=== PATIENT | male | born 1935 | race Caucasian/White ===

== ENCOUNTER 2019-08-07 17:48 | Observation (INO) | payer MEDICARE, SELFPAY ==
--- NOTE | ~2019-08-07 | CT_ITS ---
EXAMINATION: CT abdomen pelvis w con EXAM DATE: 08/07/2019 21:28 INDICATION: Feeding from Cordova catheter. TECHNIQUE: Spiral CT of the abdomen and pelvis was performed following intravenous injection of 100 m L Omnipaque 350. Axial, coronal and sagittal images were reviewed. The dose-length product (DLP) fo r this examination was 643.03 mGy-cm. The exposure was tailored according to patient size (auto mA e xposure control), and iterative reconstruction (ASIR) was used as additional dose reduction technique . Comparison is made to prior examination from 09/14/2018. FINDINGS: The liver, spleen, adrenal glands and pancreas are unremarkable. Gallbladder is unremarkab le. No biliary obstruction. There is a Cordova catheter within the bladder which is surrounded by hem atoma. There is severe bladder wall trabeculation, moderate diffuse bladder wall thickening and exten sive bladder diverticulosis. There is inflammation surrounding the bladder. There is moderate bilater al hydroureter and moderate right-sided hydronephrosis. There is mild prostatomegaly. There is no re troperitoneal or pelvic lymphadenopathy. There is moderate scattered arteriosclerotic disease. The appendix is not positively visualized. There is no pericecal inflammatory change to suggest appe ndicitis. Diffusely prominent gastric wall thickening along the body and cardia unchanged. Reported ly this was previously evaluated by endoscopy, demonstrating gastritis. There is moderate amount of colonic stool. No free intraperitoneal gas. The heart is normal in size. There are no pericardia l or pleural effusions. The lung bases are unremarkable. There are no osteoblastic or osteolytic le sions identified. IMPRESSION: 1. Large blood clot surrounding Cordova catheter balloon and tip. Moderate bilateral hydroureter, righ t hydronephrosis. 2. Extensive bladder diverticulosis, trabeculation, inflammation. 3. Diffusely thickened gastric body and cardia wall unchanged, could be chronic gastritis. 4. Moderate colonic stool. 5. Mild prostatomegaly. Reviewed, dictated and finalized at location A. IS COUNSELOR IMPRESSION: 1. Large blood clot surrounding Cordova catheter balloon and tip. Moderate bilat eral hydroureter, right hydronephrosis. 2. Extensive bladder diverticulosis, trabeculation, inflammation. 3. Diffusely thickened gastric body and cardia wall unchanged, could be chroni c gastritis. 4. Moderate colonic stool. 5. Mild prostatomegaly.
[2019-08-07 17:48] VITALS: BP 124/89; PULSE 89; RESP 20; TEMP 36.2; O2SAT 100
--- NOTE | 2019-08-07 18:06 | ED.MALEGU ---
HPI - Male Genitourinary General Chief complaint: Urogenital-Male Stated complaint: BLEEDING FROM BARAJAS Time Seen by Provider: 08/07/19 18:04 Source: patient and RN notes reviewed Mode of arrival: ambulatory Limitations: no limitations History of Present Illness HPI Narrative: Pt is a 84 y/o male with a Hx of BPH, who presents to the ED with c/o hematuria starting yesterday. He notes that he had a Barajas catheter placed roughly 3 weeks ago due to him retaining urine. Pt states that he noticed blood in the urine draining from the catheter yesterday. He denies any dysuria, fever, or chills. Pt states that he currently takes ASA 81 mg. MD Complaint: other (Hematuria) Onset (ago): day(s) (1) Context: indwelling catheter (Barajas catheter) Associated symptoms: Reports denies other symptoms Related Data Home Medications Medication Instructions Recorded Confirmed aspirin 81 mg tablet,delayed 81 mg PO DAILY 07/17/19 release atorvastatin 20 mg tablet 20 mg PO DAILY 07/17/19 calcium polycarbophil 625 mg tablet 1,250 mg PO DAILY 07/17/19 multivitamin 1 tablet PO DAILY 07/17/19 nystatin-triamcinolone 100,000 1 applic TOPICAL BID 07/17/19 unit/g-0.1 % topical cream tamsulosin 0.4 mg capsule 0.8 mg PO DAILY cap 07/17/19 07/17/19 Allergies Allergy/AdvReac Type Severity Reaction Status Date / Time Penicillins Allergy Unknown unknown Verified 08/07/19 17:57 tetanus and diphtheria Allergy Unknown Unknown Verified 08/07/19 17:57 toxoids Tetanus Vaccines and Toxoid Allergy Unknown Unknown Verified 08/07/19 17:57 Review of Systems Review of Systems: All systems reviewed & are unremarkable except as noted in HPI and below Constitutional: Constitutional: Denies chills and Denies fever(s) Genitourinary: Genitourinary: Reports hematuria and Denies dysuria PMFSH Past Medical History Medical History Back pain Benign essential hypertension Benign prostatic hyperplasia with urinary frequency BMI 30.0-30.9,adult Gastroesophageal reflux disease without esophagitis Hx of colonic polyp Inguinal hernia Mixed hyperlipidemia Primary osteoarthritis involving multiple joints Seasonal allergies Spinal stenosis Type 2 diabetes mellitus without complication, without long-term current use of insulin Surgical History Surgical History History of bilateral knee replacement Hx of inguinal hernia repair Hx of tonsillectomy Family History Family History (Updated 10/10/18 @ 14:17 by DOCTOR UNKNOWN) Father Malignant neoplasm of prostate, Onset Age: 89 Family history of malignant neoplasm Patient's father is , Onset Age: 89 Mother Family history of arthritis Family history of heart disease in male family member before age 55 Patient's mother is , Onset Age: 47 Sibling Family history of malignant neoplasm of urinary bladder Other Diabetes mellitus Family history of cardiovascular disease Hypertension Social History Social History Smoking status: Former smoker Smoking end date: 08/08/88 Alcohol intake: current Comments PCP is Dr. Iverson. Exam Narrative: Exam Narrative: APPEARANCE: No acute distress, nontoxic, resting in bed EYES: EOMI HEENT: Normocephalic, atraumatic, OMM RESPIRATORY: No respiratory distress Clear to auscultation bilaterally with no rhonchi wheezing or rales. CARDIOVASCULAR: Regular rate and rhythm without murmurs rubs or gallops. ABDOMINAL: Soft, nontender, nondistended, no rebound or guarding : Barajas catheter in place draining dark red blood as well as blood coming around Barajas MUSCULOSKELETAl: Moves all extremities. No clubbing, cyanosis or edema. NEURO: Awake and alert. Following commands, speech normal, no focal deficits SKIN:: Warm, dry. No rashes lesions or abrasions PSYCHIATRIC: Normal affect/mood,
[2019-08-07 18:59] LABS: Basophils Percent Auto 0.5 % (0.2-1.2); Eosinophils Absolute Auto 0.1 K/mm3 (0-0.3); Eosinophils Percent Auto 1.5 % (0-4.4); Hematocrit 35.2 % (42.0-52.0); Hemoglobin 11.4 g/dL (14.0-18.0); Immature Granulocyte Absolute 0.03 K/mm3 (0.00-0.031); Immature Granulocyte Percent A 0.4 % (0-0.5); Lymphocytes Absolute Auto 2.74 K/mm3 (0.9-3.2); Mean Corpuscular HGB Conc 32.4 g/dl (32-36); Mean Corpuscular Volume 83.4 fl (80-100); Mean Platelet Volume 9.8 fl (7.4-10.4); Monocytes Percent Auto 11.8 % (2.6-8.5); Neutrophils Absolute Auto 4.2 K/mm3 (1.3-6.7); Neutrophils Percent Auto 51.8 % (45.5-73.1); Platelet Count Result 268 k/mm3 (150-375); Red Blood Count 4.22 M/mm3 (4.6-6.20); Red Cell Distribution Width 13.4 % (11.5-14.5); White Blood Count 8.1 K/mm3 (4.5-10.0)
[2019-08-07 19:12] LABS: Partial Thromboplastin Time 33.4 SECONDS (22.3-36.8); Prothrombin Time 13.2 Seconds (11.1-14.7)
[2019-08-07 19:40] LABS: Add Urine Microscopic? YES; Appearance Urine Cloudy (Clear); Bilirubin Urine Negative (Negative); Blood Urine 3+ (Negative); Color Urine Yellow (Yellow); Glucose Urine UA Negative (Negative); Ketones Urine Trace mg/dL (Negative); Leukocyte Esterase Ur 1+ LEU/UL (Negative); Nitrate Urine Negative (Negative); Protein Urine 3+ mg/dL (Negative); RBC Urine >75 /hpf (0-2); Urobilinogen Urine Negative mg/dL (<2.0); WBC Urine 21-30 /hpf
[2019-08-07] MEDS: LIDOCAINE HCL 2% GEL UROJET 10 ML PKG MUCOUS MEM (19:40)
[2019-08-07 20:54] LABS: Alanine Aminotransferase 39 U/L (4-50); Alkaline Phosphatase 83 U/L (38-126); Aspartate Amino Transferase 31 U/L (17-59); Bilirubin,Total 0.4 mg/dL (0.2-1.3); Blood Urea Nitrogen 19 mg/dL (9-20); Calcium 9.1 mg/dL (8.4-10.2); Carbon Dioxide 23 mmol/L (22-30); Chloride 98 mmol/L (98-107); Estimated CRCL calculation 45 ml/min; Estimated Glomerular Filt Rate > 60; Glucose 119 mg/dL (75-110); Potassium 4.1 mmol/L (3.4-5.0); Sodium 134 mmol/L (137-145)
[2019-08-07 21:39] LABS: Hematocrit 33.9 % (42.0-52.0); Hemoglobin 10.9 g/dL (14.0-18.0)
--- NOTE | 2019-08-07 21:55 | PC.NURSE ---
Dr. Fox notified that 24 Kazakh 3-way catheter continues to clot off despite CBI running at full fluid speed. Multiple large clots irrigated out but catheter continues to clot and SAULO Johnson and myself are unable to get anymore clots or fluid out of catheter. Ruthie, charge nurse, and Dr. Fox informed that pt has had increasing pain in the bladder area when catheter clots off and that it happens quickly, so pt may not be appropriate for med-surg floor. Ruthie and Dr. Fox stated that it didn't matter and that the pt was going there anyway. 3-way of size 20 had also clotted off and been removed and replaced by 24 Kazakh catheter which continues to be clotted off.
--- NOTE | 2019-08-07 22:36 | WPDANESEPP ---
Anes - Eval Pre Procedure Procedure: Clot evacuation Date/Time: 08/07/19 22:36 Surgeon: Estella Pre Op Diagnosis: hematuria uti Patient Data Age: 84 Gender: M Height: 1.75 m Weight: 81.4 kg Last Vital Signs Temp 36.2 C L 08/07/19 17:48 Pulse 89 08/07/19 17:48 Resp 20 08/07/19 17:48 BP 124/89 08/07/19 17:48 Pulse Ox 100 08/07/19 17:48 Allergies Allergy/AdvReac Type Severity Reaction Status Date / Time Penicillins Allergy Unknown unknown Verified 08/07/19 17:57 tetanus and diphtheria Allergy Unknown Unknown Verified 08/07/19 17:57 toxoids Tetanus Vaccines and Toxoid Allergy Unknown Unknown Verified 08/07/19 17:57 Home Medications Medication Instructions Recorded Confirmed Type metformin 500 mg tablet 500 mg PO BID #180 tablet 07/09/19 Rx aspirin 81 mg tablet,delayed 81 mg PO DAILY 07/17/19 History release atorvastatin 20 mg tablet 20 mg PO DAILY 07/17/19 History calcium polycarbophil 625 mg tablet 1,250 mg PO DAILY 07/17/19 History finasteride 5 mg tablet 5 mg PO DAILY #90 tablet 07/17/19 07/17/19 Rx multivitamin 1 tablet PO DAILY 07/17/19 History nystatin-triamcinolone 100,000 1 applic TOPICAL BID 07/17/19 History unit/g-0.1 % topical cream omeprazole 40 mg capsule,delayed 40 mg PO BID #180 cap 07/17/19 07/17/19 Rx release tamsulosin 0.4 mg capsule 0.8 mg PO DAILY cap 07/17/19 07/17/19 History potassium chloride 20 mEq 20 meq PO BID #180 tablet 07/27/19 Rx tablet,extended release amlodipine 10 mg-valsartan 320 1 tablet PO DAILY #90 tablet 07/30/19 Rx mg-hydrochlorothiazide 25 mg tablet Laboratory Tests 08/07/19 08/07/19 08/07/19 18:46 18:46 18:52 WBC 8.1 K/mm3 K/mm3 (4.5-10.0) RBC 4.22 M/mm3 L M/mm3 (4.6-6.20) Hgb 11.4 g/dL L g/dL (14.0-18.0) Hct 35.2 % L % (42.0-52.0) MCV 83.4 fl fl (80-100) MCH 27.0 pg pg (26-34) MCHC 32.4 g/dl g/dl (32-36) RDW 13.4 % % (11.5-14.5) Plt Count 268 k/mm3 k/mm3 (150-375) MPV 9.8 fl fl (7.4-10.4) Immature Gran % (Auto) 0.4 % % (0-0.5) Neut % (Auto) 51.8 % % (45.5-73.1) Lymph % (Auto) 34.0 % % (18.3-44.2) [place] % (Auto) 11.8 % H % (2.6-8.5) Eos % (Auto) 1.5 % % (0-4.4) Baso % (Auto) 0.5 % % (0.2-1.2) Lymph # (Auto) 2.74 K/mm3 K/mm3 (0.9-3.2) [place] # (Auto) 1.0 K/mm3 H K/mm3 (0.1-0.6) Eos # (Auto) 0.1 K/mm3 K/mm3 (0-0.3) Baso # (Auto) 0.0 K/mm3 K/mm3 (0.0-0.1) Abs Immat Gran (auto) 0.03 K/mm3 K/mm3 (0.00-0.031) Absolute Neuts (auto) 4.2 K/mm3 K/mm3 (1.3-6.7) Absolute Nucleated RBC 0.0 K/mm3 K/mm3 (0.0-0.012) Nucleated RBC % 0.0 % % (0.0-0.2) PT 13.2 Seconds Seconds (11.1-14.7) INR 1.0 APTT 33.4 SECONDS SECONDS (22.3-36.8) Sodium Potassium Chloride Carbon Dioxide BUN Creatinine Estim Creat Clear Calc Estimated GFR Glucose Calcium Total Bilirubin AST ALT Alkaline Phosphatase Total Protein Albumin Urine Color Yellow (Yellow) Urine Appearance Cloudy H (Clear) Urine pH 7.0 (5.0-9.0) Ur Specific [place] 1.010 (1.001-1.035) Urine Protein 3+ mg/dL H mg/dL (Negative) Urine Glucose (UA) Negative mg/dL mg/dL (Negative) Urine Ketones Trace mg/dL mg/dL (Negative) Ur Blood (Man) 3+ H (Negative) Urine Nitrate Negative (Negative) Urine Bilirubin Negative (Negative) Urine Urobilinogen Negative mg/dL mg/dL (<2.0) Leukocyte Esterase Rfl 1+ JOESPH/UL H JOESPH/UL (Negative) Urine RBC >75
[2019-08-07] MEDS: LACTATED RINGERS 1,000 ML 30 ML IV CONT (23:00)
--- NOTE | 2019-08-07 23:20 | WPDANESEFPP ---
Anes - Eval Final PreProcedure Day of Procedure 08/07/19 23:20 Patient weight: overweight Heart: regular rate and rhythm Lungs: clear to auscultation and normal air movement Airway: Mallampati scale class II Neurological: alert and oriented Last oral intake: >/= 8 hours ASA classification: III Emergent: no Anesthetic plan: proceed Anesthesia type and monitoring: general LMA Informed Consent: The patient's anesthetic plan and its attendant risks and benefits were discussed with the patient/family/POA. Questions were solicited and answers provided to the satisfaction of the patient/family/POA.
--- NOTE | 2019-08-07 23:28 | WPDURCON ---
Assessment and Plan Assessment and plan (1) Hematuria: Code(s): R31.9 - Hematuria, unspecified Status: Acute Assessment and Plan: Plan to OR for cysto and clot evacuation. He has been in retention for last few weeks with large PVR. (2) UTI (urinary tract infection): Code(s): N39.0 - Urinary tract infection, site not specified Status: Acute Assessment and Plan: On Levaquin (3) Benign prostatic hyperplasia with urinary frequency: Code(s): N40.1 - Benign prostatic hyperplasia with lower urinary tract symptoms; R35.0 - Frequency of micturition Status: Acute Assessment and Plan: Large prostate and bilateral hydro. Cr Ok and likely reflux with bladder full of clots. Urology Consult Note HPI Date Seen: 08/08/19 Requesting Physician: Cristina Walls DO Primary Care Provider: Mik Little MD Consult Narrative Narrative: Torie Hebert is a 84 year old male Review of Systems Genitourinary: Genitourinary: Reports hematuria and Denies oliguria Comments: Retention with george--today with clots and CT with bilateral hydro and clot retention PMFSH Past Medical History Medical History Back pain Benign essential hypertension Benign prostatic hyperplasia with urinary frequency BMI 30.0-30.9,adult Gastroesophageal reflux disease without esophagitis Hx of colonic polyp Inguinal hernia Mixed hyperlipidemia Primary osteoarthritis involving multiple joints Seasonal allergies Spinal stenosis Type 2 diabetes mellitus without complication, without long-term current use of insulin Surgical History Surgical History History of bilateral knee replacement Hx of inguinal hernia repair Hx of tonsillectomy Family History Family History (Updated 10/10/18 @ 14:17 by DOCTOR UNKNOWN) Father Malignant neoplasm of prostate, Onset Age: 89 Family history of malignant neoplasm Patient's father is , Onset Age: 89 Mother Family history of arthritis Family history of heart disease in male family member before age 55 Patient's mother is , Onset Age: 47 Sibling Family history of malignant neoplasm of urinary bladder Other Diabetes mellitus Family history of cardiovascular disease Hypertension Social History Social History Smoking status: Former smoker Smoking end date: 08/08/88 Alcohol intake: current Meds Home Medications and Allergies Home Medications Medication Instructions Recorded Confirmed Type metformin 500 mg tablet 500 mg PO BID #180 tablet 07/09/19 Rx aspirin 81 mg tablet,delayed 81 mg PO DAILY 07/17/19 History release atorvastatin 20 mg tablet 20 mg PO DAILY 07/17/19 History calcium polycarbophil 625 mg tablet 1,250 mg PO DAILY 07/17/19 History finasteride 5 mg tablet 5 mg PO DAILY #90 tablet 07/17/19 07/17/19 Rx multivitamin 1 tablet PO DAILY 07/17/19 History nystatin-triamcinolone 100,000 1 applic TOPICAL BID 07/17/19 History unit/g-0.1 % topical cream omeprazole 40 mg capsule,delayed 40 mg PO BID #180 cap 07/17/19 07/17/19 Rx release tamsulosin 0.4 mg capsule 0.8 mg PO DAILY cap 07/17/19 07/17/19 History potassium chloride 20 mEq 20 meq PO BID #180 tablet 07/27/19 Rx tablet,extended release amlodipine 10 mg-valsartan 320 1 tablet PO DAILY #90 tablet 07/30/19 Rx mg-hydrochlorothiazide 25 mg tablet Allergies Allergy/AdvReac Type Severity Reaction Status Date / Time Penicillins Allergy Unknown unknown Verified 08/07/19 17:57 tetanus and diphtheria Allergy Unknown Unknown Verified 08/07/19 17:57 toxoids Tetanus Vaccines and Toxoid Allergy Unknown Unknown Verified 08/07/19 17:57 Vital Signs Vital Signs - 24 hr 08/07/19 17:48 Temperature 36.2 C L Pulse Rate 89 Respiratory Rate 20 Blood Pressure 124/89 P
[2019-08-08] VITALS (10 sets, daily range): BP systolic 103–134; BP diastolic 59–93; PULSE 68–89; RESP 12–20; TEMP 36.2–37; O2SAT 98–100
[2019-08-08 01:03] LABS: Glucose Point of Care 115 (65-105)
--- NOTE | 2019-08-08 02:51 | ADMGEN ---
This patient, Torie Hebert, was admitted to [facility] Surg Room 303-01. Patient/family oriented to hospital policies and general routines including ID bracelet, bed and alarms, visiting hours, pain management, procedures, bathroom and other care routines, personal items, smoking policy, room service/diet, and visiting hours. Valuables list has been completed. Information on how to activate the Rapid Response Team has been discussed. Patient/Family are encouraged to report perceived risks to care and to ask questions if they do not understand what they are told or what they should do.
[2019-08-08 06:31] LABS: Basophils Percent Auto 0.1 % (0.2-1.2); Hematocrit 33.4 % (42.0-52.0); Immature Granulocyte Absolute 0.03 K/mm3 (0.00-0.031); Immature Granulocyte Percent A 0.3 % (0-0.5); Lymphocytes Absolute Auto 1.42 K/mm3 (0.9-3.2); Lymphocytes Percent Auto 15.8 % (18.3-44.2); Mean Corpuscular HGB Conc 32.9 g/dl (32-36); Mean Corpuscular Hemoglobin 26.9 pg (26-34); Mean Corpuscular Volume 81.7 fl (80-100); Mean Platelet Volume 9.8 fl (7.4-10.4); Monocytes Absolute Auto 0.2 K/mm3 (0.1-0.6); Monocytes Percent Auto 2.3 % (2.6-8.5); Neutrophils Absolute Auto 7.3 K/mm3 (1.3-6.7); Neutrophils Percent Auto 81.5 % (45.5-73.1); Platelet Count Result 268 k/mm3 (150-375); Red Blood Count 4.09 M/mm3 (4.6-6.20); Red Cell Distribution Width 13.2 % (11.5-14.5)
[2019-08-08 06:56] LABS: Alanine Aminotransferase 34 U/L (4-50); Albumin Level 3.7 g/dL (3.5-5.1); Alkaline Phosphatase 66 U/L (38-126); Aspartate Amino Transferase 25 U/L (17-59); Bilirubin,Total 0.3 mg/dL (0.2-1.3); Blood Urea Nitrogen 16 mg/dL (9-20); Carbon Dioxide 23 mmol/L (22-30); Chloride 100 mmol/L (98-107); Estimated CRCL calculation 55 ml/min; Estimated Glomerular Filt Rate > 60; Glucose 156 mg/dL (75-110); Potassium 4.3 mmol/L (3.4-5.0); Sodium 134 mmol/L (137-145)
[2019-08-08 10:16] LABS: Hematocrit 31.9 % (42.0-52.0); Hemoglobin 10.3 g/dL (14.0-18.0)
--- NOTE | 2019-08-08 13:46 | PM.IMHP ---
H&P: HPI History of Present Illness Chief complaint: hematuria uti Narrative: Date of visit 08/08/2019. figueroa Hebert is a 84 year old male with hypertension and diabetes indwelling Cordova secondary to urinary retention with BPH admitted with larisa hematuria. It was painless. He had no fever no chills. CT revealed clots and evidence of some hydro and was taken to the OR for evacuation of clots and is now receiving bladder irrigation. No specific complaints. Cordova originally placed some 3 weeks ago for urinary retention Review of Systems Review of Systems: Narrative: Constitutional weight is steady, appetite good, no fever or chills Eyes no double vision or scotoma Mouth of pharyngitis laryngitis Lungs no wheezing or cough CV no chest pain or palpitation GI no melena hematochezia has history of colon polyps as per present illness Muscle skeletal no particular joint discomfort Integument no skin breakdown rashes Neuro psych history of peripheral neuropathy The remainder review of systems if not documented here were evaluated and found to be negative PMFSH Past Medical History Medical History Back pain Benign essential hypertension Benign prostatic hyperplasia with urinary frequency BMI 30.0-30.9,adult Gastroesophageal reflux disease without esophagitis Hx of colonic polyp Inguinal hernia Mixed hyperlipidemia Primary osteoarthritis involving multiple joints Seasonal allergies Spinal stenosis Type 2 diabetes mellitus without complication, without long-term current use of insulin Surgical History Surgical History History of bilateral knee replacement Hx of inguinal hernia repair Hx of tonsillectomy Social History Social History Smoking status: Former smoker Tobacco type: cigarettes Smoking end date: 08/12/84 Alcohol intake: never Substance use: never Gender identity (if verbalized by the patient): Male Spiritual care concerns: No Agree to blood products: Yes Meds Home Medications and Allergies Home Medications Medication Instructions Recorded Confirmed Type aspirin 81 mg tablet,delayed 81 mg PO DAILY 07/17/19 08/08/19 History release atorvastatin 20 mg tablet 20 mg PO DAILY 07/17/19 08/08/19 History calcium polycarbophil 625 mg tablet 1,250 mg PO DAILY 07/17/19 08/08/19 History multivitamin 1 tablet PO DAILY 07/17/19 08/08/19 History omeprazole 40 mg capsule,delayed 40 mg PO BID #180 cap 07/17/19 08/08/19 Rx release tamsulosin 0.4 mg capsule 0.4 mg PO BID cap 07/17/19 08/08/19 History amlodipine 10 mg-valsartan 320 1 tablet PO DAILY #90 tablet 07/30/19 08/08/19 Rx mg-hydrochlorothiazide 25 mg tablet finasteride [Proscar] 5 mg PO DAILY 08/08/19 08/08/19 History metformin [Glucophage] 500 mg PO BID 08/08/19 08/08/19 History potassium chloride [K-Tab] 20 meq PO BID 08/08/19 08/08/19 History Allergies Allergy/AdvReac Type Severity Reaction Status Date / Time Penicillins Allergy Unknown unknown Verified 08/07/19 17:57 tetanus and diphtheria Allergy Unknown Unknown Verified 08/07/19 17:57 toxoids Tetanus Vaccines and Toxoid Allergy Unknown Unknown Verified 08/07/19 17:57 Vital Signs Vital Signs - 24 hr 08/07/19 17:48 08/08/19 00:06 08/08/19 00:20 Temperature 36.2 C L 36.2 C L Pulse Rate 89 89 80 Respiratory Rate 20 14 12 Blood Pressure 124/89 107/93 H 117/78 Pulse Oximetry 100 100 100 08/08/19 00:35 08/08/19 00:50 08/08/19 01:06 Temperature Pulse Rate 78 68 68 Respiratory Rate 12 12 15 Blood Pressure 123/82 123/82 124/78 Pulse Oximetry 100 100 99 08/08/19 01:21 08/08/19 01:55 08/08/19 06:00 Temperature 36.3 C L 36.4 C L Pulse Rate 70 79 86 Respiratory Rate 14 16 16 Blood Pressure 124/86 134/86 115/79 Pulse Oximetry 100 100 98 Exam Narrative: Exam Narrative: Blood pressure 116/ 80 puls
[2019-08-08] MEDS: AMLODIPINE BESYLATE 5 MG TABLET 10 MG PO (14:34)
--- NOTE | 2019-08-08 14:46 | WPDUROPN2 ---
Progress Note: A&P Assessment and Plan (1) UTI (urinary tract infection): Code(s): N39.0 - Urinary tract infection, site not specified Status: Acute Assessment and Plan: Treating with antibiotics (2) Benign prostatic hyperplasia with urinary obstruction: Code(s): N40.1 - Benign prostatic hyperplasia with lower urinary tract symptoms; N13.8 - Other obstructive and reflux uropathy Status: Acute Assessment and Plan: TURP of median lobe--will discuss withe Dr. Askew (3) Hematuria: Code(s): R31.9 - Hematuria, unspecified Status: Acute Assessment and Plan: CBI noted and will wean. Subjective Subjective Date/Time Seen: 08/08/19 14:46 SP TURP of median lobe. Doing OK with george and weaning CBI Review of Systems Gastrointestinal: Gastrointestinal: Denies abdominal pain and Denies bloating Genitourinary: Genitourinary: Reports hematuria Comments: clearing urine with CBI Exam : General: Yes bladder normal to palpation, Yes CVA tenderness and Yes no CVA tenderness Male General Exam: Yes normal external exam Penis: Yes normal penis Scrotum: scrotum normal Urinary Catheter: Urinary Catheter: urine pink Back/Spine/Pelvis: Back: no CVA tenderness Objective Data Vital Signs Vital Signs: Vital Signs - 24 hr 08/07/19 17:48 08/08/19 00:06 08/08/19 00:20 Temperature 36.2 C L 36.2 C L Pulse Rate 89 89 80 Respiratory Rate 20 14 12 Blood Pressure 124/89 107/93 H 117/78 Pulse Oximetry 100 100 100 08/08/19 00:35 08/08/19 00:50 08/08/19 01:06 Temperature Pulse Rate 78 68 68 Respiratory Rate 12 12 15 Blood Pressure 123/82 123/82 124/78 Pulse Oximetry 100 100 99 08/08/19 01:21 08/08/19 01:55 08/08/19 06:00 Temperature 36.3 C L 36.4 C L Pulse Rate 70 79 86 Respiratory Rate 14 16 16 Blood Pressure 124/86 134/86 115/79 Pulse Oximetry 100 100 98 Intake/Output Intake/Output: Intake & Output 08/05/19 08/06/19 08/07/19 08/08/19 23:59 23:59 23:59 23:59 Intake Total 100 980 Output Total 650 Balance 100 330 Meds/Results Medications: Active Medications Generic Name Dose Route Start Last Admin Trade Name Freq PRN Reason Stop Dose Admin Amlodipine Besylate 10 mg 08/08/19 13:05 08/08/19 14:34 Norvasc PO 10 mg QAM [facility] Administration Atorvastatin Calcium 20 mg 08/09/19 09:00 Lipitor PO DAILY [facility] Calcium Polycarbophil 1,250 mg 08/09/19 09:00 Fiber Con PO DAILY [facility] Dextrose 12.5 gm 08/08/19 13:43 Dextrose 50% Syringe IV PUSH PRN PRN Hypoglycemia Protocol Finasteride 5 mg 08/09/19 09:00 Proscar PO DAILY [facility] Glucagon 1 mg 08/08/19 13:43 Glucagon For Inj IM PRN PRN Hypoglycemia Protocol Glucose 15 gm 08/08/19 13:43 Glutose 15 PO PRN PRN Hypoglycemia Protocol Levofloxacin/Dextrose 750 mg in 150 mls @ 100 mls/hr 08/09/19 21:00 Levaquin 750 Mg/D5w 150 Ml IVPB Q48H GLORIA Dextrose 1,000 mls @ 100 mls/hr 08/08/19 13:43 Dextrose 5% 1,000 Ml IVPB PRN PRN Hypoglycemia Protocol Insulin Aspart 2 - 5 units 08/08/19 17:00 Novolog SUB-Q TIDWM [facility] Protocol Multivitamins Therapeutic 1 tablet 08/09/19 09:00 Multivitamins Therapeutic(*Bkc PO DAILY [facility] Pantoprazole Sodium 40 mg 08/08/19 16:30 Protonix PO BIDAC [facility] Tamsulosin HCl 0.4 mg 08/08/19 17:00 Flomax PO BID [facility] Valsartan 320 mg 08/09/19 09:00 Diovan PO DAILY [facility] Radiology Results: ITS Impressions Abdomen/Pelvis CT 08/07/19 21:33 IMPRESSION: 1. Large blood clot surrounding George catheter balloon and tip. Moderate bilateral hydroureter, right hydronephrosis. 2. Extensive bladder diverticulosis, trabeculation, inflammation. 3. Diffusely thickened gastric body and cardia wall unchanged, could be chronic gastritis. 4. Moderate colonic stool. 5. Mild prostatomegaly.
[2019-08-08] MEDS: PANTOPRAZOLE 40 MG TABLET PO (17:14)
[2019-08-08] MEDS: TAMSULOSIN HCL 0.4 MG CAPSULE PO (17:14)
[2019-08-08 17:19] LABS: Glucose Point of Care 118 (65-105)
[2019-08-08 21:00] LABS: Glucose Point of Care 121 (65-105)
[2019-08-09] MEDS: PANTOPRAZOLE 40 MG TABLET PO (05:46)
[2019-08-09 06:00] VITALS: BP 121/71; PULSE 67; RESP 16; TEMP 36.4; O2SAT 98
--- NOTE | 2019-08-09 06:19 | OP_ITS ---
DATE OF PROCEDURE: 08/08/2019 PREOPERATIVE DIAGNOSES: 1. Gross hematuria. 2. Clot retention. 3. Benign prostatic hypertrophy. POSTOPERATIVE DIAGNOSES: 1. Gross hematuria. 2. Clot retention. 3. Benign prostatic hypertrophy. OPERATION: 1. Cystourethroscopy with clot evacuation. 2. Transurethral resection of the median lobe of the prostate. COMPLICATIONS: None. ANESTHESIA: General anesthetic. HISTORY: This is a pleasant patient with a history of urinary retention, high postvoid residual. He is managed by Dr. Askew. He had a Cordova catheter in. He presented to the ER today in clot retention. CT scan demonstrate hydronephrosis with a large amount of clot backing up into the bladder. DESCRIPTION OF PROCEDURE: Urgently, he was taken to the operating room. He consented for the procedure. Cystourethroscopy was completed after general anesthetic had been achieved. Examination of urethra was unremarkable up to the prostate. He has a large prostate with bilateral coaptation of the lobes and he had a large median lobe, which was oozing blood. Examination of the bladder revealed a huge clot within the bladder. This was evacuated using size 27 resectoscope sheath. I then used the 27 loop to fulgurate the bleeding areas of the prostate and just within the bladder, the bilateral ureteral orifices were visualized. It appears that he had some reflux of the ureter and urine was seen effluxing out of the ureter. The bladder was significantly trabeculated. I then resected the median lobe of the prostate as this continued to ooze despite fulguration. A 24-Korean hematuria catheter was placed to dependent drainage and 50 cc were left in the bladder. The patient tolerated the procedure well and was transferred to recovery with continuous bladder irrigation. D I MT: Cesar GARCÍA
[2019-08-09 06:36] LABS: Basophils Percent Auto 0.5 % (0.2-1.2); Eosinophils Absolute Auto 0.1 K/mm3 (0-0.3); Hematocrit 30.9 % (42.0-52.0); Hemoglobin 10.1 g/dL (14.0-18.0); Immature Granulocyte Absolute 0.03 K/mm3 (0.00-0.031); Immature Granulocyte Percent A 0.4 % (0-0.5); Lymphocytes Absolute Auto 2.24 K/mm3 (0.9-3.2); Lymphocytes Percent Auto 29.4 % (18.3-44.2); Mean Corpuscular HGB Conc 32.7 g/dl (32-36); Mean Corpuscular Hemoglobin 27.2 pg (26-34); Mean Corpuscular Volume 83.3 fl (80-100); Mean Platelet Volume 9.8 fl (7.4-10.4); Monocytes Absolute Auto 0.9 K/mm3 (0.1-0.6); Monocytes Percent Auto 11.8 % (2.6-8.5); Neutrophils Absolute Auto 4.3 K/mm3 (1.3-6.7); Neutrophils Percent Auto 56.9 % (45.5-73.1); Platelet Count Result 258 k/mm3 (150-375); Red Blood Count 3.71 M/mm3 (4.6-6.20); Red Cell Distribution Width 13.6 % (11.5-14.5); White Blood Count 7.6 K/mm3 (4.5-10.0)
[2019-08-09 06:58] LABS: Blood Urea Nitrogen 17 mg/dL (9-20); Calcium 9.1 mg/dL (8.4-10.2); Carbon Dioxide 25 mmol/L (22-30); Chloride 98 mmol/L (98-107); Estimated CRCL calculation 49 ml/min; Estimated Glomerular Filt Rate > 60; Glucose 122 mg/dL (75-110); Potassium 3.5 mmol/L (3.4-5.0); Sodium 134 mmol/L (137-145)
--- NOTE | 2019-08-09 07:00 | WPDUROPN2 ---
Progress Note: A&P Assessment and Plan (1) Benign prostatic hyperplasia with urinary frequency: Code(s): N40.1 - Benign prostatic hyperplasia with lower urinary tract symptoms; R35.0 - Frequency of micturition Status: Acute (2) Hematuria: Code(s): R31.9 - Hematuria, unspecified Status: Acute Assessment and Plan: Doing well s/p clot evacuation/resection median lobe. Voiding trial today. Home this afternoon +/- catheter, if otherwise medically fit. Subjective Subjective Date/Time Seen: 08/09/19 07:00 Urine clear / no complaints Review of Systems Cardiovascular: Cardiovascular: Denies chest pain, Denies lightheadedness, Denies palpitations and Denies dyspnea Respiratory: Respiratory: Denies dyspnea Gastrointestinal: Gastrointestinal: Denies diarrhea, Denies nausea and Denies vomiting Genitourinary: Genitourinary: Denies hematuria and Denies dysuria Endocrine: Endocrine: Denies palpitations Exam Const: General: no acute distress Resp: Effort & Inspection: normal respiratory effort GI: Inspection: non-distended GI Palp: No abdominal tenderness and No guarding Auscultation: normal bowel sounds Objective Data Vital Signs Vital Signs: Vital Signs - 24 hr 08/08/19 14:00 08/08/19 22:00 08/09/19 06:00 Temperature 36.7 C 37.0 C 36.4 C L Pulse Rate 85 77 67 Respiratory Rate 20 18 16 Blood Pressure 112/65 103/59 L 121/71 Pulse Oximetry 100 99 98 Intake/Output Intake/Output: Intake & Output 08/06/19 08/07/19 08/08/19 08/09/19 23:59 23:59 23:59 23:59 Intake Total 100 1720 600 Output Total 1950 1250 Balance 100 -230 -650 Meds/Results Medications: Active Medications Generic Name Dose Route Start Last Admin Trade Name Freq PRN Reason Stop Dose Admin Amlodipine Besylate 10 mg 08/08/19 13:05 08/08/19 14:34 Norvasc PO 10 mg QAM GLORIA Administration Atorvastatin Calcium 20 mg 08/09/19 09:00 Lipitor PO DAILY GLORIA Calcium Polycarbophil 1,250 mg 08/09/19 09:00 Fiber Con PO DAILY GLORIA Dextrose 12.5 gm 08/08/19 13:43 Dextrose 50% Syringe IV PUSH PRN PRN Hypoglycemia Protocol Finasteride 5 mg 08/09/19 09:00 Proscar PO DAILY GLORIA Glucagon 1 mg 08/08/19 13:43 Glucagon For Inj IM PRN PRN Hypoglycemia Protocol Glucose 15 gm 08/08/19 13:43 Glutose 15 PO PRN PRN Hypoglycemia Protocol Levofloxacin/Dextrose 750 mg in 150 mls @ 100 mls/hr 08/09/19 21:00 Levaquin 750 Mg/D5w 150 Ml IVPB Q48H GLORIA Dextrose 1,000 mls @ 100 mls/hr 08/08/19 13:43 Dextrose 5% 1,000 Ml IVPB PRN PRN Hypoglycemia Protocol Insulin Aspart 2 - 5 units 08/08/19 17:00 08/08/19 17:14 Novolog SUB-Q Not Given TIDWM [facility] Protocol Multivitamins Therapeutic 1 tablet 08/09/19 09:00 Multivitamins Therapeutic(*Bkc PO DAILY GLORIA Pantoprazole Sodium 40 mg 08/08/19 16:30 08/09/19 05:46 Protonix PO 40 mg BIDAC GLORIA Administration Tamsulosin HCl 0.4 mg 08/08/19 17:00 08/08/19 17:14 Flomax PO 0.4 mg BID GLORIA Administration Valsartan 320 mg 08/09/19 09:00 Diovan PO DAILY [facility] Radiology Results: ITS Impressions Abdomen/Pelvis CT 08/07/19 21:33 IMPRESSION: 1. Large blood clot surrounding Cordova catheter balloon and tip. Moderate bilateral hydroureter, right hydronephrosis. 2. Extensive bladder diverticulosis, trabeculation, inflammation. 3. Diffusely thickened gastric body and cardia wall unchanged, could be chronic gastritis. 4. Moderate colonic stool. 5. Mild prostatomegaly. Labs Labs: Laboratory Results - last 24 hr 08/08/19 08/08/19 08/08/19 10:09 17:13 20:30 WBC RBC Hgb 10.3 L Hct 31.9 L MCV MCH MCHC RDW Plt Count MPV Immature Gran % (Auto) Neut % (Auto) Lymph % (Auto) Martin % (Auto) Eos % (Auto) Baso % (Auto) Lymph #
[2019-08-09 07:26] LABS: Glucose Point of Care 123 (65-105)
[2019-08-09] MEDS: POTASSIUM CHLORIDE 20 MEQ TABLET 40 MEQ PO (09:04)
[2019-08-09] MEDS: FINASTERIDE 5 MG TABLET PO (09:04)
[2019-08-09] MEDS: MULTIVITAMINS THERAPEUTIC TAB (*BKC) 1 TABLET PO (09:04)
[2019-08-09] MEDS: CALCIUM POLYCARBOPHIL 625 MG TABLET 1250 MG PO (09:04)
[2019-08-09] MEDS: VALSARTAN 160 MG TABLET 320 MG PO (09:04)
[2019-08-09] MEDS: TAMSULOSIN HCL 0.4 MG CAPSULE PO (09:04)
[2019-08-09] MEDS: ATORVASTATIN 20 MG TABLET PO (09:05)
[2019-08-09] MEDS: AMLODIPINE BESYLATE 5 MG TABLET 10 MG PO (09:05)
[2019-08-09 12:18] LABS: Glucose Point of Care 105 (65-105)
[2019-08-09 14:00] VITALS: BP 104/66; PULSE 64; RESP 16; TEMP 36.6; O2SAT 100
--- NOTE | 2019-08-12 23:37 | DS_ITS ---
DATE OF DISCHARGE: 08/09/2019 DIAGNOSES: 1. Benign prostatic hypertrophy. 2. Gross hematuria. 3. Hypertension. 4. Diabetes mellitus. HISTORY OF PRESENT ILLNESS: The patient is an 84-year-old hypertensive, type 2 diabetic who nearly voided in the past 3 weeks, admitted for larisa hematuria. It was painless. No fever. No chills. CT revealed clots and evidence of some hydro, was taken the OR for evacuation of clots and resection of medial lobe of the prostate. His complete history and physical is enumerated in his admitting history and physical. On admission, he is afebrile, blood pressure 124/89. White count was 8.1, hemoglobin 11.4, hematocrit 35, and platelets 268. Sodium 134, potassium 4.1, chloride 98, total CO2 of 23, BUN 19, and creatinine 1 1. LFTs normal. Urinalysis, protein. HOSPITAL COURSE: 1. Benign prostatic hypertrophy. The patient had a cysto at the time of admission, clearing off clots and resection of medial lobe. He was placed on bladder irrigation and urine cleared. Morning of discharge, the Cordova was removed. He was able to void small amounts and sent home by Urology to follow up with them in 3 to 4 weeks. He is to contact Dr. Heard if he has further difficulty with urination. 2. Hematuria as above. He had the cystoscopy, evacuation of clots, and medial lobe resection of the prostate. He had a bladder irrigation. Urine was cultured and was pending at the time of discharge. He was empirically started on Cipro 500 q.12. 3. Hypertension. Pressure remained well controlled while here. He will continue on his triple therapy of amlodipine, valsartan, and hydrochlorothiazide. At time of discharge, blood pressure 110/66. 4. Diabetes mellitus. Blood sugar is usually low, 100s. He will continue on his metformin 500 b.i.d. PROCEDURES DURING THIS HOSPITALIZATION: Included the CT of the abdomen and pelvis, cystoscopy with bladder irrigation, multiple clots and resection of medial lobe of the prostate. CONSULTANTS: 1. William Soria M.D., Urology. 2. David Heard M.D., Urology. CONDITION ON DISCHARGE: He was up and about. He is voiding in small amounts. He is afebrile. Blood pressure 110/66. He was discharged home. ACTIVITY: As tolerated. DIET: Low-sodium diabetic diet. FOLLOWUP: 1. Follow up with Dr. Heard in 3 to 4 weeks. 2. Follow up with his primary care as previously scheduled. DISCHARGE MEDICATIONS: His list of discharge medications includes: 1. Ciprofloxacin 500 b.i.d. 2. Hydrocodone 5/325 one to two q.6 p.r.n. 3. Amlodipine, valsartan, hydrochlorothiazide combination medicine daily. 4. Atorvastatin 20 daily. 5. FiberCon daily. 6. Finasteride 5 daily. 7. Metformin 500 b.i.d. 8. Multivitamin daily. 9. Omeprazole 40 b.i.d. 10. Potassium chloride 20 daily. 11. Tamsulosin 0.4 b.i.d. This entire process took 35 minutes to complete. Susana I MT: Cesar
== END 2019-08-09 16:05 | disposition home or self-care (01) ==
LOC: ANHED 20:03 → ANH3MEDSUR 21:49
PROVIDERS: Urology; Admitting Provider Internal Medicine; Emergency Provider Emergency Medicine; PCP Internal Medicine; Visit Provider Internal Medicine
PROC: 0TCB8ZZ Extirpation of Matter from Bladder, Via Natural or Artificial Opening Endoscopic (ICD-10-PCS; CPT 52001; principal; 2019-08-07 23:30)
DX: N40.1 Benign prostatic hyperplasia with lower urinary tract symptoms (principal); R31.0 Gross hematuria; R33.8 Other retention of urine; R35.0 Frequency of micturition; N41.0 Acute prostatitis; N41.1 Chronic prostatitis; N39.0 Urinary tract infection, site not specified; N13.8 Other obstructive and reflux uropathy; N32.89 Other specified disorders of bladder; N13.39 Other hydronephrosis; I10 Essential (primary) hypertension; E11.9 Type 2 diabetes mellitus without complications; K21.9 Gastro-esophageal reflux disease without esophagitis; E78.2 Mixed hyperlipidemia; M89.49 Other hypertrophic osteoarthropathy, multiple sites; Z79.82 Long term (current) use of aspirin; Z79.899 Other long term (current) drug therapy; Z86.010 Personal history of colon polyps; Z87.891 Personal history of nicotine dependence; Z88.0 Allergy status to penicillin; Z88.7 Allergy status to serum and vaccine; Z96.653 Presence of artificial knee joint, bilateral
CPT/HCPCS: 52601; 36415; 74177; 80048; 80053; 81001; 85014; 85018; 85025; 85610; 85730; 86850; 86900; 86901; 87086; 88305; 96361; 96374; 96375; 99285; A9270; C1758; G0378; J0131; J1100; J1956; J2370; J2405; J2704; J3010; J7120; Q9967

== ENCOUNTER 2020-03-25 14:55 | Outpatient (CLI) | payer MEDICARE, SELFPAY ==
--- NOTE | ~2020-03-25 | XR_ITS ---
EXAMINATION: XR shoulder LT min 2V EXAM DATE: 03/25/2020 15:24 INDICATION: No known recent injury provided at this time. Pain of the left shoulder. TECHNIQUE: The following left shoulder projections obtained: frontal projection with internal rotatio n, frontal projection with external rotation, Grashey, and scapular Y view (4+ views). There is no p rior study for comparison. FINDINGS: No evidence of left shoulder rotator cuff calcific tendinosis. Some calcified left lung granulomas. There is mild glenohumeral, moderate acromioclavicular acromioclavicular joint primary o steoarthritis. There are no acute fractures or dislocations identified. There is no subcutaneous gas . The soft tissue is unremarkable. There are no radiopaque foreign bodies. 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 Reviewed, dictated and finalized at location B.
--- NOTE | ~2020-03-25 | XR_ITS ---
EXAMINATION: XR hand LT min 3V EXAM DATE: 03/25/2020 15:23 INDICATION: No known recent injury provided at this time. Pain of the left hand. TECHNIQUE: Left hand frontal, lateral and oblique projections obtained and reviewed. There is no kendell or study for comparison. FINDINGS: Left metacarpal bones are unremarkable. There is polyarticular primary osteoarthritis as follows: Severe 1st CMC, moderate 2nd MCP. Otherwise mild to moderate polyarticular osteoarthritis. C hondrocalcinosis can be an age related finding, but with other possible etiologies including CPPD, pa rathyroid disorders, hemochromatosis, gout. There are no bony erosions identified. There are no acute fractures identified. IMPRESSION: 1. 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 2. Chondrocalcinosis. Reviewed, dictated and finalized at location B.
== END 2020-03-25 14:56 | disposition home or self-care (01) ==
PROVIDERS: PCP Internal Medicine; Visit Provider Internal Medicine
DX: M19.042 Primary osteoarthritis, left hand (principal); M19.012 Primary osteoarthritis, left shoulder
CPT/HCPCS: 73030; 73130

== ENCOUNTER 2020-12-09 15:25 | Emergency (ER) | payer MEDICARE, SELFPAY ==
[2020-12-09] VITALS (18 sets, daily range): BP systolic 121–140; BP diastolic 75–86; PULSE 61–93; RESP 13–24; TEMP 36.8; O2SAT 98–100
--- NOTE | ~2020-12-09 | CT_ITS ---
EXAMINATION: CT abdomen pelvis w con DATE: 12/09/2020 17:02 INDICATION: Lower abdominal pain and diarrhea TECHNIQUE: Computed tomography (CT) of the abdomen and pelvis was performed with 100 mL Omnipaque-350 intravenous contrast. Automated exposure control and iterative reconstruction technique were employe d. The dose-length product was 883.48 mGy-cm. COMPARISON: 08/07/2019 FINDINGS: Mild calcified pleural plaques at the bilateral lung bases suggesting prior asbestos exposure. Lung b ases are clear. Heart size is normal. Atherosclerotic coronary artery calcific lesion. Aortic valve a nd mitral annular calcifications. No pericardial or pleural effusion. Prominent rugal fold thickening in the proximal to mid stomach suggesting hypertrophic gastritis. Small intramural lipoma at the pyl orus. Hepatic and splenic calcifications consistent with old granulomatous disease. Gallbladder, panc reas and bilateral adrenal glands are normal. 2.2 cm exophytic cyst at the lower pole of the left kid ara. Mild left and moderate right hydroureteronephrosis extending to the bladder which also is disten ded with multiple bladder diverticula consistent with chronic outlet obstruction. Prostatomegaly. The re is mild colonic diverticulosis with a sigmoid predominance. There is no adjacent inflammatory ronald nge to suggest diverticulitis. The appendix is not visualized. No pericecal inflammatory change to santana ggest acute appendicitis. No free intraperitoneal gas or fluid. No pathologically enlarged abdominal or pelvic lymphadenopathy. There is calcified atherosclerosis of the aorta and many of the other juanita joe. Severe lumbar spondylosis. IMPRESSION: 1. Findings of chronic bladder outlet obstruction with numerous diverticula at the distended bladder and moderate left-sided and mild right-sided hydroureteronephrosis. 2. Prominent increased prominence of the rugal folds in the stomach consistent with hypertrophic jason ritis. 3. Prostatomegaly. Reviewed, dictated and finalized at location A. IMPRESSION: 1. Findings of chronic bladder outlet obstruction with numerous diverticula at the distended bladder and moderate left-sided and mild right-sided hydrouretero nephrosis. 2. Prominent increased prominence of the rugal folds in the stomach consistent with hypertrophic gastritis. 3. Prostatomegaly.
[2020-12-09 15:53] LABS: Basophils Absolute Auto 0.1 K/mm3 (0.0-0.1); Basophils Percent Auto 0.6 % (0.2-1.2); Eosinophils Absolute Auto 0.3 K/mm3 (0-0.3); Hematocrit 39.5 % (42.0-52.0); Hemoglobin 12.8 g/dL (14.0-18.0); Immature Granulocyte Absolute 0.05 K/mm3 (0.00-0.031); Immature Granulocyte Percent A 0.6 % (0-0.5); Lymphocytes Absolute Auto 3.23 K/mm3 (0.9-3.2); Lymphocytes Percent Auto 36.3 % (18.3-44.2); Mean Corpuscular HGB Conc 32.4 g/dl (32-36); Mean Corpuscular Hemoglobin 27.1 pg (26-34); Mean Corpuscular Volume 83.5 fl (80-100); Mean Platelet Volume 10.3 fl (7.4-10.4); Monocytes Absolute Auto 0.7 K/mm3 (0.1-0.6); Monocytes Percent Auto 7.3 % (2.6-8.5); Neutrophils Absolute Auto 4.7 K/mm3 (1.3-6.7); Neutrophils Percent Auto 52.2 % (45.5-73.1); Platelet Count Result 225 k/mm3 (150-375); Red Blood Count 4.73 M/mm3 (4.6-6.20); Red Cell Distribution Width 12.9 % (11.5-14.5); White Blood Count 8.9 K/mm3 (4.5-10.0)
--- NOTE | 2020-12-09 16:05 | ED.ABDPAIN ---
HPI - Abdominal Pain General Chief Complaint: Nausea/Vomiting/Diarrhea Stated Complaint: diarrhea Time Seen by Provider: 12/09/20 15:25 Source: patient Mode of arrival: ambulatory Limitations: no limitations History of Present Illness HPI narrative: This is an 85 year old male who presents for evaluation of left lower abdominal pain and loose stools. He developed loose stools on Tuesday. He states he has noticed his stools are more loose than normal. He reports a large loose BM at 4 am and at 10 am he passed mostly water. He has left lower abdominal pain prior to his urge to have a bowel movement. He had a small episode of dizziness but that has resolved. HE denies nausea, vomiting or fever. He was told to come to ER by primary care provider for possible Diverticulitis. He has history of hemorrhoids and diverticulosis per his colonoscopy by DR. Montiel. Related Data Home Medications Medication Instructions Recorded Confirmed aspirin 81 mg tablet,delayed 81 mg PO DAILY 07/17/19 07/10/20 release calcium polycarbophil 625 mg tablet 1,250 mg PO DAILY 07/17/19 07/10/20 multivitamin 1 tablet PO DAILY 07/17/19 07/10/20 tamsulosin 0.4 mg capsule 0.4 mg PO BID cap 07/17/19 07/10/20 finasteride [Proscar] 5 mg PO DAILY 08/08/19 07/10/20 Allergies Allergy/AdvReac Type Severity Reaction Status Date / Time Penicillins Allergy Unknown unknown Verified 12/09/20 15:36 tetanus and diphtheria Allergy Unknown Unknown Verified 12/09/20 15:36 toxoids Tetanus Vaccines and Toxoid Allergy Unknown Unknown Verified 12/09/20 15:36 Review of Systems Review of Systems: All systems reviewed & are unremarkable except as noted in HPI and below PMFSH Past Medical History Medical History Arthritis Back pain Benign essential hypertension Benign prostatic hyperplasia with urinary frequency Benign prostatic hyperplasia with urinary obstruction BMI 30.0-30.9,adult CMC DJD(carpometacarpal degenerative joint disease), 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 Difficulty standing DVT prophylaxis Dyslipidemia Foot drop Gastroesophageal reflux disease without esophagitis GERD (gastroesophageal reflux disease) Hand pain Hearing loss Hematuria Hx of colonic polyp Hypertension Inguinal hernia Mixed hyperlipidemia Primary osteoarthritis involving multiple joints Right elbow pain Seasonal allergies Shoulder pain Sleep disorder Spinal stenosis Trigger point with back pain Type 2 diabetes mellitus without complication, without long-term current use of insulin Urinary frequency UTI (urinary tract infection) Surgical History Surgical History History of bilateral knee replacement Hx of inguinal hernia repair Hx of tonsillectomy Family History Family History Father Malignant neoplasm of prostate, Onset Age: 89 Family history of malignant neoplasm Patient's father is , Onset Age: 89 Mother Family history of arthritis Family history of heart disease in male family member before age 55 Patient's mother is , Onset Age: 47 Sibling Family history of malignant neoplasm of urinary bladder Other Diabetes mellitus Family history of cardiovascular disease Hypertension Social History Social History Smoking status: Former smoker Tobacco type: cigarettes Smoking end date: 08/12/84 Alcohol intake: never Substance use: never Gender identity (if verbalized by the patient): Male Spiritual care concerns: No Agree to blood products: Yes Exam Const: General: no acute distress and alert Orientation/consciousness: patient oriented x3 Eyes: EOM: EOMs intact bilaterally Resp: Effort & Inspection: normal respiratory effort and no retractions Auscultat
[2020-12-09 16:07] LABS: Alanine Aminotransferase 21 U/L (4-50); Albumin Level 4.2 g/dL (3.5-5.1); Alkaline Phosphatase 72 U/L (38-126); Anion Gap 11 mmol/L (8-16); Aspartate Amino Transferase 22 U/L (17-59); Bilirubin,Total 0.2 mg/dL (0.2-1.3); Blood Urea Nitrogen 21 mg/dL (9-20); Calcium 9.7 mg/dL (8.4-10.2); Carbon Dioxide 21 mmol/L (22-30); Chloride 107 mmol/L (98-107); Estimated CRCL calculation 55 ml/min; Estimated Glomerular Filt Rate > 60; Glucose 137 mg/dL (75-110); Lipase 174 U/L (23-300); Sodium 139 mmol/L (137-145)
[2020-12-09 17:24] LABS: Add Urine Microscopic? YES; Appearance Urine Cloudy (Clear); Bacteria Urine 1+ /hpf; Bilirubin Urine Negative (Negative); Blood Urine Negative (Negative); Color Urine Yellow (Yellow); Glucose Urine UA Negative (Negative); Ketones Urine Negative (Negative); Leukocyte Esterase Ur 3+ LEU/UL (Negative); Mucus Urine Rare /lpf; Nitrate Urine Negative (Negative); Protein Urine Negative (Negative); Specific Grav Ur 1.013 (1.001-1.035); Squamous Epithelial Cell Urine Rare /hpf (Few); Urobilinogen Urine Negative mg/dL (<2.0); WBC Urine >75 /hpf
== END 2020-12-09 18:42 | disposition home or self-care (01) ==
PROVIDERS: Emergency Provider General Practice; PCP Internal Medicine
DX: N39.0 Urinary tract infection, site not specified (principal); N13.9 Obstructive and reflux uropathy, unspecified; Z87.891 Personal history of nicotine dependence; M19.90 Unspecified osteoarthritis, unspecified site; I10 Essential (primary) hypertension; E78.5 Hyperlipidemia, unspecified; K21.9 Gastro-esophageal reflux disease without esophagitis; E11.9 Type 2 diabetes mellitus without complications
CPT/HCPCS: 36415; 74177; 80053; 81001; 83690; 85025; 87077; 87086; 87088; 87186; 99284; A9270; Q9967

== ENCOUNTER 2021-01-19 10:09 | Outpatient (CLI) | payer MEDICARE, SELFPAY ==
--- NOTE | 2021-01-19 10:12 | ECG_ITS ---
Measurements Intervals [place] Rate: 80 P: 19 NM: 188 QRS: -53 QRSD: 103 T: 68 QT: 380 QTc: 440 Interpretive Statements SINUS RHYTHM LEFT ANTERIOR FASCICULAR BLOCK CONSIDER LATERAL INFARCT, AGE INDETERMINATE BASELINE ARTIFACT- I, II ABNORMAL ECG Electronically Signed On 01-19-2021 10:31:41 CDT by Duane Beltre D.O.
[2021-01-19 10:55] LABS: Partial Thromboplastin Time 32.1 SECONDS (22.3-36.8)
== END 2021-01-19 10:10 | disposition home or self-care (01) ==
LOC: ANHSURGERY 10:11
PROVIDERS: PCP Internal Medicine; Visit Provider Urology
DX: N13.8 Other obstructive and reflux uropathy (principal); N40.1 Benign prostatic hyperplasia with lower urinary tract symptoms; I10 Essential (primary) hypertension; Z01.818 Encounter for other preprocedural examination; I44.4 Left anterior fascicular block
CPT/HCPCS: 36415; 85610; 85730; 87086; 93005

== ENCOUNTER → 2021-01-24 00:21 | Outpatient (CLI) | payer MEDICARE, SELFPAY ==
[2021-01-24 19:27] LABS: SARS-CoV-2 RNA PCR Negative
== END ==
PROVIDERS: PCP Internal Medicine; Visit Provider Urology
DX: Z01.812 Encounter for preprocedural laboratory examination (principal); Z20.822 Contact with and (suspected) exposure to COVID-19
CPT/HCPCS: C9803; U0003; U0005

== ENCOUNTER 2021-01-27 00:37 | Day surgery (SDC) | payer MEDICARE, SELFPAY ==
[2021-01-09 13:57] VITALS: BMI 26.7
[2021-01-27] VITALS (13 sets, daily range): BP systolic 120–177; BP diastolic 76–96; PULSE 55–113; RESP 10–21; TEMP 36–36.5; O2SAT 97–100; BMI 28.5
[2021-01-27] MEDS: LACTATED RINGERS 1,000 ML 30 ML IV CONT ×2 (06:34→08:29)
[2021-01-27 06:41] LABS: Glucose Point of Care 113 mg/dl (65-105)
--- NOTE | 2021-01-27 07:05 | WPDANESEPPF ---
Anes - Initial Pre Proc Eval Procedure: Operation Date: 01/27/21 07:30 Proposed Procedures p Trans Urethral Resection Prostate - Julito Askew MD Date/Time: 01/27/21 07:05 Surgeon: Julito Askew MD Pre Op Diagnosis: BPH Patient Data Age: 85 Gender: M Height: 1.78 m Weight: 88 kg Last Vital Signs Temp 96.8 F L 01/27/21 06:05 Pulse 81 01/27/21 06:05 Resp 16 01/27/21 06:05 BP 135/81 01/27/21 06:05 Pulse Ox 100 01/27/21 06:05 Allergies Allergy/AdvReac Type Severity Reaction Status Date / Time Penicillins Allergy Unknown Hives Verified 01/27/21 06:23 tetanus and diphtheria AdvReac Unknown Dizziness Verified 01/27/21 06:23 toxoids Tetanus Vaccines and Toxoid AdvReac Unknown Dizziness Verified 01/27/21 06:23 Home Medications Medication Instructions Recorded Confirmed Type aspirin 81 mg tablet,delayed 81 mg PO DAILY 07/17/19 01/27/21 History release multivitamin 1 tablet PO DAILY 07/17/19 01/27/21 History tamsulosin 0.4 mg capsule 0.4 mg PO BID cap 07/17/19 01/27/21 History finasteride [Proscar] 5 mg PO DAILY 08/08/19 01/27/21 History lancets 33 gauge #100 each 02/18/20 01/12/21 Rx omeprazole 40 mg capsule,delayed See Rx Instructions .ROUTE 07/28/20 01/27/21 Rx release .COMPLEX #90 cap atorvastatin 20 mg tablet 20 mg PO DAILY #90 tablet 08/07/20 01/27/21 Rx potassium chloride 20 mEq See Rx Instructions .ROUTE 10/03/20 01/27/21 Rx tablet,extended release .COMPLEX #180 tablet amlodipine 10 mg tablet 10 mg PO DAILY #90 tablet 10/15/20 01/27/21 Rx valsartan 320 mg tablet 320 mg PO DAILY #90 tablet 10/15/20 01/27/21 Rx diphenhydramine-acetaminophen 1 tablet PO HS PRN 01/09/21 01/27/21 History [Tylenol PM Extra Strength] blood sugar diagnostic See Rx Instructions .ROUTE 01/14/21 01/27/21 Rx .COMPLEX #100 strip Laboratory Tests 01/27/21 06:38 POC Capillary Glucose 113 mg/dl H mg/dl (65-105) Patient hx anesthesia problems: none Family hx anesthesia problems: none [facility] Past Medical History Medical History Arthritis Back pain Benign essential hypertension Benign prostatic hyperplasia with urinary frequency Benign prostatic hyperplasia with urinary obstruction BMI 30.0-30.9,adult CMC DJD(carpometacarpal degenerative joint disease), 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 Difficulty standing DVT prophylaxis Dyslipidemia Foot drop Gastroesophageal reflux disease without esophagitis GERD (gastroesophageal reflux disease) Hand pain Hearing loss Hematuria Hx of colonic polyp Hypertension Inguinal hernia Mixed hyperlipidemia Primary osteoarthritis involving multiple joints Right elbow pain Seasonal allergies Shoulder pain Sleep disorder Spinal stenosis Trigger point with back pain Type 2 diabetes mellitus without complication, without long-term current use of insulin Urinary frequency UTI (urinary tract infection) Surgical History Surgical History History of bilateral knee replacement Hx of inguinal hernia repair Hx of tonsillectomy Family History Family History Father Malignant neoplasm of prostate, Onset Age: 89 Family history of malignant neoplasm Patient's father is , Onset Age: 89 Mother Family history of arthritis Family history of heart disease in male family member before age 55 Patient's mother is , Onset Age: 47 Sibling Family history of malignant neoplasm of urinary bladder Other Diabetes mellitus Family history of cardiovascular disease Hypertension Social History Social History Smoking packs per day: 1 Smoking cigarettes per day: 20.0 Years smoked: 31 Smoking pack-years: 31.00 Tobacco type: cigarettes Second hand tobacco smoke
--- NOTE | 2021-01-27 07:16 | WPDHPUPDATE1 ---
History and Physical Update Update Date/Time: 01/27/21 07:16 History and Physical has been reviewed, including an updated exam of the patient. There are NO changes in the patient's condition. Risks, benefits, and alternatives have been discussed and questions answered. Patient agrees to proceed with procedure. Proceed with TURP
[2021-01-27] MEDS: ceFAZolin 2 GM/D5W 50 ML 2 GM/50 ML BAG IVPB (07:25)
--- NOTE | 2021-01-27 08:21 | W.PM.PROC2 ---
Procedure Note - Detailed Date of Procedure 01/27/21 Pre-op Diagnosis BPH Post-op Diagnosis same Procedure Performed Transurethral resection of prostate Surgeon Julito Askew MD Anesthesia general Description of Procedure Patient is taken the operative suite correctly identified. Once anesthesia was obtained was placed in dorsal lithotomy position and prepped draped usual sterile fashion. Twenty-four Armenian scope inserted bladder. There are no tumors noted. Both ureteral orifices were identified. He has had a prior resection of a median lobe but has lateral lobe hypertrophy. The went ahead resected lateral lobes from the bladder neck to the verumontanum. Hemostasis was achieved using electrocautery. Chips were sent for analysis. 2% viscous lidocaine was inserted urethra to [address] was placed with 20 cc in the balloon. This was connected to continuous bladder irrigation. Patient is taken recovery stable condition. Pathology yes Complications No immediate complications Condition stable Disposition PACU
--- NOTE | 2021-01-27 09:14 | SUR.PHASEI ---
[id number] sbar faxed floor notified
--- NOTE | 2021-01-27 10:32 | ADMGEN ---
This patient, Torie Hebert, was admitted to 3 [facility] Surg Room 325-01. Patient/family oriented to hospital policies and general routines including ID bracelet, bed and alarms, visiting hours, pain management, procedures, bathroom and other care routines, personal items, smoking policy, room service/diet, and visiting hours. Information on how to activate the Rapid Response Team has been discussed. Patient/Family are encouraged to report perceived risks to care and to ask questions if they do not understand what they are told or what they should do.
[2021-01-27 12:29] LABS: Glucose Point of Care 105 mg/dl (65-105)
[2021-01-27] MEDS: ATORVASTATIN 20 MG TABLET PO (15:55)
[2021-01-27] MEDS: VALSARTAN 160 MG TABLET 320 MG PO (15:55)
[2021-01-27] MEDS: DOCUSATE SODIUM 100 MG CAPSULE PO (15:55)
[2021-01-27] MEDS: DEXTROSE 5%/LACTATED RINGERS 1,000 ML 125 ML IV CONT (15:55)
[2021-01-27] MEDS: POTASSIUM CHLORIDE 20 MEQ TABLET.ER PO (18:17)
[2021-01-28 06:00] VITALS: BP 161/91; PULSE 82; RESP 21; TEMP 36.3; O2SAT 100
[2021-01-28 06:18] LABS: Hematocrit 37.4 % (42.0-52.0); Hemoglobin 12.6 g/dL (14.0-18.0)
[2021-01-28 06:33] LABS: Anion Gap 11 mmol/L (8-16); Blood Urea Nitrogen 13 mg/dL (9-20); Calcium 9.9 mg/dL (8.4-10.2); Carbon Dioxide 25 mmol/L (22-30); Chloride 105 mmol/L (98-107); Estimated CRCL calculation 55 ml/min; Estimated Glomerular Filt Rate > 60; Glucose 105 mg/dL (75-110); Potassium 3.6 mmol/L (3.4-5.0); Sodium 141 mmol/L (137-145)
[2021-01-28 08:00] VITALS: O2SAT 100
[2021-01-28] MEDS: POTASSIUM CHLORIDE 20 MEQ TABLET.ER PO (09:38)
[2021-01-28] MEDS: DOCUSATE SODIUM 100 MG CAPSULE PO (09:38)
--- NOTE | 2021-01-28 10:13 | WPDANESPN ---
Anes - Prog Note Post-Op Date/Time: 01/28/21 10:13 Cardiovascular status: normal Respiratory status: normal Airway patency: baseline Mental status: baseline Post-Op hydration status: normal Vital Signs: Last Vital Signs Temp 36.3 C L 01/28/21 06:00 Pulse 82 01/28/21 06:00 Resp 21 H 01/28/21 06:00 BP 161/91 H 01/28/21 06:00 Pulse Ox 100 01/28/21 06:00 Pain Score (VAS): 0/10. Patient resting in bed at time of assessment, appears comfortable. I/O: Intake & Output 01/27/21 01/28/21 01/28/21 23:59 07:59 15:59 Intake Total 290 800 0 Output Total 4550 1150 Balance -4260 -350 0 Laboratory Tests 01/28/21 05:50 01/28/21 05:50 01/27/21 01/28/21 01/28/21 08:33 05:50 05:50 Hgb 12.6 L Hct 37.4 L Sodium 141 Potassium 3.6 Chloride 105 Carbon Dioxide 25 Anion Gap 11 BUN 13 D Creatinine 0.90 Estim Creat Clear Calc 55 Estimated GFR > 60 Glucose 105 POC Capillary Glucose 105 Calcium 9.9 Post-procedural complaints: none Patient Feedback: Patient satisfied with anesthetic care.
[2021-01-28] MEDS: CEPHALEXIN 500 MG CAPSULE PO (10:27)
[2021-01-28] MEDS: ATORVASTATIN 20 MG TABLET PO (10:27)
[2021-01-28] MEDS: amLODIPine BESYLATE 5 MG TABLET 10 MG PO (10:27)
[2021-01-28] MEDS: VALSARTAN 160 MG TABLET 320 MG PO (10:27)
--- NOTE | 2021-01-28 12:59 | WPDUROPN2 ---
Progress Note: A&P Assessment and Plan (1) Benign prostatic hyperplasia with urinary obstruction: Code(s): N40.1 - Benign prostatic hyperplasia with lower urinary tract symptoms; N13.8 - Other obstructive and reflux uropathy Status: Acute Assessment and Plan: Ok to discharge home with george, george will be removed on Tuesday for a voiding trial. Subjective Subjective Date/Time Seen: 01/28/21 12:59 POD #1 TURP Patient is doing remarkably well, sitting up in bed, has no pain, tolerating diet. Urine is draining to gravity, CBI has been off for >3 hours and urine is pink and clear. Review of Systems Cardiovascular: Cardiovascular: Denies chest pain Respiratory: Respiratory: Reports no additional respiratory complaints Gastrointestinal: Gastrointestinal: Denies abdominal pain, Denies nausea and Denies vomiting Genitourinary: Genitourinary: Reports hematuria Exam Resp: Effort & Inspection: tachypneic Cardio: Rate: regular rate GI: GI Palp: Yes Soft to palpation and No Tenderness to palpation present (GI) : General: Yes no CVA tenderness Meatus: Blood at meatus present Urinary Catheter: Urinary Catheter: patent and draining and urine pink Extrem: General: no edema Objective Data Vital Signs Vital Signs: Vital Signs - 24 hr 01/27/21 14:00 01/27/21 22:00 01/27/21 22:05 Temperature 96.8 F L 97.7 F Pulse Rate 64 113 H Respiratory Rate 16 21 H Blood Pressure 128/84 177/96 H 156/91 H Pulse Oximetry 100 100 01/28/21 06:00 01/28/21 08:00 Temperature 97.4 F L Pulse Rate 82 Respiratory Rate 21 H Blood Pressure 161/91 H Pulse Oximetry 100 100 Intake/Output Intake/Output: Intake & Output 01/25/21 01/26/21 01/27/21 01/28/21 23:59 23:59 23:59 23:59 Intake Total 1170 800 Output Total 7850 1150 Balance -6680 -350 Labs Labs: Laboratory Results - last 24 hr 01/28/21 01/28/21 05:50 05:50 Hgb 12.6 L Hct 37.4 L Sodium 141 Potassium 3.6 Chloride 105 Carbon Dioxide 25 Anion Gap 11 BUN 13 D Creatinine 0.90 Estim Creat Clear Calc 55 Estimated GFR > 60 Glucose 105 Calcium 9.9
== END 2021-01-28 12:25 | disposition home or self-care (01) ==
LOC: ANHSURGERY 05:49 → ANH3MEDSUR 10:12
PROVIDERS: PCP Internal Medicine; Visit Provider Urology
PROC: 0VT08ZZ Resection of Prostate, Via Natural or Artificial Opening Endoscopic (ICD-10-PCS; CPT 52601; principal; 2021-01-27 07:30)
DX: N40.1 Benign prostatic hyperplasia with lower urinary tract symptoms (principal); N13.8 Other obstructive and reflux uropathy; R35.1 Nocturia; I10 Essential (primary) hypertension; K21.9 Gastro-esophageal reflux disease without esophagitis; E78.2 Mixed hyperlipidemia; E11.9 Type 2 diabetes mellitus without complications; Z79.82 Long term (current) use of aspirin; Z87.891 Personal history of nicotine dependence
CPT/HCPCS: 52601; 36415; 80048; 82948; 85014; 85018; 85610; 85730; 87086; 88305; 93005; A9270; C9803; J0690; J1100; J2405; J2704; J3010; J7120; J7121; U0003; U0005

== ENCOUNTER 2021-01-31 08:20 | Emergency (ER) | payer MEDICARE, SELFPAY ==
--- NOTE | ~2021-01-31 | XR_ITS ---
XR chest 2V 01/31/2021 08:48 Indication: Right knee pain after fall Procedure: AP and lateral views of the chest Comparison: No prior studies for comparison. Findings: Heart size normal. No focal air space disease, pulmonary edema, pleural effusion or suspect ed pneumothorax. There is healed left eighth rib fracture. No acute osseous abnormality. Impression: 1: No acute cardiopulmonary disease. Reviewed, dictated and finalized at location A. Impression: 1: No acute cardiopulmonary disease.
--- NOTE | ~2021-01-31 | XR_ITS ---
XR knee RT 3V 01/31/2021 08:48 Indication: Right knee pain Procedure: 3 views right knee Comparison: No prior studies for comparison. Findings: There is a right total knee arthroplasty. Small joint effusion. Prosthesis well seated. No underlying fracture or traumatic malalignment. Impression: 1: No acute fracture. 2: Small joint effusion. Reviewed, dictated and finalized at location A. Impression: 1: No acute fracture. 2: Small joint effusion.
[2021-01-31 08:18] VITALS: BP 127/81; PULSE 91; RESP 25; TEMP 37.1; O2SAT 99
--- NOTE | 2021-01-31 08:27 | ECG_ITS ---
Measurements Intervals [place] Rate: 91 P: 21 HI: 168 QRS: -59 QRSD: 109 T: 62 QT: 357 QTc: 440 Interpretive Statements SINUS RHYTHM LEFT ANTERIOR FASCICULAR BLOCK CONSIDER HIGH LATERAL INFARCT, AGE INDETERMINATE BASELINE WANDER- I, III, AVR, AVL, AVF ABNORMAL ECG Electronically Signed On 01-31-2021 19:17:41 CDT by Duane Beltre D.O.
[2021-01-31 08:37] LABS: Basophils Percent Auto 0.3 % (0.2-1.2); Eosinophils Absolute Auto 0.4 K/mm3 (0-0.3); Eosinophils Percent Auto 3.1 % (0-4.4); Hematocrit 37.8 % (42.0-52.0); Hemoglobin 12.3 g/dL (14.0-18.0); Immature Granulocyte Absolute 0.03 K/mm3 (0.00-0.031); Immature Granulocyte Percent A 0.3 % (0-0.5); Lymphocytes Absolute Auto 2.94 K/mm3 (0.9-3.2); Lymphocytes Percent Auto 24.6 % (18.3-44.2); Mean Corpuscular HGB Conc 32.5 g/dl (32-36); Mean Corpuscular Hemoglobin 27.2 pg (26-34); Mean Corpuscular Volume 83.4 fl (80-100); Mean Platelet Volume 10.3 fl (7.4-10.4); Monocytes Absolute Auto 1.3 K/mm3 (0.1-0.6); Monocytes Percent Auto 10.6 % (2.6-8.5); Neutrophils Absolute Auto 7.3 K/mm3 (1.3-6.7); Neutrophils Percent Auto 61.1 % (45.5-73.1); Platelet Count Result 200 k/mm3 (150-375); Red Blood Count 4.53 M/mm3 (4.6-6.20); Red Cell Distribution Width 12.7 % (11.5-14.5); White Blood Count 11.9 K/mm3 (4.5-10.0)
[2021-01-31 08:54] LABS: Alanine Aminotransferase 13 U/L (4-50); Albumin Level 3.9 g/dL (3.5-5.1); Alkaline Phosphatase 49 U/L (38-126); Anion Gap 8 mmol/L (8-16); Aspartate Amino Transferase 24 U/L (17-59); Bilirubin,Total 0.7 mg/dL (0.2-1.3); Blood Urea Nitrogen 14 mg/dL (9-20); Calcium 9.2 mg/dL (8.4-10.2); Carbon Dioxide 23 mmol/L (22-30); Chloride 105 mmol/L (98-107); Estimated CRCL calculation 55 ml/min; Estimated Glomerular Filt Rate > 60; Glucose 132 mg/dL (75-110); Potassium 4.3 mmol/L (3.4-5.0); Sodium 136 mmol/L (137-145)
--- NOTE | 2021-01-31 09:13 | ED.FALL ---
HPI - Fall General Chief Complaint: Fall Stated Complaint: fall/wealness Time Seen by Provider: 01/31/21 09:13 Source: patient and EMS Mode of arrival: EMS Limitations: no limitations History of Present Illness HPI Narrative: Patient is an 85-year-old male with history of recent prostate surgery, bilateral knee replacements, diabetes, hypertension, hyperlipidemia who presents for evaluation of a fall onto a toilet seat. Patient reportedly was ambulating to the bathroom with the use of a walker when his right knee gave out when he was going to sit down to use the restroom, causing him to hit the bathroom seat. He denies head trauma or loss of consciousness. No syncopal episodes. He reports knee pain at that point in time which is dull, aching in nature, sharp and exacerbated with movement. He reports mild knee swelling. He denies any prodromal symptoms such as chest pain or shortness of breath. Patient states that he chronically has problems with his knee. Patient with recent prostate surgery, did intermittently hold his anticoagulation, denies any pleuritic pain, difficulty breathing, leg swelling or calf pain. Patient has been using a walker to help with ambulation since his recent surgery as he seemed to have difficulty walking following the surgery. He denies any back pain. No pelvic pain or hip pain. No focal weakness or numbness. Related Data Home Medications Medication Instructions Recorded Confirmed aspirin 81 mg tablet,delayed 81 mg PO DAILY 07/17/19 01/27/21 release multivitamin 1 tablet PO DAILY 07/17/19 01/27/21 tamsulosin 0.4 mg capsule 0.4 mg PO BID cap 07/17/19 01/27/21 finasteride [Proscar] 5 mg PO DAILY 08/08/19 01/27/21 diphenhydramine-acetaminophen 1 tablet PO HS PRN 01/09/21 01/27/21 [Tylenol PM Extra Strength] Allergies Allergy/AdvReac Type Severity Reaction Status Date / Time Penicillins Allergy Unknown Hives Verified 01/31/21 08:25 tetanus and diphtheria AdvReac Unknown Dizziness Verified 01/31/21 08:25 toxoids Tetanus Vaccines and Toxoid AdvReac Unknown Dizziness Verified 01/31/21 08:25 Review of Systems Review of Systems: Narrative: CONSTITUTIONAL: Denies fever, chills, or sweats. EYES: Denies visual changes, redness, or discharge. ENT: Denies rhinorrhea, congestion, sore throat, or otalgia. CARDIOVASCULAR: Denies chest pain, palpitations, or edema. RESPIRATORY: Denies cough or dyspnea. GASTROINTESTINAL: Denies abdominal pain, nausea, vomiting, or diarrhea. GENITOURINARY: Denies dysuria or hematuria. SKIN: Denies rash or itching. MUSCULOSKELETAL: Reports right knee pain NEUROLOGIC: Denies headache, numbness, or weakness. 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 Difficulty standing DVT prophylaxis Dyslipidemia Foot drop Gastroesophageal reflux disease without esophagitis GERD (gastroesophageal reflux disease) Hand pain Hearing loss Hematuria Hx of colonic polyp Hypertension Inguinal hernia Mixed hyperlipidemia Primary osteoarthritis involving multiple joints Right elbow pain Seasonal allergies Shoulder pain Sleep disorder Spinal stenosis Trigger point with back pain Type 2 diabetes mellitus without complication, without long-term current use of insulin Urinary frequency UTI (urinary tract infection) Surgical History Surgical History History of bilateral knee replacement Hx of inguinal hernia repair Hx of tonsillectomy Family History Family History Father Malignant neoplasm of prostate, Onset Age: 89 Family h
[2021-01-31] MEDS: ACETAMINOPHEN 500 MG TABLET 1000 MG PO (09:24)
[2021-01-31 09:52] VITALS: BP 141/79; PULSE 91; RESP 16; O2SAT 100
[2021-01-31 10:03] LABS: Add Urine Microscopic? YES; Appearance Urine Clear (Clear); Bilirubin Urine Negative (Negative); Blood Urine 2+ (Negative); Color Urine Yellow (Yellow); Glucose Urine UA Negative (Negative); Ketones Urine Negative (Negative); Leukocyte Esterase Ur 2+ LEU/UL (Negative); Mucus Urine Rare /lpf; Nitrate Urine Negative (Negative); Protein Urine 2+ mg/dL (Negative); RBC Urine 21-50 /hpf (0-2); Specific Grav Ur 1.009 (1.001-1.035); Squamous Epithelial Cell Urine Rare /hpf (Few); Urobilinogen Urine Negative mg/dL (<2.0); WBC Urine 51-75 /hpf
[2021-01-31 11:29] VITALS: BP 133/76; PULSE 79; RESP 22; O2SAT 99
== END 2021-01-31 12:33 | disposition home or self-care (01) ==
PROVIDERS: Emergency Provider Emergency Medicine; PCP Internal Medicine
DX: N39.0 Urinary tract infection, site not specified (principal); M25.561 Pain in right knee; Z87.891 Personal history of nicotine dependence; M19.90 Unspecified osteoarthritis, unspecified site; I10 Essential (primary) hypertension; K21.9 Gastro-esophageal reflux disease without esophagitis; E78.5 Hyperlipidemia, unspecified; E11.9 Type 2 diabetes mellitus without complications; Z79.4 Long term (current) use of insulin
CPT/HCPCS: 36415; 71046; 73562; 80053; 81001; 85025; 87086; 87088; 93005; 99284; A9270

== ENCOUNTER 2021-03-20 01:18 | Day surgery (SDC) | payer MEDICARE, SELFPAY ==
[2021-03-12 09:39] VITALS: BMI 26.9
--- NOTE | 2021-03-20 07:12 | PM.HPGS ---
History of Present Illness History of Present Illness Consent: Risks, benefits, and alternatives have been discussed and questions answered. Patient agrees to proceed with procedure. Chief complaint: GERD, hx of colon polyps Narrative: Torie Hebert is a 85 year old male who has suffered from acid reflux symptoms. occasionally meat and sometimes vegetables will go down slowly when he swallows. He has been diagnosed with esophageal spasm. 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 Difficulty standing DVT prophylaxis Dyslipidemia Foot drop Gastroesophageal reflux disease without esophagitis GERD (gastroesophageal reflux disease) Hand pain Hearing loss Hematuria Hx of colonic polyp Hypertension Inguinal hernia Mixed hyperlipidemia Primary osteoarthritis involving multiple joints Right elbow pain Seasonal allergies Shoulder pain Sleep disorder Spinal stenosis Trigger point with back pain Type 2 diabetes mellitus without complication, without long-term current use of insulin Urinary frequency UTI (urinary tract infection) Surgical History Surgical History History of bilateral knee replacement Hx of inguinal hernia repair Hx of tonsillectomy Family History Family History Father Malignant neoplasm of prostate, Onset Age: 89 Family history of malignant neoplasm Patient's father is , Onset Age: 89 Mother Family history of arthritis Family history of heart disease in male family member before age 55 Patient's mother is , Onset Age: 47 Sibling Family history of malignant neoplasm of urinary bladder Other Diabetes mellitus Family history of cardiovascular disease Hypertension Social History Social History Smoking packs per day: 1 Smoking cigarettes per day: 20.0 Years smoked: 31 Smoking pack-years: 31.00 Smoking status: Never smoker Tobacco type: cigarettes Second hand tobacco smoke exposure: No Smoking end date: 07/12/85 Alcohol intake: former Substance use: never Substance use type: does not use Living arrangements: with family Additional living arrangements comments: lives with spouse [place], does not drive, is never left alone Gender identity (if verbalized by the patient): Male Sexual Orientation (if Verbalized by the Patient): Straight or Heterosexual Spiritual care concerns: No Agree to blood products: Yes Meds Home Medications and Allergies Home Medications Medication Instructions Recorded Confirmed Type aspirin 81 mg tablet,delayed 81 mg PO DAILY 07/17/19 03/20/21 History release multivitamin 1 tablet PO DAILY 07/17/19 03/20/21 History lancets 33 gauge #100 each 02/18/20 03/20/21 Rx atorvastatin 20 mg tablet 20 mg PO DAILY #90 tablet 08/07/20 03/20/21 Rx potassium chloride 20 mEq See Rx Instructions .ROUTE 10/03/20 03/20/21 Rx tablet,extended release .COMPLEX #180 tablet amlodipine 10 mg tablet 10 mg PO DAILY #90 tablet 10/15/20 03/20/21 Rx valsartan 320 mg tablet 320 mg PO DAILY #90 tablet 10/15/20 03/20/21 Rx diphenhydramine-acetaminophen 1 tablet PO HS PRN 01/09/21 03/20/21 History [Tylenol PM Extra Strength] blood sugar diagnostic See Rx Instructions .ROUTE 01/14/21 03/20/21 Rx .COMPLEX #100 strip omeprazole 40 mg capsule,delayed See Rx Instructions .ROUTE
[2021-03-20 10:12] VITALS: BP 106/74; PULSE 87; RESP 16; TEMP 35.9; O2SAT 97
--- NOTE | 2021-03-20 10:18 | WPDANESEPPF ---
Anes - Initial Pre Proc Eval Procedure: Operation Date: 03/20/21 11:00 Proposed Procedures p Esophagogastroduodenoscopy & Screening Colonoscopy - Flo Montiel MD Date/Time: 03/20/21 10:18 Surgeon: Flo Montiel MD Pre Op Diagnosis: GERD, hx of colon polyps Patient Data Age: 85 Gender: M Height: 1.77 m Weight: 85.9 kg Last Vital Signs Temp 35.9 C L 03/20/21 10:12 Pulse 87 03/20/21 10:12 Resp 16 03/20/21 10:12 BP 106/74 03/20/21 10:12 Pulse Ox 97 03/20/21 10:12 Allergies Allergy/AdvReac Type Severity Reaction Status Date / Time Penicillins Allergy Unknown Hives Verified 03/20/21 10:07 tetanus and diphtheria AdvReac Unknown Dizziness Verified 03/20/21 10:07 toxoids Tetanus Vaccines and Toxoid AdvReac Unknown Dizziness Verified 03/20/21 10:07 Home Medications Medication Instructions Recorded Confirmed Type aspirin 81 mg tablet,delayed 81 mg PO DAILY 07/17/19 03/20/21 History release multivitamin 1 tablet PO DAILY 07/17/19 03/20/21 History lancets 33 gauge #100 each 02/18/20 03/20/21 Rx atorvastatin 20 mg tablet 20 mg PO DAILY #90 tablet 08/07/20 03/20/21 Rx potassium chloride 20 mEq See Rx Instructions .ROUTE 10/03/20 03/20/21 Rx tablet,extended release .COMPLEX #180 tablet amlodipine 10 mg tablet 10 mg PO DAILY #90 tablet 10/15/20 03/20/21 Rx valsartan 320 mg tablet 320 mg PO DAILY #90 tablet 10/15/20 03/20/21 Rx diphenhydramine-acetaminophen 1 tablet PO HS PRN 01/09/21 03/20/21 History [Tylenol PM Extra Strength] blood sugar diagnostic See Rx Instructions .ROUTE 01/14/21 03/20/21 Rx .COMPLEX #100 strip omeprazole 40 mg capsule,delayed See Rx Instructions .ROUTE 02/04/21 03/20/21 Rx release .COMPLEX #90 cap docusate sodium 100 mg PO DAILY 03/12/21 03/20/21 History Patient hx anesthesia problems: none Family hx anesthesia problems: none PMFSH Past Medical History Medical History Arthritis Back pain Benign essential hypertension Benign prostatic hyperplasia with urinary frequency Benign prostatic hyperplasia with urinary obstruction BMI 30.0-30.9,adult CMC DJD(carpometacarpal degenerative joint disease), 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 Difficulty standing DVT prophylaxis Dyslipidemia Foot drop Gastroesophageal reflux disease without esophagitis GERD (gastroesophageal reflux disease) Hand pain Hearing loss Hematuria Hx of colonic polyp Hypertension Inguinal hernia Mixed hyperlipidemia Primary osteoarthritis involving multiple joints Right elbow pain Seasonal allergies Shoulder pain Sleep disorder Spinal stenosis Trigger point with back pain Type 2 diabetes mellitus without complication, without long-term current use of insulin Urinary frequency UTI (urinary tract infection) Surgical History Surgical History History of bilateral knee replacement Hx of inguinal hernia repair Hx of tonsillectomy Family History Family History Father Malignant neoplasm of prostate, Onset Age: 89 Family history of malignant neoplasm Patient's father is , Onset Age: 89 Mother Family history of arthritis Family history of heart disease in male family member before age 55 Patient's mother is , Onset Age: 47 Sibling Family history of malignant neoplasm of urinary bladder Other Diabetes mellitus Family history of cardiovascular disease Hypertension Social History Social History Smoking packs per day: 1 Smoking cigarettes per day: 20.0 Years smoked: 31 Smoking pack-years: 31.00 Smoking status: Never smoker Tobacco type: cigarettes Second hand tobacco smoke exposure: No Smoking end date: 07/12/85 Alcohol intake: former Substance use: never
[2021-03-20] MEDS: LACTATED RINGERS 1,000 ML 150 ML IV CONT (10:23)
[2021-03-20] MEDS: SIMETHICONE ORAL SUSPENSION 20 MG/0.3 ML 30 ML BOTTLE 0.6 ML IRRIGATION (11:04)
[2021-03-20 11:16] VITALS: BP 95/61; PULSE 57; RESP 12; O2SAT 97
[2021-03-20 11:26] VITALS: BP 107/56; PULSE 60; RESP 15; O2SAT 97
[2021-03-20 11:36] VITALS: BP 102/63; PULSE 59; RESP 15; O2SAT 98
== END 2021-03-20 12:05 | disposition home or self-care (01) ==
PROVIDERS: PCP Internal Medicine; Visit Provider Internal Medicine Gastroenterology
PROC: 0DJ08ZZ Inspection of Upper Intestinal Tract, Via Natural or Artificial Opening Endoscopic (ICD-10-PCS; CPT 43235; principal; 2021-03-20 11:00)
DX: Z12.11 Encounter for screening for malignant neoplasm of colon (principal); D12.2 Benign neoplasm of ascending colon; D37.4 Neoplasm of uncertain behavior of colon; K31.7 Polyp of stomach and duodenum; K21.9 Gastro-esophageal reflux disease without esophagitis; I10 Essential (primary) hypertension; E11.9 Type 2 diabetes mellitus without complications; E78.5 Hyperlipidemia, unspecified; N40.1 Benign prostatic hyperplasia with lower urinary tract symptoms; M21.379 Foot drop, unspecified foot; M48.00 Spinal stenosis, site unspecified; M89.49 Other hypertrophic osteoarthropathy, multiple sites; H91.90 Unspecified hearing loss, unspecified ear; Z86.010 Personal history of colon polyps; Z96.653 Presence of artificial knee joint, bilateral
CPT/HCPCS: 45380; 45381; 43251; 88305; J2704; J7120

== ENCOUNTER 2021-05-13 11:42 | Outpatient (CLI) | payer MEDICARE, SELFPAY ==
[2021-05-13 12:59] LABS: Basophils Absolute Auto 0.1 K/mm3 (0.0-0.1); Basophils Percent Auto 0.9 % (0.2-1.2); Eosinophils Absolute Auto 0.4 K/mm3 (0-0.3); Eosinophils Percent Auto 4.1 % (0-4.4); Hematocrit 42.8 % (42.0-52.0); Hemoglobin 13.7 g/dL (14.0-18.0); Immature Granulocyte Absolute 0.02 K/mm3 (0.00-0.031); Immature Granulocyte Percent A 0.2 % (0-0.5); Lymphocytes Absolute Auto 3.35 K/mm3 (0.9-3.2); Lymphocytes Percent Auto 39.6 % (18.3-44.2); Mean Corpuscular Hemoglobin 26.6 pg (26-34); Mean Corpuscular Volume 83.1 fl (80-100); Mean Platelet Volume 10.3 fl (7.4-10.4); Monocytes Absolute Auto 0.7 K/mm3 (0.1-0.6); Monocytes Percent Auto 8.5 % (2.6-8.5); Neutrophils Percent Auto 46.7 % (45.5-73.1); Platelet Count Result 253 k/mm3 (150-375); Red Blood Count 5.15 M/mm3 (4.6-6.20); Red Cell Distribution Width 13.6 % (11.5-14.5); White Blood Count 8.5 K/mm3 (4.5-10.0)
[2021-05-13 13:14] LABS: Anion Gap 10 mmol/L (8-16); Blood Urea Nitrogen 15 mg/dL (9-20); Calcium 9.5 mg/dL (8.4-10.2); Carbon Dioxide 26 mmol/L (22-30); Chloride 107 mmol/L (98-107); Estimated Glomerular Filt Rate > 60; Glucose 99 mg/dL (65-110); Potassium 4.1 mmol/L (3.4-5.0); Sodium 143 mmol/L (137-145)
== END 2021-05-13 11:43 | disposition home or self-care (01) ==
LOC: ANHSURGERY 11:45
PROVIDERS: PCP Internal Medicine; Visit Provider Surgery
DX: Z01.818 Encounter for other preprocedural examination (principal); K63.5 Polyp of colon
CPT/HCPCS: 36415; 80048; 82378; 85025; 86850; 86900; 86901

== ENCOUNTER 2021-05-16 15:57 | Emergency (ER) | payer MEDICARE, SELFPAY ==
[2021-05-16 16:06] VITALS: BP 133/101; PULSE 104; TEMP 36.4; O2SAT 100
--- NOTE | 2021-05-16 17:18 | PC.NURSE ---
To BR per w/c and minimal assist then returned to WR. No change in appearance since arrival. Alert, oriented, speech clear and appropriate
[2021-05-16 18:50] VITALS: BP 147/105; PULSE 85; RESP 18; O2SAT 97
--- NOTE | 2021-05-16 18:59 | ECG_ITS ---
Measurements Intervals [place] Rate: 95 P: 29 UT: 188 QRS: -62 QRSD: 105 T: 52 QT: 373 QTc: 471 Interpretive Statements SINUS RHYTHM LEFT ANTERIOR FASCICULAR BLOCK MINIMAL Q WAVES- HIGH LATERAL LEADS ABNORMAL ECG Electronically Signed On 05-17-2021 7:32:03 CDT by Duane Beltre D.O.
[2021-05-16 20:00] VITALS: BP 143/102; PULSE 92; RESP 18; O2SAT 100
--- NOTE | 2021-05-16 20:12 | ED.RECABL ---
HPI - Recheck/Abnormal Lab/Rx General Chief Complaint: Recheck/Abnormal Lab/Rx Stated Complaint: high blood pressure Time Seen by Provider: 05/16/21 19:50 Source: patient Mode of arrival: ambulatory Limitations: no limitations History of Present Illness HPI narrative: 85-year-old male with history of hypertension taking all medications complaining of elevated blood pressure for 1 day. No new symptoms, no headache, no chest pain, no focal weakness does get chile on the back of his neck. Alert oriented ambulating with usual gait. Patient states he has surgery upcoming and he thinks he is nervous about that. Patient last took his blood pressure medicines at 11 AM today. Noted high blood pressure prior to taking medications. Related Data Home Medications Medication Instructions Recorded Confirmed aspirin 81 mg tablet,delayed 81 mg PO DAILY 07/17/19 05/13/21 release multivitamin 1 tablet PO DAILY 07/17/19 05/13/21 diphenhydramine-acetaminophen 1 tablet PO HS PRN 01/09/21 05/13/21 [Tylenol PM Extra Strength] docusate sodium 100 mg PO BID 03/12/21 05/13/21 Allergies Allergy/AdvReac Type Severity Reaction Status Date / Time Penicillins Allergy Unknown Hives Verified 05/13/21 11:54 tetanus and diphtheria AdvReac Unknown Dizziness Verified 05/13/21 11:54 toxoids Tetanus Vaccines and Toxoid AdvReac Unknown Dizziness Verified 05/13/21 11:54 Review of Systems Review of Systems: CONSTITUTIONAL: no fever, no weight loss, no confusion EYES: no vision changes, no eye pain ENT: no rhinorrhea, no sore throat, no difficulty swallowing CARDIOVASCULAR: no chest pain, no leg edema, no palpitations RESPIRATORY: no cough, no shortness of breath, no hemoptysis GASTROINTESTINAL: no abdominal pain, no nausea, no vomiting, no diarrhea GENITOURINARY: no flank pain, no dysuria, no hematuria SKIN: no rash, no jaundice MUSCULOSKELETAL: no back pain, no trauma. 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 Difficulty standing DVT prophylaxis Dyslipidemia Foot drop Gastroesophageal reflux disease without esophagitis GERD (gastroesophageal reflux disease) Hand pain Hearing loss Hematuria Hx of colonic polyp Hypertension Inguinal hernia Mixed hyperlipidemia Primary osteoarthritis involving multiple joints Right elbow pain Seasonal allergies Shoulder pain Sleep disorder Spinal stenosis Trigger point with back pain Type 2 diabetes mellitus without complication, without long-term current use of insulin Urinary frequency UTI (urinary tract infection) Surgical History Surgical History History of bilateral knee replacement Hx of inguinal hernia repair left inguinal hernia repair Hx of tonsillectomy Family History Family History Father Malignant neoplasm of prostate, Onset Age: 89 Family history of malignant neoplasm Patient's father is , Onset Age: 89 Mother Family history of arthritis Family history of heart disease in male family member before age 55 Patient's mother is , Onset Age: 47 Sibling Family history of malignant neoplasm of urinary bladder Other Diabetes mellitus Family history of cardiovascular disease Hypertension Social History Social History (Updated 04/24/21 @ 10:07 by Whitney Rodriguez) Smoking packs per day: 1 Smoking cigarettes per day: 20.0 Years smoked: 31 Smoking pack-years: 31.00 Smoking
[2021-05-16 20:53] VITALS: BP 147/103; PULSE 78; RESP 16; O2SAT 100
[2021-05-16] MEDS: amLODIPine BESYLATE 5 MG TABLET PO (20:53)
[2021-05-16 21:02] VITALS: BP 136/88; PULSE 72; RESP 16; O2SAT 98
== END 2021-05-16 21:27 | disposition home or self-care (01) ==
PROVIDERS: Emergency Provider Emergency Medicine; PCP Internal Medicine
DX: I10 Essential (primary) hypertension (principal); E11.9 Type 2 diabetes mellitus without complications; Z87.891 Personal history of nicotine dependence
CPT/HCPCS: 93005; 99283; A9270

== ENCOUNTER 2021-05-20 10:42 | Inpatient (IN) | payer MEDICARE, SELFPAY ==
[2021-05-13 11:53] VITALS: BMI 28.0
[2021-05-13 12:41] VITALS: BP 151/81; PULSE 72; RESP 16; TEMP 36.7; O2SAT 100
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
[2021-05-20] VITALS (15 sets, daily range): BP systolic 87–138; BP diastolic 49–86; PULSE 67–84; RESP 13–21; TEMP 35.4–36.7; O2SAT 95–100
--- NOTE | 2021-05-20 07:17 | WPDANESEPPF ---
Anes - Initial Pre Proc Eval Procedure: Operation Date: 05/20/21 08:30 Proposed Procedures p Hand Assisted Laparoscopic Right Colectomy - Mario Hansen MD Date/Time: 05/20/21 07:17 Surgeon: Mario Hansen MD Pre Op Diagnosis: right colon polyps Patient Data Age: 85 Gender: M Height: 1.78 m Weight: 88.8 kg Last Vital Signs Temp 36.7 C 05/13/21 12:41 Pulse 72 05/13/21 12:41 Resp 16 05/13/21 12:41 BP 151/81 H 05/13/21 12:41 Pulse Ox 100 05/13/21 12:41 Allergies Allergy/AdvReac Type Severity Reaction Status Date / Time Penicillins Allergy Unknown Hives Verified 05/13/21 11:54 tetanus and diphtheria AdvReac Unknown Dizziness Verified 05/13/21 11:54 toxoids Tetanus Vaccines and Toxoid AdvReac Unknown Dizziness Verified 05/13/21 11:54 Home Medications Medication Instructions Recorded Confirmed Type aspirin 81 mg tablet,delayed 81 mg PO DAILY 07/17/19 05/13/21 History release multivitamin 1 tablet PO DAILY 07/17/19 05/13/21 History lancets 33 gauge #100 each 02/18/20 04/24/21 Rx diphenhydramine-acetaminophen 1 tablet PO HS PRN 01/09/21 05/13/21 History [Tylenol PM Extra Strength] omeprazole 40 mg capsule,delayed See Rx Instructions .ROUTE 02/04/21 05/13/21 Rx release .COMPLEX #90 cap docusate sodium 100 mg PO BID 03/12/21 05/13/21 History amlodipine 10 mg tablet 10 mg PO DAILY #90 tablet 04/15/21 05/13/21 Rx valsartan 320 mg tablet 320 mg PO DAILY #90 tablet 04/15/21 05/13/21 Rx sodium,potassium,mag sulfates 17.5 See Rx Instructions PO .COMPLEX 04/27/21 05/13/21 Rx gram-3.13 gram-1.6 gram oral soln #354 ml potassium chloride 20 mEq See Rx Instructions .ROUTE 04/29/21 05/13/21 Rx tablet,extended release .COMPLEX #180 tablet atorvastatin 20 mg tablet 20 mg PO DAILY #90 tablet 05/05/21 05/13/21 Rx erythromycin 500 mg tablet 1 g PO .COMPLEX #6 tablet 05/13/21 Rx neomycin 500 mg tablet 1 g PO .COMPLEX #6 tablet 05/13/21 Rx Patient hx anesthesia problems: none Family hx anesthesia problems: none Results Review: All pre-operative results and documents have been reviewed as part of the pre-operative evaluation. 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 Difficulty standing DVT prophylaxis Dyslipidemia Foot drop Gastroesophageal reflux disease without esophagitis GERD (gastroesophageal reflux disease) Hand pain Hearing loss Hematuria Hx of colonic polyp Hypertension Inguinal hernia Mixed hyperlipidemia Primary osteoarthritis involving multiple joints Right elbow pain Seasonal allergies Shoulder pain Sleep disorder Spinal stenosis Trigger point with back pain Type 2 diabetes mellitus without complication, without long-term current use of insulin Urinary frequency UTI (urinary tract infection) Surgical History Surgical History History of bilateral knee replacement Hx of inguinal hernia repair left inguinal hernia repair Hx of tonsillectomy Family History Family History Father Malignant neoplasm of prostate, Onset Age: 89 Family history of malignant neoplasm Patient's father is , Onset Age: 89 Mother Family history of arthritis Family history of heart disease in male family member before age 55 Patient's mother is , Onset Age: 47 Sibling Family history of malignant neoplasm of urinary bladder Other Diabetes mellitus Family history of cardiovascular disease Hypertension Social History Social History (Reviewed 05/20/21 @ 07:17 by Vinh Orellana
--- NOTE | 2021-05-20 07:21 | WPDHPUPDATE1 ---
History and Physical Update Update Date/Time: 05/20/21 07:21 History and Physical has been reviewed, including an updated exam of the patient. There are NO changes in the patient's condition. Risks, benefits, and alternatives have been discussed and questions answered. Patient agrees to proceed with procedure.
[2021-05-20] MEDS: ACETAMINOPHEN 500 MG TABLET 1000 MG PO (07:45)
[2021-05-20] MEDS: ALVIMOPAN 12 MG CAPSULE PO (07:45)
[2021-05-20 08:13] LABS: Glucose Point of Care 93 mg/dl (65-105)
[2021-05-20] MEDS: LACTATED RINGERS 1,000 ML 30 ML IV CONT ×2 (08:13→12:22)
[2021-05-20] MEDS: KETOROLAC 15 MG/ML VIAL (*BKC) IV PUSH (08:15)
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
[2021-05-20] MEDS: ceFAZolin 2 GM/D5W 50 ML 2 GM/50 ML BAG IVPB (08:30)
[2021-05-20] MEDS: LIDO 2%/EPINEPHRINE 1:100,000 20 ML VIAL INFILTRATE (09:37)
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
--- NOTE | 2021-05-20 13:34 | SUR.PHASEI ---
this nurse contacted md harvey when pt meets discharge criteria. md harvey said pt can go up to his floor if he meets criteria. pt vss and pain is a 2 no nausea. abd soft. surgical sites look good
--- NOTE | 2021-05-20 13:48 | SUR.PHASEI ---
this nurse attempted to call report and the nurse said she would call me back.
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
[2021-05-20] MEDS: LACTATED RINGERS 1,000 ML 80 ML IV CONT (15:45)
[2021-05-20 17:38] LABS: Glucose Point of Care 117 mg/dl (65-105)
[2021-05-20] MEDS: ACETAMINOPHEN 500 MG TABLET PO (20:02)
[2021-05-20] MEDS: diphenhydrAMINE HCl CAP 25 MG CAPSULE PO (20:02)
[2021-05-20] MEDS: ENOXAPARIN 30 MG/0.3 ML SYRINGE SUB-Q (20:03)
[2021-05-20 20:55] LABS: Glucose Point of Care 81 mg/dl (65-105)
[2021-05-21] MEDS: LACTATED RINGERS 1,000 ML 80 ML IV CONT (03:58)
[2021-05-21 04:18] VITALS: BP 135/66; PULSE 71; RESP 21; TEMP 36.3; O2SAT 100
[2021-05-21 06:28] LABS: Hematocrit 36.6 % (42.0-52.0); Mean Corpuscular HGB Conc 32.8 g/dl (32-36); Mean Corpuscular Hemoglobin 27.1 pg (26-34); Mean Corpuscular Volume 82.8 fl (80-100); Mean Platelet Volume 10.2 fl (7.4-10.4); Platelet Count Result 172 k/mm3 (150-375); Red Blood Count 4.42 M/mm3 (4.6-6.20); Red Cell Distribution Width 13.7 % (11.5-14.5); White Blood Count 7.7 K/mm3 (4.5-10.0)
[2021-05-21 06:42] LABS: Anion Gap 8 mmol/L (8-16); Blood Urea Nitrogen 13 mg/dL (9-20); Calcium 8.7 mg/dL (8.4-10.2); Carbon Dioxide 24 mmol/L (22-30); Chloride 106 mmol/L (98-107); Estimated CRCL calculation 55 ml/min; Estimated Glomerular Filt Rate > 60; Glucose 134 mg/dL (65-110); Potassium 3.3 mmol/L (3.4-5.0); Sodium 138 mmol/L (137-145)
--- NOTE | 2021-05-21 07:11 | WPDANESPN ---
Anes - Prog Note Post-Op Date/Time: 05/21/21 07:11 Cardiovascular status: normal Respiratory status: normal Airway patency: baseline Mental status: baseline Post-Op hydration status: normal Vital Signs: Last Vital Signs Temp 97.5 F L 05/20/21 20:18 Pulse 73 05/20/21 20:18 Resp 21 H 05/20/21 20:18 BP 138/68 05/20/21 20:18 Pulse Ox 100 05/20/21 20:18 Pain Score (VAS): 08/17 I/O: Intake & Output 05/20/21 05/20/21 05/21/21 15:59 23:59 07:59 Intake Total 890 457 1450 Output Total 50 Balance 735 690 3298 Laboratory Tests 05/21/21 06:20 05/21/21 06:20 05/20/21 05/20/21 05/20/21 08:10 17:14 19:48 WBC RBC Hgb Hct MCV MCH MCHC RDW Plt Count MPV Sodium Potassium Chloride Carbon Dioxide Anion Gap BUN Creatinine Estim Creat Clear Calc Estimated GFR Glucose POC Capillary Glucose 93 117 H 81 Calcium 05/21/21 05/21/21 06:20 06:20 WBC 7.7 RBC 4.42 L Hgb 12.0 L Hct 36.6 L MCV 82.8 MCH 27.1 MCHC 32.8 RDW 13.7 Plt Count 172 MPV 10.2 Sodium 138 Potassium 3.3 L Chloride 106 Carbon Dioxide 24 Anion Gap 8 BUN 13 Creatinine 0.90 Estim Creat Clear Calc 55 Estimated GFR > 60 Glucose 134 H POC Capillary Glucose Calcium 8.7 Post-procedural complaints: none Patient Feedback: Patient satisfied with anesthetic care.
[2021-05-21 07:56] LABS: Glucose Point of Care 142 mg/dl (65-105)
[2021-05-21] MEDS: VALSARTAN 160 MG TABLET 320 MG PO (08:28)
[2021-05-21] MEDS: MULTIVITAMINS THERAPEUTIC TAB (*BKC) 1 TABLET PO (08:29)
[2021-05-21] MEDS: ASPIRIN 81 MG ENTERIC TABLET PO (08:29)
[2021-05-21] MEDS: POTASSIUM CHLORIDE 20 MEQ TABLET.ER PO ×3 (08:31→17:17)
[2021-05-21] MEDS: amLODIPine BESYLATE 5 MG TABLET 10 MG PO (08:31)
[2021-05-21] MEDS: ALVIMOPAN 12 MG CAPSULE PO ×2 (08:31→21:04)
[2021-05-21] MEDS: PANTOPRAZOLE 40 MG TABLET PO (08:31)
[2021-05-21] MEDS: ENOXAPARIN 30 MG/0.3 ML SYRINGE SUB-Q ×2 (08:32→21:04)
[2021-05-21] MEDS: ATORVASTATIN 20 MG TABLET PO (08:32)
[2021-05-21 09:13] VITALS: BP 132/74; PULSE 82; RESP 16; TEMP 36.3; O2SAT 100
--- NOTE | 2021-05-21 11:45 | PM.PNGS ---
Progress Note: A&P Assessment and Plan (1) Adenomatous polyp of ascending colon: Code(s): D12.2 - Benign neoplasm of ascending colon Status: Chronic Assessment and Plan: Doing well postop day 1. Status post hand access laparoscopic right colectomy. Cholecystectomy was performed as well due to gallbladder injury. He is tolerating liquids very well. Will DC Cordova catheter and start to ambulate more. Advance diet. Recheck labs in a.m.. Subjective Subjective Date/Time Seen: 05/21/21 11:45 Post Op day: 1 Patient reports: no new complaints, tolerating liquids well, no flatus, no bowel movement and afebrile Exam Const: General: comfortable and no acute distress; No confusion Orientation/consciousness: patient oriented x3 and No confusion GI: Inspection: non-distended, incision (All incisions dry and healing well) and scaphoid GI Palp: Yes Soft to palpation, Yes Guarding due to palpation present (GI) and Yes Rebound tenderness present Auscultation: normal bowel sounds Neuro: General: patient oriented x3, no focal motor deficits and No confusion Extrem: General: no calf tenderness and no edema Psych: Affect: normal affect Insight: Good insight present (Psych) Judgement: Good judgement present (Psych) Objective Data Vital Signs Vital Signs: Vital Signs - 24 hr 05/20/21 12:22 05/20/21 12:28 05/20/21 12:35 Temperature 36.7 C Pulse Rate 77 71 Respiratory Rate 16 14 Blood Pressure 87/49 L 115/86 110/68 Pulse Oximetry 100 100 05/20/21 12:50 05/20/21 13:00 05/20/21 13:15 Temperature Pulse Rate 70 70 71 Respiratory Rate 14 14 13 Blood Pressure 119/71 113/68 116/67 Pulse Oximetry 100 97 98 05/20/21 13:30 05/20/21 13:45 05/20/21 14:00 Temperature 36.4 C Pulse Rate 70 67 70 Respiratory Rate 16 18 14 Blood Pressure 110/63 108/64 112/61 Pulse Oximetry 97 95 98 05/20/21 15:50 05/20/21 16:05 05/20/21 16:20 Temperature 35.5 C L 35.5 C L 35.5 C L Pulse Rate 77 70 74 Respiratory Rate 20 20 20 Blood Pressure 118/65 120/62 117/60 Pulse Oximetry 100 100 99 05/20/21 17:20 05/20/21 20:18 05/21/21 04:18 Temperature 35.4 C L 36.4 C L 36.3 C L Pulse Rate 68 73 71 Respiratory Rate 20 21 H 21 H Blood Pressure 115/66 138/68 135/66 Pulse Oximetry 100 100 100 05/21/21 09:13 Temperature 36.3 C L Pulse Rate 82 Respiratory Rate 16 Blood Pressure 132/74 Pulse Oximetry 100 Intake/Output Intake/Output: Intake & Output 05/18/21 05/19/21 05/20/21 05/21/21 23:59 23:59 23:59 23:59 Intake Total 1140 1690 Output Total 50 750 Balance 1090 940 Meds/Results Medications: Active Medications Generic Name Dose Route Start Last Admin Trade Name Freq PRN Reason Stop Dose Admin Acetaminophen 500 mg 05/20/21 14:07 Acetaminophen 500 Mg Tablet PO Q6H PRN Mild Pain (1-3) or Fever Acetaminophen 500 mg 05/20/21 14:27 05/20/21 20:02 Acetaminophen 500 Mg Tablet PO 500 mg HS PRN Administration Sleep Hydrocodone Bitart/Acetaminophen 1 tab 05/20/21 14:07 Hydrocodone/Acetaminophen (*Crx) 5-325 Mg Tablet PO Q4H PRN Pain Rated 4-6 Alvimopan 12 mg 05/21/21 09:00 05/21/21 08:31 Alvimopan 12 Mg Capsule PO 05/27/21 21:01 12 mg Q12HR GLORIA Administration Amlodipine Besylate 10 mg 05/21/21 09:00 05/21/21 08:31 Amlodipine Besylate 5 Mg Tablet PO 10 mg DAILY GLORIA Administration Aspirin 81 mg 05/21/21 09:00 05/21/21 08:29 Aspirin 81 Mg Enteric Tablet PO 81 mg DAILY GLORIA Administration Atorvastatin Calcium 20 mg 05/21/21 09:00 05/21/21 08:32 Atorvastatin 20 Mg Tablet PO 20 mg DAILY GLORIA Administration Dextrose 12.5 gm 05/20/21 16:19 Dextrose 50% 25 Gm/50 Ml Syringe IV PUSH PRN PRN Hypoglycemia Protocol Diphenhydramine HCl 25 mg 05/20/21 14:27 05/20/21 20:02 Diphenhydramine Hcl Cap 25 Mg Capsule PO 25 mg HS PRN Administration Sleep Enoxaparin Sodium 30 mg 05/20/21
[2021-05-21 12:07] LABS: Glucose Point of Care 150 mg/dl (65-105)
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
[2021-05-21 16:21] VITALS: BP 95/60; PULSE 114; RESP 18; TEMP 36.8; O2SAT 99
[2021-05-21 16:48] LABS: Glucose Point of Care 179 mg/dl (65-105)
[2021-05-21 19:32] VITALS: BP 147/83; PULSE 94; RESP 18; TEMP 36.8; O2SAT 99
[2021-05-21] MEDS: MELATONIN 5 MG TABLET PO (21:04)
[2021-05-21 21:40] LABS: Glucose Point of Care 165 mg/dl (65-105)
[2021-05-22 06:19] VITALS: BP 128/72; PULSE 80; RESP 17; TEMP 36.7; O2SAT 99
[2021-05-22 07:00] LABS: Hematocrit 36.2 % (42.0-52.0); Hemoglobin 11.8 g/dL (14.0-18.0); Mean Corpuscular HGB Conc 32.6 g/dl (32-36); Mean Corpuscular Hemoglobin 27.4 pg (26-34); Mean Platelet Volume 10.8 fl (7.4-10.4); Platelet Count Result 178 k/mm3 (150-375); Red Blood Count 4.31 M/mm3 (4.6-6.20); Red Cell Distribution Width 13.7 % (11.5-14.5); White Blood Count 9.3 K/mm3 (4.5-10.0)
[2021-05-22 07:24] LABS: Anion Gap 11 mmol/L (8-16); Blood Urea Nitrogen 10 mg/dL (9-20); Calcium 8.8 mg/dL (8.4-10.2); Carbon Dioxide 21 mmol/L (22-30); Chloride 106 mmol/L (98-107); Estimated CRCL calculation 55 ml/min; Estimated Glomerular Filt Rate > 60; Glucose 104 mg/dL (65-110); Potassium 3.3 mmol/L (3.4-5.0); Sodium 138 mmol/L (137-145)
[2021-05-22 07:25] LABS: Magnesium 1.6 mg/dL (1.6-2.3); Phosphorus 2.5 mg/dL (2.5-4.5)
[2021-05-22 08:13] LABS: Glucose Point of Care 97 mg/dl (65-105)
[2021-05-22] MEDS: MULTIVITAMINS THERAPEUTIC TAB (*BKC) 1 TABLET PO (09:31)
[2021-05-22] MEDS: POTASSIUM CHLORIDE 20 MEQ TABLET.ER PO ×3 (09:31→16:53)
[2021-05-22] MEDS: ALVIMOPAN 12 MG CAPSULE PO (09:31)
[2021-05-22] MEDS: MAGNESIUM OXIDE 400 MG TABLET PO (09:32)
[2021-05-22] MEDS: PANTOPRAZOLE 40 MG TABLET PO (09:32)
[2021-05-22] MEDS: ENOXAPARIN 30 MG/0.3 ML SYRINGE SUB-Q ×2 (09:32→20:50)
[2021-05-22] MEDS: ASPIRIN 81 MG ENTERIC TABLET PO (09:32)
[2021-05-22] MEDS: VALSARTAN 160 MG TABLET 320 MG PO (09:32)
[2021-05-22] MEDS: ATORVASTATIN 20 MG TABLET PO (09:32)
[2021-05-22 11:53] LABS: Glucose Point of Care 159 mg/dl (65-105)
--- NOTE | 2021-05-22 12:47 | PM.IMPN ---
Progress Note: A&P Assessment and Plan (1) Benign neoplasm of ascending colon: Code(s): D12.2 - Benign neoplasm of ascending colon Status: Acute Assessment and Plan: Patient with enlarging polyps of ascending colon as discussed in HPI. Pt underwent scheduled hand access laparoscopic right colectomy and cholecystectomy 05/20. Patient had gallbladder injury requiring cholecystectomy and transverse colon injury requiring enterotomy. Patient appears to be recovering from the surgery well. Diet started and advanced. Now having BMs. Continue to increase activity as toelrated. (2) Type 2 diabetes mellitus without complication, without long-term current use of insulin: Code(s): E11.9 - Type 2 diabetes mellitus without complications Status: Chronic Assessment and Plan: A1c 6.2. The patient's blood glucose was reviewed on 05/22 Glucose remains well controlled. Patient stopped taking metformin 6 months ago and currently diet controlled. Continue AccuCheks covering with sliding scale. Hypoglycemia protocol available as needed. (3) Benign essential hypertension: Code(s): I10 - Essential (primary) hypertension Status: Chronic Assessment and Plan: Patient's blood pressure was reviewed on 05/22 Blood pressure mostly well controlled but did drop yesterday to 95/60. Norvasc on hold now. Will continue current medication with Valsartan. Parameters placed on hypertensive meds. (4) Gastroesophageal reflux disease without esophagitis: Code(s): K21.9 - Gastro-esophageal reflux disease without esophagitis Status: Chronic Assessment and Plan: Stable. Continue omeprazole. (5) Chronic back pain: Code(s): M54.9 - Dorsalgia, unspecified; G89.29 - Other chronic pain Status: Acute Assessment and Plan: Pain well controlled. Continue Tylenol. (6) DVT prophylaxis: Code(s): Z29.9 - Encounter for prophylactic measures, unspecified Status: Acute Assessment and Plan: Lovenox Additional Plan Hypokalemia - Potassium still low but on oralk replacement. Monitor closely since on Valsartan and now scheduled potassium. Mag low normal so will start oral replacement. Subjective Date/time seen: 05/22/21 12:47 Interval history: 85yo male with HTN, BPH and DM who is here for elective right hemicolectomy for colon polyps at the ileocecal valve s/p right colectomy. +BMs now. Pain tolerable. Voiding more than ususally he feels. No CP or SOB. No n/v. Was up to the chair yesterday. Yesterday he mentioned that he was interested in walking to the [facility]. PT/OT was consulted and they worked with the patient. While walking, his legs became weak and had to be lowered to the ground. No fall/LOC/head trauma. Come to find out later, the patient does not walk at home but is able to stand and pivot. Exam Narrative: AF 98.1 128/72 80 17 99% ra Gen - NARD Chest - lungs clear anteriorly and in the flanks, nml RR CV - RRR S1/S2 Abd - soft. vertical midline incision well approximated and clean/dry/intact. Mild pick erythema noted around the inscision that is warm to touch Ext - No pedal edema Psych - Nml mood and affect Skin - As above o/w warm and dry Objective Data Vital Signs Vital Signs: Vital Signs - 24 hr 05/21/21 16:21 05/21/21 19:32 05/22/21 06:19 Temperature 98.2 F 98.3 F 98.1 F Pulse Rate 114 H 94 80 Respiratory Rate 18 18 17 Blood Pressure 95/60 L 147/83 H 128/72 Pulse Oximetry 99 99 99 Intake/Output Intake/Output: Intake & Output 05/19/21 05/20/21 05/21/21 05/22/21 23:59 23:59 23:59 23:59 Intake Total 1140 2720 1190 Output Total 50 2350 450 Balance 1090 370 740 Meds/Results Medications: Active Medications Generic Name Dose Route Start Last Admin Trade Name Antonioq PRN Reason Stop Dose Admin Acetaminophen 500 mg 05/20/21 14:07 Acetaminophen 500 Mg Tablet PO Q6H PRN Mild Pain (1-3) or Fever
--- NOTE | 2021-05-22 12:51 | PM.PNGS ---
Progress Note: A&P Assessment and Plan (1) Adenomatous polyp of ascending colon: Code(s): D12.2 - Benign neoplasm of ascending colon Status: Chronic Assessment and Plan: continues to do well. PT and OT working with him with walking and strengthening. Plan is for him to go home with home health and a lot of family help as he is still pretty weak and not very ambulatory on his own. We discussed half-way or rehab but patient's feels they have enough help at home that with [facility] they can just bring him home. He is doing well. If looks good tomorrow can be discharged. (2) Type 2 diabetes mellitus without complication, without long-term current use of insulin: Code(s): E11.9 - Type 2 diabetes mellitus without complications Status: Chronic (3) Benign essential hypertension: Code(s): I10 - Essential (primary) hypertension Status: Chronic (4) Primary osteoarthritis involving multiple joints: Code(s): M15.0 - Primary generalized (osteo)arthritis Status: Chronic Subjective Subjective Date/Time Seen: 05/22/21 12:51 Post Op day: 2 Patient reports: no new complaints, bowel movement and afebrile Review of Systems Review of Systems: All systems reviewed & are unremarkable except as noted in HPI and below Constitutional: Constitutional: Denies chills, Denies fever(s), Denies headache(s), Reports lethargy and Reports weakness Cardiovascular: Cardiovascular: Denies chest pain and Denies dyspnea Respiratory: Respiratory: Denies cough and Denies dyspnea Neurologic: Denies confusion and Denies headache(s) Exam Const: General: comfortable and no acute distress; No confusion Orientation/consciousness: patient oriented x3 and No confusion GI: Inspection: no abdominal wall ecchymosis, non-distended, incision ( Incisions dry and healing well) and scaphoid GI Palp: Yes Soft to palpation, No Tenderness to palpation present (GI), No Hernia present, No Palpable mass present and Yes Rebound tenderness present Auscultation: normal bowel sounds Neuro: General: patient oriented x3, no focal motor deficits and No confusion Extrem: General: no calf tenderness and no edema Psych: Affect: normal affect Insight: Good insight present (Psych) Judgement: Good judgement present (Psych) Objective Data Vital Signs Vital Signs: Vital Signs - 24 hr 05/21/21 16:21 05/21/21 19:32 05/22/21 06:19 Temperature 36.8 C 36.8 C 36.7 C Pulse Rate 114 H 94 80 Respiratory Rate 18 18 17 Blood Pressure 95/60 L 147/83 H 128/72 Pulse Oximetry 99 99 99 Intake/Output Intake/Output: Intake & Output 05/19/21 05/20/21 05/21/21 05/22/21 23:59 23:59 23:59 23:59 Intake Total 1140 2720 1190 Output Total 50 2350 450 Balance 1090 370 740 Meds/Results Medications: Active Medications Generic Name Dose Route Start Last Admin Trade Name Freq PRN Reason Stop Dose Admin Acetaminophen 500 mg 05/20/21 14:07 Acetaminophen 500 Mg Tablet PO Q6H PRN Mild Pain (1-3) or Fever Acetaminophen 500 mg 05/20/21 14:27 05/20/21 20:02 Acetaminophen 500 Mg Tablet PO 500 mg HS PRN Administration Sleep Hydrocodone Bitart/Acetaminophen 1 tab 05/20/21 14:07 Hydrocodone/Acetaminophen (*Crx) 5-325 Mg Tablet PO Q4H PRN Pain Rated 4-6 Aspirin 81 mg 05/21/21 09:00 05/22/21 09:32 Aspirin 81 Mg Enteric Tablet PO 81 mg DAILY GLORIA Administration Atorvastatin Calcium 20 mg 05/21/21 09:00 05/22/21 09:32 Atorvastatin 20 Mg Tablet PO 20 mg DAILY GLORIA Administration Dextrose 12.5 gm 05/20/21 16:19 Dextrose 50% 25 Gm/50 Ml Syringe IV PUSH PRN PRN Hypoglycemia Protocol Enoxaparin Sodium 30 mg 05/20/21 21:00 05/22/21 09:32 Enoxaparin 30 Mg/0.3 Ml Syringe SUB-Q 30 mg Q12HR GLORIA Administration Glucagon 1 mg 05/20/21 16:19 Glucagon For Inj 1 Mg Vial IM PRN PRN Hypoglycemia Protocol
--- NOTE | 2021-05-22 14:27 | PCOTNOTE ---
Attempted to see patient this pm, however patient was sleeping soundly upon entering. Did not disturb patient for this reason.
[2021-05-22 16:42] LABS: Glucose Point of Care 117 mg/dl (65-105)
[2021-05-22 20:00] VITALS: PULSE 81; RESP 18; O2SAT 99
[2021-05-22] MEDS: MELATONIN 5 MG TABLET PO (20:50)
[2021-05-22 21:11] VITALS: BP 146/82; PULSE 81; RESP 18; TEMP 37.3; O2SAT 99
[2021-05-22 21:16] LABS: Glucose Point of Care 132 mg/dl (65-105)
[2021-05-23 06:18] LABS: Hematocrit 33.5 % (42.0-52.0); Hemoglobin 11.2 g/dL (14.0-18.0); Mean Corpuscular HGB Conc 33.4 g/dl (32-36); Mean Corpuscular Hemoglobin 27.3 pg (26-34); Mean Corpuscular Volume 81.5 fl (80-100); Mean Platelet Volume 10.6 fl (7.4-10.4); Platelet Count Result 187 k/mm3 (150-375); Red Blood Count 4.11 M/mm3 (4.6-6.20); Red Cell Distribution Width 13.4 % (11.5-14.5); White Blood Count 9.5 K/mm3 (4.5-10.0)
[2021-05-23 06:33] LABS: Anion Gap 8 mmol/L (8-16); Blood Urea Nitrogen 12 mg/dL (9-20); Carbon Dioxide 21 mmol/L (22-30); Chloride 109 mmol/L (98-107); Estimated CRCL calculation 55 ml/min; Estimated Glomerular Filt Rate > 60; Glucose 116 mg/dL (65-110); Magnesium 1.6 mg/dL (1.6-2.3); Potassium 3.9 mmol/L (3.4-5.0); Sodium 138 mmol/L (137-145)
[2021-05-23 06:39] VITALS: BP 142/86; PULSE 85; RESP 16; TEMP 36.9; O2SAT 100
[2021-05-23 08:00] VITALS: BP 133/80; PULSE 83; RESP 20; TEMP 36.7; O2SAT 100
[2021-05-23 08:48] LABS: Glucose Point of Care 142 mg/dl (65-105)
[2021-05-23] MEDS: VALSARTAN 160 MG TABLET 320 MG PO (09:59)
[2021-05-23] MEDS: ASPIRIN 81 MG ENTERIC TABLET PO (09:59)
[2021-05-23] MEDS: POTASSIUM CHLORIDE 20 MEQ TABLET.ER PO ×2 (09:59→13:24)
[2021-05-23] MEDS: MULTIVITAMINS THERAPEUTIC TAB (*BKC) 1 TABLET PO (09:59)
[2021-05-23] MEDS: ATORVASTATIN 20 MG TABLET PO (09:59)
[2021-05-23] MEDS: PANTOPRAZOLE 40 MG TABLET PO (09:59)
[2021-05-23] MEDS: ENOXAPARIN 30 MG/0.3 ML SYRINGE SUB-Q (10:00)
[2021-05-23] MEDS: MAGNESIUM OXIDE 400 MG TABLET PO (10:00)
--- NOTE | 2021-05-23 10:12 | PM.DS ---
DS: Admitting Diagnosis Discharge Date 05/23/2021 Admitting Diagnosis right colon polyps DS: Discharge Diagnosis Discharge Diagnosis (1) Adenomatous polyp of ascending colon: Code(s): D12.2 - Benign neoplasm of ascending colon Status: Chronic Assessment and Plan: s/p right colectomy, doing well, continue routine postoperative care, home with home health for continued physical therapy, follow-up with Dr. Garcia in 2 weeks DS: Summary Hospital Course Reason for hospitalization: right colon polyps Hospital Course: The patient is an 85-year-old male that presented to the hospital for right colon polyps. The patient was taken to the operating room by Dr. garcia on 05/20 for right colectomy, please see full operative report for details that procedure. Postoperatively, the patient did well and was transferred to the floor. During his hospital course, the patient worked with physical therapy and occupational therapy. The decision was made for the patient to receive home health for continued PT and OT. The patient did have return of bowel function and was able to tolerate a diet at the time of discharge. The patient reports his pain is well controlled p.o. analgesia. The patient will follow up with Dr. garcia in 2 weeks. Status at Discharge Functional status at discharge: uses cane/walker Overall status at discharge: patient is progressing back to baseline Time Spent with Patient Time attestation: Total time spent providing and/or coordinating discharge services: Time spent: Less than 30 minutes Exam Const: General: cooperative, comfortable and no acute distress Nutritional Appearance: average body habitus Orientation/consciousness: patient oriented x3 Resp: Effort & Inspection: normal respiratory effort Auscultation: clear to auscultation bilaterally Cardio: Rate: regular rate Rhythm: regular rhythm GI: Inspection: normal to inspection and incision GI Palp: Yes abdominal tenderness, Yes Soft to palpation and Yes Tenderness to palpation present (GI) DS: Data Data Completed and Pending Completed studies during hospitalization: Pending at discharge 05/20/21 10:40 Surgical [PTH] Routine Surgical [PTH] Routine Labs on day of discharge: Labs from last 24 hours 05/23/21 05/23/21 05/23/21 08:28 05:59 05:59 WBC 9.5 RBC 4.11 L Hgb 11.2 L Hct 33.5 L MCV 81.5 MCH 27.3 MCHC 33.4 RDW 13.4 Plt Count 187 MPV 10.6 H Sodium 138 Potassium 3.9 Chloride 109 H Carbon Dioxide 21 L Anion Gap 8 BUN 12 Creatinine 0.90 Estim Creat Clear Calc 55 Estimated GFR > 60 Glucose 116 H POC Capillary Glucose 142 H Calcium 9.0 Magnesium 1.6 05/22/21 05/22/21 05/22/21 20:19 16:37 11:50 WBC RBC Hgb Hct MCV MCH MCHC RDW Plt Count MPV Sodium Potassium Chloride Carbon Dioxide Anion Gap BUN Creatinine Estim Creat Clear Calc Estimated GFR Glucose POC Capillary Glucose 132 H 117 H 159 H Calcium Magnesium Discharge Plan Discharge Attending physician on discharge: Mario Garcia Consulting providers: Addy Herring Discharging Clinician: Carey Mtz Anticipated Discharge Date/Time: 05/23/21 10:12 Patient Disposition: Home Health Service Activity: may shower and as tolerated Diet: diabetic Wound Care Instructions: incision open to air Discharge Instructions: Per Care Coordination, patient to discharge with [facility] ([phone]) for PT/OT and prison services week of 05/24/21. Ambulate with walker and assistance at home. PT OT to be arranged via home health regular diabetic diet okay to bathe or shower, wash incisions with soap and water is fine. See Dr. garcia in the office in 2 weeks okay to take Imodium if has diarrhea. Call Dr. hanson office for any fever, severe pain, bleeding or other significant
[2021-05-23 12:00] LABS: Glucose Point of Care 111 mg/dl (65-105)
--- NOTE | 2021-05-23 13:20 | PM.IMPN ---
Progress Note: A&P Assessment and Plan (1) Benign neoplasm of ascending colon: Code(s): D12.2 - Benign neoplasm of ascending colon Status: Acute Assessment and Plan: Patient with enlarging polyps of ascending colon as discussed in HPI. Pt underwent scheduled hand access laparoscopic right colectomy and cholecystectomy 05/20. Patient had gallbladder injury requiring cholecystectomy and transverse colon injury requiring enterotomy. Patient appears to be recovering from the surgery well. Diet started and advanced. Now having BMs. Continue to increase activity as toelrated. (2) Type 2 diabetes mellitus without complication, without long-term current use of insulin: Code(s): E11.9 - Type 2 diabetes mellitus without complications Status: Chronic Assessment and Plan: A1c 6.2. The patient's blood glucose was reviewed on 05/22 Glucose remains well controlled. Patient stopped taking metformin 6 months ago and currently diet controlled. Continue AccuCheks covering with sliding scale. Hypoglycemia protocol available as needed. (3) Benign essential hypertension: Code(s): I10 - Essential (primary) hypertension Status: Chronic Assessment and Plan: Patient's blood pressure was reviewed on 05/22 Blood pressure mostly well controlled but did drop yesterday to 95/60. Norvasc on hold now. Will continue current medication with Valsartan. Parameters placed on hypertensive meds. (4) Gastroesophageal reflux disease without esophagitis: Code(s): K21.9 - Gastro-esophageal reflux disease without esophagitis Status: Chronic Assessment and Plan: Stable. Continue omeprazole. (5) Chronic back pain: Code(s): M54.9 - Dorsalgia, unspecified; G89.29 - Other chronic pain Status: Acute Assessment and Plan: Pain well controlled. Continue Tylenol. (6) DVT prophylaxis: Code(s): Z29.9 - Encounter for prophylactic measures, unspecified Status: Acute Assessment and Plan: Lovenox Additional Plan Hypokalemia -this has resolved Disposition plan for discharge today per General surgery Subjective Date/time seen: 05/23/21 13:20 Interval history: 85yo male with HTN, BPH and DM who is here for elective right hemicolectomy for colon polyps at the ileocecal valve s/p right colectomy. No overnight events. Is planned for discharge home with home health today per General surgery. He reports he had some pain in his right foot and had difficulty walking and hence physical therapy noted with weakness on that side. He feels comfortable going home and working with therapy at home. + Review of Systems Review of Systems: All systems reviewed & are unremarkable except as noted in HPI and below (HPI) Exam Narrative: Gen - NARD Chest - lungs clear anteriorly and in the flanks, nml RR CV - RRR S1/S2 Abd - soft. vertical midline incision well approximated and clean/dry/intact. Mild pink erythema noted around the inscision that is warm to touch Ext - No pedal edema Psych - Nml mood and affect Skin - As above o/w warm and dry Objective Data Vital Signs Vital Signs: Vital Signs - 24 hr 05/22/21 20:00 05/22/21 21:11 05/23/21 06:39 Temperature 99.2 F 98.5 F Pulse Rate 81 81 85 Respiratory Rate 18 18 16 Blood Pressure 146/82 H 142/86 H Pulse Oximetry 99 99 100 05/23/21 08:00 Temperature 98.1 F Pulse Rate 83 Respiratory Rate 20 Blood Pressure 133/80 Pulse Oximetry 100 Intake/Output Intake/Output: Intake & Output 05/20/21 05/21/21 05/22/21 05/23/21 23:59 23:59 23:59 23:59 Intake Total 1140 2720 1740 440 Output Total 50 2350 1225 1300 Balance 1090 370 515 -860 Meds/Results Medications: Active Medications Generic Name Dose Route Start Last Admin Trade Name Freq PRN Reason Stop Dose Admin Acetaminophen 500 mg 05/20/21 14:07 Acetaminophen 500 Mg Tablet PO Q6H PRN Mild Pain (1-3) or Fever Ac
== END 2021-05-23 13:35 | disposition home health service (06) | DRG 330 ==
LOC: ANH3MED 21:28
PROVIDERS: Internal Medicine; Admitting Provider Surgery; PCP Internal Medicine; Visit Provider Surgery
PROC: 0DTF4ZZ Resection of Right Large Intestine, Percutaneous Endoscopic Approach (ICD-10-PCS; CPT 44204; principal; 2021-05-20 08:30)
DX: D12.2 Benign neoplasm of ascending colon (principal); K91.71 Accidental puncture and laceration of a digestive system organ or structure during a digestive system procedure; K66.0 Peritoneal adhesions (postprocedural) (postinfection); E11.9 Type 2 diabetes mellitus without complications; I10 Essential (primary) hypertension; K21.9 Gastro-esophageal reflux disease without esophagitis; E78.2 Mixed hyperlipidemia; N40.0 Benign prostatic hyperplasia without lower urinary tract symptoms; M15.0 Primary generalized (osteo)arthritis; M54.9 Dorsalgia, unspecified; G89.29 Other chronic pain; M21.379 Foot drop, unspecified foot; H91.90 Unspecified hearing loss, unspecified ear; E87.6 Hypokalemia; Z79.82 Long term (current) use of aspirin; Z79.899 Other long term (current) drug therapy; Z87.828 Personal history of other (healed) physical injury and trauma; Z87.891 Personal history of nicotine dependence; Z88.0 Allergy status to penicillin; Z88.7 Allergy status to serum and vaccine
CPT/HCPCS: 36415; 80048; 82948; 83735; 84100; 85027; 88304; 88307; 97162; 97165; 97535; A9270; J0690; J1650; J1885; J3010; J7120

== ENCOUNTER 2021-06-05 15:07 | Observation (INO) | payer MEDICARE, SELFPAY ==
[2021-06-04] VITALS (9 sets, daily range): BP systolic 112–149; BP diastolic 69–88; PULSE 72–87; RESP 14–18; TEMP 36.5–36.9; O2SAT 98–100; BMI 26.9
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
--- NOTE | 2021-06-04 16:58 | SUR.PREOP ---
patient and updated on time delay
[2021-06-04] MEDS: LACTATED RINGERS 1,000 ML 30 ML IV CONT ×2 (17:32→21:37)
[2021-06-04 17:52] LABS: Glucose Point of Care 119 mg/dl (65-105)
--- NOTE | 2021-06-04 17:57 | WPDHPUPDATE1 ---
History and Physical Update Update Date/Time: 06/04/21 17:57 History and Physical has been reviewed, including an updated exam of the patient. There are NO changes in the patient's condition. Risks, benefits, and alternatives have been discussed and questions answered. Patient agrees to proceed with procedure.
--- NOTE | 2021-06-04 18:14 | SUR.PREOP ---
PATIENT AND UPDATED ON TIME DELAY.
--- NOTE | 2021-06-04 18:42 | WPDANESEFPP ---
Anes - Eval Final PreProcedure Day of Procedure 06/04/21 18:42 Patient weight: overweight Heart: regular rate and rhythm Lungs: clear to auscultation Airway: Mallampati scale class III and special considerations poor opening Neurological: alert and oriented Last oral intake: >/= 8 hours ASA classification: III Emergent: no Anesthetic plan: proceed Anesthesia type and monitoring: general ETT and standard monitoring Results Review: All pre-operative results and documents have been reviewed as part of the pre-operative evaluation. Informed Consent: The patient's anesthetic plan and its attendant risks and benefits were discussed with the patient/family/POA. Questions were solicited and answers provided to the satisfaction of the patient/family/POA.
--- NOTE | 2021-06-04 19:39 | WPDHPUPDATE1 ---
History and Physical Update Update Date/Time: 06/04/21 19:39 History and Physical has been reviewed, including an updated exam of the patient. There are NO changes in the patient's condition. Risks, benefits, and alternatives have been discussed and questions answered. Patient agrees to proceed with procedure.
[2021-06-04] MEDS: ceFAZolin 2 GM/D5W 50 ML 2 GM/50 ML BAG IVPB (19:49)
--- NOTE | 2021-06-04 21:31 | P.OP_ITS ---
Procedure Note - Detailed Date of Procedure 06/04/21 Pre-op Diagnosis fascial dehiscence Post-op Diagnosis other (Fascial dehiscence, evisceration) Procedure Performed Enterolysis, repair fascial dehiscence Surgeon Mario Hansen MD Headend Technician Alley Kim [facility] Anesthesia general Indications The patient is an 85 man who just over 2 weeks ago underwent a hand access laparoscopic right colectomy. He had done well postoperatively and was seen for his initial postop visit in the office today. It was noted that he had a bulge under his hand access incision. It appeared that he had a fascial dehiscence. He is taken to surgery now for repair of his fascial dehiscence. 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 This bowel was stuck with very dense adhesions to the subcutaneous the fascia and also to some of the strata fix suture that had been used to close. These were very difficult adhesions to take down. Fortunately this was done with no bowel injury or enterotomy. The strata fix appeared to have frayed and broken as it was quite retracted in the open wound. No other significant abnormalities were noted. Description of Procedure Patient was taken to surgery and induced into general anesthesia. The previous upper abdominal incision was reopened sharply with a scalpel. Directly under the incision I could see that bowel was in the subcutaneous. We carefully opened the incision the length of the wound. The adhesions of the bowel were very dense and difficult. With traction on the skin a tedious lengthy dissection was carried out. In many areas I had to go ahead and just take some of the subcutaneous or fascia so as to avoid a bowel injury. I initially started dissecting this off on the patient's right side. I had a changed sides and go to the patient's low right side to dissect the adhesions on the left. Eventually after meticulous lengthy adhesiolysis the bowel was completely freed. I then reviewed all of the bowel that had been dissected. No enterotomies were seen. There was 1 small serosal injury that I buttressed with a 4-0 silk suture. The bowel was again checked. Was dropped into the abdominal cavity. I then went ahead and removed all the remaining suture. It was at this point that I noted that the Stratafix had frayed and broken. All the strata fix as well as the previous subcutaneous Vicryl sutures were removed. Then to get adequate abdominal wall fascia for secure closure, I undermined the subcutaneous just above the fascia all around the incision. I had to enlarge the incision both in the cranial direction as well as caudal direction so that a Ed effective repair could be completed. Eventually the fascia was well exposed all around the wound. I went ahead and closed the fascia with bidirectional running 1. PDS suture tying in the middle. I then placed a 15 Carlos Eduardo drain just over the fascia and brought it out through the skin to the left and caudal to the incision. It was sutured to the skin with 2-0 silk. I loosely approximated some of the subcutaneous over the drain and then closed the incision with wide osmin. Xe roform gauze fluffs and Medpor tape were used to dress the wound. The drain was placed to bulb suction. The patient was awakened and taken to recovery in good condition. Sponge needle counts were correct x2. Estimated Blood Loss -50 Drains Yes (SHAMAR drain in subcutaneous) Packing No Pathology none sent Complications No immediate complications Condition stable Disposition PACU
[2021-06-04 21:51] LABS: Glucose Point of Care 143 mg/dl (65-105)
--- NOTE | 2021-06-04 22:00 | SUR.PHASEI ---
PT HAS SHAMAR DRAIN TO MIDLINE ABDOMEN. SEROSANG DRAINAGE.
--- NOTE | 2021-06-04 22:34 | SUR.PHASEI ---
PT AWAKE AND ALERT. TALKATIVE. S TATES PAIN 11/15. DOESNT WANT ANY PAIN MEDS AT THIS TIME,
--- NOTE | 2021-06-04 22:50 | ADMGEN ---
This patient, Torie Hebert, was admitted to Medical Room 348-01. Patient/family oriented to hospital policies and general routines including ID bracelet, bed and alarms, visiting hours, pain management, procedures, bathroom and other care routines, personal items, smoking policy, room service/diet, and visiting hours. Information on how to activate the Rapid Response Team has been discussed. Patient/Family are encouraged to report perceived risks to care and to ask questions if they do not understand what they are told or what they should do.
--- NOTE | ~2021-06-05 | XR_ITS ---
EXAMINATION: XR chest 2V DATE: 06/05/2021 09:16 INDICATION: Cough TECHNIQUE: AP and lateral views of the chest are obtained. COMPARISON: 01/31/2021 FINDINGS: The lungs are free of acute opacities. There is no pleural effusion or pneumothorax. The ca rdiomediastinal silhouette is normal. There is moderate thoracic spondylosis. Calcified pleural plaqu es are noted. There is a small amount of enteric contrast from modified barium swallow performed imme diately prior to the chest radiographs. The barium pill used as part of the swallowing evaluation is in the distal esophagus. IMPRESSION: 1. No acute cardiopulmonary abnormality. 2. Barium pill from modified barium swallow in the distal esophagus. Consider upper GI to evaluate fo r distal esophageal stricture. Reviewed, dictated and finalized at location A. IMPRESSION: 1. No acute cardiopulmonary abnormality. 2. Barium pill from modified barium swallow in the distal esophagus. Consider u pper GI to evaluate for distal esophageal stricture.
--- NOTE | ~2021-06-05 | XR_ITS ---
EXAMINATION: XR barium swallow modified DATE: 06/05/2021 09:17 INDICATION: Cough TECHNIQUE: Modified barium esophagram was performed by myself to administered fluoroscopy, in conjun ction with speech pathologist who administered barium in varying consistencies as per speech patholog ist documentation. This was recorded on tape. A single fluoroscopic spot image was recorded. The DAP for this procedure was 1.41 Gycm2. Fluoroscopy exposure time was 1.9 minutes. FINDINGS: Oral stage: Adequate function. Pharyngeal phase: Vallecular and puriform sinus residue. Laryngeal penetration: None. Aspiration: None. Laryngeal sensitivity: Present. IMPRESSION: Modified barium swallow findings as above. Please refer to speech pathologist findings an d specific feeding recommendations. Reviewed, dictated and finalized at location A. IMPRESSION: Modified barium swallow findings as above. Please refer to speech p athologist findings and specific feeding recommendations.
[2021-06-05 00:10] LABS: Glucose Point of Care 141 mg/dl (65-105)
[2021-06-05] MEDS: LACTATED RINGERS 1,000 ML 80 ML IV CONT (00:12)
[2021-06-05] MEDS: HYDROcodone/acetaminophen (*CRX) 5-325 MG TABLET 1 TAB PO ×2 (00:12→08:27)
[2021-06-05 04:23] VITALS: BP 153/84; PULSE 90; RESP 17; TEMP 37; O2SAT 98
[2021-06-05 06:25] LABS: Hematocrit 38.2 % (42.0-52.0); Hemoglobin 12.2 g/dL (14.0-18.0); Mean Corpuscular HGB Conc 31.9 g/dl (32-36); Mean Corpuscular Hemoglobin 26.9 pg (26-34); Mean Corpuscular Volume 84.1 fl (80-100); Mean Platelet Volume 10.2 fl (7.4-10.4); Platelet Count Result 446 k/mm3 (150-375); Red Blood Count 4.54 M/mm3 (4.6-6.20); Red Cell Distribution Width 13.4 % (11.5-14.5); White Blood Count 11.4 K/mm3 (4.5-10.0)
[2021-06-05 06:31] LABS: Anion Gap 10 mmol/L (8-16); Blood Urea Nitrogen 12 mg/dL (9-20); Calcium 9.1 mg/dL (8.4-10.2); Carbon Dioxide 22 mmol/L (22-30); Chloride 104 mmol/L (98-107); Estimated CRCL calculation 62 ml/min; Estimated Glomerular Filt Rate > 60; Glucose 144 mg/dL (65-110); Potassium 4.6 mmol/L (3.4-5.0); Sodium 136 mmol/L (137-145)
--- NOTE | 2021-06-05 07:14 | PM.PNGS ---
Progress Note: A&P Assessment and Plan (1) Dehiscence of fascia: Qualifiers: Encounter type: subsequent encounter Qualified Code(s): T81.30XD - Disruption of wound, unspecified, subsequent encounter Code(s): T81.30XA - Disruption of wound, unspecified, initial encounter Status: Acute Assessment and Plan: Status post adhesiolysis of small bowel adhesions from subcutaneous and repair of fascial dehiscence. Patient doing pretty much as expected this morning. Having some incisional pain. Controlled with medication. Will slowly advance diet. Recheck labs and exam again tomorrow. Doing well so far. (2) Evisceration of bowel: Status: Acute (3) Coughing: Code(s): R05.9 - Cough, unspecified Status: Acute Assessment and Plan: Patient's reports he had severe coughing especially when taking pills after discharged from the hospital following his original surgery. He reported again to me this morning that he coughed a lot with drinking water. Will go ahead and get a modified swallow today to better evaluate. Intraoperatively, the fascial suture had frayed and broken. Suspect severe coughing may have occurred and led to this. Subjective Subjective Date/Time Seen: 06/05/21 07:14 Post Op day: 1 Patient reports: no new complaints, no flatus, no bowel movement, afebrile and other (Coughing with water) Interval history: Patient reported patient had severe coughing especially when taking pills once he was discharged after his 1st surgery. He reports to me that he had quite a bit of coughing when drinking his water. At surgery, it was noted that his fascial suture had frayed and broken. The coughing may well have had something to do with his fascial dehiscence. Review of Systems Review of Systems: All systems reviewed & are unremarkable except as noted in HPI and below Constitutional: Constitutional: Denies chills, Denies fever(s) and Denies headache(s) ENT: Reports as per HPI Cardiovascular: Cardiovascular: Denies chest pain and Denies dyspnea Respiratory: Respiratory: Denies cough and Denies dyspnea Gastrointestinal: Gastrointestinal: Reports as per HPI, Reports abdominal pain, Reports dysphagia (Coughs when drinking water), Denies heartburn, Denies nausea and Denies vomiting Neurologic: Denies confusion and Denies headache(s) Exam Const: General: comfortable and no acute distress; No confusion Orientation/consciousness: patient oriented x3 and No confusion GI: Inspection: incision (Dressing dry and intact), scaphoid and other (Serosanguineous fluid in SHAMAR drain) GI Palp: Yes Soft to palpation, Yes Tenderness to palpation present (GI) (Expected postop tenderness), No Guarding due to palpation present (GI) and No Rebound tenderness present Extrem: General: no calf tenderness and no edema Objective Data Vital Signs Vital Signs: Vital Signs - 24 hr 06/04/21 17:08 06/04/21 21:37 06/04/21 21:50 Temperature 36.9 C 36.7 C Pulse Rate 80 87 74 Respiratory Rate 16 18 14 Blood Pressure 124/86 112/69 123/78 Pulse Oximetry 100 100 100 06/04/21 22:05 06/04/21 22:20 06/04/21 22:53 Temperature 36.6 C Pulse Rate 72 72 80 Respiratory Rate 14 16 17 Blood Pressure 136/76 131/74 135/69 Pulse Oximetry 100 99 100 06/04/21 23:03 06/04/21 23:08 06/04/21 23:53 Temperature 36.6 C 36.5 C 36.8 C Pulse Rate 80 76 82 Respiratory Rate 17 18 15 Blood Pressure 135/69 139/72 149/88 H Pulse Oximetry 100 99 98 06/05/21 04:23 Temperature 37.0 C Pulse Rate 90 Respiratory Rate 17 Blood Pressure 153/84 H Pulse Oximetry 98 Intake/Output Intake/Output: Intake & Output 06/02/21 06/03/21 06/04/21 06/05/21 23:59 23:59 23:59 23:59 Intake Total 250 657 Output Total 558 Balance 250 99 Meds/Results Medications: Active Medications Generic Name Dose Route Start Last Admin Trade Name Freq PRN Reason Stop Dose Admin Acetaminophen 500 mg 06/04/21 22:
[2021-06-05 08:13] LABS: Glucose Point of Care 135 mg/dl (65-105)
[2021-06-05] MEDS: ASPIRIN 81 MG ENTERIC TABLET PO (08:28)
[2021-06-05] MEDS: PANTOPRAZOLE 40 MG TABLET PO (08:28)
[2021-06-05] MEDS: ATORVASTATIN 20 MG TABLET PO (08:28)
[2021-06-05] MEDS: POTASSIUM CHLORIDE 20 MEQ TABLET.ER PO ×2 (08:28→16:59)
[2021-06-05] MEDS: VALSARTAN 160 MG TABLET 320 MG PO (08:28)
[2021-06-05] MEDS: amLODIPine BESYLATE 5 MG TABLET 10 MG PO (08:28)
[2021-06-05] MEDS: ENOXAPARIN 40 MG/0.4 ML SYRINGE SUB-Q (08:29)
[2021-06-05 10:03] VITALS: O2SAT 98
--- NOTE | 2021-06-05 10:18 | PM.IMCN ---
Assessment and Plan Assessment and plan (1) Dysphagia: Code(s): R13.10 - Dysphagia, unspecified Status: Acute Assessment and Plan: patient has been complaining of dysphagia for the last 3-4 months and things frequently gets caught in his throat and he has to regurgitate it - this could be the reason for his coughing and dehiscence of his abdominal wound - he did have an EGD back in March but no mention of stricture noted or dilation - chest x-ray after his swallow study actually showed a barium tab stuck in his distal esophagus. This should dissolve but this is more evidence that he does have possible stricture - he does mention a vague history a long time ago of being diagnosed with a spastic esophagus but does not know any further information on this - will consult GI (2) Coughing: Code(s): R05.9 - Cough, unspecified Status: Acute Assessment and Plan: as above - chest x-ray looks clear. patient has had his COVID and influenza vaccine (3) Evisceration of bowel: Status: Acute Assessment and Plan: likely due to coughing and/ or straining from constipation postop - patient underwent enterolysis and fascial dehiscence repair on 06/04/2021 and is doing well - continue with surgical recommendations - continue Lovenox for DVT prophylaxis (4) Type 2 diabetes mellitus without complication, without long-term current use of insulin: Code(s): E11.9 - Type 2 diabetes mellitus without complications Status: Chronic Assessment and Plan: diet-controlled - follow-up with primary care physician (5) Benign essential hypertension: Code(s): I10 - Essential (primary) hypertension Status: Chronic Assessment and Plan: last blood pressure 153/84 - continue valsartan and amlodipine Additional Plan supervising physician for this medical consultation is Dr. Cat HPI Data of Consult Consult date: 06/05/21 Requesting Physician: Mario Hansen MD Primary Care Provider: Mik Little MD Consult Narrative Narrative: Torie Hebert is a 85 year old male who has a history of diet-controlled diabetes, hypertension, and hyperlipidemia with recent surgery on 05/20/2021 for a right colectomy and laparoscopic cholecystectomy. Patient states that he was doing relatively well postop and was battling constipation. He said he was straining to have a bowel movement and his stools were hard and small. This improved with MiraLax and he actually had multiple soft stools on that medication and was doing fairly well. He also mentions that he had been coughing fairly often. His at bedside states if he eats or drinks too fast he coughs quite a bit. The patient states that he thinks food gets stuck sometimes and he has to cough until it comes up. He says roast beef and water are the 2 main things that get stuck. He has a history of GERD and history of an EGD back in March but he is unsure if he has ever had dilation. He mentioned that this is been going on for 3-4 months. He was told in the distant past that he had a spastic esophagus but has never heard of achalasia or any other diagnosis with this. In any event, he went to Dr. hanson office in a follow-up visit after surgery and was found to have fascial dehiscence and thus was admitted to the hospital for further surgical intervention. On 06/04/2021 he underwent a enterolysis and repair of fascial dehiscence and tolerated it well. He says his pain is currently a 6/10 and is worse when he laughs or takes deep breaths. He denies chest pain, nausea, vomiting or fevers. He has had both a vaccine for COVID and influenza. Review of Systems Review of Systems: All systems reviewed & are unremarkable except as noted in HPI and below [facility] Past Medical History Medical History (Updated 06/05/21 @ 10:43 by Sofía Medina PA-C) Benign essential hypertension Benign prostatic hyperplasi
--- NOTE | 2021-06-05 10:22 | PCSTNOTE ---
Please refer to the Modified Barium Swallow Evaluation in the EMR.
[2021-06-05 12:00] LABS: Glucose Point of Care 139 mg/dl (65-105)
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
[2021-06-05 14:14] VITALS: BP 126/81; PULSE 76; RESP 16; TEMP 36.1; O2SAT 96
[2021-06-05] MEDS: DOCUSATE SODIUM 100 MG CAPSULE PO (16:59)
[2021-06-05 17:09] LABS: Glucose Point of Care 158 mg/dl (65-105)
[2021-06-05 20:43] VITALS: BP 135/73; PULSE 73; RESP 16; TEMP 36.8; O2SAT 97
[2021-06-05 20:54] LABS: Glucose Point of Care 150 mg/dl (65-105)
[2021-06-05 21:16] VITALS: O2SAT 98
[2021-06-06 06:00] VITALS: BP 144/82; PULSE 80; RESP 18; TEMP 36.4; O2SAT 96
[2021-06-06 06:06] LABS: Hematocrit 35.4 % (42.0-52.0); Hemoglobin 11.7 g/dL (14.0-18.0); Mean Corpuscular HGB Conc 33.1 g/dl (32-36); Mean Corpuscular Hemoglobin 26.9 pg (26-34); Mean Corpuscular Volume 81.4 fl (80-100); Mean Platelet Volume 9.9 fl (7.4-10.4); Platelet Count Result 411 k/mm3 (150-375); Red Blood Count 4.35 M/mm3 (4.6-6.20); Red Cell Distribution Width 13.4 % (11.5-14.5); White Blood Count 10.1 K/mm3 (4.5-10.0)
[2021-06-06 06:25] LABS: Anion Gap 9 mmol/L (8-16); Blood Urea Nitrogen 10 mg/dL (9-20); Carbon Dioxide 23 mmol/L (22-30); Chloride 105 mmol/L (98-107); Estimated CRCL calculation 62 ml/min; Estimated Glomerular Filt Rate > 60; Glucose 132 mg/dL (65-110); Potassium 3.9 mmol/L (3.4-5.0); Sodium 137 mmol/L (137-145)
[2021-06-06] MEDS: PANTOPRAZOLE 40 MG TABLET PO (08:07)
[2021-06-06] MEDS: polyethylene glycoL 3350 17 GM POWD.PACK PO (08:07)
[2021-06-06] MEDS: amLODIPine BESYLATE 5 MG TABLET 10 MG PO (08:07)
[2021-06-06] MEDS: POTASSIUM CHLORIDE 20 MEQ TABLET.ER PO ×2 (08:07→17:09)
[2021-06-06] MEDS: ATORVASTATIN 20 MG TABLET PO (08:07)
[2021-06-06] MEDS: DOCUSATE SODIUM 100 MG CAPSULE PO ×2 (08:08→17:09)
[2021-06-06] MEDS: VALSARTAN 160 MG TABLET 320 MG PO (08:08)
[2021-06-06] MEDS: ASPIRIN 81 MG ENTERIC TABLET PO (08:08)
[2021-06-06] MEDS: ENOXAPARIN 40 MG/0.4 ML SYRINGE SUB-Q (08:09)
[2021-06-06 08:10] LABS: Glucose Point of Care 125 mg/dl (65-105)
--- NOTE | 2021-06-06 11:05 | PM.IMPN ---
Progress Note: A&P Assessment and Plan (1) Dysphagia: Code(s): R13.10 - Dysphagia, unspecified Status: Acute Assessment and Plan: patient has been complaining of dysphagia for the last 3-4 months and things frequently gets caught in his throat and he has to regurgitate it - this could be the reason for his coughing and dehiscence of his abdominal wound - he did have an EGD back in March but no mention of stricture noted or dilation - chest x-ray after his swallow study actually showed a barium tab stuck in his distal esophagus. This should dissolve but this is more evidence that he does have possible stricture - he does mention a vague history a long time ago of being diagnosed with a spastic esophagus but does not know any further information on this - GI consulted and does not recommend any additional treatment or workup. He is to follow up with them outpatient if this worsens (2) Coughing: Code(s): R05.9 - Cough, unspecified Status: Acute Assessment and Plan: as above - chest x-ray looks clear. patient has had his COVID and influenza vaccine (3) Evisceration of bowel: Status: Acute Assessment and Plan: likely due to coughing and/ or straining from constipation postop - patient underwent enterolysis and fascial dehiscence repair on 06/04/2021 and is doing well - continue with surgical recommendations - continue Lovenox for DVT prophylaxis - okay to discharge from medical standpoint (4) Type 2 diabetes mellitus without complication, without long-term current use of insulin: Code(s): E11.9 - Type 2 diabetes mellitus without complications Status: Chronic Assessment and Plan: diet-controlled - follow-up with primary care physician (5) Benign essential hypertension: Code(s): I10 - Essential (primary) hypertension Status: Chronic Assessment and Plan: last blood pressure 144/82 - continue valsartan and amlodipine Additional Plan okay to discharge from medical standpoint Time Spent With Patient Time with patient: 25 - 35 minutes Subjective Date/time seen: 06/06/21 11:05 Interval history: Pt is a 85-year-old male here for postsurgical dehiscence. Patient was seen today and his only complaint is that he has not got out of bed. He says he has not been walking and he does feel weak. his abdominal pain is manageable and he is passing gas. He is eating and drinking well with no issue. He thinks his cough has gotten better. No chest pain or shortness of breath. Review of Systems Review of Systems: All systems reviewed & are unremarkable except as noted in HPI and below Exam Narrative: General:Well developed well nourished patient HEENT: Normocephalic, atraumatic, PERRL, Sclerae anicteric, oral mucosa moist. Neck: Supple Resp: CTA Heart: RRR Abd: Soft, mildly tender. Positive bowel sounds. incision site clean and dry without dehiscence or discharge Skin: Warm and dry Extremities: No swelling, erythema or pain to palpation Neuro: Alert and Oriented. CN 2-12 intact. No focal neurological deficits. Objective Data Vital Signs Vital Signs: Vital Signs - 24 hr 06/05/21 14:14 06/05/21 20:43 06/05/21 21:16 Temperature 96.9 F L 98.3 F Pulse Rate 76 73 Respiratory Rate 16 16 Blood Pressure 126/81 135/73 Pulse Oximetry 96 97 98 06/06/21 06:00 Temperature 97.5 F L Pulse Rate 80 Respiratory Rate 18 Blood Pressure 144/82 H Pulse Oximetry 96 Intake/Output Intake/Output: Intake & Output 06/03/21 06/04/21 06/05/21 06/06/21 23:59 23:59 23:59 23:59 Intake Total 250 1930 440 Output Total 2428 660 Balance 466 -488 -220 Meds/Results Medications: Active Medications Generic Name Dose Route Start Last Admin Trade Name Freq PRN Reason Stop Dose Admin Acetaminophen 500 mg 06/04/21 22:35 Acetaminophen 500 Mg Tablet PO Q6H PRN Mild Pain (1-3) or Fever A
--- NOTE | 2021-06-06 11:24 | PM.PNGS ---
Progress Note: A&P Assessment and Plan (1) Dehiscence of fascia: Qualifiers: Encounter type: subsequent encounter Qualified Code(s): T81.30XD - Disruption of wound, unspecified, subsequent encounter Code(s): T81.30XA - Disruption of wound, unspecified, initial encounter Status: Acute Assessment and Plan: patient doing well postoperatively. Not ambulating much yet, therefore will get PT OT to evaluate patient. Also patient needs a walker. Continue increasing activity gradually. Possibly home tomorrow. (2) Coughing: Code(s): R05.9 - Cough, unspecified Status: Acute (3) Dysphagia: Code(s): R13.10 - Dysphagia, unspecified Status: Acute Assessment and Plan: Keep diet soft, easy to swallow foods. Subjective Subjective Date/Time Seen: 06/06/21 11:24 Interval history: Pain controlled. Patient not ambulating much yet. Tolerating regular diet. Passing flatus. Exam GI: Inspection: incision ( Intact with osmin, bloody drainage gauze.), no visible herniation and other ( SHAMAR with minimal serosanguineous output) GI Palp: Yes Soft to palpation and Yes Tenderness to palpation present (GI) ( incisional) Auscultation: normal bowel sounds Objective Data Vital Signs Vital Signs: Vital Signs - 24 hr 06/05/21 14:14 06/05/21 20:43 06/05/21 21:16 Temperature 36.1 C L 36.8 C Pulse Rate 76 73 Respiratory Rate 16 16 Blood Pressure 126/81 135/73 Pulse Oximetry 96 97 98 06/06/21 06:00 Temperature 36.4 C L Pulse Rate 80 Respiratory Rate 18 Blood Pressure 144/82 H Pulse Oximetry 96 Intake/Output Intake/Output: Intake & Output 06/03/21 06/04/21 06/05/21 06/06/21 23:59 23:59 23:59 23:59 Intake Total 250 1930 440 Output Total 6890 660 Balance 250 -446 -220 Meds/Results Medications: Active Medications Generic Name Dose Route Start Last Admin Trade Name Freq PRN Reason Stop Dose Admin Acetaminophen 500 mg 06/04/21 22:35 Acetaminophen 500 Mg Tablet PO Q6H PRN Mild Pain (1-3) or Fever Acetaminophen 500 mg 06/04/21 22:58 Acetaminophen 500 Mg Tablet PO HS PRN Sleep Hydrocodone Bitart/Acetaminophen 1 tab 06/04/21 22:35 06/05/21 08:27 Hydrocodone/Acetaminophen (*Crx) 5-325 Mg Tablet PO 1 tab Q4H PRN Administration Pain Rated 4-6 Hydrocodone Bitart/Acetaminophen 1 tab 06/04/21 22:35 Hydrocodone/Acetaminophen (*Crx) 10-325 Mg Tablet PO Q6H PRN Pain Rated 7-10 Amlodipine Besylate 10 mg 06/05/21 09:00 06/06/21 08:07 Amlodipine Besylate 5 Mg Tablet PO 10 mg DAILY GLORIA Administration Aspirin 81 mg 06/05/21 09:00 06/06/21 08:08 Aspirin 81 Mg Enteric Tablet PO 81 mg DAILY GLORIA Administration Atorvastatin Calcium 20 mg 06/05/21 09:00 06/06/21 08:07 Atorvastatin 20 Mg Tablet PO 20 mg DAILY GLORIA Administration Dextrose 12.5 gm 06/04/21 22:35 Dextrose 50% 25 Gm/50 Ml Syringe IV PUSH PRN PRN Hypoglycemia Protocol Diphenhydramine HCl 25 mg 06/04/21 22:35 Diphenhydramine Hcl Cap 25 Mg Capsule PO HS PRN Sleep Docusate Sodium 100 mg 06/05/21 09:00 06/06/21 08:08 Docusate Sodium 100 Mg Capsule PO 100 mg BID GLORIA Administration Enoxaparin Sodium 40 mg 06/05/21 09:00 06/06/21 08:09 Enoxaparin 40 Mg/0.4 Ml Syringe SUB-Q 40 mg DAILY GLORIA Administration Glucagon 1 mg 06/04/21 22:35 Glucagon For Inj 1 Mg Vial IM PRN PRN Hypoglycemia Protocol Glucose 15 gm 06/04/21 22:35 Glucose Oral Gel 15 Gm Of Glucse In 37.5 Gm Tube PO PRN PRN Hypoglycemia Protocol Dextrose 1,000 mls @ 100 mls/hr 06/04/21 22:35 Dextrose 5% 1,000 Ml IVPB PRN PRN Hypoglycemia Protocol Insulin Aspart 3 - 6 units 06/05/21 08:00 06/06/21 08:18 Insulin Aspart (*Bkc) 100 Units/Ml SUB-Q Not Given TIDWM GLORIA Protocol Morphine Sulfate 4 mg 06/04/21 22:35 [place]
[2021-06-06 12:10] LABS: Glucose Point of Care 116 mg/dl (65-105)
[2021-06-06 14:00] VITALS: BP 102/61; PULSE 105; RESP 20; TEMP 36.3; O2SAT 100
[2021-06-06 16:39] LABS: Glucose Point of Care 160 mg/dl (65-105)
[2021-06-06 20:43] VITALS: O2SAT 96
[2021-06-06 21:07] LABS: Glucose Point of Care 135 mg/dl (65-105)
[2021-06-06 22:00] VITALS: BP 152/85; PULSE 94; RESP 21; TEMP 36.8; O2SAT 100
[2021-06-07 06:00] VITALS: BP 134/77; PULSE 82; RESP 20; TEMP 36.2; O2SAT 99
[2021-06-07 06:30] LABS: Hematocrit 35.1 % (42.0-52.0); Hemoglobin 11.3 g/dL (14.0-18.0); Mean Corpuscular HGB Conc 32.2 g/dl (32-36); Mean Corpuscular Hemoglobin 26.5 pg (26-34); Mean Corpuscular Volume 82.4 fl (80-100); Mean Platelet Volume 10.1 fl (7.4-10.4); Platelet Count Result 390 k/mm3 (150-375); Red Blood Count 4.26 M/mm3 (4.6-6.20); Red Cell Distribution Width 13.5 % (11.5-14.5); White Blood Count 11.4 K/mm3 (4.5-10.0)
[2021-06-07 06:58] LABS: Anion Gap 10 mmol/L (8-16); Blood Urea Nitrogen 11 mg/dL (9-20); Calcium 9.2 mg/dL (8.4-10.2); Carbon Dioxide 22 mmol/L (22-30); Chloride 104 mmol/L (98-107); Estimated CRCL calculation 70 ml/min; Estimated Glomerular Filt Rate > 60; Glucose 135 mg/dL (65-110); Potassium 4.3 mmol/L (3.4-5.0); Sodium 136 mmol/L (137-145)
[2021-06-07 08:07] LABS: Glucose Point of Care 151 mg/dl (65-105)
[2021-06-07] MEDS: VALSARTAN 160 MG TABLET 320 MG PO (09:14)
[2021-06-07] MEDS: PANTOPRAZOLE 40 MG TABLET PO (09:14)
[2021-06-07] MEDS: ENOXAPARIN 40 MG/0.4 ML SYRINGE SUB-Q (09:14)
[2021-06-07] MEDS: DOCUSATE SODIUM 100 MG CAPSULE PO (09:14)
[2021-06-07] MEDS: POTASSIUM CHLORIDE 20 MEQ TABLET.ER PO (09:14)
[2021-06-07] MEDS: polyethylene glycoL 3350 17 GM POWD.PACK PO (09:14)
[2021-06-07] MEDS: amLODIPine BESYLATE 5 MG TABLET 10 MG PO (09:14)
[2021-06-07] MEDS: ASPIRIN 81 MG ENTERIC TABLET PO (09:14)
[2021-06-07] MEDS: ATORVASTATIN 20 MG TABLET PO (09:14)
--- NOTE | 2021-06-07 09:46 | PM.IMPN ---
Progress Note: A&P Assessment and Plan (1) Dysphagia: Code(s): R13.10 - Dysphagia, unspecified Status: Acute Assessment and Plan: patient has been complaining of dysphagia for the last 3-4 months and things frequently gets caught in his throat and he has to regurgitate it - this could be the reason for his coughing and dehiscence of his abdominal wound - he did have an EGD back in March but no mention of stricture noted or dilation - chest x-ray after his swallow study actually showed a barium tab stuck in his distal esophagus. This should dissolve but this is more evidence that he does have possible stricture - he does mention a vague history a long time ago of being diagnosed with a spastic esophagus but does not know any further information on this - GI consulted and does not recommend any additional treatment or workup. He is to follow up with them outpatient if this worsens (2) Coughing: Code(s): R05.9 - Cough, unspecified Status: Acute Assessment and Plan: as above - chest x-ray looks clear. patient has had his COVID and influenza vaccine. No pneumonia suspected (3) Evisceration of bowel: Status: Acute Assessment and Plan: likely due to coughing and/ or straining from constipation postop - patient underwent enterolysis and fascial dehiscence repair on 06/04/2021 and is doing well - continue with surgical recommendations - continue Lovenox for DVT prophylaxis while hospitalized - okay to discharge from medical standpoint (4) Type 2 diabetes mellitus without complication, without long-term current use of insulin: Code(s): E11.9 - Type 2 diabetes mellitus without complications Status: Chronic Assessment and Plan: diet-controlled - follow-up with primary care physician (5) Benign essential hypertension: Code(s): I10 - Essential (primary) hypertension Status: Chronic Assessment and Plan: last blood pressure 134/77 - continue valsartan and amlodipine Additional Plan okay to discharge from medical standpoint with home health Subjective Date/time seen: 06/07/21 09:46 Interval history: Pt is a 85-year-old male here for postsurgical dehiscence. patient was seen today and doing well. He says he does not have very much abdominal pain and he is passing gas. He has been able to tolerate a diet without issue. He has not had a bowel movement yet. He has walked from the bed to the chair but has not walked much other than that. He plans to walk to the bathroom today and back to ensure he does not feel weak. He is currently working with therapy. He says he usually walks with a walker everywhere he goes at home and is feeling okay. He is ready to go home and feels safe to do so. He has no chest pain, shortness of breath, fevers, chills, nausea or vomiting. Exam Narrative: General:Well developed well nourished patient HEENT: Normocephalic, atraumatic, PERRL, Sclerae anicteric, oral mucosa moist. Neck: Supple Resp: CTA Heart: RRR Abd: Soft, mildly tender. Positive bowel sounds. incision site clean and dry without dehiscence or discharge. drain attached with minimal amount of blood. Skin: Warm and dry Extremities: No swelling, erythema or pain to palpation Neuro: Alert and Oriented. CN 2-12 intact. No focal neurological deficits. Objective Data Vital Signs Vital Signs: Vital Signs - 24 hr 06/06/21 14:00 06/06/21 20:43 06/06/21 22:00 Temperature 97.3 F L 98.2 F Pulse Rate 105 H 94 Respiratory Rate 20 21 H Blood Pressure 102/61 152/85 H Pulse Oximetry 100 96 100 06/07/21 06:00 Temperature 97.1 F L Pulse Rate 82 Respiratory Rate 20 Blood Pressure 134/77 Pulse Oximetry 99 Intake/Output Intake/Output: Intake & Output 06/04/21 06/05/21 06/06/21 06/07/21 23:59 23:59 23:59 23:59 Intake Total 250 1930 640 730 Output Total 2786 1264 600 Balance 334 -49 -739 130 Meds/Res
[2021-06-07 12:25] LABS: Glucose Point of Care 216 mg/dl (65-105)
--- NOTE | 2021-06-07 13:09 | PM.DS ---
DS: Admitting Diagnosis Discharge Date 06/07/2020 Admitting Diagnosis fascial dehiscence, evisceration DS: Discharge Diagnosis Discharge Diagnosis (1) Dehiscence of fascia: Qualifiers: Encounter type: subsequent encounter Qualified Code(s): T81.30XD - Disruption of wound, unspecified, subsequent encounter Code(s): T81.30XA - Disruption of wound, unspecified, initial encounter Status: Acute (2) Evisceration of bowel: Status: Acute (3) Coughing: Code(s): R05.9 - Cough, unspecified Status: Acute (4) Dysphagia: Code(s): R13.10 - Dysphagia, unspecified Status: Acute DS: Summary Hospital Course Reason for hospitalization: fascial dehiscence Hospital Course: this is an 85-year-old man who has a prior history hand assisted laparoscopic right hemicolectomy on 05/20/2021. He was seen in follow-up on 06/04/2021 and was found to have evidence a fascial dehiscence. He was taken to surgery on 06/04/2021 and underwent enterolysis with repair of fascial dehiscence. He was then admitted for postoperative care. His diet and activity were advanced as tolerated. Hospitalist was consulted for medical management and gastroenterology was also consulted due to patient having dysphagia and coughing spells. He had a speech evaluation with barium swallow which showed no significant aspiration or esophageal stricture. Gastroenterology recommended no further treatment at this time. Patient had a subcutaneous drain placed at the time of surgery to monitor for seroma fluid collection. Drain remained serosanguineous throughout his stay. His activity was slowly advanced as tolerated and 06/07/2021 he was tolerating his baseline activity and was tolerating his regular diet. He was discharged on 06/07/2021. Status at Discharge Functional status at discharge: uses cane/walker Overall status at discharge: patient is progressing back to baseline Time Spent with Patient Time attestation: Total time spent providing and/or coordinating discharge services: Time spent: Less than 30 minutes Exam GI: Inspection: incision ( Intact with osmin, bloody drainage gauze.), no visible herniation and other ( SHAMAR with minimal serosanguineous output) GI Palp: Yes Soft to palpation and Yes Tenderness to palpation present (GI) ( incisional) Auscultation: normal bowel sounds DS: Data Data Completed and Pending Labs on day of discharge: Labs from last 24 hours 06/07/21 06/07/21 06/07/21 12:13 08:03 05:25 WBC RBC Hgb Hct MCV MCH MCHC RDW Plt Count MPV Sodium 136 L Potassium 4.3 Chloride 104 Carbon Dioxide 22 Anion Gap 10 BUN 11 Creatinine 0.70 Estim Creat Clear Calc 70 Estimated GFR > 60 Glucose 135 H POC Capillary Glucose 216 H 151 H Calcium 9.2 06/07/21 06/06/21 06/06/21 05:25 20:42 16:25 WBC 11.4 H RBC 4.26 L Hgb 11.3 L Hct 35.1 L MCV 82.4 MCH 26.5 MCHC 32.2 RDW 13.5 Plt Count 390 H MPV 10.1 Sodium Potassium Chloride Carbon Dioxide Anion Gap BUN Creatinine Estim Creat Clear Calc Estimated GFR Glucose POC Capillary Glucose 135 H 160 H Calcium Discharge Plan Discharge Attending physician on discharge: Mario Hansen Consulting providers: Yvonne Bonner ; Sofía Medina ; Flo Montiel Discharging Clinician: Ron Gonsalez Patient Disposition: Home Health Service Activity: december shower Diet: as tolerated Wound Care Instructions: remove dressing to shower and change dressing daily Discharge Instructions: -Follow up your primary care doctor as routinely scheduled -worrisome signs and symptoms to come back to the ER for: chest pain, shortness of breath, fevers 100.4 or greater, inability to eat or drink, progressive significant weakness, or any other worrisome symptom. Per Care Coordination, patient to
== END 2021-06-07 14:20 | disposition home health service (06) ==
LOC: ANHSURGERY 15:14 → ANH3MED 06-07 13:18
PROVIDERS: Admitting Provider Surgery; PCP Internal Medicine; Visit Provider Surgery
PROC: 0HQ7XZZ Repair Abdomen Skin, External Approach (ICD-10-PCS; CPT 49900; principal; 2021-06-04 18:30)
DX: T81.31XA Disruption of external operation (surgical) wound, not elsewhere classified, initial encounter (principal); T81.32XA Disruption of internal operation (surgical) wound, not elsewhere classified, initial encounter; Y83.2 Surgical operation with anastomosis, bypass or graft as the cause of abnormal reaction of the patient, or of later complication, without mention of misadventure at the time of the procedure; R13.10 Dysphagia, unspecified; R05.9 Cough, unspecified; E78.5 Hyperlipidemia, unspecified; E11.9 Type 2 diabetes mellitus without complications; I10 Essential (primary) hypertension; K21.9 Gastro-esophageal reflux disease without esophagitis; Z87.891 Personal history of nicotine dependence; Z96.653 Presence of artificial knee joint, bilateral
CPT/HCPCS: 49900; 36415; 71046; 80048; 82948; 85027; 92611; 97110; 97116; 97161; 97165; A9270; G0378; J0330; J0690; J1100; J1650; J2405; J2704; J2710; J7120

== ENCOUNTER → 2021-07-06 09:26 | Outpatient (CLI) | payer MEDICARE, SELFPAY ==
[2021-07-06 20:05] LABS: SARS-CoV-2 RNA PCR Positive
== END ==
PROVIDERS: PCP Internal Medicine; Visit Provider Internal Medicine
DX: U07.1 COVID-19 (principal)
CPT/HCPCS: C9803; U0003; U0005

== ENCOUNTER → 2021-07-22 08:17 | Outpatient (CLI) | payer MEDICARE, SELFPAY ==
--- NOTE | ~2021-07-22 | XR_ITS ---
EXAMINATION: XR hand RT min 3V EXAM DATE: 07/22/2021 08:31 INDICATION: M19.90 - Unspecified osteoarthritis, unspecified site. TECHNIQUE: Right hand frontal, lateral and oblique projections obtained and reviewed. There is no pr ior study for comparison. FINDINGS: Right metacarpal bones are unremarkable. There is severe 1st carpometacarpal primary osteo arthritis. There is moderate to severe 2nd MCP primary osteoarthritis. Less osteoarthritis at the ot her levels. There is radiocarpal and triangular fibrocartilage chondrocalcinosis. Chondrocalcinosis can be an age related finding, but with other possible etiologies including CPPD, parathyroid disorders, hemochrom atosis, gout. There are no bony erosions identified. There are no acute fractures identified. No rad iopaque foreign bodies identified. IMPRESSION: Right hand polyarticular osteoarthritis, severe at 1st CMC, moderate to severe 2nd MCP j oints. Reviewed, dictated and finalized at location B. R POLARIZER IMPRESSION: Right hand polyarticular osteoarthritis, severe at 1st CMC, modera te to severe 2nd MCP joints.
== END ==
PROVIDERS: PCP Internal Medicine; Visit Provider Internal Medicine
DX: M19.90 Unspecified osteoarthritis, unspecified site (principal); M19.041 Primary osteoarthritis, right hand
CPT/HCPCS: 73130

== ENCOUNTER 2021-11-19 16:59 | Outpatient (CLI) | payer MEDICARE, SELFPAY ==
--- NOTE | ~2021-11-19 | XR_ITS ---
XR chest 2V DATE: 11/19/2021 17:11 INDICATION: Shortness of breath TECHNIQUE: PA and lateral views COMPARISON: 06/05/2021 AP and lateral chest FINDINGS: Normal heart size. Aortic calcification and mild unfolding. No hilar or mediastinal enlarge ment. Moderate bilateral hyperinflation. No pulmonary infiltrate or consolidation, pleural effusion or pulm onary vascular congestion or pneumothorax. Diffuse idiopathic skeletal hyperostosis of the thoracic spine. Diffuse osteopenia. IMPRESSION: No active cardiopulmonary disease Aortic atherosclerosis Moderate hyperinflation; no active pulmonary disease Reviewed, dictated and finalized at location A.
== END 2021-11-19 17:00 | disposition home or self-care (01) ==
LOC: ANHIMG 17:00
PROVIDERS: PCP Internal Medicine; Visit Provider Internal Medicine
DX: R06.02 Shortness of breath (principal); I70.0 Atherosclerosis of aorta; R91.8 Other nonspecific abnormal finding of lung field
CPT/HCPCS: 71046

== ENCOUNTER 2022-12-22 14:23 | Emergency (ER) | payer MEDICARE, SELFPAY ==
--- NOTE | ~2022-12-22 | XR_ITS ---
[id number] 12/22/2022 15:52 Indication: Left knee pain Procedure: 2 views left Comparison: No prior studies for comparison. Findings: There is a left total knee arthroplasty. Osteopenia. There is a joint effusion. No acute fr acture or traumatic malalignment. Prosthesis well seated. Impression: 1: Moderate joint effusion. Reviewed, dictated and finalized at location B. Impression: 1: Moderate joint effusion.
--- NOTE | ~2022-12-22 | XR_ITS ---
EXAMINATION: XR hip LT min 2V DATE: 12/22/2022 15:51 INDICATION: Nontraumatic left groin pain TECHNIQUE: Anteroposterior and frog-leg lateral views of the left hip were obtained. COMPARISON: None. FINDINGS: Bone alignment is normal. No fracture or suspected avascular necrosis. Chondrocalcinosis along the le ft femoral head with otherwise normal left hip joint space. Mild bilateral sacroiliac osteoarthritis. Small amount of enthesopathic ossification along the greater trochanter. IMPRESSION: 1. Chondrocalcinosis at the otherwise normal left hip joint space. No acute osseous abnormality. Reviewed, dictated and finalized at location A. IMPRESSION: 1. Chondrocalcinosis at the otherwise normal left hip joint space. No acute oss eous abnormality.
[2022-12-22 14:29] VITALS: BP 147/89; PULSE 80; RESP 16; TEMP 36.6; O2SAT 100
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
--- NOTE | 2022-12-22 16:15 | PC.NURSE ---
pt ambulated with hospital out of room 3 to [place] and back to room. steady gait. pt state uses walker at home as well. edp notified pt ambulates well.
== END 2022-12-22 16:25 | disposition home or self-care (01) ==
PROVIDERS: Emergency Provider Physician Assistant; PCP Family Medicine
DX: S89.92XA Unspecified injury of left lower leg, initial encounter (principal); E78.2 Mixed hyperlipidemia; E11.9 Type 2 diabetes mellitus without complications; I10 Essential (primary) hypertension; Z87.891 Personal history of nicotine dependence; Z79.82 Long term (current) use of aspirin; X50.0XXA Overexertion from strenuous movement or load, initial encounter; Y92.002 Bathroom of unspecified non-institutional (private) residence as the place of occurrence of the external cause
CPT/HCPCS: 73502; 73560; 99284

== ENCOUNTER 2022-12-24 10:28 | Inpatient (IN) | payer MEDICARE, SELFPAY ==
--- NOTE | ~2022-12-24 | US_ITS ---
US abdomen limited INDICATION: Elevated liver function tests. PROCEDURE: Realtime right upper abdominal ultrasound. COMPARISON: Ultrasound dated 12/26/2022 FINDINGS: The pancreas is normal without focal mass or pancreatic ductal dilation. Liver echotexture is mildly increased, consistent with fatty infiltration. There is normal directional flow in the po rtal vein. Gallbladder surgically absent. No definite biliary dilatation, although common bile duct is not defin itely identified. Incidental note is made of progression of severe right hydronephrosis. IMPRESSION: 1: Severe right hydronephrosis. 2: Mild fatty infiltration of the liver. Reviewed, dictated and finalized at location B.
--- NOTE | ~2022-12-24 | CT_ITS ---
EXAMINATION: CT lumbar spine wo con DATE: 12/25/2022 14:18 INDICATION: Low back pain. TECHNIQUE: Computed tomography (CT) of the lumbar spine was performed without intravenous contrast. A utomated exposure control and iterative reconstruction technique were employed. The dose-length produ ct was 1102.23 mGy-cm. COMPARISON: CT abdomen and pelvis 12/09/2020 FINDINGS: The bladder is markedly distended. There is severe bilateral hydronephrosis and hydroureter . There is 4 degrees dextrocurvature of lumbar spine. Vertebral body heights are normal. There is mil dly decreased disc height at L2-L3 and severely decreased disc height from L3-L4 through L5-S1. The f ollowing disc levels are specifically discussed: L1-L2: The disc is bulging. There is severe bilateral facet joint osteoarthritis. There is mild left neural foraminal stenosis. There is mild central canal stenosis. L2-L3: The disc is bulging. There is severe bilateral facet joint osteoarthritis. There is mild bilat eral neural foraminal stenosis. There is mild central canal stenosis. L3-L4: The disc is bulging. There is severe bilateral facet joint osteoarthritis. There is mild right and moderate left neural foraminal stenosis. There is moderate central canal stenosis. L4-L5: The disc is bulging. There is moderate right and severe left facet joint osteoarthritis. There is moderate right and mild left neural foraminal stenosis. There is mild central canal stenosis. L5-S1: The disc is bulging. There is severe bilateral facet joint osteoarthritis. There is moderate b ilateral neural foraminal stenosis. There is mild central canal stenosis. IMPRESSION: 1. Severe bilateral hydronephrosis and hydroureter. Markedly distended bladder. 2. Severe lumbar spondylosis. Reviewed, dictated and finalized at location E.
--- NOTE | ~2022-12-24 | XR_ITS ---
EXAMINATION: XR wrist LT min 3V DATE: 12/27/2022 13:25 INDICATION: Left wrist pain. TECHNIQUE: 4 views of left wrist were obtained. COMPARISON: Left hand radiographs 03/25/2020 FINDINGS: Bone alignment is normal. No fracture. There is mild osteoarthritis of triscaphe joint and severe osteoarthritis of first carpometacarpal joint and second metacarpophalangeal joint. IMPRESSION: 1. Polyarticular osteoarthritis. Reviewed, dictated and finalized at location A.
--- NOTE | ~2022-12-24 | US_ITS ---
EXAMINATION: US renal BI DATE: 12/26/2022 08:21 INDICATION: Hydronephrosis TECHNIQUE: Multiple grayscale and Doppler ultrasound images of the kidneys were obtained. COMPARISON: None. FINDINGS: The right kidney measures 9.9 x 4.4 x 6.2 cm. The left kidney measures 11.9 x 4.5 x 6.7 cm. The kidneys demonstrate normal parenchymal echogenicity. There is moderate right hydronephrosis. The bladder is decompressed by Cordova catheter. IMPRESSION: 1. Moderate right hydronephrosis. Reviewed, dictated and finalized at location A.
[2022-12-24 10:32] VITALS: BP 142/77; PULSE 66; RESP 18; TEMP 36.7; O2SAT 96
[2022-12-24 12:51] LABS: Basophils Percent Auto 0.3 % (0.2-1.2); Eosinophils Percent Auto 0.2 % (0-4.4); Hemoglobin 11.1 g/dL (14.0-18.0); Immature Granulocyte Absolute 0.03 K/mm3 (0.00-0.031); Immature Granulocyte Percent A 0.3 % (0-0.5); Lymphocytes Absolute Auto 1.63 K/mm3 (0.9-3.2); Mean Corpuscular HGB Conc 32.6 g/dl (32-36); Mean Corpuscular Volume 79.6 fl (80-100); Monocytes Absolute Auto 1.5 K/mm3 (0.1-0.6); Monocytes Percent Auto 13.4 % (2.6-8.5); Neutrophils Absolute Auto 7.7 K/mm3 (1.3-6.7); Neutrophils Percent Auto 70.8 % (45.5-73.1); Platelet Count Result 196 k/mm3 (150-375); Red Blood Count 4.27 M/mm3 (4.6-6.20); White Blood Count 10.9 K/mm3 (4.5-10.0)
[2022-12-24 13:02] LABS: Alanine Aminotransferase 19 U/L (6-50); Albumin Level 3.9 g/dL (3.5-5.1); Alkaline Phosphatase 75 U/L (38-126); Anion Gap 8 mmol/L (8-16); Aspartate Amino Transferase 22 U/L (17-59); Bilirubin,Total 0.9 mg/dL (0.2-1.3); Blood Urea Nitrogen 18 mg/dL (9-20); Calcium 8.5 mg/dL (8.4-10.2); Carbon Dioxide 27 mmol/L (22-30); Chloride 104 mmol/L (98-107); Estimated CRCL calculation 48 ml/min; Estimated Glomerular Filt Rate > 60; Glucose 140 mg/dL (65-110); Potassium 2.9 mmol/L (3.4-5.0); Sodium 139 mmol/L (137-145)
[2022-12-24 13:15] LABS: Appearance Urine Turbid (Clear); Bacteria Urine Rare /hpf; Bilirubin Urine Negative (Negative); Blood Urine Negative (Negative); Color Urine Yellow (Yellow); Glucose Urine UA Negative (Negative); Ketones Urine Negative (Negative); Leukocyte Esterase Ur Negative LEU/UL (Negative); Nitrate Urine Negative (Negative); Non Pathogenic Casts 0-2; Protein Urine Trace mg/dL (Negative); RBC Urine 0-2 /hpf (0-2); Specific Grav Ur 1.013 (1.001-1.035); Squamous Epithelial Cell Urine Occasional /hpf (Few); Urobilinogen Urine 0.2 mg/dL (<2.0); WBC Urine 0-5 /hpf; pH Urine 6.5 (5.0-9.0)
[2022-12-24 13:19] LABS: Add Urine Microscopic? YES
--- NOTE | 2022-12-24 13:27 | PCCCNOTE ---
Pt sent from office for rehab SNF placement. Spoke with pt and family; pt unable to ambulate and unable to lift and care for pt in current condition. Pt and family would like [facility] as 1st choice, [place] 2nd choice, and [facility] 3rd choice. Pt has Joss MCDONNELL. Informed Dr. Agee that PT/OT eval would need to be done.
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
[2022-12-24 15:19] VITALS: BP 139/68; PULSE 69; RESP 17; O2SAT 96
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
--- NOTE | 2022-12-24 15:49 | ADMGEN ---
This patient, Torie Hebert, was admitted to Medical Room 253-01. Patient/family oriented to hospital policies and general routines including ID bracelet, bed and alarms, visiting hours, pain management, procedures, bathroom and other care routines, personal items, smoking policy, room service/diet, and visiting hours. Information on how to activate the Rapid Response Team has been discussed. Patient/Family are encouraged to report perceived risks to care and to ask questions if they do not understand what they are told or what they should do.
[2022-12-24 15:50] VITALS: BP 150/81; PULSE 93; RESP 18; TEMP 36.9; O2SAT 99
[2022-12-24 16:01] VITALS: BP 150/81; PULSE 93; RESP 18; TEMP 36.9; O2SAT 99
[2022-12-24 18:25] VITALS: BMI 28.8
[2022-12-24 20:11] VITALS: BP 160/88; PULSE 96; RESP 16; TEMP 36.9; O2SAT 97
[2022-12-25 05:46] VITALS: BP 152/90; PULSE 97; RESP 18; TEMP 36.8; O2SAT 96
[2022-12-25 07:23] LABS: Hemoglobin A1C 6.1 % (<5.7)
[2022-12-25 08:55] LABS: Glucose Point of Care 140 mg/dl (65-105)
[2022-12-25 09:35] VITALS: O2SAT 96
--- NOTE | 2022-12-25 09:45 | P.PNIM_ITS ---
Progress Note: A&P Assessment and Plan (1) Left knee pain: Qualifiers: Chronicity: acute Qualified Code(s): M25.562 - Pain in left knee Code(s): M25.562 - Pain in left knee Status: Acute Assessment and Plan: * left knee x-ray does indicate a moderate joint effusion * warmth, pain, swelling noted on the left knee with impaired mobility * orthopedics consulted * joint effusion was aspirated * Fluid analysis is pending * Start antibiotics as warrented by fluid analysis * Pain medications as indicated (2) Left lumbar radiculopathy: Code(s): M54.16 - Radiculopathy, lumbar region Status: Acute Assessment and Plan: * Acute on chronic exacerbated by near fall 2 days ago * Chronic footdrop with brace use * Pain medications as indicated * CT of the spine ordered and pending (3) Unable to ambulate: Code(s): R26.2 - Difficulty in walking, not elsewhere classified Status: Acute Assessment and Plan: * Not able to bear weight or ambulate due to back and knee pain * Uses a walker at baseline * Unable to preform ADLS * Will need rehab placement for strengthening * PT/OT when appropriate (4) Hypokalemia: Code(s): E87.6 - Hypokalemia Status: Acute Assessment and Plan: * Potassium noted to be 2.9 upon admission * Replace with 40 mcg PO once * Trend potassium * Replace as indicated (5) Chronic anemia: Code(s): D64.9 - Anemia, unspecified Status: Acute Assessment and Plan: * H/H 11.1/34.0 upon admission * Stable * Consider anemia labs if H/H decreases * Trend labs * Adjust therapy as indicated (6) Type 2 diabetes mellitus: Qualifiers: 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: without detention use Diabetes mellitus complication status: without complication Qualified Code(s): E11.9 - Type 2 diabetes mellitus without complications Code(s): E11.9 - Type 2 diabetes mellitus without complications Status: Acute Assessment and Plan: * Diet-controlled * Current glucose is 140 * sliding scale insulin * Accu-Cheks * hypoglycemic protocol * A1c 6.1 (7) Benign essential hypertension: Code(s): I10 - Essential (primary) hypertension Status: Chronic Assessment and Plan: * Current BP is 152/90 * Most likely elevated related to pain * Continue to tend BP * Continue home medications amlodipine, valsartan * Adjust therapy as indicated Time Spent With Patient Time: 42 minutes with patient and collaborating plan of care with ortho Subjective Date/time seen: 12/25/22944 Interval history: 12/25/22944 Patient is ok. His knee is pretty swollen and squishy. Spoke with ortho about a tap of the knee. He current denies any chest pain, shortness of breath, nausea, vomiting, diarrhea. His reported that he has also been a little bit more unstable lately. He denies any current trauma to the knee and stated that he just twisted it. 12/24/22? 17:15 This is an 87-year-old male who was sent to the emergency department from Dr. Andre's office for evaluation of difficulties walking due to left knee pain. The patient provides the following history. A couple of days ago while getting off the toilet he lost hi
--- NOTE | 2022-12-25 09:45 | PM.IMPN ---
Progress Note: A&P Assessment and Plan (1) Left knee pain: Qualifiers: Chronicity: acute Qualified Code(s): M25.562 - Pain in left knee Code(s): M25.562 - Pain in left knee Status: Acute Assessment and Plan: left knee x-ray does indicate a moderate joint effusion warmth, pain, swelling noted on the left knee with impaired mobility orthopedics consulted joint effusion was aspirated Fluid analysis is pending Start antibiotics as warrented by fluid analysis Pain medications as indicated (2) Left lumbar radiculopathy: Code(s): M54.16 - Radiculopathy, lumbar region Status: Acute Assessment and Plan: Acute on chronic exacerbated by near fall 2 days ago Chronic footdrop with brace use Pain medications as indicated CT of the spine ordered and pending (3) Unable to ambulate: Code(s): R26.2 - Difficulty in walking, not elsewhere classified Status: Acute Assessment and Plan: Not able to bear weight or ambulate due to back and knee pain Uses a walker at baseline Unable to preform ADLS Will need rehab placement for strengthening PT/OT when appropriate (4) Hypokalemia: Code(s): E87.6 - Hypokalemia Status: Acute Assessment and Plan: Potassium noted to be 2.9 upon admission Replace with 40 mcg PO once Trend potassium Replace as indicated (5) Chronic anemia: Code(s): D64.9 - Anemia, unspecified Status: Acute Assessment and Plan: H/H 11.1/34.0 upon admission Stable Consider anemia labs if H/H decreases Trend labs Adjust therapy as indicated (6) Type 2 diabetes mellitus: Qualifiers: Diabetes mellitus custodial insulin use: without custodial use Diabetes mellitus complication status: without complication Qualified Code(s): E11.9 - Type 2 diabetes mellitus without complications Code(s): E11.9 - Type 2 diabetes mellitus without complications Status: Acute Assessment and Plan: Diet-controlled Current glucose is 140 sliding scale insulin Accu-Cheks hypoglycemic protocol A1c 6.1 (7) Benign essential hypertension: Code(s): I10 - Essential (primary) hypertension Status: Chronic Assessment and Plan: Current BP is 152/90 Most likely elevated related to pain Continue to tend BP Continue home medications amlodipine, valsartan Adjust therapy as indicated Time Spent With Patient Time: 42 minutes with patient and collaborating plan of care with ortho Subjective Date/time seen: 12/25/22944 Interval history: 12/25/22944 Patient is ok. His knee is pretty swollen and squishy. Spoke with ortho about a tap of the knee. He current denies any chest pain, shortness of breath, nausea, vomiting, diarrhea. His reported that he has also been a little bit more unstable lately. He denies any current trauma to the knee and stated that he just twisted it. 12/24/22? 17:15 This is an 87-year-old male who was sent to the emergency department from Dr. Andre's office for evaluation of difficulties walking due to left knee pain. The patient provides the following history. A couple of days ago while getting off the toilet he lost his balance and he believes that he twisted the knee or the knee buckled when trying to right himself as he developed swelling and pain in that knee shortly thereafter. Luckily he did not fall and was able to get himself seated back on the toilet. Left knee x-ray done in the ED later that day showed a moderate joint effusion. He has been taking Tylenol, resting the knee, elevating the knee, and icing the area without much benefit and the knee continues to swell. He describes a throbbing and occasional stabbing pain in the left anterior knee which has been constant since the outset, exacerbated by direct pressure, weight-b
[2022-12-25] MEDS: VALSARTAN 160 MG TABLET 320 MG PO (09:52)
[2022-12-25] MEDS: ATORVASTATIN 20 MG TABLET PO (09:53)
[2022-12-25] MEDS: amLODIPine BESYLATE 5 MG TABLET 10 MG PO (09:53)
[2022-12-25] MEDS: OPTI-GEN TAB 1 TABLET PO ×2 (09:53→17:29)
[2022-12-25] MEDS: MULTIVITAMINS THERAPEUTIC TAB (*BKC) 1 TABLET PO (09:53)
[2022-12-25] MEDS: ASPIRIN 81 MG ENTERIC TABLET PO (09:53)
[2022-12-25] MEDS: PSYLLIUM POWDER PACKET 1 PACKET PO (09:53)
--- NOTE | 2022-12-25 11:11 | PCOTNOTE ---
Attempted to see patient for OT evaluation. At this time there is inadequate workup on the patient. Lumbar spine CT has been ordered and there is currently no ortho consult for the knee. Per Tre CREAM MAKER, hold therapy evaluations today. Will check back tomorrow.
[2022-12-25 12:08] LABS: Glucose Point of Care 176 mg/dl (65-105)
--- NOTE | 2022-12-25 12:16 | PCPTNOTE ---
Lumbar spine CT has been ordered and there is currently no ortho consult for the knee. Per Tre SCREW MACHINE OPERATOR SWISS TYPE, hold therapy evaluations today. Will check back tomorrow.
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
--- NOTE | 2022-12-25 13:18 | W.PM.PROC2 ---
Procedure Note - Detailed Date of Procedure 12/25/22 Pre-op Diagnosis Left knee pain and effusion status post total knee arthroplasty. Post-op Diagnosis Same Procedure Performed Left knee aspiration at the bedside. Surgeon Jef Minor MD Anesthesia None Description of Procedure Knee prepped and draped with chlorhexidine and Betadine. 18 gauge needle used at the superolateral portal. 40 mL of inflammatory appearing fluid obtained without significant blood. The fluid was slightly cloudy but did not appear definitely purulent. He tolerated the procedure well. Urine Output 100 Pathology Yes (Culture sent. Cell count and differential sent.) Complications None [facility] Billing Surgery - Charge Forward: Surgery Billing
[2022-12-25 14:42] VITALS: BP 152/79; PULSE 101; RESP 18; TEMP 37.4; O2SAT 100
[2022-12-25 15:47] LABS: Appearance Synovial Fluid Cloudy (Clear); Color Synovial Fluid Yellow (Colorless); Neutrophils Synovial Fluid 88 % (0-25); Nucleated Cell Synovial Fluid 19625 /uL (0-200); RBC Synovial Fluid 5000 /uL (0-0); Source Synovial Fluid Synovial fluid
[2022-12-25 15:48] LABS: Lymphocytes Synovial Fluid 1 %; Macrophages Synovial Fluid 11 %
[2022-12-25 16:16] LABS: Crystals Synovial Fluid Rare Cppd (None Seen)
[2022-12-25 17:16] LABS: Glucose Point of Care 162 mg/dl (65-105)
[2022-12-25] MEDS: POTASSIUM CHLORIDE 20 MEQ TABLET 40 MEQ PO (17:29)
[2022-12-25 20:00] VITALS: PULSE 103; RESP 20; O2SAT 98
[2022-12-25 20:16] VITALS: BP 144/84; PULSE 103; RESP 20; TEMP 36.7; O2SAT 98
[2022-12-25 20:57] LABS: Glucose Point of Care 199 mg/dl (65-105)
[2022-12-26 04:56] LABS: Basophils Percent Auto 0.2 % (0.2-1.2); Hematocrit 34.1 % (42.0-52.0); Hemoglobin 11.2 g/dL (14.0-18.0); Immature Granulocyte Absolute 0.05 K/mm3 (0.00-0.031); Immature Granulocyte Percent A 0.4 % (0-0.5); Lymphocytes Absolute Auto 1.74 K/mm3 (0.9-3.2); Lymphocytes Percent Auto 15.2 % (18.3-44.2); Mean Corpuscular HGB Conc 32.8 g/dl (32-36); Mean Corpuscular Volume 79.1 fl (80-100); Mean Platelet Volume 10.4 fl (7.4-10.4); Monocytes Absolute Auto 1.4 K/mm3 (0.1-0.6); Monocytes Percent Auto 12.6 % (2.6-8.5); Neutrophils Absolute Auto 8.2 K/mm3 (1.3-6.7); Neutrophils Percent Auto 71.6 % (45.5-73.1); Platelet Count Result 237 k/mm3 (150-375); Red Blood Count 4.31 M/mm3 (4.6-6.20); Red Cell Distribution Width 13.8 % (11.5-14.5); White Blood Count 11.4 K/mm3 (4.5-10.0)
[2022-12-26 05:06] LABS: Alanine Aminotransferase 43 U/L (6-50); Albumin Level 3.6 g/dL (3.5-5.1); Alkaline Phosphatase 88 U/L (38-126); Anion Gap 10 mmol/L (8-16); Aspartate Amino Transferase 42 U/L (17-59); Bilirubin,Total 1.1 mg/dL (0.2-1.3); Blood Urea Nitrogen 19 mg/dL (9-20); Calcium 8.3 mg/dL (8.4-10.2); Carbon Dioxide 25 mmol/L (22-30); Chloride 101 mmol/L (98-107); Estimated CRCL calculation 48 ml/min; Estimated Glomerular Filt Rate > 60; Glucose 147 mg/dL (65-110); Magnesium 1.6 mg/dL (1.6-2.3); Potassium 2.9 mmol/L (3.4-5.0); Sodium 136 mmol/L (137-145)
[2022-12-26 05:49] VITALS: BP 124/83; PULSE 101; RESP 16; TEMP 37.1; O2SAT 95
[2022-12-26] MEDS: ceFAZolin 1 GM/NS 50 ML 1 GM/50 ML BAG IVPB ×3 (07:25→21:00)
[2022-12-26 07:53] VITALS: BP 148/79
[2022-12-26] MEDS: POTASSIUM CHLORIDE 20 MEQ TABLET 40 MEQ PO (07:54)
[2022-12-26] MEDS: ASPIRIN 81 MG ENTERIC TABLET PO (07:55)
[2022-12-26] MEDS: ENOXAPARIN 40 MG/0.4 ML SYRINGE SUB-Q (07:55)
[2022-12-26] MEDS: ATORVASTATIN 20 MG TABLET PO (07:55)
[2022-12-26] MEDS: amLODIPine BESYLATE 5 MG TABLET 10 MG PO (07:55)
[2022-12-26] MEDS: MULTIVITAMINS THERAPEUTIC TAB (*BKC) 1 TABLET PO (07:56)
[2022-12-26] MEDS: OPTI-GEN TAB 1 TABLET PO ×2 (07:56→17:19)
[2022-12-26] MEDS: DOCUSATE SODIUM 100 MG CAPSULE PO (07:56)
[2022-12-26] MEDS: VALSARTAN 160 MG TABLET 320 MG PO (07:56)
[2022-12-26] MEDS: PSYLLIUM POWDER PACKET 1 PACKET PO (07:56)
[2022-12-26 08:00] VITALS: O2SAT 95
[2022-12-26] MEDS: POTASSIUM CHLORIDE INJ 40 MEQ in SODIUM CHLORIDE 0.9% IV 500 ML 130 MEQ IVPB (09:02)
--- NOTE | 2022-12-26 12:00 | P.PNIM_ITS ---
Progress Note: A&P Assessment and Plan (1) Left knee pain: Qualifiers: Chronicity: acute Qualified Code(s): M25.562 - Pain in left knee Code(s): M25.562 - Pain in left knee Status: Acute Assessment and Plan: * left knee x-ray does indicate a moderate joint effusion * warmth, pain, swelling noted on the left knee with impaired mobility * orthopedics consulted * joint effusion was aspirated * fluid was cloudy in appearance, 5000 RBCs, 19,625 nuc cells and 88 neutrophils noted * start Ancef and vancomycin inside of possible infection * WBCs elevated at 11.4, temp noted at 99.4, tachycardiac in the low 100s * cultures pending * pain medication added * weight-bearing status as tolerated * PT OT consulted (2) Left lumbar radiculopathy: Code(s): M54.16 - Radiculopathy, lumbar region Status: Acute Assessment and Plan: * Acute on chronic exacerbated by near fall 2 days ago * Chronic footdrop with brace use * Pain medications as indicated * CT of the spine severe bilateral hydronephrosis and hydroureter with distended bladder, severe lumbar spondylosis * Consult neurosurgery for further evaluation since there is some ambulation difficulties (3) Hydronephrosis: Qualifiers: Hydronephrosis type: unspecified Qualified Code(s): N13.30 - Unspecified hydronephrosis Code(s): N13.30 - Unspecified hydronephrosis Status: Acute Assessment and Plan: * Incidental findings on the CT, along with hydroureter * renal ultrasound ordered, moderate right sided hydronephrosis * Bladder scan >800ml * Urinary catheter inserted * Urology consulted thank you for your help (4) Unable to ambulate: Code(s): R26.2 - Difficulty in walking, not elsewhere classified Status: Acute Assessment and Plan: * Not able to bear weight or ambulate due to back and knee pain * Uses a walker at baseline * Unable to preform ADLS * Will need rehab placement for strengthening * PT/OT when appropriate * Neurosurgery consulted with concern for the severe spondylosis (5) Hypokalemia: Code(s): E87.6 - Hypokalemia Status: Acute Assessment and Plan: * Potassium noted to be 2.9 upon admission, currently 2.9 * Replace with 40 mcg PO and IV once * Trend potassium * Replace as indicated (6) Chronic anemia: Code(s): D64.9 - Anemia, unspecified Status: Acute Assessment and Plan: * H/H 11.1/34.0 upon admission, currently 11.2/34.1 * Stable * Consider anemia labs if H/H decreases * Trend labs * Adjust therapy as indicated (7) Type 2 diabetes mellitus: Qualifiers: 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
--- NOTE | 2022-12-26 12:00 | PM.IMPN ---
Progress Note: A&P Assessment and Plan (1) Left knee pain: Qualifiers: Chronicity: acute Qualified Code(s): M25.562 - Pain in left knee Code(s): M25.562 - Pain in left knee Status: Acute Assessment and Plan: left knee x-ray does indicate a moderate joint effusion warmth, pain, swelling noted on the left knee with impaired mobility orthopedics consulted joint effusion was aspirated fluid was cloudy in appearance, 5000 RBCs, 19,625 nuc cells and 88 neutrophils noted start Ancef and vancomycin inside of possible infection WBCs elevated at 11.4, temp noted at 99.4, tachycardiac in the low 100s cultures pending pain medication added weight-bearing status as tolerated PT OT consulted (2) Left lumbar radiculopathy: Code(s): M54.16 - Radiculopathy, lumbar region Status: Acute Assessment and Plan: Acute on chronic exacerbated by near fall 2 days ago Chronic footdrop with brace use Pain medications as indicated CT of the spine severe bilateral hydronephrosis and hydroureter with distended bladder, severe lumbar spondylosis Consult neurosurgery for further evaluation since there is some ambulation difficulties (3) Hydronephrosis: Qualifiers: Hydronephrosis type: unspecified Qualified Code(s): N13.30 - Unspecified hydronephrosis Code(s): N13.30 - Unspecified hydronephrosis Status: Acute Assessment and Plan: Incidental findings on the CT, along with hydroureter renal ultrasound ordered, moderate right sided hydronephrosis Bladder scan >800ml Urinary catheter inserted Urology consulted thank you for your help (4) Unable to ambulate: Code(s): R26.2 - Difficulty in walking, not elsewhere classified Status: Acute Assessment and Plan: Not able to bear weight or ambulate due to back and knee pain Uses a walker at baseline Unable to preform ADLS Will need rehab placement for strengthening PT/OT when appropriate Neurosurgery consulted with concern for the severe spondylosis (5) Hypokalemia: Code(s): E87.6 - Hypokalemia Status: Acute Assessment and Plan: Potassium noted to be 2.9 upon admission, currently 2.9 Replace with 40 mcg PO and IV once Trend potassium Replace as indicated (6) Chronic anemia: Code(s): D64.9 - Anemia, unspecified Status: Acute Assessment and Plan: H/H 11.1/34.0 upon admission, currently 11.2/34.1 Stable Consider anemia labs if H/H decreases Trend labs Adjust therapy as indicated (7) Type 2 diabetes mellitus: Qualifiers: Diabetes mellitus intermediate accountant insulin use: without halfway use Diabetes mellitus complication status: with other specified complication Qualified Code(s): E11.69 - Type 2 diabetes mellitus with other specified complication Code(s): E11.9 - Type 2 diabetes mellitus without complications Status: Acute Assessment and Plan: Diet-controlled Current glucose is 140 sliding scale insulin Accu-Cheks hypoglycemic protocol A1c 6.1 (8) Benign essential hypertension: Code(s): I10 - Essential (primary) hypertension Status: Chronic Assessment and Plan: Current BP is 124/83 Most likely elevated related to pain Continue to tend BP Continue home medications amlodipine, valsartan Adjust therapy as indicated Time Spent With Patient Time: 52 minutes Time with patient: Greater than 35 minutes Subjective Date/time seen: 12/26/22 1200 Interval history: 12/26/22 1200 Patient's was present. Patient was dozing in and out. Patient stated that he has been trying to get around and move around however he just pretty weak. He stated that he has no strength Clark himself up. They are also worried about his blood sugar has is slightly eleva
[2022-12-26] MEDS: MAGNESIUM SULF 4 GM/WATER100ML 4 GM/100 ML BAG IVPB (12:04)
[2022-12-26 12:20] LABS: Glucose Point of Care 237 mg/dl (65-105)
[2022-12-26] MEDS: INSULIN ASPART (*BKC) 100 UNITS/ML SUB-Q (12:22)
[2022-12-26 14:00] VITALS: BP 119/51; PULSE 96; RESP 20; TEMP 37.3; O2SAT 99
--- NOTE | 2022-12-26 16:06 | WPDNEUROSGCN ---
Assessment and Plan Assessment and plan (1) Lumbar spondylosis: Code(s): M47.816 - Spondylosis without myelopathy or radiculopathy, lumbar region Status: Acute Plan HPI: Torie Hebert is a 87 year old male with history of HTN, HLD, DM, and CAD who was admitted to the hospital for treatment of a left knee effusion which he sustained after twisting his knee a few days prior. He underwent aspiration of the joint yesterday by Orthopedics. During his hospitalization, he indicated that he was having some back pain for which a CT scan was performed. This revealed spondylosis as well as a severely-distended bladder and hydronephrosis. A george catheter has since been placed. The patient states that he has been uncomfortable lying in bed this hospitalization which has caused his back pain. He denies any significant issues with his back prior to being hospitalized and does not regularly have pain. His states he occasionally will get a shooting pain down the left leg, but that this is rare. He denies paresthesias in the legs. He has walked with a walker for many years due to poor balance but denies any changes in his strength aside from the knee pain recently. He thinks he is deconditioned from spending so much time in bed. Of note, in the , he had back pain, leg pain, and a left foot drop. He saw a neurosurgeon at that time who sent him to Pain Management for CAMILO. The pain resolved, but he has worn an AFO for the last 30+ years due to his foot drop. Assessment: Mr. Hebert is a 87-year-old male with multiple medical comorbidities who was admitted to the hospital for treatment of a left knee effusion who has complained of back pain since being hospitalized. The patient indicates to me that this is more from being uncomfortable in bed and is not something that has been bothersome for him prior to hospitalization. His CT shows degenerative changes with mild to moderate central stenosis without evidence of acute pathology. My impression is that his current knee injury is worsening some baseline mobility issues from his foot drop and balance problems. I would recommend intensive therapy in the hospital and possibly as an outpatient. If he continues to have back pain and mobility problems once he has recovered from his knee injury, I am happy to see him in clinic. Plan: -I do not recommend any surgical intervention at this time -I would recommend physical therapy both as an inpatient and as an outpatient -He is welcome to see me in clinic if he continues to have issues with back pain and mobility once he has recovered from his current knee injury Consult date: 12/26/22 HPI: Torie Hebert is a 87 year old male with history of HTN, HLD, DM, and CAD who was admitted to the hospital for treatment of a left knee effusion which he sustained after twisting his knee a few days prior. He underwent aspiration of the joint yesterday by Orthopedics. During his hospitalization, he indicated that he was having some back pain for which a CT scan was performed. This revealed spondylosis as well as a severely-distended bladder and hydronephrosis. A george catheter has since been placed. The patient states that he has been uncomfortable lying in bed this hospitalization which has caused his back pain. He denies any significant issues with his back prior to being hospitalized and does not regularly have pain. His states he occasionally will get a shooting pain down the left leg, but that this is rare. He denies paresthesias in the legs. He has walked with a walker for many years due to poor balance but denies any changes in his strength aside from the knee pain recently. He thinks he is deconditioned from spending so much time in bed. Of note, in the , he had back pain, leg pain, and a left foot drop. He saw a neurosurgeon at that time who sent him to Pain Management for CAMILO. The pain resolved, but he has worn an AFO for the last 30 years due to his foot drop. Review of S
[2022-12-26 17:08] LABS: Glucose Point of Care 172 mg/dl (65-105)
[2022-12-26 20:00] VITALS: PULSE 96; RESP 20; O2SAT 99
[2022-12-26 20:20] VITALS: BP 141/70; PULSE 89; RESP 20; TEMP 37.4; O2SAT 97
[2022-12-26 21:09] LABS: Glucose Point of Care 141 mg/dl (65-105)
[2022-12-27 04:44] VITALS: BP 141/83; PULSE 83; RESP 20; TEMP 37.6; O2SAT 97
[2022-12-27 05:37] LABS: Basophils Percent Auto 0.4 % (0.2-1.2); Eosinophils Percent Auto 0.2 % (0-4.4); Hematocrit 32.4 % (42.0-52.0); Hemoglobin 10.5 g/dL (14.0-18.0); Immature Granulocyte Absolute 0.04 K/mm3 (0.00-0.031); Immature Granulocyte Percent A 0.4 % (0-0.5); Lymphocytes Absolute Auto 1.72 K/mm3 (0.9-3.2); Lymphocytes Percent Auto 15.9 % (18.3-44.2); Mean Corpuscular HGB Conc 32.4 g/dl (32-36); Mean Corpuscular Hemoglobin 25.7 pg (26-34); Mean Corpuscular Volume 79.4 fl (80-100); Mean Platelet Volume 10.6 fl (7.4-10.4); Monocytes Absolute Auto 1.1 K/mm3 (0.1-0.6); Monocytes Percent Auto 10.1 % (2.6-8.5); Neutrophils Absolute Auto 7.9 K/mm3 (1.3-6.7); Platelet Count Result 234 k/mm3 (150-375); Red Blood Count 4.08 M/mm3 (4.6-6.20); Red Cell Distribution Width 13.8 % (11.5-14.5); White Blood Count 10.8 K/mm3 (4.5-10.0)
[2022-12-27 05:53] LABS: Alanine Aminotransferase 66 U/L (6-50); Albumin Level 3.5 g/dL (3.5-5.1); Alkaline Phosphatase 95 U/L (38-126); Anion Gap 9 mmol/L (8-16); Aspartate Amino Transferase 93 U/L (17-59); Blood Urea Nitrogen 21 mg/dL (9-20); Calcium 8.2 mg/dL (8.4-10.2); Carbon Dioxide 23 mmol/L (22-30); Chloride 102 mmol/L (98-107); Estimated CRCL calculation 48 ml/min; Estimated Glomerular Filt Rate > 60; Glucose 129 mg/dL (65-110); Magnesium 2.4 mg/dL (1.6-2.3); Potassium 3.4 mmol/L (3.4-5.0); Sodium 134 mmol/L (137-145)
[2022-12-27] MEDS: ceFAZolin 1 GM/NS 50 ML 1 GM/50 ML BAG IVPB ×2 (06:06→13:26)
[2022-12-27 08:00] VITALS: O2SAT 97
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
[2022-12-27] MEDS: amLODIPine BESYLATE 5 MG TABLET 10 MG PO (08:31)
[2022-12-27 08:32] LABS: Glucose Point of Care 169 mg/dl (65-105)
[2022-12-27] MEDS: PSYLLIUM POWDER PACKET 1 PACKET PO (08:32)
[2022-12-27] MEDS: OPTI-GEN TAB 1 TABLET PO ×2 (08:32→17:13)
[2022-12-27] MEDS: ASPIRIN 81 MG ENTERIC TABLET PO (08:32)
[2022-12-27] MEDS: TAMSULOSIN HCL 0.4 MG CAPSULE PO (08:32)
[2022-12-27] MEDS: MULTIVITAMINS THERAPEUTIC TAB (*BKC) 1 TABLET PO (08:32)
[2022-12-27] MEDS: ATORVASTATIN 20 MG TABLET PO (08:32)
[2022-12-27] MEDS: ENOXAPARIN 40 MG/0.4 ML SYRINGE SUB-Q (08:32)
[2022-12-27] MEDS: VALSARTAN 160 MG TABLET 320 MG PO (08:33)
[2022-12-27] MEDS: POTASSIUM CHLORIDE 20 MEQ TABLET 40 MEQ PO (08:41)
[2022-12-27 08:49] LABS: Hepatitis B Surface Antigen Negative (Negative)
[2022-12-27 08:55] LABS: HAV RESULT Negative (Negative); Hepatitis B Core IgM Result Negative (Negative)
[2022-12-27 09:06] LABS: Hepatitis C Virus Antibody Negative (Negative)
--- NOTE | 2022-12-27 09:30 | P.PNIM_ITS ---
Progress Note: A&P Assessment and Plan (1) Left knee pain: Qualifiers: Chronicity: acute Qualified Code(s): M25.562 - Pain in left knee Code(s): M25.562 - Pain in left knee Status: Acute Assessment and Plan: * left knee x-ray does indicate a moderate joint effusion * warmth, pain, swelling noted on the left knee with impaired mobility * orthopedics consulted * joint effusion was aspirated * fluid was cloudy in appearance, 5000 RBCs, 19,625 nuc cells and 88 neutrophils noted * start Ancef and vancomycin inside of possible infection * WBCs elevated at 10.8, temp 99.7, heart rate is more stable * cultures in progress * pain medication added * weight-bearing status as tolerated * PT OT consulted (2) Left lumbar radiculopathy: Code(s): M54.16 - Radiculopathy, lumbar region Status: Acute Assessment and Plan: * Acute on chronic exacerbated by near fall 2 days ago * Chronic footdrop with brace use * Pain medications as indicated * CT of the spine severe bilateral hydronephrosis and hydroureter with distended bladder, severe lumbar spondylosis * Neurosurgery consulted and patient can follow up in the clinic with any further issues (3) Hydronephrosis: Qualifiers: Hydronephrosis type: unspecified Qualified Code(s): N13.30 - Unspecified hydronephrosis Code(s): N13.30 - Unspecified hydronephrosis Status: Acute Assessment and Plan: * Incidental findings on the CT, along with hydroureter * renal ultrasound, moderate right sided hydronephrosis * Bladder scan >800ml * Urinary catheter inserted * Urology consulted thank you for your help * Start tamsulosin * Urinary catheter can be removed, will need another post residual void (4) Transaminitis: Code(s): R74.01 - Elevation of levels of liver transaminase levels Status: Acute Assessment and Plan: * AST/ALT 93/66 * Hep panel negative * Trend labs * Adjust therapy as indicated (5) Unable to ambulate: Code(s): R26.2 - Difficulty in walking, not elsewhere classified Status: Acute Assessment and Plan: * Not able to bear weight or ambulate due to back and knee pain * Uses a walker at baseline * Unable to preform ADLS * Will need rehab placement for strengthening * PT/OT when appropriate * Neurosurgery consulted with no further recommendations (6) Hypokalemia: Code(s): E87.6 - Hypokalemia Status: Acute Assessment and Plan: * Potassium noted to be 2.9 upon admission, currently 3.4 * Replace with 40 mcg PO and IV once * Trend potassium * Replace as indicated (7) Chronic anemia: Code(s): D64.9 - Anemia, unspecified Status: Acute Assessment and Plan: * H/H 11.1/34.0 upon admission, currently 10.5/32.4 * Stable * Consider anemia labs if H/H decreases * Trend labs * Adjust therapy as indicated (8) Type 2 diabetes mellitus: Qualifiers: Diabetes mellitus complication status: with other specified complication Diabetes mellitus senior living insulin use: without senior living use Qualified Code(s): E11.69 - Type 2 diabetes mellitus with other specified complication Code(s): E11.9 - Type 2 diabetes mellitus without complications Status: Acute
--- NOTE | 2022-12-27 09:30 | PM.IMPN ---
Progress Note: A&P Assessment and Plan (1) Left knee pain: Qualifiers: Chronicity: acute Qualified Code(s): M25.562 - Pain in left knee Code(s): M25.562 - Pain in left knee Status: Acute Assessment and Plan: left knee x-ray does indicate a moderate joint effusion warmth, pain, swelling noted on the left knee with impaired mobility orthopedics consulted joint effusion was aspirated fluid was cloudy in appearance, 5000 RBCs, 19,625 nuc cells and 88 neutrophils noted start Ancef and vancomycin inside of possible infection WBCs elevated at 10.8, temp 99.7, heart rate is more stable cultures in progress pain medication added weight-bearing status as tolerated PT OT consulted (2) Left lumbar radiculopathy: Code(s): M54.16 - Radiculopathy, lumbar region Status: Acute Assessment and Plan: Acute on chronic exacerbated by near fall 2 days ago Chronic footdrop with brace use Pain medications as indicated CT of the spine severe bilateral hydronephrosis and hydroureter with distended bladder, severe lumbar spondylosis Neurosurgery consulted and patient can follow up in the clinic with any further issues (3) Hydronephrosis: Qualifiers: Hydronephrosis type: unspecified Qualified Code(s): N13.30 - Unspecified hydronephrosis Code(s): N13.30 - Unspecified hydronephrosis Status: Acute Assessment and Plan: Incidental findings on the CT, along with hydroureter renal ultrasound, moderate right sided hydronephrosis Bladder scan >800ml Urinary catheter inserted Urology consulted thank you for your help Start tamsulosin Urinary catheter can be removed, will need another post residual void (4) Transaminitis: Code(s): R74.01 - Elevation of levels of liver transaminase levels Status: Acute Assessment and Plan: AST/ALT 93/66 Hep panel negative Trend labs Adjust therapy as indicated (5) Unable to ambulate: Code(s): R26.2 - Difficulty in walking, not elsewhere classified Status: Acute Assessment and Plan: Not able to bear weight or ambulate due to back and knee pain Uses a walker at baseline Unable to preform ADLS Will need rehab placement for strengthening PT/OT when appropriate Neurosurgery consulted with no further recommendations (6) Hypokalemia: Code(s): E87.6 - Hypokalemia Status: Acute Assessment and Plan: Potassium noted to be 2.9 upon admission, currently 3.4 Replace with 40 mcg PO and IV once Trend potassium Replace as indicated (7) Chronic anemia: Code(s): D64.9 - Anemia, unspecified Status: Acute Assessment and Plan: H/H 11.1/34.0 upon admission, currently 10.5/32.4 Stable Consider anemia labs if H/H decreases Trend labs Adjust therapy as indicated (8) Type 2 diabetes mellitus: Qualifiers: Diabetes mellitus complication status: with other specified complication Diabetes mellitus fdc insulin use: without intermodal customer service use Qualified Code(s): E11.69 - Type 2 diabetes mellitus with other specified complication Code(s): E11.9 - Type 2 diabetes mellitus without complications Status: Acute Assessment and Plan: Diet-controlled Current glucose is 129 sliding scale insulin Accu-Cheks hypoglycemic protocol A1c 6.1 (9) Benign essential hypertension: Code(s): I10 - Essential (primary) hypertension Status: Chronic Assessment and Plan: Current BP is 141/83 Most likely elevated related to pain Continue to tend BP Continue home medications amlodipine, valsartan Adjust therapy as indicated Plan Wrist pain noted to the left wrist with lack of range of motion Time Spent With Patient Time: 48 minutes Time with patient: [place]
[2022-12-27] MEDS: DOCUSATE SODIUM 100 MG CAPSULE PO (09:40)
[2022-12-27 12:16] LABS: Glucose Point of Care 196 mg/dl (65-105)
[2022-12-27 14:00] VITALS: BP 124/73; PULSE 96; RESP 18; TEMP 37; O2SAT 99
--- NOTE | 2022-12-27 17:04 | PM.PNORT ---
Progress Note: A&P Assessment and Plan (1) Left knee pain: Qualifiers: Chronicity: acute Qualified Code(s): M25.562 - Pain in left knee Code(s): M25.562 - Pain in left knee Status: Acute Plan Knee aspiration shows 20,000 white blood cells and 88% neutrophils. Calcium pyrophosphate crystals noted. Findings consistent with pseudogout. He also has new left wrist pain and swelling. Radiographs showed arthritis. Knee pain and swelling is improved modestly. He was able to stand with assistance. Differential includes gout. Infection less likely. Cultures negative thus far. I discussed the case with the hospitalist. Consider starting Solu-Medrol or nonsteroidal anti-inflammatory. Okay to discontinue the antibiotics. Will need skilled rehab. Final culture results pending. Subjective Subjective Date/Time Seen: 12/27/22 17:04 Objective Data Vital Signs Vital Signs: Vital Signs - 24 hr 12/26/22 20:00 12/26/22 20:20 12/27/22 04:44 Temperature 37.4 C 37.6 C H Pulse Rate 96 89 83 Respiratory Rate 20 20 20 Blood Pressure 141/70 H 141/83 H Pulse Oximetry 99 97 97 Oxygen Delivery Room Air Fraction of Inspired Oxygen 12/27/22 08:00 12/27/22 14:00 Temperature 37.0 C Pulse Rate 96 Respiratory Rate 18 Blood Pressure 124/73 Pulse Oximetry 97 99 Oxygen Delivery Room Air Fraction of Inspired Oxygen Intake/Output Intake/Output: Intake & Output 12/24/22 12/25/22 12/26/22 12/27/22 23:59 23:59 23:59 23:59 Intake Total 220 2480 2770 2630 Output Total 75 225 2300 2200 Balance 145 2255 470 430 Meds/Results Medications: Active Medications Generic Name Dose Route Start Last Admin Trade Name Freq PRN Reason Stop Dose Admin Acetaminophen 650 mg 12/24/22 23:08 Acetaminophen 325 Mg Tablet PO Q6H PRN Mild Pain (1-3) or Fever Hydrocodone Bitart/Acetaminophen 1 tab 12/26/22 06:42 Hydrocodone/Acetaminophen (*Crx) 5-325 Mg Tablet PO Q6H PRN Pain Rated 4-10 Amlodipine Besylate 10 mg 12/25/22 09:00 12/27/22 08:31 Amlodipine Besylate 5 Mg Tablet PO 10 mg DAILY GLORIA Administration Aspirin 81 mg 05/20/23 09:00 12/27/22 08:32 Aspirin 81 Mg Enteric Tablet PO 81 mg DAILY GLORIA Administration Atorvastatin Calcium 20 mg 12/25/22 09:00 12/27/22 08:32 Atorvastatin 20 Mg Tablet PO 20 mg DAILY GLORIA Administration Dextrose 12.5 gm 12/24/22 23:08 Dextrose 50% 25 Gm/50 Ml Syringe IV PUSH PRN PRN Hypoglycemia Protocol Docusate Sodium 100 mg 12/24/22 23:10 12/27/22 09:40 Docusate Sodium 100 Mg Capsule PO 100 mg DAILY PRN Administration Constipation Enoxaparin Sodium 40 mg 12/26/22 09:00 12/27/22 08:32 Enoxaparin 40 Mg/0.4 Ml Syringe SUB-Q 40 mg DAILY GLORIA Administration Glucagon 1 mg 12/24/22 23:08 Glucagon For Inj 1 Mg Vial IM PRN PRN Hypoglycemia Protocol Glucose 15 gm 12/24/22 23:08 Glucose Oral Gel 15 Gm Of Glucse In 37.5 Gm Tube PO PRN PRN Hypoglycemia Protocol Dextrose 1,000 mls @ 100 mls/hr 12/24/22 23:08 Dextrose 5% 1,000 Ml IVPB PRN PRN Hypoglycemia Protocol Cefazolin Sodium 1 gm in 50 mls @ 100 mls/hr 12/26/22 06:00 12/27/22 16:04 Ancef 1 Gm/Ns 50 Ml IVPB Infused Q8H GLORIA Infusion Vancomycin HCl 1,500 mg in 500 mls @ 250 mls/hr 12/26/22 08:00 12/27/22 10:31 Vancomycin 1,500 Mg/D5w 500 Ml IVPB Infused Q24H GLORIA Infusion Insulin Aspart 2 - 5 units 12/25/22 08:00 12/27/22 12:09 Insulin Aspart (*Bkc) 100 Units/Ml SUB-Q Not Given [facility] Protocol Insulin Aspart 1 - 2 units 12/25/22 21:00 12/26/22 20:56 Insulin Aspart (*Bkc) 100 Units/Ml SUB-Q Not Given [facility] Protocol Miconazole Nitrate 1 applic 12/26/22 21:00 12/27/22 08:32 Miconazole 2% Antifungal Ointment 56 Gm TOPICAL 1 applic Q12HR GLORIA Administration Multivitamins Therapeutic 1 tab
[2022-12-27 17:05] LABS: Glucose Point of Care 161 mg/dl (65-105)
[2022-12-27] MEDS: methylPREDNISolone SOD SUCC 40 MG VIAL IV PUSH (17:51)
[2022-12-27 20:33] LABS: Glucose Point of Care 277 mg/dl (65-105)
[2022-12-27] MEDS: INSULIN ASPART (*BKC) 100 UNITS/ML SUB-Q (20:45)
[2022-12-27 21:07] VITALS: BP 137/75; PULSE 90; RESP 18; TEMP 37.2; O2SAT 95
[2022-12-28] MEDS: methylPREDNISolone SOD SUCC 40 MG VIAL IV PUSH ×2 (05:06→18:26)
[2022-12-28 05:23] VITALS: BP 121/74; PULSE 83; RESP 18; TEMP 37; O2SAT 100
[2022-12-28 05:39] LABS: Basophils Percent Auto 0.1 % (0.2-1.2); Hematocrit 32.7 % (42.0-52.0); Hemoglobin 10.7 g/dL (14.0-18.0); Immature Granulocyte Absolute 0.05 K/mm3 (0.00-0.031); Immature Granulocyte Percent A 0.6 % (0-0.5); Lymphocytes Absolute Auto 0.97 K/mm3 (0.9-3.2); Lymphocytes Percent Auto 10.8 % (18.3-44.2); Mean Corpuscular HGB Conc 32.7 g/dl (32-36); Mean Corpuscular Hemoglobin 25.8 pg (26-34); Mean Corpuscular Volume 78.8 fl (80-100); Mean Platelet Volume 10.8 fl (7.4-10.4); Monocytes Absolute Auto 0.3 K/mm3 (0.1-0.6); Monocytes Percent Auto 3.6 % (2.6-8.5); Neutrophils Absolute Auto 7.6 K/mm3 (1.3-6.7); Neutrophils Percent Auto 84.9 % (45.5-73.1); Platelet Count Result 253 k/mm3 (150-375); Red Blood Count 4.15 M/mm3 (4.6-6.20); Red Cell Distribution Width 13.4 % (11.5-14.5)
[2022-12-28 05:56] LABS: Alanine Aminotransferase 153 U/L (6-50); Albumin Level 3.5 g/dL (3.5-5.1); Alkaline Phosphatase 155 U/L (38-126); Anion Gap 10 mmol/L (8-16); Aspartate Amino Transferase 165 U/L (17-59); Bilirubin,Total 0.6 mg/dL (0.2-1.3); Blood Urea Nitrogen 26 mg/dL (9-20); Calcium 8.4 mg/dL (8.4-10.2); Carbon Dioxide 23 mmol/L (22-30); Chloride 102 mmol/L (98-107); Estimated CRCL calculation 53 ml/min; Estimated Glomerular Filt Rate > 60; Glucose 278 mg/dL (65-110); Magnesium 2.3 mg/dL (1.6-2.3); Potassium 3.8 mmol/L (3.4-5.0); Sodium 135 mmol/L (137-145)
[2022-12-28 08:18] LABS: Glucose Point of Care 291 mg/dl (65-105)
[2022-12-28] MEDS: INSULIN ASPART (*BKC) 100 UNITS/ML SUB-Q ×4 (08:39→22:16)
[2022-12-28] MEDS: ASPIRIN 81 MG ENTERIC TABLET PO (09:28)
[2022-12-28] MEDS: ENOXAPARIN 40 MG/0.4 ML SYRINGE SUB-Q (09:28)
[2022-12-28] MEDS: VALSARTAN 160 MG TABLET 320 MG PO (09:29)
[2022-12-28] MEDS: TAMSULOSIN HCL 0.4 MG CAPSULE PO (09:29)
[2022-12-28] MEDS: amLODIPine BESYLATE 5 MG TABLET 10 MG PO (09:29)
[2022-12-28] MEDS: OPTI-GEN TAB 1 TABLET PO ×2 (09:29→18:27)
[2022-12-28] MEDS: MULTIVITAMINS THERAPEUTIC TAB (*BKC) 1 TABLET PO (09:29)
[2022-12-28] MEDS: ATORVASTATIN 20 MG TABLET PO (09:29)
[2022-12-28] MEDS: PSYLLIUM POWDER PACKET 1 PACKET PO (09:30)
[2022-12-28 12:03] LABS: Glucose Point of Care 369 mg/dl (65-105)
--- NOTE | 2022-12-28 13:25 | P.PNIM_ITS ---
Progress Note: A&P Assessment and Plan (1) Left knee pain: Qualifiers: Chronicity: acute Qualified Code(s): M25.562 - Pain in left knee Code(s): M25.562 - Pain in left knee Status: Acute Assessment and Plan: Left knee x-ray does indicate a moderate joint effusion. Warmth, pain, swelling noted on the left knee with impaired mobility. * orthopedics consulted * joint effusion was aspirated * fluid was cloudy in appearance, 5000 RBCs, 19,625 nuc cells and 88 neutrophils noted. Calcium pyrophosphate crystals seen. * Findings consistent with pseudogout. * pain medication added * weight-bearing status as tolerated. Patient needing rehab at discharge. * PT OT consulted (2) Pseudogout involving multiple joints: Code(s): M11.89 - Other specified crystal arthropathies, multiple sites Status: Acute Assessment and Plan: Calcium pyrophosphate crystals noted on left knee aspiration. * These findings consistent with pseudogout * Radiographs revealing arthritis * Patient then developed left wrist and left finger pain along with swelling. * Patient started on Solu-Medrol for symptomatic control. (3) Left lumbar radiculopathy: Code(s): M54.16 - Radiculopathy, lumbar region Status: Acute Assessment and Plan: * Acute on chronic exacerbated by near fall 2 days ago * Chronic footdrop with brace use * Pain medications as indicated * CT of the spine severe bilateral hydronephrosis and hydroureter with distended bladder, severe lumbar spondylosis * Neurosurgery consulted and patient can follow up in the clinic with any further issues (4) Hydronephrosis: Qualifiers: Hydronephrosis type: unspecified Qualified Code(s): N13.30 - Unspecified hydronephrosis Code(s): N13.30 - Unspecified hydronephrosis Status: Acute Assessment and Plan: * Incidental findings on the CT, along with hydroureter * Renal ultrasound, moderate right sided hydronephrosis * Bladder scan >800ml * Urinary catheter inserted * Urology consulted thank you for your help * Start tamsulosin * Urinary catheter can be removed, will need another post residual void (5) Transaminitis: Code(s): R74.01 - Elevation of levels of liver transaminase levels Status: Acute Assessment and Plan: * AST/ALT 93/66 * Hep panel negative * Trend labs * Adjust therapy as indicated (6) Unable to ambulate: Code(s): R26.2 - Difficulty in walking, not elsewhere classified Status: Acute Assessment and Plan: * Not able to bear weight or ambulate due to back and knee pain * Uses a walker at baseline * Unable to preform ADLS * Will need rehab placement for strengthening * PT/OT when appropriate * Neurosurgery consulted with no further recommendations (7) Hypokalemia: Code(s): E87.6 - Hypokalemia Status: Acute Assessment and Plan: * Potassium noted to be 2.9 upon admission, currently 3.4 * Replace with 40 mcg PO and IV once * Trend potassium * Replace as indicated (8) Chronic anemia: Code(s): D64.9 - Anemia, unspecified Status: Acute Assessment and Plan: * H/H 11.1/34.0 upon admission, currently 10.5/32.4 * Stable * Consider anemia labs if H/H decreases * Trend labs * Adjust therap
--- NOTE | 2022-12-28 13:25 | PM.IMPN ---
Progress Note: A&P Assessment and Plan (1) Left knee pain: Qualifiers: Chronicity: acute Qualified Code(s): M25.562 - Pain in left knee Code(s): M25.562 - Pain in left knee Status: Acute Assessment and Plan: Left knee x-ray does indicate a moderate joint effusion. Warmth, pain, swelling noted on the left knee with impaired mobility. orthopedics consulted joint effusion was aspirated fluid was cloudy in appearance, 5000 RBCs, 19,625 nuc cells and 88 neutrophils noted. Calcium pyrophosphate crystals seen. Findings consistent with pseudogout. pain medication added weight-bearing status as tolerated. Patient needing rehab at discharge. PT OT consulted (2) Pseudogout involving multiple joints: Code(s): M11.89 - Other specified crystal arthropathies, multiple sites Status: Acute Assessment and Plan: Calcium pyrophosphate crystals noted on left knee aspiration. These findings consistent with pseudogout Radiographs revealing arthritis Patient then developed left wrist and left finger pain along with swelling. Patient started on Solu-Medrol for symptomatic control. (3) Left lumbar radiculopathy: Code(s): M54.16 - Radiculopathy, lumbar region Status: Acute Assessment and Plan: Acute on chronic exacerbated by near fall 2 days ago Chronic footdrop with brace use Pain medications as indicated CT of the spine severe bilateral hydronephrosis and hydroureter with distended bladder, severe lumbar spondylosis Neurosurgery consulted and patient can follow up in the clinic with any further issues (4) Hydronephrosis: Qualifiers: Hydronephrosis type: unspecified Qualified Code(s): N13.30 - Unspecified hydronephrosis Code(s): N13.30 - Unspecified hydronephrosis Status: Acute Assessment and Plan: Incidental findings on the CT, along with hydroureter Renal ultrasound, moderate right sided hydronephrosis Bladder scan >800ml Urinary catheter inserted Urology consulted thank you for your help Start tamsulosin Urinary catheter can be removed, will need another post residual void (5) Transaminitis: Code(s): R74.01 - Elevation of levels of liver transaminase levels Status: Acute Assessment and Plan: AST/ALT 93/66 Hep panel negative Trend labs Adjust therapy as indicated (6) Unable to ambulate: Code(s): R26.2 - Difficulty in walking, not elsewhere classified Status: Acute Assessment and Plan: Not able to bear weight or ambulate due to back and knee pain Uses a walker at baseline Unable to preform ADLS Will need rehab placement for strengthening PT/OT when appropriate Neurosurgery consulted with no further recommendations (7) Hypokalemia: Code(s): E87.6 - Hypokalemia Status: Acute Assessment and Plan: Potassium noted to be 2.9 upon admission, currently 3.4 Replace with 40 mcg PO and IV once Trend potassium Replace as indicated (8) Chronic anemia: Code(s): D64.9 - Anemia, unspecified Status: Acute Assessment and Plan: H/H 11.1/34.0 upon admission, currently 10.5/32.4 Stable Consider anemia labs if H/H decreases Trend labs Adjust therapy as indicated (9) Type 2 diabetes mellitus: Qualifiers: Diabetes mellitus termite 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
[2022-12-28 14:00] VITALS: BP 108/67; PULSE 83; RESP 18; TEMP 36.7; O2SAT 99
[2022-12-28 18:15] LABS: Glucose Point of Care 340 mg/dl (65-105)
[2022-12-28 20:20] VITALS: BP 116/86; PULSE 79; RESP 16; TEMP 36.4; O2SAT 96
[2022-12-28 20:39] LABS: Glucose Point of Care 356 mg/dl (65-105)
[2022-12-29 00:10] LABS: Glucose Point of Care 308 mg/dl (65-105)
[2022-12-29 03:50] VITALS: BP 140/88; PULSE 87; RESP 16; TEMP 36.4; O2SAT 98
[2022-12-29 05:56] LABS: Basophils Percent Auto 0.1 % (0.2-1.2); Hemoglobin 10.7 g/dL (14.0-18.0); Immature Granulocyte Absolute 0.07 K/mm3 (0.00-0.031); Immature Granulocyte Percent A 0.7 % (0-0.5); Lymphocytes Absolute Auto 0.97 K/mm3 (0.9-3.2); Lymphocytes Percent Auto 9.1 % (18.3-44.2); Mean Corpuscular HGB Conc 32.4 g/dl (32-36); Mean Corpuscular Hemoglobin 25.7 pg (26-34); Mean Corpuscular Volume 79.3 fl (80-100); Mean Platelet Volume 10.9 fl (7.4-10.4); Monocytes Absolute Auto 0.4 K/mm3 (0.1-0.6); Monocytes Percent Auto 3.7 % (2.6-8.5); Neutrophils Absolute Auto 9.2 K/mm3 (1.3-6.7); Neutrophils Percent Auto 86.4 % (45.5-73.1); Platelet Count Result 292 k/mm3 (150-375); Red Blood Count 4.16 M/mm3 (4.6-6.20); Red Cell Distribution Width 13.5 % (11.5-14.5); White Blood Count 10.7 K/mm3 (4.5-10.0)
[2022-12-29 06:14] LABS: Alanine Aminotransferase 232 U/L (6-50); Albumin Level 3.2 g/dL (3.5-5.1); Alkaline Phosphatase 141 U/L (38-126); Anion Gap 8 mmol/L (8-16); Aspartate Amino Transferase 197 U/L (17-59); Bilirubin,Total 0.5 mg/dL (0.2-1.3); Blood Urea Nitrogen 36 mg/dL (9-20); Calcium 8.5 mg/dL (8.4-10.2); Carbon Dioxide 24 mmol/L (22-30); Chloride 101 mmol/L (98-107); Estimated CRCL calculation 53 ml/min; Estimated Glomerular Filt Rate > 60; Glucose 309 mg/dL (65-110); Potassium 3.7 mmol/L (3.4-5.0); Sodium 133 mmol/L (137-145)
[2022-12-29] MEDS: methylPREDNISolone SOD SUCC 40 MG VIAL IV PUSH ×2 (06:30→17:25)
[2022-12-29 08:50] LABS: Glucose Point of Care 309 mg/dl (65-105)
[2022-12-29] MEDS: INSULIN ASPART (*BKC) 100 UNITS/ML SUB-Q ×4 (08:55→22:09)
[2022-12-29] MEDS: ENOXAPARIN 40 MG/0.4 ML SYRINGE SUB-Q (08:56)
[2022-12-29] MEDS: ASPIRIN 81 MG ENTERIC TABLET PO (08:56)
[2022-12-29] MEDS: amLODIPine BESYLATE 5 MG TABLET 10 MG PO (08:56)
[2022-12-29] MEDS: MULTIVITAMINS THERAPEUTIC TAB (*BKC) 1 TABLET PO (08:57)
[2022-12-29] MEDS: OPTI-GEN TAB 1 TABLET PO ×2 (08:57→17:24)
[2022-12-29] MEDS: PSYLLIUM POWDER PACKET 1 PACKET PO (08:57)
[2022-12-29] MEDS: TAMSULOSIN HCL 0.4 MG CAPSULE PO (08:57)
[2022-12-29] MEDS: VALSARTAN 160 MG TABLET 320 MG PO (08:57)
[2022-12-29 12:13] LABS: Glucose Point of Care 373 mg/dl (65-105)
--- NOTE | 2022-12-29 14:25 | P.PNIM_ITS ---
Progress Note: A&P Assessment and Plan (1) Left knee pain: Qualifiers: Chronicity: acute Qualified Code(s): M25.562 - Pain in left knee Code(s): M25.562 - Pain in left knee Status: Acute Assessment and Plan: Left knee x-ray does indicate a moderate joint effusion. Warmth, pain, swelling noted on the left knee with impaired mobility. * orthopedics consulted * joint effusion was aspirated * fluid was cloudy in appearance, 5000 RBCs, 19,625 nuc cells and 88 neutrophils noted. Calcium pyrophosphate crystals seen. * Findings consistent with pseudogout. * pain medication added * weight-bearing status as tolerated. Patient needing rehab at discharge. * PT OT consulted (2) Pseudogout involving multiple joints: Code(s): M11.89 - Other specified crystal arthropathies, multiple sites Status: Acute Assessment and Plan: Calcium pyrophosphate crystals noted on left knee aspiration. * These findings consistent with pseudogout * Radiographs revealing arthritis * Patient then developed left wrist and left finger pain along with swelling. * Patient started on Solu-Medrol for symptomatic control. (3) Left lumbar radiculopathy: Code(s): M54.16 - Radiculopathy, lumbar region Status: Acute Assessment and Plan: * Acute on chronic exacerbated by near fall 2 days ago * Chronic footdrop with brace use * Pain medications as indicated * CT of the spine severe bilateral hydronephrosis and hydroureter with distended bladder, severe lumbar spondylosis * Neurosurgery consulted and patient can follow up in the clinic with any further issues (4) Hydronephrosis: Qualifiers: Hydronephrosis type: unspecified Qualified Code(s): N13.30 - Unspecified hydronephrosis Code(s): N13.30 - Unspecified hydronephrosis Status: Acute Assessment and Plan: * Incidental findings on the CT, along with hydroureter * Renal ultrasound, moderate right sided hydronephrosis * Bladder scan >800ml * Urinary catheter inserted * Urology consulted thank you for your help * Start tamsulosin * Urinary catheter can be removed, will need another post residual void (5) Transaminitis: Code(s): R74.01 - Elevation of levels of liver transaminase levels Status: Acute Assessment and Plan: * Hep panel negative * 12/29 AST/ ALT 197/232. Right upper quadrant ultrasound performed revealing mild fatty liver. * Continue to monitor (6) Unable to ambulate: Code(s): R26.2 - Difficulty in walking, not elsewhere classified Status: Acute Assessment and Plan: * Not able to bear weight or ambulate due to back and knee pain * Uses a walker at baseline * Unable to preform ADLS * Will need rehab placement for strengthening * PT/OT when appropriate * Neurosurgery consulted with no further recommendations (7) Hypokalemia: Code(s): E87.6 - Hypokalemia Status: Acute Assessment and Plan: * Potassium noted to be 2.9 upon admission, currently 3.4 * Replace with 40 mcg PO and IV once * Trend potassium * Replace as indicated (8) Chronic anemia: Code(s): D64.9 - Anemia, unspecified Status: Acute Assessment and Plan: * H/H 11.1/34.0 upon admission, currently 10.5/32.4 * Stable * Consider anemi
--- NOTE | 2022-12-29 14:25 | PM.IMPN ---
Progress Note: A&P Assessment and Plan (1) Left knee pain: Qualifiers: Chronicity: acute Qualified Code(s): M25.562 - Pain in left knee Code(s): M25.562 - Pain in left knee Status: Acute Assessment and Plan: Left knee x-ray does indicate a moderate joint effusion. Warmth, pain, swelling noted on the left knee with impaired mobility. orthopedics consulted joint effusion was aspirated fluid was cloudy in appearance, 5000 RBCs, 19,625 nuc cells and 88 neutrophils noted. Calcium pyrophosphate crystals seen. Findings consistent with pseudogout. pain medication added weight-bearing status as tolerated. Patient needing rehab at discharge. PT OT consulted (2) Pseudogout involving multiple joints: Code(s): M11.89 - Other specified crystal arthropathies, multiple sites Status: Acute Assessment and Plan: Calcium pyrophosphate crystals noted on left knee aspiration. These findings consistent with pseudogout Radiographs revealing arthritis Patient then developed left wrist and left finger pain along with swelling. Patient started on Solu-Medrol for symptomatic control. (3) Left lumbar radiculopathy: Code(s): M54.16 - Radiculopathy, lumbar region Status: Acute Assessment and Plan: Acute on chronic exacerbated by near fall 2 days ago Chronic footdrop with brace use Pain medications as indicated CT of the spine severe bilateral hydronephrosis and hydroureter with distended bladder, severe lumbar spondylosis Neurosurgery consulted and patient can follow up in the clinic with any further issues (4) Hydronephrosis: Qualifiers: Hydronephrosis type: unspecified Qualified Code(s): N13.30 - Unspecified hydronephrosis Code(s): N13.30 - Unspecified hydronephrosis Status: Acute Assessment and Plan: Incidental findings on the CT, along with hydroureter Renal ultrasound, moderate right sided hydronephrosis Bladder scan >800ml Urinary catheter inserted Urology consulted thank you for your help Start tamsulosin Urinary catheter can be removed, will need another post residual void (5) Transaminitis: Code(s): R74.01 - Elevation of levels of liver transaminase levels Status: Acute Assessment and Plan: Hep panel negative 12/29 AST/ ALT 197/232. Right upper quadrant ultrasound performed revealing mild fatty liver. Continue to monitor (6) Unable to ambulate: Code(s): R26.2 - Difficulty in walking, not elsewhere classified Status: Acute Assessment and Plan: Not able to bear weight or ambulate due to back and knee pain Uses a walker at baseline Unable to preform ADLS Will need rehab placement for strengthening PT/OT when appropriate Neurosurgery consulted with no further recommendations (7) Hypokalemia: Code(s): E87.6 - Hypokalemia Status: Acute Assessment and Plan: Potassium noted to be 2.9 upon admission, currently 3.4 Replace with 40 mcg PO and IV once Trend potassium Replace as indicated (8) Chronic anemia: Code(s): D64.9 - Anemia, unspecified Status: Acute Assessment and Plan: H/H 11.1/34.0 upon admission, currently 10.5/32.4 Stable Consider anemia labs if H/H decreases Trend labs Adjust therapy as indicated (9) Type 2 diabetes mellitus: Qualifiers: 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
[2022-12-29 14:40] VITALS: BP 116/69; PULSE 75; RESP 16; TEMP 36.5; O2SAT 100
[2022-12-29 17:16] LABS: Glucose Point of Care 320 mg/dl (65-105)
[2022-12-29 21:19] VITALS: BP 144/89; PULSE 87; RESP 16; TEMP 36.4; O2SAT 100
[2022-12-29 21:29] LABS: Glucose Point of Care 231 mg/dl (65-105)
[2022-12-29 21:46] VITALS: O2SAT 99
[2022-12-30 05:22] LABS: Basophils Percent Auto 0.1 % (0.2-1.2); Hemoglobin 11.2 g/dL (14.0-18.0); Immature Granulocyte Absolute 0.09 K/mm3 (0.00-0.031); Immature Granulocyte Percent A 0.9 % (0-0.5); Lymphocytes Absolute Auto 1.28 K/mm3 (0.9-3.2); Lymphocytes Percent Auto 12.2 % (18.3-44.2); Mean Corpuscular HGB Conc 32.9 g/dl (32-36); Mean Corpuscular Hemoglobin 25.9 pg (26-34); Mean Corpuscular Volume 78.5 fl (80-100); Mean Platelet Volume 10.7 fl (7.4-10.4); Monocytes Absolute Auto 0.5 K/mm3 (0.1-0.6); Monocytes Percent Auto 4.8 % (2.6-8.5); Neutrophils Absolute Auto 8.6 K/mm3 (1.3-6.7); Platelet Count Result 338 k/mm3 (150-375); Red Blood Count 4.33 M/mm3 (4.6-6.20); Red Cell Distribution Width 13.2 % (11.5-14.5); White Blood Count 10.5 K/mm3 (4.5-10.0)
[2022-12-30 05:38] LABS: Alanine Aminotransferase 242 U/L (6-50); Albumin Level 3.3 g/dL (3.5-5.1); Alkaline Phosphatase 129 U/L (38-126); Anion Gap 8 mmol/L (8-16); Aspartate Amino Transferase 135 U/L (17-59); Bilirubin,Total 0.4 mg/dL (0.2-1.3); Blood Urea Nitrogen 36 mg/dL (9-20); Calcium 8.7 mg/dL (8.4-10.2); Carbon Dioxide 26 mmol/L (22-30); Chloride 100 mmol/L (98-107); Estimated CRCL calculation 48 ml/min; Estimated Glomerular Filt Rate > 60; Glucose 274 mg/dL (65-110); Potassium 3.9 mmol/L (3.4-5.0); Sodium 134 mmol/L (137-145)
[2022-12-30 05:48] VITALS: BP 129/78; PULSE 80; RESP 14; TEMP 36.6; O2SAT 97
[2022-12-30] MEDS: methylPREDNISolone SOD SUCC 40 MG VIAL IV PUSH (05:52)
[2022-12-30 08:59] LABS: Glucose Point of Care 288 mg/dl (65-105)
[2022-12-30] MEDS: predniSONE 20 MG TABLET 40 MG PO (09:31)
[2022-12-30] MEDS: VALSARTAN 160 MG TABLET 320 MG PO (09:32)
[2022-12-30] MEDS: ASPIRIN 81 MG ENTERIC TABLET PO (09:32)
[2022-12-30] MEDS: TAMSULOSIN HCL 0.4 MG CAPSULE PO (09:32)
[2022-12-30] MEDS: PSYLLIUM POWDER PACKET 1 PACKET PO (09:32)
[2022-12-30] MEDS: MULTIVITAMINS THERAPEUTIC TAB (*BKC) 1 TABLET PO (09:32)
[2022-12-30] MEDS: amLODIPine BESYLATE 5 MG TABLET 10 MG PO (09:32)
[2022-12-30] MEDS: OPTI-GEN TAB 1 TABLET PO ×2 (09:32→17:10)
[2022-12-30] MEDS: ENOXAPARIN 40 MG/0.4 ML SYRINGE SUB-Q (09:32)
[2022-12-30] MEDS: INSULIN ASPART (*BKC) 100 UNITS/ML SUB-Q ×4 (09:36→21:33)
[2022-12-30 12:28] LABS: Glucose Point of Care 342 mg/dl (65-105)
[2022-12-30 14:00] VITALS: BP 124/78; PULSE 81; RESP 18; TEMP 36.6; O2SAT 99
--- NOTE | 2022-12-30 15:09 | P.PNIM_ITS ---
Progress Note: A&P Assessment and Plan (1) Left knee pain: Qualifiers: Chronicity: acute Qualified Code(s): M25.562 - Pain in left knee Code(s): M25.562 - Pain in left knee Status: Acute Assessment and Plan: Left knee x-ray does indicate a moderate joint effusion. Warmth, pain, swelling noted on the left knee with impaired mobility. * orthopedics consulted * joint effusion was aspirated * fluid was cloudy in appearance, 5000 RBCs, 19,625 nuc cells and 88 neutrophils noted. Calcium pyrophosphate crystals seen. * Findings consistent with pseudogout. * Pain medication added * Weight-bearing status as tolerated. Patient needing rehab at discharge. * PT OT consulted (2) Pseudogout involving multiple joints: Code(s): M11.89 - Other specified crystal arthropathies, multiple sites Status: Acute Assessment and Plan: Calcium pyrophosphate crystals noted on left knee aspiration. * These findings consistent with pseudogout * Radiographs revealing arthritis * Patient then developed left wrist and left finger pain along with swelling. * Solu-Medrol transition to p.o. prednisone (3) Left lumbar radiculopathy: Code(s): M54.16 - Radiculopathy, lumbar region Status: Acute Assessment and Plan: * Acute on chronic exacerbated by near fall 2 days ago * Chronic footdrop with brace use * Pain medications as indicated * CT of the spine severe bilateral hydronephrosis and hydroureter with distended bladder, severe lumbar spondylosis * Neurosurgery consulted and patient can follow up in the clinic with any further issues (4) Hydronephrosis: Qualifiers: Hydronephrosis type: unspecified Qualified Code(s): N13.30 - Unspecified hydronephrosis Code(s): N13.30 - Unspecified hydronephrosis Status: Acute Assessment and Plan: * Incidental findings on the CT, along with hydroureter * Renal ultrasound, moderate right sided hydronephrosis * Bladder scan >800ml * Urinary catheter inserted * Urology consulted thank you for your help * Start tamsulosin * Urinary catheter can be removed, will need another post residual void (5) Transaminitis: Code(s): R74.01 - Elevation of levels of liver transaminase levels Status: Acute Assessment and Plan: * Hep panel negative * 12/29 AST/ ALT 197/232. Right upper quadrant ultrasound performed revealing mild fatty liver. * Continue to monitor (6) Unable to ambulate: Code(s): R26.2 - Difficulty in walking, not elsewhere classified Status: Acute Assessment and Plan: * Not able to bear weight or ambulate due to back and knee pain * Uses a walker at baseline * Unable to preform ADLS * Will need rehab placement for strengthening * PT/OT when appropriate * Neurosurgery consulted with no further recommendations (7) Hypokalemia: Code(s): E87.6 - Hypokalemia Status: Acute Assessment and Plan: * Potassium noted to be 2.9 upon admission, currently 3.4 * Replace with 40 mcg PO and IV once * Trend potassium * Replace as indicated (8) Chronic anemia: Code(s): D64.9 - Anemia, unspecified Status: Acute Assessment and Plan: * H/H 11.1/34.0 upon admission, currently 10.5/32.4 * Stable * Consider anemia labs if H/H decreas
--- NOTE | 2022-12-30 15:09 | PM.IMPN ---
Progress Note: A&P Assessment and Plan (1) Left knee pain: Qualifiers: Chronicity: acute Qualified Code(s): M25.562 - Pain in left knee Code(s): M25.562 - Pain in left knee Status: Acute Assessment and Plan: Left knee x-ray does indicate a moderate joint effusion. Warmth, pain, swelling noted on the left knee with impaired mobility. orthopedics consulted joint effusion was aspirated fluid was cloudy in appearance, 5000 RBCs, 19,625 nuc cells and 88 neutrophils noted. Calcium pyrophosphate crystals seen. Findings consistent with pseudogout. Pain medication added Weight-bearing status as tolerated. Patient needing rehab at discharge. PT OT consulted (2) Pseudogout involving multiple joints: Code(s): M11.89 - Other specified crystal arthropathies, multiple sites Status: Acute Assessment and Plan: Calcium pyrophosphate crystals noted on left knee aspiration. These findings consistent with pseudogout Radiographs revealing arthritis Patient then developed left wrist and left finger pain along with swelling. Solu-Medrol transition to p.o. prednisone (3) Left lumbar radiculopathy: Code(s): M54.16 - Radiculopathy, lumbar region Status: Acute Assessment and Plan: Acute on chronic exacerbated by near fall 2 days ago Chronic footdrop with brace use Pain medications as indicated CT of the spine severe bilateral hydronephrosis and hydroureter with distended bladder, severe lumbar spondylosis Neurosurgery consulted and patient can follow up in the clinic with any further issues (4) Hydronephrosis: Qualifiers: Hydronephrosis type: unspecified Qualified Code(s): N13.30 - Unspecified hydronephrosis Code(s): N13.30 - Unspecified hydronephrosis Status: Acute Assessment and Plan: Incidental findings on the CT, along with hydroureter Renal ultrasound, moderate right sided hydronephrosis Bladder scan >800ml Urinary catheter inserted Urology consulted thank you for your help Start tamsulosin Urinary catheter can be removed, will need another post residual void (5) Transaminitis: Code(s): R74.01 - Elevation of levels of liver transaminase levels Status: Acute Assessment and Plan: Hep panel negative 12/29 AST/ ALT 197/232. Right upper quadrant ultrasound performed revealing mild fatty liver. Continue to monitor (6) Unable to ambulate: Code(s): R26.2 - Difficulty in walking, not elsewhere classified Status: Acute Assessment and Plan: Not able to bear weight or ambulate due to back and knee pain Uses a walker at baseline Unable to preform ADLS Will need rehab placement for strengthening PT/OT when appropriate Neurosurgery consulted with no further recommendations (7) Hypokalemia: Code(s): E87.6 - Hypokalemia Status: Acute Assessment and Plan: Potassium noted to be 2.9 upon admission, currently 3.4 Replace with 40 mcg PO and IV once Trend potassium Replace as indicated (8) Chronic anemia: Code(s): D64.9 - Anemia, unspecified Status: Acute Assessment and Plan: H/H 11.1/34.0 upon admission, currently 10.5/32.4 Stable Consider anemia labs if H/H decreases Trend labs Adjust therapy as indicated (9) Type 2 diabetes mellitus: Qualifiers: Diabetes mellitus mcc insulin use: without mcc use Diabetes mellitus complication status: with other specified complication Qualified Code(s): E11.69 - Type 2 diabetes mellitus with other specified complication Code(s): E11.9 - Type 2 diabetes mellitus without complications Status: Acute Assessment and Plan: Diet-controlled Current glucose is 129 sliding scale insulin Accu-Cheks hypoglycemic protocol A1c 6.1 (10)
[2022-12-30 17:22] LABS: Glucose Point of Care 266 mg/dl (65-105)
[2022-12-30 19:44] VITALS: BP 145/88; PULSE 76; RESP 18; TEMP 36.7; O2SAT 100
[2022-12-30 20:00] VITALS: PULSE 76; RESP 18; O2SAT 100
[2022-12-30 21:31] LABS: Glucose Point of Care 321 mg/dl (65-105)
[2022-12-31 05:42] VITALS: BP 135/70; PULSE 72; RESP 18; TEMP 36.3; O2SAT 100
[2022-12-31 08:03] LABS: Glucose Point of Care 196 mg/dl (65-105)
[2022-12-31 08:40] VITALS: BP 117/72; PULSE 81
[2022-12-31] MEDS: predniSONE 20 MG TABLET 40 MG PO (08:42)
[2022-12-31] MEDS: amLODIPine BESYLATE 5 MG TABLET 10 MG PO (08:43)
[2022-12-31] MEDS: ENOXAPARIN 40 MG/0.4 ML SYRINGE SUB-Q (08:43)
[2022-12-31] MEDS: ASPIRIN 81 MG ENTERIC TABLET PO (08:43)
[2022-12-31] MEDS: OPTI-GEN TAB 1 TABLET PO (08:44)
[2022-12-31] MEDS: MULTIVITAMINS THERAPEUTIC TAB (*BKC) 1 TABLET PO (08:44)
[2022-12-31] MEDS: PSYLLIUM POWDER PACKET 1 PACKET PO (08:44)
[2022-12-31] MEDS: VALSARTAN 160 MG TABLET 320 MG PO (08:45)
[2022-12-31] MEDS: TAMSULOSIN HCL 0.4 MG CAPSULE PO (08:45)
--- NOTE | 2022-12-31 10:57 | PCPTNOTE ---
Attempted to see patient for PT, however patient declined due to anticipated discharge.
--- NOTE | 2022-12-31 11:35 | PCOTNOTE ---
Attempted to see Patient for A.M. OT treatment session. Patient declined/refused to participate at this time. Patient verbalized he is being discharged today and is going to rest before having to get ready.
[2022-12-31 12:18] LABS: Glucose Point of Care 251 mg/dl (65-105)
[2022-12-31] MEDS: INSULIN ASPART (*BKC) 100 UNITS/ML SUB-Q (12:30)
--- NOTE | 2022-12-31 12:35 | PCOTNOTE ---
Attempted for the P.M. session with Patient. Patient's present and Patient declined participating in therapy services. Patient stated he is waiting on thew transport van to take him to a facility
[2022-12-31 12:58] LABS: EDCOVIDSCREEN Negative (Negative)
--- NOTE | 2022-12-31 13:41 | PM.DS ---
DS: Admitting Diagnosis Discharge Date 12/31/22 Admitting Diagnosis pseudogout DS: Discharge Diagnosis Discharge Diagnosis (1) Left knee pain: Qualifiers: Chronicity: acute Qualified Code(s): M25.562 - Pain in left knee Code(s): M25.562 - Pain in left knee Status: Acute Assessment and Plan: Left knee x-ray does indicate a moderate joint effusion. Warmth, pain, swelling noted on the left knee with impaired mobility. orthopedics consulted joint effusion was aspirated fluid was cloudy in appearance, 5000 RBCs, 19,625 nuc cells and 88 neutrophils noted. Calcium pyrophosphate crystals seen. Findings consistent with pseudogout. Pain medication added Weight-bearing status as tolerated. Patient needing rehab at discharge. PT OT consulted (2) Pseudogout involving multiple joints: Code(s): M11.89 - Other specified crystal arthropathies, multiple sites Status: Acute Assessment and Plan: Calcium pyrophosphate crystals noted on left knee aspiration. These findings consistent with pseudogout Radiographs revealing arthritis Patient then developed left wrist and left finger pain along with swelling. Solu-Medrol transition to p.o. prednisone (3) Left lumbar radiculopathy: Code(s): M54.16 - Radiculopathy, lumbar region Status: Acute Assessment and Plan: Acute on chronic exacerbated by near fall 2 days ago Chronic footdrop with brace use Pain medications as indicated CT of the spine severe bilateral hydronephrosis and hydroureter with distended bladder, severe lumbar spondylosis Neurosurgery consulted and patient can follow up in the clinic with any further issues (4) Hydronephrosis: Qualifiers: Hydronephrosis type: unspecified Qualified Code(s): N13.30 - Unspecified hydronephrosis Code(s): N13.30 - Unspecified hydronephrosis Status: Acute Assessment and Plan: Incidental findings on the CT, along with hydroureter Renal ultrasound, moderate right sided hydronephrosis Bladder scan >800ml Urinary catheter inserted Urology consulted thank you for your help Start tamsulosin Urinary catheter can be removed, will need another post residual void (5) Transaminitis: Code(s): R74.01 - Elevation of levels of liver transaminase levels Status: Acute Assessment and Plan: Hep panel negative 12/29 AST/ ALT 197/232. Right upper quadrant ultrasound performed revealing mild fatty liver. Continue to monitor (6) Unable to ambulate: Code(s): R26.2 - Difficulty in walking, not elsewhere classified Status: Acute Assessment and Plan: Not able to bear weight or ambulate due to back and knee pain Uses a walker at baseline Unable to preform ADLS Will need rehab placement for strengthening PT/OT when appropriate Neurosurgery consulted with no further recommendations (7) Hypokalemia: Code(s): E87.6 - Hypokalemia Status: Acute Assessment and Plan: Potassium noted to be 2.9 upon admission, currently 3.4 Replace with 40 mcg PO and IV once Trend potassium Replace as indicated (8) Chronic anemia: Code(s): D64.9 - Anemia, unspecified Status: Acute Assessment and Plan: H/H 11.1/34.0 upon admission, currently 10.5/32.4 Stable Consider anemia labs if H/H decreases Trend labs Adjust therapy as indicated (9) Type 2 diabetes mellitus: Qualifiers: Diabetes mellitus complication status: with other specified complication 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
== END 2022-12-31 14:40 | DRG 554 ==
LOC: ANHED 14:17 → ANH2MED 15:02
PROVIDERS: Nurse Practitioner; Orthopaedic Surgery; Physician Assistant; Admitting Provider Student in an Organized Health Care Education/Training Program; Emergency Provider Family Medicine; PCP Family Medicine; Visit Provider Internal Medicine Critical Care Medicine
DX: M11.262 Other chondrocalcinosis, left knee (principal); N13.30 Unspecified hydronephrosis; M11.89 Other specified crystal arthropathies, multiple sites; M19.032 Primary osteoarthritis, left wrist; M47.27 Other spondylosis with radiculopathy, lumbosacral region; Z20.822 Contact with and (suspected) exposure to COVID-19; I10 Essential (primary) hypertension; E11.9 Type 2 diabetes mellitus without complications; I25.10 Atherosclerotic heart disease of native coronary artery without angina pectoris; I70.0 Atherosclerosis of aorta; E78.2 Mixed hyperlipidemia; D64.9 Anemia, unspecified; R33.9 Retention of urine, unspecified; R74.01 Elevation of levels of liver transaminase levels; N40.0 Benign prostatic hyperplasia without lower urinary tract symptoms; E87.6 Hypokalemia; Z96.653 Presence of artificial knee joint, bilateral; Z98.49 Cataract extraction status, unspecified eye; Z96.1 Presence of intraocular lens; Z79.82 Long term (current) use of aspirin; Z89.412 Acquired absence of left great toe; Z90.49 Acquired absence of other specified parts of digestive tract; Z87.891 Personal history of nicotine dependence
CPT/HCPCS: 36415; 72131; 73110; 76705; 76775; 80053; 80074; 81001; 82948; 83036; 83735; 85025; 87070; 87075; 87205; 87426; 89051; 89060; 96366; 96367; 96372; 97110; 97163; 97166; 97530; 97535; 99285; A9270; C9803; G0378; J0690; J1650; J1815; J2920; J3370; J3475; J3480; J7040; J7512

== ENCOUNTER 2023-01-07 07:20 | Inpatient (IN) | payer MEDICARE, SELFPAY ==
[2023-01-07] VITALS (24 sets, daily range): BP systolic 124–147; BP diastolic 79–94; PULSE 83–98; RESP 14–20; TEMP 36.5–37.1; O2SAT 91–100; BMI 28.4
--- NOTE | ~2023-01-07 | XR_ITS ---
EXAMINATION: XR chest 1V portable INDICATION: Weakness TECHNIQUE: Portable AP chest at 0811 hours COMPARISON: 11/19/2021 FINDINGS: The lungs are free of acute opacities. No pleural effusion or pneumothorax. The cardiomedia stinal silhouette is normal. Calcified pleural plaques are noted. IMPRESSION: 1. No acute cardiopulmonary abnormality. Reviewed, dictated and finalized at location B.
--- NOTE | ~2023-01-07 | MR_ITS ---
EXAMINATION: MR lumbar spine wo/w con DATE: 01/07/2023 12:18 INDICATION: Bilateral leg weakness. Leukocytosis. TECHNIQUE: Magnetic resonance imaging (MRI) of the lumbar spine was performed without and with 16 mL MultiHance intravenous contrast. /Foot COMPARISON: Lumbar spine MRI 12/17/2014, CT lumbar spine 12/25/2022 FINDINGS: The bladder is markedly distended with diverticula. There is severe right hydronephrosis an d hydroureter. There is mild left hydronephrosis and hydroureter. There is a small area of longitudin al contrast enhancement in right psoas muscle, consistent with strain. There is 7 degrees dextrocurva ture of lumbar spine. Vertebral body heights are normal. There is mildly decreased disc height at L2- L3 and severely decreased disc height from L3-L4 through L5-S1 with endplate remodeling. There is lig amentum flavum hypertrophy at the disc levels from L1-L2 through L4-L5. The distal spinal cord signal intensity is normal. The conus medullaris is at L1. The following disc levels are specifically discu ssed: L1-L2: The disc is mildly bulging. There is severe bilateral facet joint osteoarthritis. There is mil d bilateral neural foraminal stenosis. There is no central canal stenosis. L2-L3: The disc is bulging. There is severe bilateral facet joint osteoarthritis. There is mild bilat eral neural foraminal stenosis. There is mild central canal stenosis. L3-L4: The disc is bulging and has an annular fissure. There is severe bilateral facet joint osteoart hritis. There is mild right and moderate left neural foraminal stenosis. There is mild central canal stenosis. There is moderate stenosis of left lateral recess. L4-L5: The disc is bulging and has an annular fissure. There is severe bilateral facet joint osteoart hritis. There is moderate right and mild left neural foraminal stenosis. There is mild central canal stenosis. There is moderate stenosis of right lateral recess. L5-S1: The disc is bulging and has an annular fissure. There is severe bilateral facet joint osteoart hritis. There is moderate bilateral neural foraminal stenosis. There is mild central canal stenosis. There is moderate stenosis of the lateral recesses. IMPRESSION: 1. Severe lumbar spondylosis, worsened from 12/17/2014. 2. Mild strain of right iliopsoas muscle. 3. Markedly distended bladder with severe right hydronephrosis and hydroureter and mild left hydronep hrosis and hydroureter. Reviewed, dictated and finalized at location A. IMPRESSION: 1. Severe lumbar spondylosis, worsened from 12/17/2014. 2. Mild strain of right iliopsoas muscle. 3. Markedly distended bladder with severe right hydronephrosis and hydroureter and mild left hydronephrosis and hydroureter.
--- NOTE | ~2023-01-07 | MR_ITS ---
MRI of the thoracic spine Clinical History: Weakness Technique: Axial T2-weighted and gradient images, and sagittal T1-weighted, T2-weighted, and STIR peyman ges were acquired. Following intravenous administration of 18 cc MultiHance gadolinium, T1-weighted f at-sat imaging was performed in the axial and sagittal planes. Findings: There is no fracture or subluxation of the thoracic spine. Vertebral bodies maintain normal height and alignment. No suspicious bone marrow signal abnormality seen. There are minimal disc bulges at T5-T6, T6-T7, T7-T8, and T8-T9. No spinal canal stenosis or cord com pression evident. No epidural mass or collection identified. No abnormal signal seen in the spinal co rd. Paravertebral soft tissues are unremarkable. No suspicious postcontrast enhancement identified. Impression: Minimal disc bulges in the mid to lower thoracic spine, as detailed above. Reviewed, dictated and finalized at [facility]. Impression: Minimal disc bulges in the mid to lower thoracic spine, as detailed above.
[2023-01-07 08:10] LABS: Basophils Percent Auto 0.2 % (0.2-1.2); Eosinophils Percent Auto 0.1 % (0-4.4); Hematocrit 38.1 % (42.0-52.0); Hemoglobin 12.4 g/dL (14.0-18.0); Immature Granulocyte Absolute 0.19 K/mm3 (0.00-0.031); Lymphocytes Absolute Auto 1.64 K/mm3 (0.9-3.2); Lymphocytes Percent Auto 8.9 % (18.3-44.2); Mean Corpuscular HGB Conc 32.5 g/dl (32-36); Mean Corpuscular Hemoglobin 26.3 pg (26-34); Mean Corpuscular Volume 80.7 fl (80-100); Mean Platelet Volume 10.1 fl (7.4-10.4); Monocytes Absolute Auto 1.6 K/mm3 (0.1-0.6); Monocytes Percent Auto 8.8 % (2.6-8.5); Platelet Count Result 338 k/mm3 (150-375); Red Blood Count 4.72 M/mm3 (4.6-6.20); Red Cell Distribution Width 14.4 % (11.5-14.5); White Blood Count 18.5 K/mm3 (4.5-10.0)
[2023-01-07 08:22] LABS: Alanine Aminotransferase 49 U/L (6-50); Albumin Level 3.4 g/dL (3.5-5.1); Alkaline Phosphatase 96 U/L (38-126); Anion Gap 9 mmol/L (8-16); Aspartate Amino Transferase 20 U/L (17-59); Bilirubin,Total 0.9 mg/dL (0.2-1.3); Blood Urea Nitrogen 12 mg/dL (9-20); Calcium 8.1 mg/dL (8.4-10.2); Carbon Dioxide 24 mmol/L (22-30); Chloride 103 mmol/L (98-107); Estimated CRCL calculation 53 ml/min; Estimated Glomerular Filt Rate > 60; Glucose 170 mg/dL (65-110); Magnesium 1.6 mg/dL (1.6-2.3); Potassium 3.2 mmol/L (3.4-5.0); Sodium 136 mmol/L (137-145)
[2023-01-07 08:25] LABS: INR 1.2; Partial Thromboplastin Time 33.3 SECONDS (22.3-36.8); Prothrombin Time 15.8 Seconds (11.1-14.7)
[2023-01-07 09:14] LABS: Appearance Urine Clear (Clear); Bacteria Urine 2+ /hpf; Bilirubin Urine Negative (Negative); Blood Urine Negative (Negative); Color Urine Yellow (Yellow); Glucose Urine UA Trace mg/dL (Negative); Ketones Urine Negative (Negative); Leukocyte Esterase Ur Negative LEU/UL (Negative); Nitrate Urine Negative (Negative); Non Pathogenic Casts 0-2; Protein Urine Trace mg/dL (Negative); RBC Urine 0-2 /hpf (0-2); Specific Grav Ur 1.014 (1.001-1.035); Squamous Epithelial Cell Urine Occasional /hpf (Few); Urobilinogen Urine 0.2 mg/dL (<2.0); WBC Urine 0-5 /hpf; pH Urine 6.5 (5.0-9.0)
--- NOTE | 2023-01-07 09:27 | PC.NURSE ---
post void residual of approx 630 ml at this time per bedside bladder scanner
[2023-01-07 09:32] LABS: Add Urine Microscopic? YES
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
[2023-01-07 10:56] LABS: Lactic Acid Reflex 1.2 mmol/L (0.7-2.0)
[2023-01-07 11:34] LABS: CRP 17.4 mg/dL (<1.0)
--- NOTE | 2023-01-07 11:49 | PC.NURSE ---
patient to mri at this time
--- NOTE | 2023-01-07 12:23 | ECG_ITS ---
Measurements Intervals [place] Rate: 89 P: 15 RI: 178 QRS: -65 QRSD: 109 T: 72 QT: 366 QTc: 448 Interpretive Statements SINUS RHYTHM LEFT ANTERIOR FASCICULAR BLOCK [QRS AXIS <= -45, QR IN I, RS IN II] COMPARED TO ECG 05/16/2021 16:17:23 NO SIGNIFICANT CHANGES Electronically Signed On 01-07-2023 13:46:50 CDT by Reinier Horn M.D.
[2023-01-07] MEDS: POTASSIUM CHLORIDE 20 MEQ TABLET 40 MEQ PO (15:07)
--- NOTE | 2023-01-07 15:09 | PM.IMHP ---
H&P: HPI History of Present Illness Date/Time: 01/07/23 15:09 Chief Complaint: weakness Narrative: this is an 87-year-old male patient was recently discharged from this facility on 12/31/22 The patient had left knee pain and had a moderate joint effusion warmth pain and swelling at that time. The effusion was aspirated and the patient was found have pseudogout. The patient was given pain medication at that time. The patient had been on p.o. prednisone and recently finished that up. Neuro surgery had seen the patient and stated they would follow-up with the clinic and that no surgical recommendation was necessary at this time. The patient also is complaining of some urinary retention today. So Cordova catheter was inserted. The patient stated that he was having difficulty moving his legs. However the patient was able to been distal extremity without difficulty. He is very hard of hearing and his is at the bedside answer questions for him. His white count is noted to be 18.5. However the patient recently completed a dose of steroids. His potassium was found to be 3.2. His blood sugar initially was 170 than 135 and now 205. Lumbar spine MRI was read today as?Severe lumbar spondylosis, worsened from 12/17/2014. 2. Mild strain of right iliopsoas muscle. 3. Markedly distended bladder with severe right hydronephrosis and hydroureter and mild left hydronephrosis and hydroureter. Dr. Ugalde the neurosurgeon had been notified. And the neurosurgeon stated that there would be no surgical intervention. She will follow-up with the patient but no surgery is needed this time. His H&H is 12.4 And 30.1. this is his baseline. Sodium was 136 and potassium 3.2. CRP 17.4. The patient was given potassium Levaquin and Flagyl. Chest x-ray was read as no acute cardiopulmonary abnormality. The patient was recently admitted to [facility] and has been undergoing intense physical therapy at the rehab facility. The patient stated that he was not even able to lift his leg earlier today. The patient does have a history of chronic foot drop to the left leg. 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 The patient is being admitted to observation status on the date of service of 01/07/2023. Review of Systems Review of Systems: All systems reviewed & are unremarkable except as noted in HPI and below Constitutional: Constitutional: Reports as per HPI and Reports no additional constitutional complaints Eyes: Eyes: Reports as per HPI and Reports no additional eye complaints ENT: Reports system reviewed and no additional complaints, except as documented and Reports Normal hearing present Cardiovascular: Cardiovascular: Reports no additional cardiovascular complaints Respiratory: Respiratory: Reports no additional respiratory complaints and Reports no additional respiratory complaints Gastrointestinal: Gastrointestinal: Reports as per HPI and Reports no additional gastrointestinal complaints Musculoskeletal: Musculoskeletal: Reports no additional musculoskeletal complaints Integumentary/Breasts: Skin/Breast: Reports system reviewed and no additional complaints, except as docu and Reports as per HPI Neurologic: Reports system reviewed and no additional complaints, except as documented, Reports as per HPI and Reports Normal hearing present Psychiatric: Psychiatric: Reports no additional psychiatric complaints and Reports as per HPI Endocrine: Endocrine: Reports no additional endocrine complaints Hematologic/Lymphatic: Hematologic/Lymphatic: Reports no additional hematologic/lymphatic complaints Allergic/Immunologic: Allergic/Immunologic: Reports no additional allergic/immunologic complaints [facility] Past Medical History Medical History (Updated 01/08/23 @ 00:47 by Taylor Watts NP) Atherosclerosis of aorta Benign essential hypertension Benign prostatic hyperplasia Chronic anemia Coronary atheroscleros
--- NOTE | 2023-01-07 15:40 | PC.NURSE ---
This patient, Torie Hebert, was admitted to [facility] Surg Room 322-02. Patient/family oriented to hospital policies and general routines including ID bracelet, bed and alarms, visiting hours, pain management, procedures, bathroom and other care routines, personal items, smoking policy, room service/diet, and visiting hours. Report received from herbert VERNON. Information on how to activate the Rapid Response Team has been discussed. Patient/Family are encouraged to report perceived risks to care and to ask questions if they do not understand what they are told or what they should do.
[2023-01-07 16:32] LABS: Glucose Point of Care 135 mg/dl (65-105)
[2023-01-07] MEDS: metroNIDAZOLE 500 MG/ISO 100ML 500 MG/100 ML BAG 100 MG IVPB (19:23)
[2023-01-07] MEDS: levoFLOXacin 750 MG/D5W 150 ML 750 MG/150 ML BAG 100 MG IVPB (19:30)
[2023-01-07 20:24] LABS: Glucose Point of Care 205 mg/dl (65-105)
[2023-01-07] MEDS: INSULIN ASPART (*BKC) 100 UNITS/ML SUB-Q (21:36)
[2023-01-08 06:00] VITALS: BP 155/79; PULSE 83; RESP 20; TEMP 36.4; O2SAT 98
[2023-01-08 06:36] LABS: Basophils Percent Auto 0.1 % (0.2-1.2); Eosinophils Percent Auto 0.1 % (0-4.4); Hematocrit 33.3 % (42.0-52.0); Hemoglobin 10.8 g/dL (14.0-18.0); Immature Granulocyte Absolute 0.09 K/mm3 (0.00-0.031); Immature Granulocyte Percent A 0.7 % (0-0.5); Lymphocytes Percent Auto 11.8 % (18.3-44.2); Mean Corpuscular HGB Conc 32.4 g/dl (32-36); Mean Corpuscular Hemoglobin 26.2 pg (26-34); Mean Corpuscular Volume 80.8 fl (80-100); Monocytes Absolute Auto 1.4 K/mm3 (0.1-0.6); Neutrophils Absolute Auto 10.5 K/mm3 (1.3-6.7); Neutrophils Percent Auto 77.3 % (45.5-73.1); Platelet Count Result 254 k/mm3 (150-375); Red Blood Count 4.12 M/mm3 (4.6-6.20); Red Cell Distribution Width 14.6 % (11.5-14.5); White Blood Count 13.5 K/mm3 (4.5-10.0)
[2023-01-08 06:49] LABS: Alanine Aminotransferase 36 U/L (6-50); Albumin Level 2.9 g/dL (3.5-5.1); Alkaline Phosphatase 73 U/L (38-126); Anion Gap 6 mmol/L (8-16); Aspartate Amino Transferase 26 U/L (17-59); Bilirubin,Total 0.8 mg/dL (0.2-1.3); Blood Urea Nitrogen 12 mg/dL (9-20); Calcium 7.8 mg/dL (8.4-10.2); Carbon Dioxide 26 mmol/L (22-30); Chloride 103 mmol/L (98-107); Estimated CRCL calculation 56 ml/min; Estimated Glomerular Filt Rate > 60; Glucose 130 mg/dL (65-110); Magnesium 1.6 mg/dL (1.6-2.3); Potassium 3.2 mmol/L (3.4-5.0); Sodium 135 mmol/L (137-145)
[2023-01-08 07:38] LABS: Glucose Point of Care 139 mg/dl (65-105)
[2023-01-08 08:36] LABS: Hemoglobin A1C 6.9 % (<5.7)
--- NOTE | 2023-01-08 09:04 | PCPTNOTE ---
attempted PT eval, pt was out of room for testing;
[2023-01-08] MEDS: MULTIVITAMINS THERAPEUTIC TAB (*BKC) 1 TABLET PO (09:10)
[2023-01-08] MEDS: FERROUS SULFATE 324 MG TABLET PO ×2 (09:12→16:58)
[2023-01-08] MEDS: VALSARTAN 160 MG TABLET 320 MG PO (09:12)
[2023-01-08] MEDS: ASPIRIN 81 MG ENTERIC TABLET PO (09:12)
[2023-01-08] MEDS: PANTOPRAZOLE 40 MG TABLET PO ×2 (09:12→21:40)
[2023-01-08] MEDS: OPTI-GEN TAB 1 TABLET PO ×2 (09:12→21:40)
[2023-01-08] MEDS: amLODIPine BESYLATE 5 MG TABLET 10 MG PO (09:12)
[2023-01-08] MEDS: TAMSULOSIN HCL 0.4 MG CAPSULE PO (09:12)
[2023-01-08 11:39] LABS: Glucose Point of Care 179 mg/dl (65-105)
--- NOTE | 2023-01-08 12:04 | PM.IMPN ---
Progress Note: A&P Assessment and Plan (1) Acute urinary retention: Code(s): R33.8 - Other retention of urine Status: Acute Assessment and Plan: Cordova catheter was placed. May consider Flomax. May consider Urology consult (2) Acute lumbar radiculopathy: Code(s): M54.16 - Radiculopathy, lumbar region Status: Acute Assessment and Plan: lumbar spine MRI Severe lumbar spondylosis, worsened from 12/17/2014. 2. Mild strain of right iliopsoas muscle. 3. Markedly distended bladder with severe right hydronephrosis and hydroureter and mild left hydronephrosis and hydroureter. I spoke with Dr. Ugalde who recommended that we do a thoracic spine MRI. The patient had been at [facility] for intense physical therapy and occupational therapy. The patient was not able to complete this at this time and will be discharged from the there tomorrow. PT OT evaluation goes greatly be appreciated. office service coordinator consult was greatly be appreciated. The patient's Soco stated that she is not able to take care of him at home. The patient will need typically placed in a care facility long-term. (3) Bilateral leg weakness: Code(s): R29.898 - Other symptoms and signs involving the musculoskeletal system Status: Acute Assessment and Plan: PT OT evaluation greatly be appreciated. I discussed of wheelchair access at home for the patient. However the patient's balbir Wan stated that she does not believe she could take care of the patient home and would like for him to be placed elsewhere. (4) Pseudogout involving multiple joints: Code(s): M11.89 - Other specified crystal arthropathies, multiple sites Status: Acute Assessment and Plan: The patient had an effusion to his knee that was trained his last admission. (5) Type 2 diabetes mellitus: Qualifiers: Diabetes mellitus custodial insulin use: without superintendent [employer] use Diabetes mellitus complication status: with other specified complication Qualified Code(s): E11.69 - Type 2 diabetes mellitus with other specified complication Code(s): E11.9 - Type 2 diabetes mellitus without complications Status: Acute Assessment and Plan: Accu-Cheks AC and HS with sliding scale insulin an A1c (6) Benign prostatic hyperplasia with urinary obstruction: Code(s): N40.1 - Benign prostatic hyperplasia with lower urinary tract symptoms; N13.8 - Other obstructive and reflux uropathy Status: Acute Assessment and Plan: the patient was started on Flomax and Urology has been consulted. A Cordova catheter was placed (7) Foot drop: Qualifiers: Laterality: left Qualified Code(s): M21.372 - Foot drop, left foot Code(s): M21.379 - Foot drop, unspecified foot Status: Acute Assessment and Plan: PT and OT evaluation would greatly be appreciated. (8) Mixed hyperlipidemia: Code(s): E78.2 - Mixed hyperlipidemia Status: Acute Assessment and Plan: Continue with atorvastatin (9) Gastroesophageal reflux disease without esophagitis: Code(s): K21.9 - Gastro-esophageal reflux disease without esophagitis Status: Chronic Assessment and Plan: continue with omeprazole (10) Primary osteoarthritis involving multiple joints: Code(s): M15.0 - Primary generalized (osteo)arthritis Status: Chronic Assessment and Plan: PT OT. (11) Benign essential hypertension: Code(s): I10 - Essential (primary) hypertension Status: Chronic Assessment and Plan: Continue with amlodipine and valsartan. Current blood pressure is 147/80. Plan Patient's potassium was 3.2. The patient was given a dose of potassium in the emergency room. Repeat BMP this a.m.. Subjective Date/time seen: 01/08/23 12:04 Interval history: No complaints Exam Const: General: cooperative, healthy appearing, comfor
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
[2023-01-08] MEDS: HYDROcodone/acetaminophen (*CRX) 5-325 MG TABLET 1 TAB PO ×2 (12:24→21:46)
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
[2023-01-08 13:47] VITALS: BP 113/66; PULSE 106; RESP 20; TEMP 36.4; O2SAT 100
[2023-01-08 16:34] LABS: Glucose Point of Care 208 mg/dl (65-105)
[2023-01-08] MEDS: INSULIN ASPART (*BKC) 100 UNITS/ML SUB-Q (16:58)
[2023-01-08 20:00] VITALS: PULSE 106; RESP 20; O2SAT 100
[2023-01-08] MEDS: ATORVASTATIN 20 MG TABLET PO (21:41)
[2023-01-08 22:00] VITALS: BP 108/65; PULSE 82; RESP 16; TEMP 36.6; O2SAT 99
[2023-01-08 22:01] LABS: Glucose Point of Care 153 mg/dl (65-105)
[2023-01-09 06:00] VITALS: BP 145/77; PULSE 79; RESP 18; TEMP 35.8; O2SAT 100
[2023-01-09 06:24] LABS: Anion Gap 5 mmol/L (8-16); Blood Urea Nitrogen 19 mg/dL (9-20); Carbon Dioxide 27 mmol/L (22-30); Chloride 103 mmol/L (98-107); Estimated CRCL calculation 48 ml/min; Estimated Glomerular Filt Rate > 60; Glucose 134 mg/dL (65-110); Potassium 3.1 mmol/L (3.4-5.0); Sodium 135 mmol/L (137-145)
[2023-01-09 07:57] LABS: Glucose Point of Care 145 mg/dl (65-105)
[2023-01-09] MEDS: FERROUS SULFATE 324 MG TABLET PO ×2 (08:15→17:22)
[2023-01-09] MEDS: VALSARTAN 160 MG TABLET 320 MG PO (08:15)
[2023-01-09] MEDS: PSYLLIUM POWDER PACKET 1 PACKET PO (08:15)
[2023-01-09] MEDS: amLODIPine BESYLATE 5 MG TABLET 10 MG PO (08:15)
[2023-01-09] MEDS: OPTI-GEN TAB 1 TABLET PO ×2 (08:16→22:10)
[2023-01-09] MEDS: MULTIVITAMINS THERAPEUTIC TAB (*BKC) 1 TABLET PO (08:16)
[2023-01-09] MEDS: PANTOPRAZOLE 40 MG TABLET PO ×2 (08:16→22:11)
[2023-01-09] MEDS: ASPIRIN 81 MG ENTERIC TABLET PO (08:16)
[2023-01-09] MEDS: TAMSULOSIN HCL 0.4 MG CAPSULE PO (08:16)
[2023-01-09 09:33] VITALS: O2SAT 100
--- NOTE | 2023-01-09 10:22 | PM.IMPN ---
Progress Note: A&P Assessment and Plan (1) Acute urinary retention: Code(s): R33.8 - Other retention of urine Status: Acute Assessment and Plan: Cordova catheter was placed. May consider Flomax. May consider Urology consult (2) Acute lumbar radiculopathy: Code(s): M54.16 - Radiculopathy, lumbar region Status: Acute Assessment and Plan: lumbar spine MRI Severe lumbar spondylosis, worsened from 12/17/2014. 2. Mild strain of right iliopsoas muscle. 3. Markedly distended bladder with severe right hydronephrosis and hydroureter and mild left hydronephrosis and hydroureter. I spoke with Dr. Ugalde who recommended that we do a thoracic spine MRI. The patient had been [facility] for intense physical therapy and occupational therapy. The patient was not able to complete this at this time and will be discharged from the there tomorrow. PT OT evaluation goes greatly be appreciated. acute coordinator consult was greatly be appreciated. The patient's Soco stated that she is not able to take care of him at home. The patient will need typically placed in a care facility long-term. (3) Bilateral leg weakness: Code(s): R29.898 - Other symptoms and signs involving the musculoskeletal system Status: Acute Assessment and Plan: Appreciate neurosurgical consult. 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: without nursing home use Diabetes mellitus complication status: with other specified complication Qualified Code(s): E11.69 - Type 2 diabetes mellitus with other specified complication Code(s): E11.9 - Type 2 diabetes mellitus without complications Status: Acute Assessment and Plan: Accu-Cheks AC and HS with sliding scale insulin an A1c (6) Benign prostatic hyperplasia with urinary obstruction: Code(s): N40.1 - Benign prostatic hyperplasia with lower urinary tract symptoms; N13.8 - Other obstructive and reflux uropathy Status: Acute Assessment and Plan: the patient was started on Flomax and Urology has been consulted. A Cordova catheter was placed (7) Foot drop: Qualifiers: Laterality: left Qualified Code(s): M21.372 - Foot drop, left foot Code(s): M21.379 - Foot drop, unspecified foot Status: Acute Assessment and Plan: PT and OT evaluation would greatly be appreciated. (8) Mixed hyperlipidemia: Code(s): E78.2 - Mixed hyperlipidemia Status: Acute Assessment and Plan: Continue with atorvastatin (9) Gastroesophageal reflux disease without esophagitis: Code(s): K21.9 - Gastro-esophageal reflux disease without esophagitis Status: Chronic Assessment and Plan: continue with omeprazole (10) Primary osteoarthritis involving multiple joints: Code(s): M15.0 - Primary generalized (osteo)arthritis Status: Chronic Assessment and Plan: PT OT. (11) Benign essential hypertension: Code(s): I10 - Essential (primary) hypertension Status: Chronic Assessment and Plan: Continue with amlodipine and valsartan. Current blood pressure is 147/80. Plan Patient's potassium was 3.2. The patient was given a dose of potassium in the emergency room. Repeat BMP this a.m.. Subjective Date/time seen: 01/09/23 10:22 Interval history: Feeling a little bit better with pain medication. Exam Const: General: cooperative, healthy appearing, comfortable, no acute distress, well developed, alert, awake, Physically active, average body habitus and well nourished Nutritional Appearance: average body habitus and well nourished Orientation/conscious
[2023-01-09 11:45] LABS: Glucose Point of Care 227 mg/dl (65-105)
[2023-01-09] MEDS: INSULIN ASPART (*BKC) 100 UNITS/ML SUB-Q (11:59)
[2023-01-09 14:00] VITALS: BP 97/67; PULSE 98; RESP 17; TEMP 36.3; O2SAT 100
[2023-01-09 21:39] VITALS: BP 123/70; PULSE 88; RESP 14; TEMP 36.8; O2SAT 99
[2023-01-09] MEDS: ATORVASTATIN 20 MG TABLET PO (22:09)
[2023-01-09] MEDS: HYDROcodone/acetaminophen (*CRX) 5-325 MG TABLET 1 TAB PO (22:11)
[2023-01-09 22:53] LABS: Glucose Point of Care 199 mg/dl (65-105)
[2023-01-10 06:00] VITALS: BP 125/77; PULSE 84; RESP 14; TEMP 36.6; O2SAT 100
[2023-01-10 07:41] LABS: Glucose Point of Care 167 mg/dl (65-105)
[2023-01-10 08:00] VITALS: PULSE 88; RESP 16; O2SAT 100
[2023-01-10 08:06] LABS: Glucose Point of Care 144 mg/dl (65-105)
[2023-01-10] MEDS: ASPIRIN 81 MG ENTERIC TABLET PO (08:08)
[2023-01-10] MEDS: TAMSULOSIN HCL 0.4 MG CAPSULE PO (08:08)
[2023-01-10] MEDS: MULTIVITAMINS THERAPEUTIC TAB (*BKC) 1 TABLET PO (08:09)
[2023-01-10] MEDS: amLODIPine BESYLATE 5 MG TABLET 10 MG PO (08:09)
[2023-01-10] MEDS: VALSARTAN 160 MG TABLET 320 MG PO (08:09)
[2023-01-10] MEDS: predniSONE 10 MG TABLET PO (08:09)
[2023-01-10] MEDS: OPTI-GEN TAB 1 TABLET PO ×2 (08:09→21:29)
[2023-01-10] MEDS: FERROUS SULFATE 324 MG TABLET PO ×2 (08:09→17:49)
[2023-01-10] MEDS: PANTOPRAZOLE 40 MG TABLET PO ×2 (08:09→21:29)
[2023-01-10 08:27] LABS: Anion Gap 5 mmol/L (8-16); Blood Urea Nitrogen 18 mg/dL (9-20); Calcium 8.3 mg/dL (8.4-10.2); Carbon Dioxide 28 mmol/L (22-30); Chloride 103 mmol/L (98-107); Estimated CRCL calculation 53 ml/min; Estimated Glomerular Filt Rate > 60; Glucose 163 mg/dL (65-110); Potassium 3.3 mmol/L (3.4-5.0); Sodium 136 mmol/L (137-145)
--- NOTE | 2023-01-10 10:44 | PM.IMPN ---
Progress Note: A&P Assessment and Plan (1) Acute urinary retention: Code(s): R33.8 - Other retention of urine Status: Acute Assessment and Plan: Cordova catheter was placed. May consider Flomax. May consider Urology consult (2) Acute lumbar radiculopathy: Code(s): M54.16 - Radiculopathy, lumbar region Status: Acute Assessment and Plan: Nothing surgical at this point. Continue pain control. Complicated by pseudogout. (3) Bilateral leg weakness: Code(s): R29.898 - Other symptoms and signs involving the musculoskeletal system Status: Acute Assessment and Plan: Appreciate neurosurgical consult. 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 insulin use: without director long term care use Diabetes mellitus complication status: with other specified complication Qualified Code(s): E11.69 - Type 2 diabetes mellitus with other specified complication Code(s): E11.9 - Type 2 diabetes mellitus without complications Status: Acute Assessment and Plan: Accu-Cheks AC and HS with sliding scale insulin an A1c (6) Benign prostatic hyperplasia with urinary obstruction: Code(s): N40.1 - Benign prostatic hyperplasia with lower urinary tract symptoms; N13.8 - Other obstructive and reflux uropathy Status: Acute Assessment and Plan: the patient was started on Flomax and Urology has been consulted. A Cordova catheter was placed (7) Foot drop: Qualifiers: Laterality: left Qualified Code(s): M21.372 - Foot drop, left foot Code(s): M21.379 - Foot drop, unspecified foot Status: Acute Assessment and Plan: PT and OT evaluation would greatly be appreciated. (8) Mixed hyperlipidemia: Code(s): E78.2 - Mixed hyperlipidemia Status: Acute Assessment and Plan: Continue with atorvastatin (9) Gastroesophageal reflux disease without esophagitis: Code(s): K21.9 - Gastro-esophageal reflux disease without esophagitis Status: Chronic Assessment and Plan: continue with omeprazole (10) Primary osteoarthritis involving multiple joints: Code(s): M15.0 - Primary generalized (osteo)arthritis Status: Chronic Assessment and Plan: PT OT. (11) Benign essential hypertension: Code(s): I10 - Essential (primary) hypertension Status: Chronic Assessment and Plan: Continue with amlodipine and valsartan. Current blood pressure is 147/80. (12) Perirectal abscess: Code(s): K61.1 - Rectal abscess Status: Acute Assessment and Plan: Wound care, surgical consult Plan Patient's potassium was 3.2. The patient was given a dose of potassium in the emergency room. Repeat BMP this a.m.. Subjective Date/time seen: 01/10/23 10:44 Interval history: Doing okay Exam Const: General: cooperative, healthy appearing, comfortable, no acute distress, well developed, alert, awake, Physically active, average body habitus and well nourished Nutritional Appearance: average body habitus and well nourished Orientation/consciousness: oriented to person, oriented to place, oriented to time and patient oriented x3 Limitations: no limitations HENMT: Head: normal to inspection, No palpable skull fracture present, normocephalic, atraumatic and abrasion Ears: hearing grossly normal bilaterally, external ears normal, TM's normal bilaterally and hearing grossly impaired Face/Nose/Sinus: Normal external nose present, Normal nares present and No nasal polyps present Mouth: Yes Normal oral and palatal mucosa present Throat: posterior oropharynx normal Other: the patient is very hard of hearing even with bi
--- NOTE | 2023-01-10 11:35 | PCOTNOTE ---
Patient unavailable at this time due to eating lunch. Will try back at a later time.
[2023-01-10 11:49] LABS: Glucose Point of Care 225 mg/dl (65-105)
[2023-01-10] MEDS: INSULIN ASPART (*BKC) 100 UNITS/ML SUB-Q ×3 (11:55→21:30)
[2023-01-10] MEDS: POTASSIUM CHLORIDE 20 MEQ TABLET 40 MEQ PO (11:59)
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
[2023-01-10 14:00] VITALS: BP 110/71; PULSE 88; RESP 16; TEMP 36; O2SAT 100
[2023-01-10 17:46] LABS: Glucose Point of Care 214 mg/dl (65-105)
[2023-01-10 21:12] LABS: Glucose Point of Care 277 mg/dl (65-105)
[2023-01-10] MEDS: ATORVASTATIN 20 MG TABLET PO (21:29)
[2023-01-10 21:51] VITALS: BP 115/63; PULSE 83; RESP 14; TEMP 36.5; O2SAT 97
[2023-01-11 06:00] VITALS: BP 133/74; PULSE 78; RESP 16; TEMP 36.2; O2SAT 100
[2023-01-11 07:41] LABS: Glucose Point of Care 168 mg/dl (65-105)
[2023-01-11] MEDS: SILVERGEL (ELTA) 45 ML 1 APPLIC TOPICAL (08:12)
[2023-01-11] MEDS: TAMSULOSIN HCL 0.4 MG CAPSULE PO (08:12)
[2023-01-11] MEDS: OPTI-GEN TAB 1 TABLET PO (08:12)
[2023-01-11] MEDS: MULTIVITAMINS THERAPEUTIC TAB (*BKC) 1 TABLET PO (08:12)
[2023-01-11] MEDS: VALSARTAN 160 MG TABLET 320 MG PO (08:12)
[2023-01-11] MEDS: FERROUS SULFATE 324 MG TABLET PO (08:12)
[2023-01-11] MEDS: amLODIPine BESYLATE 5 MG TABLET 10 MG PO (08:13)
[2023-01-11] MEDS: predniSONE 10 MG TABLET PO (08:13)
[2023-01-11] MEDS: PSYLLIUM POWDER PACKET 1 PACKET PO (08:13)
[2023-01-11] MEDS: PANTOPRAZOLE 40 MG TABLET PO (08:13)
[2023-01-11] MEDS: ASPIRIN 81 MG ENTERIC TABLET PO (08:13)
--- NOTE | 2023-01-11 10:37 | PM.DS ---
DS: Admitting Diagnosis Discharge Date January 11, 2023 Admitting Diagnosis Weakness, sooner DS: Discharge Diagnosis Discharge Diagnosis (1) Acute urinary retention: Code(s): R33.8 - Other retention of urine Status: Acute Assessment and Plan: Cordova catheter was placed. May consider Flomax. May consider Urology consult (2) Acute lumbar radiculopathy: Code(s): M54.16 - Radiculopathy, lumbar region Status: Acute Assessment and Plan: Nothing surgical at this point. Continue pain control. Complicated by pseudogout. (3) Bilateral leg weakness: Code(s): R29.898 - Other symptoms and signs involving the musculoskeletal system Status: Acute Assessment and Plan: Appreciate neurosurgical consult. Will start on low-dose prednisone (4) Pseudogout involving multiple joints: Code(s): M11.89 - Other specified crystal arthropathies, multiple sites Status: Acute Assessment and Plan: Will start on low-dose prednisone (5) Type 2 diabetes mellitus: Qualifiers: Diabetes mellitus mcc insulin use: without mcc use Diabetes mellitus complication status: with other specified complication Qualified Code(s): E11.69 - Type 2 diabetes mellitus with other specified complication Code(s): E11.9 - Type 2 diabetes mellitus without complications Status: Acute Assessment and Plan: Accu-Cheks AC and HS with sliding scale insulin an A1c (6) Benign prostatic hyperplasia with urinary obstruction: Code(s): N40.1 - Benign prostatic hyperplasia with lower urinary tract symptoms; N13.8 - Other obstructive and reflux uropathy Status: Acute Assessment and Plan: the patient was started on Flomax and Urology has been consulted. A Cordova catheter was placed (7) Foot drop: Qualifiers: Laterality: left Qualified Code(s): M21.372 - Foot drop, left foot Code(s): M21.379 - Foot drop, unspecified foot Status: Acute Assessment and Plan: PT and OT evaluation would greatly be appreciated. (8) Mixed hyperlipidemia: Code(s): E78.2 - Mixed hyperlipidemia Status: Acute Assessment and Plan: Continue with atorvastatin (9) Gastroesophageal reflux disease without esophagitis: Code(s): K21.9 - Gastro-esophageal reflux disease without esophagitis Status: Chronic Assessment and Plan: continue with omeprazole (10) Primary osteoarthritis involving multiple joints: Code(s): M15.0 - Primary generalized (osteo)arthritis Status: Chronic Assessment and Plan: PT OT. (11) Benign essential hypertension: Code(s): I10 - Essential (primary) hypertension Status: Chronic Assessment and Plan: Continue with amlodipine and valsartan. Current blood pressure is 147/80. (12) Perirectal abscess: Code(s): K61.1 - Rectal abscess Status: Acute Assessment and Plan: Wound care, surgical consult Plan Patient's potassium was 3.2. The patient was given a dose of potassium in the emergency room. Repeat BMP this a.m.. DS: Summary Hospital Course Hospital Course: 87-year-old gentleman can move weakness and pain. Found have pseudogout. He was started on some pain medication and also some prednisone. He was originally not able to get around very well and Neurosurgery was consulted and did not recommend any further intervention. Patient is doing better now and can be discharged. He will be discharged on pain medication and also prednisone. He can follow up care with his primary Time Spent with Patient Time attestation: Total time spent providing and/or coordinating discharge services: Exam Const: General: cooperative, healthy appearing, comfortable, no acute distress, well developed, alert, awake, Physically active, average body habitus and well nourished Nutritional Appearance: average body habitus and well nourished Or
--- NOTE | 2023-01-11 10:47 | PM.PNGS ---
Progress Note: A&P Assessment and Plan (1) Perirectal abscess: Code(s): K61.1 - Rectal abscess Status: Acute Assessment and Plan: cont local wound care, ok to dc home from surgical standpoint as there are no acute surgical issues Subjective Subjective Date/Time Seen: 01/11/23 10:47 Interval history: no acute issues, feels back to baseline Review of Systems Review of Systems: All systems reviewed & are unremarkable except as noted in HPI and below Exam Const: General: cooperative, comfortable and no acute distress Resp: Auscultation: clear to auscultation bilaterally Cardio: Rate: regular rate Rhythm: regular rhythm GI: Inspection: normal to inspection Skin: Other: wound unchanged, no drainage, no s/s active infection Objective Data Vital Signs Vital Signs: Vital Signs - 24 hr 01/10/23 14:00 01/10/23 21:51 01/10/23 20:00 Temperature 36.0 C L 36.5 C Pulse Rate 88 83 Respiratory Rate 16 14 Blood Pressure 110/71 115/63 Pulse Oximetry 100 97 Oxygen Delivery Room Air 01/11/23 06:00 Temperature 36.2 C L Pulse Rate 78 Respiratory Rate 16 Blood Pressure 133/74 Pulse Oximetry 100 Oxygen Delivery Intake/Output Intake/Output: Intake & Output 01/08/23 01/09/23 01/10/23 01/11/23 23:59 23:59 23:59 23:59 Intake Total 1682 1310 800 460 Output Total 1425 1375 1400 775 Balance 330 -65 -600 -315 Meds/Results Medications: Active Medications Generic Name Dose Route Start Last Admin Trade Name Freq PRN Reason Stop Dose Admin Hydrocodone Bitart/Acetaminophen 1 tab 01/08/23 11:33 01/09/23 22:11 Hydrocodone/Acetaminophen (*Crx) 5-325 Mg Tablet PO 1 tab Q6H PRN Administration Pain Rated 4-6 Amlodipine Besylate 10 mg 01/08/23 09:00 01/11/23 08:13 Amlodipine Besylate 5 Mg Tablet PO 10 mg DAILY GLORIA Administration Aspirin 81 mg 01/08/23 09:00 01/11/23 08:13 Aspirin 81 Mg Enteric Tablet PO 81 mg DAILY GLORIA Administration Atorvastatin Calcium 20 mg 01/08/23 21:00 01/10/23 21:29 Atorvastatin 20 Mg Tablet PO 20 mg HS GLORIA Administration Dextrose 12.5 gm 01/07/23 16:18 Dextrose 50% 25 Gm/50 Ml Syringe IV PUSH PRN PRN Hypoglycemia Protocol Docusate Sodium 100 mg 01/08/23 00:35 Docusate Sodium 100 Mg Capsule PO DAILY PRN Constipation Ferrous Sulfate 324 mg 01/08/23 08:00 01/11/23 08:12 Ferrous Sulfate 324 Mg Tablet PO 324 mg BIDWM GLORIA Administration Glucagon 1 mg 01/07/23 16:18 Glucagon For Inj 1 Mg Vial IM PRN PRN Hypoglycemia Protocol Glucose 15 gm 01/07/23 16:18 Glucose Oral Gel 15 Gm Of Glucse In 37.5 Gm Tube PO PRN PRN Hypoglycemia Protocol Dextrose 1,000 mls @ 100 mls/hr 01/07/23 16:18 Dextrose 5% 1,000 Ml IVPB PRN PRN Hypoglycemia Protocol Insulin Aspart 2 - 5 units 01/07/23 17:00 01/11/23 07:41 Insulin Aspart (*Bkc) 100 Units/Ml SUB-Q Not Given TIDWM GLORIA Protocol Insulin Aspart 1 - 2 units 01/07/23 21:00 01/10/23 21:30 Insulin Aspart (*Bkc) 100 Units/Ml SUB-Q 1 units HS GLORIA Administration Protocol Multivitamins Therapeutic 1 tablet 01/08/23 09:00 01/11/23 08:12 Multivitamins Therapeutic Tab (*Bkc) PO 1 tablet DAILY GLORIA Administration Multivitamins/Minerals 1 tablet 01/08/23 09:00 01/11/23 08:12 Opti-Gen Tab PO 1 tablet Q12HR GLORIA Administration Pantoprazole Sodium 40 mg 01/08/23 09:00 01/11/23 08:13 Pantoprazole 40 Mg Tablet PO 40 mg Q12HR GLORIA Administration Prednisone 10 mg 01/10/23 08:00 01/11/23 08:13 Prednisone 10 Mg Tablet PO 10 mg DAILY@0800 GLORIA Administration Psyllium Hydrophilic Mucilloid 1 packet 01/08/23 09:00 01/11/23 08:13 Psyllium Powder Packet PO 1 packet DAILY GLORIA Administration Silver Nitrate 1 applic 01/10/23 09:00 01/11/23 08:13 Silvergel (Elta) 45 Ml TOPICAL Not Given DAILY [facility]
[2023-01-11 11:43] LABS: Glucose Point of Care 225 mg/dl (65-105)
[2023-01-11] MEDS: INSULIN ASPART (*BKC) 100 UNITS/ML SUB-Q (12:02)
[2023-01-11 14:00] VITALS: BP 128/83; PULSE 92; RESP 16; TEMP 35.5; O2SAT 99
--- NOTE | 2023-01-11 14:43 | PCPTNOTE ---
Patient refused treatment this session stating he was being discharge home today. Patient's present. Educated patient on the importance of participating to improve strength and mobility.
== END 2023-01-11 17:10 | disposition home health service (06) | DRG 554 ==
LOC: ANHED 08:19 → ANH3MEDSUR 15:14
PROVIDERS: Nurse Practitioner; Admitting Provider Internal Medicine; Emergency Provider General Practice; PCP Family Medicine; Visit Provider Chiropractor
DX: M11.89 Other specified crystal arthropathies, multiple sites (principal); N13.8 Other obstructive and reflux uropathy; N13.30 Unspecified hydronephrosis; K61.1 Rectal abscess; R33.8 Other retention of urine; N40.1 Benign prostatic hyperplasia with lower urinary tract symptoms; M47.26 Other spondylosis with radiculopathy, lumbar region; M21.372 Foot drop, left foot; D64.9 Anemia, unspecified; E78.2 Mixed hyperlipidemia; E11.69 Type 2 diabetes mellitus with other specified complication; H91.90 Unspecified hearing loss, unspecified ear; I10 Essential (primary) hypertension; K21.9 Gastro-esophageal reflux disease without esophagitis; M15.0 Primary generalized (osteo)arthritis; N31.2 Flaccid neuropathic bladder, not elsewhere classified; Z96.653 Presence of artificial knee joint, bilateral; Z98.49 Cataract extraction status, unspecified eye; Z96.1 Presence of intraocular lens; Z90.49 Acquired absence of other specified parts of digestive tract; Z79.82 Long term (current) use of aspirin; Z88.0 Allergy status to penicillin; Z87.891 Personal history of nicotine dependence
CPT/HCPCS: 36415; 71045; 72157; 72158; 80048; 80053; 81001; 82948; 83036; 83605; 83735; 85025; 85610; 85730; 86140; 87040; 93005; 96374; 96375; 97110; 97161; 97166; 97530; 97535; 99285; A9270; A9577; G0378; J1815; J1956; J7512

== ENCOUNTER 2023-01-27 13:28 | Outpatient (NON) | payer MEDICARE, SELFPAY ==
[2023-01-27 14:12] LABS: Appearance Urine Turbid (Clear); Bacteria Urine 4+ /hpf; Bilirubin Urine Negative (Negative); Blood Urine 3+ (Negative); Color Urine Dark Yellow (Yellow); Glucose Urine UA Negative (Negative); Hyaline Casts Urine Present /lpf; Ketones Urine Negative (Negative); Leukocyte Esterase Ur 3+ LEU/UL (Negative); Nitrate Urine Negative (Negative); Non Pathogenic Casts >20; Protein Urine 3+ mg/dL (Negative); RBC Urine >100 /hpf (0-2); Specific Grav Ur 1.014 (1.001-1.035); Squamous Epithelial Cell Urine None seen /hpf (Few); WBC Clumps Urine Present /HPF; WBC Urine >100 /hpf; pH Urine 7.5 (5.0-9.0)
[2023-01-27 14:22] LABS: Add Urine Microscopic? YES
== END 2023-01-27 13:29 | disposition home or self-care (01) ==
LOC: HOME HLTH 13:30
PROVIDERS: PCP Family Medicine; Visit Provider Family Medicine
DX: M54.16 Radiculopathy, lumbar region (principal); M11.89 Other specified crystal arthropathies, multiple sites; R33.8 Other retention of urine; Z46.6 Encounter for fitting and adjustment of urinary device
CPT/HCPCS: 81001; 87077; 87086; 87186

== ENCOUNTER 2024-08-13 07:54 | Inpatient (IN) | payer OTHER, SELFPAY ==
[2024-08-13] VITALS (15 sets, daily range): BP systolic 119–145; BP diastolic 65–88; PULSE 82–107; RESP 13–20; TEMP 37–38.3; O2SAT 96–100
--- NOTE | ~2024-08-13 | XR_ITS ---
XR chest 2V Ordering provider: Lisa Shearer MD History: 89 years Male with . cough . Comparison: January 07, 2023 FINDINGS: MEDIASTINUM: The cardiac silhouette is not enlarged. LUNGS: No effusions or pneumothorax. Minimal opacification in the left lung base. Underlying fibrotic changes. OTHER: No free air under the diaphragm. Degenerative changes of the spine. IMPRESSION: Highly suggestive early left basilar pneumonia. Follow-up advised. Reviewed, dictated and finalized at location A. ERN [facility]UTTER
--- NOTE | ~2024-08-13 | US_ITS ---
LEFT LOWER EXTREMITY VENOUS ULTRASOUND Ordering provider: Lisa Shearer MD History: . pain, elev dimer . Comparison: None. FINDINGS: --COMMON FEMORAL: Patent and free of thrombus. Normal compressibility, phasic flow and augmentation. --PROXIMAL SUPERFICIAL FEMORAL: Patent and free of thrombus. Normal compressibility, phasic flow and augmentation. --DISTAL SUPERFICIAL FEMORAL: Patent and free of thrombus. Normal compressibility, phasic flow and au gmentation. --POPLITEAL: Patent and free of thrombus. Normal compressibility, phasic flow and augmentation. --POSTERIOR TIBIAL: Patent and free of thrombus. Normal compressibility, phasic flow and augmentation . IMPRESSION: Negative left lower extremity venous US. No deep vein thrombosis. Reviewed, dictated and finalized at location A. ERIN SUPERVISOR
--- NOTE | ~2024-08-13 | CT_ITS ---
CT of the Abdomen and Pelvis: Indication: Abdominal pain Technique: 2.5 mm axial scans were obtained through the abdomen and pelvis following intravenous adm inistration of 100 cc of Omnipaque 350. Dose reduction technique was used on this scan by utilizing a utomated exposure control and iterative reconstruction technique. The dose-length product (DLP) was 8 97.83 mGy-cm. Findings: Scans through the lung bases are unremarkable. The liver, spleen, pancreas, and adrenal glands are within normal limits. Cholecystectomy clips are p resent. No evidence of aortic aneurysm. There is severe right hydronephrosis, and moderate to severe left hydroureteronephrosis. No lymphadenopathy. No bowel obstruction or bowel wall thickening. There is no evidence to suggest acute appendicitis. Images through the pelvis were performed. Urinary bladder distended with mild diffuse wall thickening /trabeculation and numerous small bladder diverticula. Prostate gland enlarged with probable TURP def ect. No ascites. 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 Reviewed, dictated and finalized at [facility]. 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
--- NOTE | 2024-08-13 08:13 | ECG_ITS ---
Test Date: 2024-08-13 08:18:06 Measurements Intervals [place] Rate: 95 P: -11 CO: 151 QRS: -47 QRSD: 114 T: 26 QT: 347 QTc: 438 Interpretive Statements SINUS RHYTHM INCOMPLETE RIGHT BUNDLE BRANCH BLOCK [90+ ms QRS DURATION, TERMINAL R IN V1/V2, 40+ ms S IN I/aVL/V4/V5/V6] LEFT ANTERIOR FASCICULAR BLOCK [QRS AXIS <= -45, QR IN I, RS IN II] No previous ECG available for comparison Electronically Signed On 08-15-2024 16:56:32 COMPLIANCE TESTING ANALYST by Reinier Horn M.D.
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
[2024-08-13] MEDS: SODIUM CHLORIDE 0.9% IV 1,000 ML 999 ML IV CONT (08:36)
[2024-08-13 08:41] LABS: Basophils Percent Auto 0.6 % (0.2-1.2); Eosinophils Absolute Auto 0.1 K/mm3 (0-0.3); Eosinophils Percent Auto 1.4 % (0-4.4); Hematocrit 38.5 % (42.0-52.0); Hemoglobin 12.5 g/dL (14.0-18.0); Immature Granulocyte Absolute 0.01 K/mm3 (0.00-0.031); Immature Granulocyte Percent A 0.2 % (0-0.5); Lymphocytes Percent Auto 16.9 % (18.3-44.2); Mean Corpuscular HGB Conc 32.5 g/dl (32-36); Mean Corpuscular Hemoglobin 26.5 pg (26-34); Mean Corpuscular Volume 81.7 fl (80-100); Monocytes Absolute Auto 0.9 K/mm3 (0.1-0.6); Monocytes Percent Auto 14.5 % (2.6-8.5); Neutrophils Absolute Auto 4.3 K/mm3 (1.3-6.7); Neutrophils Percent Auto 66.4 % (45.5-73.1); Platelet Count Result 246 k/mm3 (150-375); Red Blood Count 4.71 M/mm3 (4.6-6.20); Red Cell Distribution Width 13.4 % (11.5-14.5); White Blood Count 6.5 K/mm3 (4.5-10.0)
[2024-08-13 08:53] LABS: Alanine Aminotransferase 21 U/L (6-50); Albumin Level 4.2 g/dL (3.5-5.1); Alkaline Phosphatase 99 U/L (38-126); Anion Gap 5 mmol/L (4-12); Aspartate Amino Transferase 23 U/L (17-59); Bilirubin,Total 0.6 mg/dL (0.2-1.3); Blood Urea Nitrogen 20 mg/dL (9-20); Calcium 9.1 mg/dL (8.4-10.2); Carbon Dioxide 22 mmol/L (22-30); Chloride 109 mmol/L (98-107); Creatine Kinase 66 U/L (55-170); Estimated CRCL calculation 44 ml/min; Estimated Glomerular Filt Rate 57; Glucose 126 mg/dL (65-110); Potassium 4.5 mmol/L (3.4-5.0); Sodium 136 mmol/L (137-145)
[2024-08-13 09:06] LABS: Add Urine Microscopic? YES; Appearance Urine Turbid (Clear); Bacteria Urine 1+ /hpf; Bilirubin Urine Negative (Negative); Blood Urine 2+ (Negative); Color Urine Yellow (Yellow); Glucose Urine UA Negative (Negative); Ketones Urine Negative (Negative); Leukocyte Esterase Ur 3+ LEU/UL (Negative); Need Manual Microscopic Reviewed; Nitrate Urine Negative (Negative); Non Pathogenic Casts 0-2; Protein Urine 2+ mg/dL (Negative); Specific Grav Ur 1.011 (1.001-1.035); Squamous Epithelial Cell Urine Many /hpf (Few); Urobilinogen Urine 0.2 mg/dL (<2.0); WBC Urine >100 /hpf (0-3)
[2024-08-13 09:12] LABS: Troponin I < 0.012 ng/mL (0.000-0.034)
[2024-08-13 09:24] LABS: Influenza A QL RT-PCR Negative (Negative); Influenza B QL RT-PCR Negative (Negative); RSV RNA, RT-PCR Negative (Negative); SARS-CoV-2 RNA PCR Positive (Negative)
[2024-08-13 11:24] LABS: D Dimer 1.65 ug/mL (<0.48)
--- NOTE | 2024-08-13 13:40 | ADMGEN ---
This patient, Toire Hebert, was admitted to [facility] Room 329-01. Patient/family oriented to hospital policies and general routines including ID bracelet, bed and alarms, visiting hours, pain management, procedures, bathroom and other care routines, personal items, smoking policy, room service/diet, and visiting hours. Information on how to activate the Rapid Response Team has been discussed. Patient/Family are encouraged to report perceived risks to care and to ask questions if they do not understand what they are told or what they should do.
[2024-08-13] MEDS: ACETAMINOPHEN 325 MG TABLET 650 MG PO (16:10)
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
[2024-08-13] MEDS: TAMSULOSIN HCL 0.4 MG CAPSULE PO (20:52)
[2024-08-13] MEDS: OPTI-GEN TAB 1 TABLET PO (20:52)
[2024-08-14 06:00] VITALS: BP 135/67; PULSE 98; RESP 18; TEMP 37.1; O2SAT 96
[2024-08-14 06:19] LABS: Hematocrit 35.6 % (42.0-52.0); Hemoglobin 11.6 g/dL (14.0-18.0); Mean Corpuscular HGB Conc 32.6 g/dl (32-36); Mean Corpuscular Hemoglobin 26.5 pg (26-34); Mean Corpuscular Volume 81.3 fl (80-100); Mean Platelet Volume 10.1 fl (7.4-10.4); Platelet Count Result 220 k/mm3 (150-375); Red Blood Count 4.38 M/mm3 (4.6-6.20); Red Cell Distribution Width 13.6 % (11.5-14.5)
[2024-08-14 06:39] LABS: Anion Gap 8 mmol/L (4-12); Blood Urea Nitrogen 18 mg/dL (9-20); Calcium 8.7 mg/dL (8.4-10.2); Carbon Dioxide 20 mmol/L (22-30); Chloride 108 mmol/L (98-107); Estimated CRCL calculation 40 ml/min; Estimated Glomerular Filt Rate 51; Glucose 124 mg/dL (65-110); Potassium 3.5 mmol/L (3.4-5.0); Sodium 136 mmol/L (137-145)
[2024-08-14] MEDS: PSYLLIUM POWDER PACKET 1 PACKET PO (09:39)
[2024-08-14] MEDS: GABAPENTIN 300 MG CAPSULE PO (09:39)
[2024-08-14] MEDS: amLODIPine BESYLATE 10 MG TABLET PO (09:39)
[2024-08-14] MEDS: MULTIVITAMINS THERAPEUTIC TAB (*BKC) 1 TABLET PO (09:39)
[2024-08-14] MEDS: OPTI-GEN TAB 1 TABLET PO ×2 (09:39→20:50)
[2024-08-14] MEDS: VALSARTAN 160 MG TABLET 320 MG PO (09:39)
[2024-08-14] MEDS: DOCUSATE SODIUM 100 MG CAPSULE PO (09:40)
[2024-08-14] MEDS: ATORVASTATIN 20 MG TABLET PO (09:40)
[2024-08-14] MEDS: ENOXAPARIN 40 MG/0.4 ML SYRINGE SUB-Q (09:40)
[2024-08-14] MEDS: ASPIRIN 81 MG ENTERIC TABLET PO (09:40)
--- NOTE | 2024-08-14 13:10 | PM.IMPN ---
Progress Note: A&P Assessment and Plan (1) UTI (urinary tract infection): Code(s): N39.0 - Urinary tract infection, site not specified Status: Inactive Assessment and Plan: - UA consistent with UTI. - Urine and blood cultures still negative - On Ceftriaxone. - Follow closely (2) COVID-19: Code(s): U07.1 - COVID-19 Status: Acute Assessment and Plan: - Acute respiratory virus panel PCR +ve for Covid-19. - Patient with intermittent cough episodes. - CXR: Highly suggestive early left basilar pneumonia. Follow-up advised. - Good O2 sats > 90 % on RA. - Currently on Ceftriaxone, Azithromycin - Started Remdesivir (3) Generalized muscle weakness: Code(s): M62.81 - Muscle weakness (generalized) Status: Acute Assessment and Plan: - Possibly related to infection vs deconditioning vs other. - PT/OT eval and treatment. - Fall precautions. - Assist with care. (4) Hydroureteronephrosis: Code(s): N13.30 - Unspecified hydronephrosis Status: Acute Assessment and Plan: - Chronic. - Outpatient f/u with urologist. (5) Benign essential hypertension: Code(s): I10 - Essential (primary) hypertension Status: Chronic Assessment and Plan: - BP currently fairly well controlled. - Resume home meds and adjust as needed. (6) Benign prostatic hyperplasia: Code(s): N40.0 - Benign prostatic hyperplasia without lower urinary tract symptoms Status: Acute Assessment and Plan: - Continue Tamsulosin. Plan DVT prophylaxis on Sq Lovenox PT/OT eval Subjective Date/time seen: 08/14/24 13:10 Interval history: Patient comfortable at bedside and on room air PT/OT Review of Systems Review of Systems: All systems reviewed & are unremarkable except as noted in HPI and below Exam Narrative: General: Fair appearing, generalized muscle weakness. HEENT: Atraumatic, PERRL, EOM, anicteric, moist mucus membranes. NECK: Supple. Chest: Lungs clear bilaterally, intermittent moist coughs. Heart: RRR, no murmurs. Abdomen: Soft, obese, non-tender, +ve BS X 4 quadrants. Extremities: Acyanotic, no edema. Skin: Warm and dry. No lesions noted. Neruo: Well oriented, CN II-XII grossly intact. Psych: Calm and co-operative. Objective Data Vital Signs Vital Signs: Vital Signs - 24 hr 08/13/24 14:00 08/13/24 16:10 08/13/24 17:10 Temperature 100.1 F H 101 F H 99 F Pulse Rate 107 H Respiratory Rate 18 Blood Pressure 142/86 H Pulse Oximetry 100 Oxygen Delivery 08/13/24 20:00 08/13/24 22:00 08/14/24 06:00 Temperature 98.6 F 98.7 F Pulse Rate 107 H 82 98 Respiratory Rate 18 20 18 Blood Pressure 127/65 135/67 Pulse Oximetry 100 98 96 Oxygen Delivery Room Air 08/14/24 08:00 08/14/24 08:24 Temperature Pulse Rate Respiratory Rate Blood Pressure Pulse Oximetry Oxygen Delivery Room Air Room Air Intake/Output Intake/Output: Intake & Output 08/11/24 08/12/24 08/13/24 08/14/24 23:59 23:59 23:59 23:59 Intake Total 1050 500 Output Total 400 800 Balance 650 -300 Meds/Results Medications: Active Medications Generic Name Dose Route Start Last Admin Trade Name Freq PRN Reason Stop Dose Admin Acetaminophen 650 mg 08/13/24 10:58 08/13/24 16:10 Acetaminophen 325 Mg Tablet PO 650 mg Q4H PRN Administration Mild Pain (1-3) or Fever Amlodipine Besylate 10 mg 08/14/24 09:00 08/14/24 09:39 Amlodipine Besylate 10 Mg Tablet PO 10 mg DAILY GLORIA Administration Aspirin 81 mg 08/14/24 09:00 08/14/24 09:40 Aspirin 81 Mg Enteric Tablet PO 81 mg DAILY GLORIA Administration Atorvastatin Calcium 20 mg 08/14/24 09:00 08/14/24 09:40 Atorvastatin 20 Mg Tablet PO 20 mg DAILY GLORIA Administration Docusate Sodium 100 mg 08/14/24 09:00 08/14/24 09:40 Docusate Sodium 100 Mg Capsule PO 100 mg DAILY GLORIA Administration Enoxaparin Sodium 40 mg 08/14/24 09:00 08/14/24 09:40 Enoxaparin 40 Mg/0.4 Ml Syringe SUB-Q 40 mg DAILY GLORIA Administration Gabapentin 300 mg 08/14/24 09:00 08/14/24 09:39 Gabapentin 300 Mg Capsule PO 300 mg DAILY GLORIA Administration Multivitamins Therapeutic 1 tablet 08/14/24 09:00 08/14/24 09:39 Multivitamins Therapeutic Tab (*Bkc) PO 1 tablet DAILY GLORIA Administration Multivitamins/Minerals 1 tablet 08/13/24 21:00 08/14/24 09:39 Opti-Gen Tab PO 1 tablet Q12HR GLORIA Administration Ondansetron HCl 4 mg 08/13/24 10:58 Ondansetron Inj 4 Mg/2 Ml Vial IV PUSH Q4H PRN Nausea Psyllium Hydrophilic Mucilloid 1 packet 08/14/24 09:00 08/14/24 09:39 Psyllium Powder Packet PO 1 packet DAILY GLORIA Administration Tamsulosin HCl 0.4 mg 08/13/24 21:00 08/13/24 20:52 Tamsulosin Hcl 0.4 Mg Capsule PO 0.4 mg QHS GLORIA Administration Valsartan 320 mg 08/14/24 09:00 08/14/24 09:39 Valsartan 160 Mg Tablet PO 320 mg QAM GLORIA Administration Radiology Results: ITS Impressions Chest X-Ray 08/13/24 08:44 IMPRESSION: Highly suggestive early left basilar pneumonia. Follow-up advised. 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 Venous Doppler Study 08/13/24 12:02 IMPRESSION: Negative left lower extremity venous US. No deep vein thrombosis. Labs Labs: Laboratory Results - last 24 hr 08/14/24 05:58 WBC 6.0 RBC 4.38 L Hgb 11.6 L Hct 35.6 L MCV 81.3 MCH 26.5 MCHC 32.6 RDW 13.6 Plt Count 220 MPV 10.1 Sodium 136 L Potassium 3.5 Chloride 108 H Carbon Dioxide 20 L Anion Gap 8 BUN 18 Creatinine 1.32 H Estim Creat Clear Calc 40 Estimated GFR 51 L Glucose 124 H Calcium 8.7 Quality VTE Prophylaxis VTE prophylaxis: mechanical ordered and pharmacologic ordered
[2024-08-14 14:00] VITALS: BP 112/70; PULSE 85; RESP 18; TEMP 36.8; O2SAT 99
[2024-08-14] MEDS: REMDESIVIR 200 MG/NS 250 ML 200 MG/250 ML BAG 250 MG IVPB (15:16)
[2024-08-14] MEDS: TAMSULOSIN HCL 0.4 MG CAPSULE PO (20:50)
[2024-08-14 21:32] VITALS: BP 141/76; PULSE 78; RESP 20; TEMP 36.9; O2SAT 98
[2024-08-15 06:00] VITALS: BP 131/73; PULSE 77; RESP 20; TEMP 36.5; O2SAT 99
[2024-08-15 08:43] LABS: Glucose Point of Care 97 mg/dl (65-105)
[2024-08-15] MEDS: VALSARTAN 160 MG TABLET 320 MG PO (09:53)
[2024-08-15] MEDS: REMDESIVIR 100 MG/NS 250 ML 100 MG/250 ML BAG 250 MG IVPB (09:53)
[2024-08-15] MEDS: MULTIVITAMINS THERAPEUTIC TAB (*BKC) 1 TABLET PO (09:53)
[2024-08-15] MEDS: OPTI-GEN TAB 1 TABLET PO ×2 (09:53→20:48)
[2024-08-15] MEDS: ASPIRIN 81 MG ENTERIC TABLET PO (09:53)
[2024-08-15] MEDS: amLODIPine BESYLATE 10 MG TABLET PO (09:53)
[2024-08-15] MEDS: ATORVASTATIN 20 MG TABLET PO (09:53)
[2024-08-15] MEDS: GABAPENTIN 300 MG CAPSULE PO (09:53)
[2024-08-15] MEDS: DOCUSATE SODIUM 100 MG CAPSULE PO (09:53)
[2024-08-15] MEDS: PSYLLIUM POWDER PACKET 1 PACKET PO (09:54)
[2024-08-15] MEDS: ENOXAPARIN 40 MG/0.4 ML SYRINGE SUB-Q (09:54)
[2024-08-15 09:55] LABS: Basophils Percent Auto 0.3 % (0.2-1.2); Eosinophils Absolute Auto 0.1 K/mm3 (0-0.3); Eosinophils Percent Auto 1.9 % (0-4.4); Hematocrit 36.9 % (42.0-52.0); Hemoglobin 11.8 g/dL (14.0-18.0); Immature Granulocyte Absolute 0.01 K/mm3 (0.00-0.031); Immature Granulocyte Percent A 0.1 % (0-0.5); Lymphocytes Absolute Auto 1.58 K/mm3 (0.9-3.2); Lymphocytes Percent Auto 23.1 % (18.3-44.2); Mean Corpuscular Hemoglobin 26.4 pg (26-34); Mean Corpuscular Volume 82.6 fl (80-100); Mean Platelet Volume 9.6 fl (7.4-10.4); Monocytes Absolute Auto 0.7 K/mm3 (0.1-0.6); Monocytes Percent Auto 10.5 % (2.6-8.5); Neutrophils Absolute Auto 4.4 K/mm3 (1.3-6.7); Neutrophils Percent Auto 64.1 % (45.5-73.1); Platelet Count Result 217 k/mm3 (150-375); Red Blood Count 4.47 M/mm3 (4.6-6.20); Red Cell Distribution Width 13.8 % (11.5-14.5); White Blood Count 6.8 K/mm3 (4.5-10.0)
[2024-08-15 10:14] LABS: Alanine Aminotransferase 23 U/L (6-50); Albumin Level 3.5 g/dL (3.5-5.1); Alkaline Phosphatase 85 U/L (38-126); Anion Gap 7 mmol/L (4-12); Aspartate Amino Transferase 33 U/L (17-59); Bilirubin,Total 0.5 mg/dL (0.2-1.3); Blood Urea Nitrogen 23 mg/dL (9-20); Calcium 8.5 mg/dL (8.4-10.2); Carbon Dioxide 22 mmol/L (22-30); Chloride 108 mmol/L (98-107); Estimated CRCL calculation 44 ml/min; Estimated Glomerular Filt Rate 57; Glucose 139 mg/dL (65-110); Potassium 3.9 mmol/L (3.4-5.0); Sodium 137 mmol/L (137-145)
[2024-08-15 14:00] VITALS: BP 121/67; PULSE 77; RESP 20; TEMP 36.4; O2SAT 98
--- NOTE | 2024-08-15 15:37 | PM.IMPN ---
Progress Note: A&P Assessment and Plan (1) UTI (urinary tract infection): Code(s): N39.0 - Urinary tract infection, site not specified Status: Inactive Assessment and Plan: - UA consistent with UTI. - Urine and blood cultures still negative - On Ceftriaxone. - Follow closely (2) COVID-19: Code(s): U07.1 - COVID-19 Status: Acute Assessment and Plan: - Acute respiratory virus panel PCR +ve for Covid-19. - Patient with intermittent cough episodes. - CXR: Highly suggestive early left basilar pneumonia. Follow-up advised. - Good O2 sats > 90 % on RA. - Currently on Ceftriaxone, Azithromycin day 2/3 of Remdesivir (3) Generalized muscle weakness: Code(s): M62.81 - Muscle weakness (generalized) Status: Acute Assessment and Plan: - Possibly related to infection vs deconditioning vs other. - PT/OT eval and treatment. - Fall precautions. - Assist with care. (4) Hydroureteronephrosis: Code(s): N13.30 - Unspecified hydronephrosis Status: Acute Assessment and Plan: - Chronic. - Outpatient f/u with urologist. (5) Benign essential hypertension: Code(s): I10 - Essential (primary) hypertension Status: Chronic Assessment and Plan: - BP currently fairly well controlled. - Resume home meds and adjust as needed. (6) Benign prostatic hyperplasia: Code(s): N40.0 - Benign prostatic hyperplasia without lower urinary tract symptoms Status: Acute Assessment and Plan: - Continue Tamsulosin. Plan DVT prophylaxis on Sq Lovenox PT/OT eval recommends placement awaiting placement Subjective Date/time seen: 08/15/24 15:37 Interval history: Patient comfortable at bedside and on room air PT/OT recommends rehab Review of Systems Review of Systems: All systems reviewed & are unremarkable except as noted in HPI and below Exam Narrative: General: Fair appearing, generalized muscle weakness. HEENT: Atraumatic, PERRL, EOM, anicteric, moist mucus membranes. NECK: Supple. Chest: Lungs clear bilaterally, intermittent moist coughs. Heart: RRR, no murmurs. Abdomen: Soft, obese, non-tender, +ve BS X 4 quadrants. Extremities: Acyanotic, no edema. Skin: Warm and dry. No lesions noted. Neruo: Well oriented, CN II-XII grossly intact. Psych: Calm and co-operative. Objective Data Vital Signs Vital Signs: Vital Signs - 24 hr 08/14/24 21:32 08/15/24 06:00 08/15/24 08:00 Temperature 98.5 F 97.7 F Pulse Rate 78 77 Respiratory Rate 20 20 Blood Pressure 141/76 H 131/73 Pulse Oximetry 98 99 Oxygen Delivery Room Air Intake/Output Intake/Output: Intake & Output 08/12/24 08/13/24 08/14/24 08/15/24 23:59 23:59 23:59 23:59 Intake Total 1050 860 940 Output Total 400 800 900 Balance 650 60 40 Meds/Results Medications: Active Medications Generic Name Dose Route Start Last Admin Trade Name Freq PRN Reason Stop Dose Admin Acetaminophen 650 mg 08/13/24 10:58 08/13/24 16:10 Acetaminophen 325 Mg Tablet PO 650 mg Q4H PRN Administration Mild Pain (1-3) or Fever Amlodipine Besylate 10 mg 08/14/24 09:00 08/15/24 09:53 Amlodipine Besylate 10 Mg Tablet PO 10 mg DAILY GLORIA Administration Aspirin 81 mg 08/14/24 09:00 08/15/24 09:53 Aspirin 81 Mg Enteric Tablet PO 81 mg DAILY GLORIA Administration Atorvastatin Calcium 20 mg 08/14/24 09:00 08/15/24 09:53 Atorvastatin 20 Mg Tablet PO 20 mg DAILY GLORIA Administration Docusate Sodium 100 mg 08/14/24 09:00 08/15/24 09:53 Docusate Sodium 100 Mg Capsule PO 100 mg DAILY GLORIA Administration Enoxaparin Sodium 40 mg 08/14/24 09:00 08/15/24 09:54 Enoxaparin 40 Mg/0.4 Ml Syringe SUB-Q 40 mg DAILY GLORIA Administration Gabapentin 300 mg 08/14/24 09:00 08/15/24 09:53 Gabapentin 300 Mg Capsule PO 300 mg DAILY GLORIA Administration Remdesivir 100 mg in 250 mls @ 250 mls/hr 08/15/24 10:00 08/15/24 09:53 IVPB 08/18/24 10:59 250 mls/hr Q24H GLORIA Administration Multivitamins Therapeutic 1 tablet 08/14/24 09:00 08/15/24 09:53 Multivitamins Therapeutic Tab (*Bkc) PO 1 tablet DAILY GLORIA Administration Multivitamins/Minerals 1 tablet 08/13/24 21:00 08/15/24 09:53 Opti-Gen Tab PO 1 tablet Q12HR GLORIA Administration Ondansetron HCl 4 mg 08/13/24 10:58 Ondansetron Inj 4 Mg/2 Ml Vial IV PUSH Q4H PRN Nausea Psyllium Hydrophilic Mucilloid 1 packet 08/14/24 09:00 08/15/24 09:54 Psyllium Powder Packet PO 1 packet DAILY GLORIA Administration Tamsulosin HCl 0.4 mg 08/13/24 21:00 08/14/24 20:50 Tamsulosin Hcl 0.4 Mg Capsule PO 0.4 mg QHS GLORIA Administration Valsartan 320 mg 08/14/24 09:00 08/15/24 09:53 Valsartan 160 Mg Tablet PO 320 mg QAM GLORIA Administration Radiology Results: ITS Impressions Chest X-Ray 08/13/24 08:44 IMPRESSION: Highly suggestive early left basilar pneumonia. Follow-up advised. 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 Venous Doppler Study 08/13/24 12:02 IMPRESSION: Negative left lower extremity venous US. No deep vein thrombosis. Labs Labs: Laboratory Results - last 24 hr 08/15/24 08/15/24 08:02 09:36 WBC 6.8 RBC 4.47 L Hgb 11.8 L Hct 36.9 L MCV 82.6 MCH 26.4 MCHC 32.0 RDW 13.8 Plt Count 217 MPV 9.6 Immature Gran % (Auto) 0.1 Neut % (Auto) 64.1 Lymph % (Auto) 23.1 [place] % (Auto) 10.5 H Eos % (Auto) 1.9 Baso % (Auto) 0.3 Lymph # (Auto) 1.58 [place] # (Auto) 0.7 H Eos # (Auto) 0.1 Baso # (Auto) 0.0 Abs Immat Gran (auto) 0.01 Absolute Neuts (auto) 4.4 Absolute Nucleated RBC 0.000 Nucleated RBC % 0.0 Sodium 137 Potassium 3.9 Chloride 108 H Carbon Dioxide 22 Anion Gap 7 BUN 23 H Creatinine 1.21 Estim Creat Clear Calc 44 Estimated GFR 57 L Glucose 139 H POC Capillary Glucose 97 Calcium 8.5 Total Bilirubin 0.5 AST 33 ALT 23 Alkaline Phosphatase 85 Total Protein 7.0 Albumin 3.5 Quality VTE Prophylaxis VTE prophylaxis: mechanical ordered and pharmacologic ordered
[2024-08-15] MEDS: TAMSULOSIN HCL 0.4 MG CAPSULE PO (20:48)
[2024-08-15 22:00] VITALS: BP 120/62; PULSE 80; RESP 16; TEMP 36.7; O2SAT 98
[2024-08-16 05:59] VITALS: BP 127/73; PULSE 80; RESP 16; TEMP 36.8; O2SAT 97
[2024-08-16 07:04] LABS: Basophils Percent Auto 0.4 % (0.2-1.2); Eosinophils Absolute Auto 0.1 K/mm3 (0-0.3); Eosinophils Percent Auto 1.3 % (0-4.4); Hematocrit 35.9 % (42.0-52.0); Hemoglobin 11.3 g/dL (14.0-18.0); Immature Granulocyte Absolute 0.02 K/mm3 (0.00-0.031); Immature Granulocyte Percent A 0.3 % (0-0.5); Lymphocytes Absolute Auto 1.77 K/mm3 (0.9-3.2); Lymphocytes Percent Auto 22.8 % (18.3-44.2); Mean Corpuscular HGB Conc 31.5 g/dl (32-36); Mean Corpuscular Volume 82.5 fl (80-100); Mean Platelet Volume 10.1 fl (7.4-10.4); Monocytes Absolute Auto 0.8 K/mm3 (0.1-0.6); Monocytes Percent Auto 10.4 % (2.6-8.5); Neutrophils Absolute Auto 5.1 K/mm3 (1.3-6.7); Neutrophils Percent Auto 64.8 % (45.5-73.1); Platelet Count Result 224 k/mm3 (150-375); Red Blood Count 4.35 M/mm3 (4.6-6.20); Red Cell Distribution Width 13.4 % (11.5-14.5); White Blood Count 7.8 K/mm3 (4.5-10.0)
[2024-08-16 07:33] LABS: Alanine Aminotransferase 27 U/L (6-50); Albumin Level 3.3 g/dL (3.5-5.1); Alkaline Phosphatase 84 U/L (38-126); Anion Gap 5 mmol/L (4-12); Aspartate Amino Transferase 34 U/L (17-59); Bilirubin,Total 0.5 mg/dL (0.2-1.3); Blood Urea Nitrogen 25 mg/dL (9-20); Calcium 8.2 mg/dL (8.4-10.2); Carbon Dioxide 23 mmol/L (22-30); Chloride 108 mmol/L (98-107); Estimated CRCL calculation 49 ml/min; Estimated Glomerular Filt Rate > 60; Glucose 114 mg/dL (65-110); Magnesium 2.1 mg/dL (1.6-2.3); Potassium 3.7 mmol/L (3.4-5.0); Sodium 136 mmol/L (137-145)
[2024-08-16 10:00] VITALS: O2SAT 98
[2024-08-16] MEDS: REMDESIVIR 100 MG/NS 250 ML 100 MG/250 ML BAG 250 MG IVPB (10:07)
[2024-08-16] MEDS: MULTIVITAMINS THERAPEUTIC TAB (*BKC) 1 TABLET PO (10:08)
[2024-08-16] MEDS: ASPIRIN 81 MG ENTERIC TABLET PO (10:08)
[2024-08-16] MEDS: GABAPENTIN 300 MG CAPSULE PO (10:08)
[2024-08-16] MEDS: OPTI-GEN TAB 1 TABLET PO ×2 (10:08→20:33)
[2024-08-16] MEDS: amLODIPine BESYLATE 10 MG TABLET PO (10:08)
[2024-08-16] MEDS: DOCUSATE SODIUM 100 MG CAPSULE PO (10:08)
[2024-08-16] MEDS: PSYLLIUM POWDER PACKET 1 PACKET PO (10:09)
[2024-08-16] MEDS: ENOXAPARIN 40 MG/0.4 ML SYRINGE SUB-Q (10:09)
[2024-08-16] MEDS: ATORVASTATIN 20 MG TABLET PO (10:09)
[2024-08-16] MEDS: VALSARTAN 160 MG TABLET 320 MG PO (10:09)
[2024-08-16 14:00] VITALS: BP 101/65; PULSE 69; RESP 16; TEMP 36.7; O2SAT 98
[2024-08-16] MEDS: TAMSULOSIN HCL 0.4 MG CAPSULE PO (20:33)
[2024-08-16 22:00] VITALS: BP 120/75; PULSE 70; RESP 16; TEMP 37; O2SAT 94
[2024-08-17 06:00] VITALS: BP 121/67; PULSE 76; RESP 18; TEMP 36.9; O2SAT 97
[2024-08-17 08:00] VITALS: O2SAT 97
[2024-08-17] MEDS: ASPIRIN 81 MG ENTERIC TABLET PO (08:32)
[2024-08-17] MEDS: amLODIPine BESYLATE 10 MG TABLET PO (08:32)
[2024-08-17] MEDS: VALSARTAN 160 MG TABLET 320 MG PO (08:33)
[2024-08-17] MEDS: ATORVASTATIN 20 MG TABLET PO (08:33)
[2024-08-17] MEDS: MULTIVITAMINS THERAPEUTIC TAB (*BKC) 1 TABLET PO (08:33)
[2024-08-17] MEDS: PSYLLIUM POWDER PACKET 1 PACKET PO (08:33)
[2024-08-17] MEDS: GABAPENTIN 300 MG CAPSULE PO (08:33)
[2024-08-17] MEDS: OPTI-GEN TAB 1 TABLET PO ×2 (08:33→20:50)
[2024-08-17] MEDS: DOCUSATE SODIUM 100 MG CAPSULE PO (08:33)
[2024-08-17] MEDS: ENOXAPARIN 40 MG/0.4 ML SYRINGE SUB-Q (09:46)
[2024-08-17] MEDS: REMDESIVIR 100 MG/NS 250 ML 100 MG/250 ML BAG 250 MG IVPB (10:17)
[2024-08-17 14:00] VITALS: BP 110/65; PULSE 68; RESP 18; TEMP 36.6; O2SAT 98
--- NOTE | 2024-08-17 17:47 | PM.IMPN ---
Progress Note: A&P Assessment and Plan (1) UTI (urinary tract infection): Code(s): N39.0 - Urinary tract infection, site not specified Status: Inactive Assessment and Plan: - UA consistent with UTI. - Urine and blood cultures still negative - On Ceftriaxone. - Follow closely (2) COVID-19: Code(s): U07.1 - COVID-19 Status: Acute Assessment and Plan: - Acute respiratory virus panel PCR +ve for Covid-19. - Patient with intermittent cough episodes. - CXR: Highly suggestive early left basilar pneumonia. Follow-up advised. - Good O2 sats > 90 % on RA. - Currently on Ceftriaxone, Azithromycin day 3/3 of Remdesivir (3) Generalized muscle weakness: Code(s): M62.81 - Muscle weakness (generalized) Status: Acute Assessment and Plan: - Possibly related to infection vs deconditioning vs other. - PT/OT eval and treatment. - Fall precautions. - Assist with care. (4) Hydroureteronephrosis: Code(s): N13.30 - Unspecified hydronephrosis Status: Acute Assessment and Plan: - Chronic. - Outpatient f/u with urologist. (5) Benign essential hypertension: Code(s): I10 - Essential (primary) hypertension Status: Chronic Assessment and Plan: - BP currently fairly well controlled. - Resume home meds and adjust as needed. (6) Benign prostatic hyperplasia: Code(s): N40.0 - Benign prostatic hyperplasia without lower urinary tract symptoms Status: Acute Assessment and Plan: - Continue Tamsulosin. Plan DVT prophylaxis on Sq Lovenox PT/OT eval recommends placement Discharge Tuesday Subjective Date/time seen: 08/16/24 17:47 DOS is 08/16/24 Interval history: Patient comfortable at bedside and on room air Plan is to discharge home tuesday Review of Systems Review of Systems: All systems reviewed & are unremarkable except as noted in HPI and below Exam Narrative: General: Fair appearing, generalized muscle weakness. HEENT: Atraumatic, PERRL, EOM, anicteric, moist mucus membranes. NECK: Supple. Chest: Lungs clear bilaterally, intermittent moist coughs. Heart: RRR, no murmurs. Abdomen: Soft, obese, non-tender, +ve BS X 4 quadrants. Extremities: Acyanotic, no edema. Skin: Warm and dry. No lesions noted. Neruo: Well oriented, CN II-XII grossly intact. Psych: Calm and co-operative. Objective Data Vital Signs Vital Signs: Vital Signs - 24 hr 08/16/24 22:00 08/17/24 06:00 08/17/24 08:00 Temperature 98.6 F 98.5 F Pulse Rate 70 76 Respiratory Rate 16 18 Blood Pressure 120/75 121/67 Pulse Oximetry 94 97 97 Oxygen Delivery Room Air 08/17/24 14:00 Temperature 97.9 F Pulse Rate 68 Respiratory Rate 18 Blood Pressure 110/65 Pulse Oximetry 98 Oxygen Delivery Intake/Output Intake/Output: Intake & Output 08/14/24 08/15/24 08/16/24 08/17/24 23:59 23:59 23:59 23:59 Intake Total 860 2410 2390 950 Output Total 800 9553 553 4775 Balance 60 910 1640 -350 Meds/Results Medications: Active Medications Generic Name Dose Route Start Last Admin Trade Name Freq PRN Reason Stop Dose Admin Acetaminophen 650 mg 08/13/24 10:58 08/13/24 16:10 Acetaminophen 325 Mg Tablet PO 650 mg Q4H PRN Administration Mild Pain (1-3) or Fever Amlodipine Besylate 10 mg 08/14/24 09:00 08/17/24 08:32 Amlodipine Besylate 10 Mg Tablet PO 10 mg DAILY GLORIA Administration Aspirin 81 mg 08/14/24 09:00 08/17/24 08:32 Aspirin 81 Mg Enteric Tablet PO 81 mg DAILY GLORIA Administration Atorvastatin Calcium 20 mg 08/14/24 09:00 08/17/24 08:33 Atorvastatin 20 Mg Tablet PO 20 mg DAILY GLORIA Administration Docusate Sodium 100 mg 08/14/24 09:00 08/17/24 08:33 Docusate Sodium 100 Mg Capsule PO 100 mg DAILY GLORIA Administration Enoxaparin Sodium 40 mg 08/14/24 09:00 08/17/24 09:46 Enoxaparin 40 Mg/0.4 Ml Syringe SUB-Q 40 mg DAILY GLORIA Administration Gabapentin 300 mg 08/14/24 09:00 08/17/24 08:33 Gabapentin 300 Mg Capsule PO 300 mg DAILY GLORIA Administration Remdesivir 100 mg in 250 mls @ 250 mls/hr 08/15/24 10:00 08/17/24 10:17 IVPB 08/18/24 10:59 250 mls/hr Q24H GLORIA Administration Multivitamins Therapeutic 1 tablet 08/14/24 09:00 08/17/24 08:33 Multivitamins Therapeutic Tab (*Bkc) PO 1 tablet DAILY GLORIA Administration Multivitamins/Minerals 1 tablet 08/13/24 21:00 08/17/24 08:33 Opti-Gen Tab PO 1 tablet Q12HR GLORIA Administration Ondansetron HCl 4 mg 08/13/24 10:58 Ondansetron Inj 4 Mg/2 Ml Vial IV PUSH Q4H PRN Nausea Psyllium Hydrophilic Mucilloid 1 packet 08/14/24 09:00 08/17/24 08:33 Psyllium Powder Packet PO 1 packet DAILY GLORIA Administration Tamsulosin HCl 0.4 mg 08/13/24 21:00 08/16/24 20:33 Tamsulosin Hcl 0.4 Mg Capsule PO 0.4 mg QHS GLORIA Administration Valsartan 320 mg 08/14/24 09:00 08/17/24 08:33 Valsartan 160 Mg Tablet PO 320 mg QAM GLORIA Administration Radiology Results: ITS Impressions Chest X-Ray 08/13/24 08:44 IMPRESSION: Highly suggestive early left basilar pneumonia. Follow-up advised. 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 Venous Doppler Study 08/13/24 12:02 IMPRESSION: Negative left lower extremity venous US. No deep vein thrombosis. Quality VTE Prophylaxis VTE prophylaxis: mechanical ordered and pharmacologic ordered
[2024-08-17] MEDS: TAMSULOSIN HCL 0.4 MG CAPSULE PO (20:50)
[2024-08-17 21:35] VITALS: BP 128/66; PULSE 72; RESP 14; TEMP 36.9; O2SAT 96
[2024-08-18 05:48] VITALS: BP 149/78; PULSE 79; RESP 13; TEMP 37; O2SAT 95
[2024-08-18 07:31] LABS: Alanine Aminotransferase 33 U/L (6-50); Albumin Level 3.3 g/dL (3.5-5.1); Alkaline Phosphatase 85 U/L (38-126); Aspartate Amino Transferase 36 U/L (17-59); Bilirubin,Total 0.7 mg/dL (0.2-1.3); INR 1.3; Prothrombin Time 16.2 Seconds (11.1-14.7)
[2024-08-18] MEDS: PSYLLIUM POWDER PACKET 1 PACKET PO (10:14)
[2024-08-18] MEDS: ENOXAPARIN 40 MG/0.4 ML SYRINGE SUB-Q (10:14)
[2024-08-18] MEDS: VALSARTAN 160 MG TABLET 320 MG PO (10:14)
[2024-08-18] MEDS: ASPIRIN 81 MG ENTERIC TABLET PO (10:15)
[2024-08-18] MEDS: DOCUSATE SODIUM 100 MG CAPSULE PO (10:15)
[2024-08-18] MEDS: OPTI-GEN TAB 1 TABLET PO (10:15)
[2024-08-18] MEDS: GABAPENTIN 300 MG CAPSULE PO (10:15)
[2024-08-18] MEDS: amLODIPine BESYLATE 10 MG TABLET PO (10:15)
[2024-08-18] MEDS: MULTIVITAMINS THERAPEUTIC TAB (*BKC) 1 TABLET PO (10:15)
[2024-08-18] MEDS: ATORVASTATIN 20 MG TABLET PO (10:15)
[2024-08-18] MEDS: REMDESIVIR 100 MG/NS 250 ML 100 MG/250 ML BAG 250 MG IVPB (10:38)
--- NOTE | 2024-08-18 11:44 | PM.DS ---
DS: Admitting Diagnosis Discharge Date 08/18/24 Admitting Diagnosis General muscle weakness DS: Discharge Diagnosis Discharge Diagnosis (1) COVID-19: Code(s): U07.1 - COVID-19 Status: Acute (2) Left lower lobe pneumonia: Qualifiers: Pneumonia type: due to unspecified organism Qualified Code(s): J18.9 - Pneumonia, unspecified organism Code(s): J18.9 - Pneumonia, unspecified organism Status: Acute DS: Summary Hospital Course Hospital Course: Patient presented to the ER with reports of generalized muscle weakness at home. Patient states that he couldn't get off the bed and slid down the floor when he attempted to get up. Patient's initial work-up lab significant for UA +ve for UTI, and acute respiratory panel PCR positive for Covid. Patient reports intermittent cough episodes but no sputum, and denies fevers or chills, muscle pain, nausea or vomiting, and unsure of urinary symptoms. Chest x-ray showed a LLE left lower lobe pneumonia, patient was managed with remdesivir and antibiotics. Discharged on 5 more days of Levaquin. Going home with home health. Patient has been on room air, and thus did not need steroids UTI ruled out as urine culture was negative. Continued home medications. Follow-up with PCP in 3-5 days. Time Spent with Patient Time attestation: Total time spent providing and/or coordinating discharge services: DS: Data Data Completed and Pending Labs on day of discharge: Labs from last 24 hours 08/18/24 07:10 PT 16.2 H INR 1.3 Total Bilirubin 0.7 Direct Bilirubin 0.0 AST 36 ALT 33 Alkaline Phosphatase 85 Total Protein 7.0 Albumin 3.3 L Preliminary micro results at discharge 08/13/24 11:44 Blood Culture - Preliminary Blood 08/13/24 12:05 Blood Culture - Preliminary Blood Discharge Plan Discharge Attending physician on discharge: Gildardo Moore Discharging Clinician: Gildardo Moore Anticipated Discharge Date/Time: 08/18/24 11:29 Patient Disposition: Home Health Service Activity: as tolerated Diet: as tolerated Discharge Instructions: Per Care Coordinaton. Patient to have [facility] for RN/PT/OT eval and treat [phone]. RN please fax discharge instructions to: . Patient Instructions: Antibiotic Form Patient Language: [place] Stand Alone Forms: General Discharge Information Follow-up/Referrals: Lucho Holman MD [Primary Care Provider] - (F/u with PCP in 3-5 days ) Discharge Medications: New levofloxacin 750 mg tablet 750 mg PO DAILY 5 Days Qty: 5 0RF Continued aspirin [Adult Low Dose Aspirin] 81 mg tablet,delayed release (DR/EC) 81 mg PO DAILY multivitamin [Daily Multi-Vitamin] Tablet 1 tablet PO DAILY docusate sodium 100 mg capsule 100 mg PO DAILY PreserVision AREDS 4,296 mcg-226 mg-90 mg Capsule 1 cap PO Q12H Metamucil 3.4 gram/5.4 gram Powder 1 tbsp PO DAILY Rx Instructions: mix into at least 8 oz of water or juice before administering valsartan 320 mg tablet 320 mg PO DAILY Qty: 90 1RF amlodipine 10 mg tablet 10 mg PO DAILY Qty: 90 1RF atorvastatin [Lipitor] 20 mg tablet 20 mg PO DAILY Qty: 90 1RF gabapentin 300 mg capsule 300 mg PO DAILY Qty: 100 0RF tamsulosin 0.4 mg capsule 0.4 mg PO QHS Qty: 90 1RF Date of admission: 08/14/24 14:56 Primary Care Provider: Lucho Holman Admitting Provider: Addy Herring Attending physician on admission: Addy Herring Condition: Stable
--- OUTSIDE RECORDS SUMMARY | 2024-08-19 16:27 | XMS_ITS | Clinical Summary ---
Author Organization [facility] Address [address] [place] [address] Care Team Providers Care Radio Interference Supervisor Name Role Phone Robert Iverson MD Primary Care Provider [phone] Source Comments [facility],non-research medical center Affiliates and Associated Physician Practices is amultiple site organization consisting of ambulatory clinics and hospital sitesin [place], [place], [place] and [place]. This disclosure is being madepursuant to the Care Everywhere program and may not contain all information available regarding this patient. Last updated 18.[facility] Allergies Active Allergy Reactions Criticality Noted Date Comments Jc Inhibitors 09/15/2009 Penicillins 09/15/2009 Hmg-Coa-R Inhibitors Myalgias Low 09/23/2009 Tetanus Antitoxin 09/15/2009 Medications * Be aware that medications may not be up to date on this document. Alwaysverify current medications with the patient. Medication Sig Dispensed Refills Start Date End Date Status MULTI VITAMIN MENS PO Take by mouth. Active calcium polycarbophil (FIBERCON) 625 MG tablet Take 625 mg by mouth at bedtime. Active diphenhydramine-APAP (sleep) (TYLENOL PM ES) 25-500 MG tablet Take 1 Tab by mouth nightly as needed for Insomnia. Active omeprazole (PRILOSEC) 40 MG capsuleIndications:DM (diabetes mellitus) (HCC),HTN (hypertension),HLD (hyperlipidemia),GERD (gastroesophageal reflux disease) Take 1 Cap by mouth daily before breakfast. 90 Cap 3 07/21/2010 Active aspirin 81 MG tablet Take 81 mg by mouth once daily. Active fluticasone propionate (FLONASE) 50 MCG/ACT nasal spray [place] 1 [place] into each nostril 2 times daily. 16 g 1 05/16/2012 Active alomkzrkly-uhhgdvrys-uc tz (EXFORGE HCT) 10-320-25 MG tabletIndications:HTN (hypertension),HLD (hyperlipidemia),DM (diabetes mellitus) (HCC),GERD (gastroesophageal reflux disease),BPH (benign prostatic hyperplasia),Prostate cancer screening Take 1 Tab by mouth once daily. 30 Tab 12 02/23/2013 Active fenofibrate (LOFIBRA) 160 MG tablet TAKE ONE TABLET BY MOUTH ONCE DAILY WITH LARGEST MEAL OF THE DAY 30 Tab 0 04/04/2014 Active Active Problems Problem Noted Date Diagnosed Date Pain in joint, multiple sites 01/16/2013 HTN (hypertension) HLD (hyperlipidemia) GERD (gastroesophageal reflux disease) Pre-diabetes Overview (01/16/2013): Pre-diabetes, diet controlled Resolved Problems Problem Noted Date Diagnosed Date Resolved Date DM (diabetes mellitus) 03/23 Overview (09/23/2009): Pre-diabetes, diet controlled Immunizations Name Administration Dates Next Due INFLUENZA VACCINE, TRIV. (AF LURIA, FLUZONE TRIVALENT; 6MO+) (IIV3) 04/24/2013 INFLUENZA VACCINE 06/01/2012 PNEUMOCOCCAL PPSV23 08/08/2006 ZOSTER VACCINE, LIVE 08/12/2010 Social History Tobacco Use Types Packs/Day Years Used Date Smoking Tobacco: Former Cigarettes Smokeless Tobacco: Never Alcohol Use Standard Drinks/Week Comments Yes 0 (1 standard drink = 0.6 oz pur e alcohol) 3 beers a month Sex and Gender Information Value Date Recorded Sex Assigned at Not on file Gender Identity Not on file Sexual Orientation Not on file Last Filed Vital Signs Vital Sign Reading Time Taken Comments Blood Pressure 134/80 04/24/2013 9:49 AM CDT Pulse 70 04/24/2013 9:49 AM CDT Temperature - - Respiratory Rate 14 04/24/2013 9:49 AM CDT Oxygen Saturation - - Inhaled Oxygen Concentration - - Weight 88.9 kg (196 lb) 04/24/2013 9:49 AM CDT Height 177.8 cm (5' 10 ) 04/24/2013 9:49 AM CDT Body Mass Index 28.12 04/24/2013 9:49 AM CDT Plan of Treatment Health Maintenance Due Date Last Done Comments MEDICARE AWV ? 12 MONTHS 1935 DTAP/TDAP/TD VACCINES (1 - Tdap) 1955 PNEUMOCOCCAL VACCINE 50+ (2 of 2 - PCV) 08/08/2007 08/08/2006 ZOSTER VACCINE (2 of 3) 10/07/2010 08/12/2010 Respiratory Syncytial Virus (RSV) Vaccine Pt: or over 60 yrs (1 - 1-dose 75+ series) 2011 COVID-19 VACCINE ( - 2023-2 5 season) 2024 INFLUENZA VACCINE (#1) 2024 3, 06/01/2012 DEPRESSION SCREENING 08/08/2024 HEPATITIS B VACCINE Aged Out No longe r eligible based on patient's age to complete this topic HIB VACCINE Aged Out No longer eligi ble based on patient's age to complete this topic HPV VACCINE Aged Out No longer eligi ble based on patient's age to complete this topic MENINGOCOCCAL (Group B) VACCINE Aged Out No longer eligible b ased on patient's age to complete this topic MENINGOCOCCAL VACCINE Aged Out No manolo eugenio eligible based on patient's age to complete this topic Care Teams Radio Interference Supervisor Relationship Specialty Start Date End Date Robert Iverson MD [address] [place] [address] PCP - General 09/29/18
--- OUTSIDE RECORDS SUMMARY | 2024-08-19 16:27 | XMS_ITS | Referral Summary ---
Author Organization [facility] Address [address] [place] [address] Care Team Providers Care Wood Heel Fitter Machine Name Role Phone Robert Iverson MD Primary Care Provider [phone] Source Comments [facility] Affiliates and Associated Physician Practices is amultiple site organization consisting of ambulatory clinics and hospital sitesin [place], [place], [place] and [place]. This disclosure is being madepursuant to the Care Everywhere program and may not contain all information available regarding this patient. Last updated 18.[facility] [employer] Allergies Active Allergy Reactions Criticality Noted Date [...] fluticasone propionate (FLONASE) 50 MCG/ACT nasal spray [place] 1 [place] into each nostril 2 times daily. 16 g 1 05/16/2012 Active otxzzokiox-anbgmikll-sh tz (EXFORGE HCT) 10-320-25 MG tabletIndications:HTN (hypertension),HLD [...] 04/24/2013 9:49 AM CDT Plan of Treatment Not on file Care Teams Wood Heel Fitter Machine Relationship Specialty Start Date End Date Robert Iverson MD [address] [place] [address] PCP - General 09/29/18
--- OUTSIDE RECORDS SUMMARY | 2024-08-19 16:28 | XMS_ITS | Encounter Summary ---
Author Organization [facility] Address [address] [place] [address] Care Team Providers Care Reproduction Machine Loader Name Role Phone Jim Horn MD Primary Care Provider Unavailabl e Reason for Visit * Reason Onset Date Comments MEDICATION REFILL 10/05/2012 Encounter Details Date Type Department Care Team (Late st Contact Info) Description 10/05/2012 Refill [facility] - Internal Medicine [address] [place] [phone] Jim Horn MD Updated address needed MEDICATION REFILL Social History Tobacco Use Types Packs/Day Years Used Date Smoking Tobacco: Former Cigarettes Smokeless Tobacco: Never Alcohol Use Standard Drinks/Week Comments Yes 0 (1 standard drink = 0.6 oz pur e alcohol) 3 beers a month Sex and Gender Information Value Date Recorded Sex Assigned at Not on file Gender Identity Not on file Sexual Orientation Not on file documented as of this encounter Plan of Treatment Not on file documented as of this encounter Visit Diagnoses Not on filedocumented in this encounter Care Teams Reproduction Machine Loader Relationship Specialty Start Date End Date Jim Horn MD PCP - General 09/15/09 10/28/13 documented as of this encounter
--- OUTSIDE RECORDS SUMMARY | 2024-08-19 16:28 | XMS_ITS | Encounter Summary ---
Author Organization [facility] Address [address] [place] [address] Care Team Providers Care Throw Out Clerk Name Role Phone Jim Horn MD Primary Care Provider Unavailabl e Reason for Visit * Reason Onset Date Comments MEDICATION REFILL 10/09/2009 Encounter Details Date Type Department Care Team (Late st Contact Info) Description 10/09/2009 Refill [facility] [address] [place] [id number] Jim Horn MD Updated address needed MEDICATION REFILL Social History Tobacco Use Types Packs/Day Years Used Date Smoking Tobacco: Never Alcohol Use Standard Drinks/Week Comments No 0 (1 standard drink = 0.6 oz pur e alcohol) Sex and Gender Information Value Date Recorded Sex Assigned at Not on file Gender Identity Not on file Sexual Orientation Not on file documented as of this encounter Plan of Treatment Not on file documented as of this encounter Visit Diagnoses Diagnosis GERD (gastroesophageal reflux disease)- Primary Esophageal reflux documented in this encounter Care Teams Throw Out Clerk Relationship Specialty Start Date End Date Jim Horn MD PCP - General 09/15/09 10/28/13 documented as of this encounter
--- OUTSIDE RECORDS SUMMARY | 2024-08-19 16:28 | XMS_ITS | Encounter Summary ---
Author Organization [facility] Address [address] [place] [address] Care Team Providers Care Padding Machine Operator Name Role Phone Jim Horn MD Primary Care Provider Unavailabl e Encounter Details Date Type Department Care Team (Late st Contact Info) Description 08/20/2004 Orders Only [facility] [address] [place], [place] [id number] ProviderKatja MD Social History Tobacco Use Types Packs/Day Years Used Date Smoking Tobacco: Never Assessed Sex and Gender Information Value Date Recorded Sex Assigned at Not on file Gender Identity Not on file Sexual Orientation Not on file documented as of this encounter Plan of Treatment Not on file documented as of this encounter Procedures Procedure Name Priority Date/Time Associated Diagnosis Comments GROSS + MICRO EXAM ANGELINA 08/20/2004 5: 12 PM POULTRY VACCINATOR documented in this encounter Results * GROSS + MICRO EXAM (08/20/2004 5:12 PM POULTRY VACCINATOR) Result CASE NUMBER [id number] Comment: ORDERING PHYSICIAN ??JENNIFER ALMONTE SPECIMEN TYPE ?Cyst-cyst on back Date ? 08/20/2004 Physician ?Ivan Almonte Description ? The specimen is received in a formalin-filled container labeled with the patient's name and cyst on back . ??It consists of an ellipse of white skin and subcutaneous tissue measuring 1.5 x 0.8 x 1.1 cm. ??The ellipse of white skin measures 1.5 x 0.5 cm. ??The surgical margin is inked black. ??The specimen is serially sectioned and the cut surface is remarkable for white fibrous tissue. ??The entire specimen is submitted in one cassette. CF/bk Microscopic Exam ? Sections show skin with a scar in the dermis which shows fibrosis in the center and scattered chronic inflammatory cells at the periphery. ??There is no evidence of malignancy seen. MC/bk Diagnosis ? I. ?Skin, back, biopsy -- ?Scar. MC/bk Curtain Drier ? bk Pathologist ?Kranthi Zarate M.D. [place]. ?08/21/2004 1149 <1> CPT code ? 12051 MISCELLANEOUS SAMPLES / Unknown 08/20/2004 5:12 PM POULTRY VACCINATOR 08/20/2004 5:12 PM POULTRY VACCINATOR Historical Provider LAB - PATHOLOGY/C YTOLOGY ORDERABLES documented in this encounter Visit Diagnoses Not on filedocumented in this encounter Care Teams Padding Machine Operator Relationship Specialty Start Date End Date Jim Horn MD PCP - General 09/15/09 10/28/13 documented as of this encounter
--- OUTSIDE RECORDS SUMMARY | 2024-08-19 16:28 | XMS_ITS | Encounter Summary ---
Author Organization [facility] Address [address] [place] [address] Care Team Providers Care Digital Production Artist Name Role Phone Jim Horn MD Primary Care Provider Unavailabl e Reason for Visit * Reason Onset Date Comments Refill Request 08/20/2013 Encounter Details Date Type Department Care Team (Late st Contact Info) Description 08/20/2013 Telephone [facility] - Internal Medicine [address] [place] [phone] Jim Horn MD Updated address needed Refill Request Social History Tobacco Use Types Packs/Day Years [...] on filedocumented in this encounter Care Teams Digital Production Artist Relationship Specialty Start Date End Date Jim Horn MD PCP - General 09/15/09 10/28/13 documented as of this encounter
--- OUTSIDE RECORDS SUMMARY | 2024-08-19 16:28 | XMS_ITS | Encounter Summary ---
Author Organization [facility] Address [address] [place] [address] Care Team Providers Care Photography Assistant Name Role Phone Jim Horn MD Primary Care Provider Unavailabl e Reason for Visit * Reason Comments Hypertension Hyperlipidemia Encounter Details Date Type Department Care Team (Latest Contact Info) Description 06/13/2012 9:40 AM IT PROJECT MANAGER Office Visit [facility] - Internal Medicine [address] [place] [phone] Jim Horn MD Updated address needed Hyperglycemia (Primary Dx); HTN (hypertension); HLD (hyperlipidemia); GERD (gastroesophageal reflux disease) Social History Tobacco Use Types Packs/Day Years [...] on file documented as of this encounter Last Filed Vital Signs Vital Sign Reading Time Taken Comments Blood Pressure 124/74 06/13/2012 9:45 AM IT PROJECT MANAGER Pulse 70 06/13/2012 9:45 AM IT PROJECT MANAGER Temperature - - Respiratory Rate 14 06/13/2012 9:45 AM IT PROJECT MANAGER Oxygen Saturation - - Inhaled Oxygen Concentration - - Weight 88 kg (194 lb) 06/13/2012 9:45 AM IT PROJECT MANAGER Height 177.8 cm (5' 10 ) 06/13/2012 9:45 AM IT PROJECT MANAGER Body Mass Index 27.84 06/13/2012 9:45 AM IT PROJECT MANAGER documented in this encounter Progress Notes * Jim Horn MD - 06/13/2012 9:51 AM CST Wt Readings from Last 2 Encounters: 06/13/12 194 lb (87.998 kg) 02/15/12 209 lb (94.802 kg) Chief Complaint Patient presents with ??? Hypertension ??? Hyperlipidemia Body mass index is 27.84 kg/(m^2). HPI: Lost weight, did the right things and took care of business. Definitely feels better. 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 Balance exercises have helped. Doing better, and working on it ROS: General ROS: positive for - weight loss Psychological ROS: negative Respiratory ROS: no cough, shortness of breath, or wheezing Cardiovascular ROS: no chest pain or dyspnea on exertion Gastrointestinal ROS: no abdominal pain, change in bowel habits, or black or bloody stools Genito-Urinary ROS: no dysuria, trouble voiding, or hematuria Musculoskeletal ROS: positive for - still weak and painful Neurological ROS: no TIA or stroke symptoms . Current Outpatient Prescriptions on File Prior to Visit Medication Sig Dispense Refill ??? fluticasone propionate (FLONASE) 50 MCG/ACT nasal spray Tullos 1 Tullos into each nostril 2 timesdaily. 16 g 1 ??? fenofibrate (LOFIBRA) 160 MG tablet Take 1 Tab by mouth once daily. Take with largest meal of the day. 30 Tab 5 ??? kauguiwvir-zvcsjicox-wzon (EXFORGE HCT) 10-320-25 MG tablet Take 1 Tab by mouth once daily. 30 Tab 12 ??? aspirin 81 MG tablet Take 81 mg by mouth once daily. ??? omeprazole (PRILOSEC) 40 MG capsule Take 1 Cap by mouth daily before breakfast. 90 Cap 3 ??? MULTI VITAMIN MENS PO Take by mouth. ??? calcium polycarbophil (FIBERCON) 625 MG tablet Take 625 mg by mouth at bedtime. ??? diphenhydramine-APAP (sleep) (TYLENOL PM ES) 25-500 MG tablet Take 1 Tab by mouth nightly as needed for Insomnia. History Social History ??? Marital Status: Spouse Name: N/A Number of Children: N/A ??? Years of Education: N/A Occupational History ??? Not on file. Social History Main Topics ??? Smoking status: Former Smoker Types: Cigarettes ??? Smokeless tobacco: Never Used ??? Alcohol Use: Yes 3 beers a month ??? Drug Use: No ??? Sexually Active: Not on file Other Topics Concern ??? Seat Belt Yes ??? Blood Transfusions No ??? Weight Concern No ??? Use Of Firearms? No ??? 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 Victim Of Violence? No Social History Narrative ??? No narrative on file History Smoking status ??? Former Smoker ??? Types: Cigarettes Smokeless tobacco ??? Never Used GENERAL EXAMINATION: BP 124/74 Pulse 70 Resp 14 Wt 194 lb (87.998 kg) BMI 27.84 kg/m2 GENERAL: Alert and oriented, not is distress CARDIAC: normal rate, regular rhythm, normal S1, S2, no murmurs, rubs, clicks or gallops PULMONARY: breath sounds normal and symmetric; no rales or wheezes ABDOMEN: soft without mass, non-tender, with normal bowel sounds, no organomegaly, obese EXTREMITIES: no edema SKIN - no significant rash or bruising IMPRESSION: 1. Hyperglycemia 2. HTN (hypertension) 3. HLD (hyperlipidemia) 4. GERD (gastroesophageal reflux disease) Below numbers correlate to above diagnosis. Plan: Doing very well. Continue the same BP is good, HTN is good GERD is doing good. Will check labs before he comes back. No orders of the defined types were placed in this encounter. Patient Active Problem List Diagnoses ??? HTN (HYPERTENSION) ??? HLD (HYPERLIPIDEMIA) ??? GERD (Gastroesophageal Reflux Disease) PROJECT MANAGER documented in this encounter Plan of Treatment Not on file documented as of this encounter Procedures Procedure Name Priority Date/Time Associated Diagnosis Comments HEMOGLOBIN A1C Routine 09/05/2012 8:39 AM IT PROJECT MANAGER Hyperglycemia COMPREHENSIVE METABOLIC PANEL Routine 09/05/2012 8:39 AM IT PROJECT MANAGER HTN (hypertension) LIPID PROFILE Routine 09/05/2012 8:39 AM IT PROJECT MANAGER HTN (hypertension) HLD (hyperlipidemia) documented in this encounter Results * (ABNORMAL) HEMOGLOBIN A1C (09/05/2012 8:39 AM IT PROJECT MANAGER) Hemoglobin A1c 6.1(H) 4.8 - 5.6 % [facility] INSURANCE BILL Comment: ? . ? Increased risk for diabetes: 5.7 - 6.4 ? Diabetes: >6.4 ? Glycemic control for adults with diabetes: <7.0 Blood specimen (specimen) BLOOD SPECIMEN / Unknown 09/05/2012 8:39 AM IT PROJECT MANAGER 09/05/2012 12:42 PM IT PROJECT MANAGER Narrative Resulting Agency Comment [facility] [place] [address] [place] [address] ??[facility] [phone] Jim Horn MD LAB - CHEMISTRY NELLY ARSHAD [facility] INSURANCE BILL * (ABNORMAL) COMPREHENSIVE METABOLIC PANEL (09/05/2012 8:39 AM IT PROJECT MANAGER) Glucose 101(H) 65 - 99 mg/dL [facility] INSURANCE BILL BUN 27 8 - 27 mg/dL [facility] INSURANCE BILL Creatinine 1.28(H) 0.76 - 1.27 mg/dL [facility] INSURANCE BILL eGFR by MDRD 54(L) >59 mL/min/1.7 3 [facility] INSURANCE BILL eGFR by MDRD 62 >59 mL/min/1.7 3 [facility] INSURANCE BILL BUN/Creatinine Ratio 21 10 - 22 [facility] INSURANCE BILL Sodium 143 134 - 144 mmol/L [facility] INSURANCE BILL Potassium 4.3 3.5 - 5.2 mmol/L [facility] INSURANCE BILL Chloride 105 97 - 108 mmol/L [facility] INSURANCE BILL CO2 23 20 - 32 mmol/L [facility] INSURANCE BILL Calcium 10.4(H) 8.6 - 10.2 mg/dL [facility] INSURANCE BILL Protein Total 7.2 6.0 - 8.5 g/dL [facility] INSURANCE BILL Albumin 4.6 3.5 - 4.8 g/dL [facility] INSURANCE BILL Globulin Total 2.6 1.5 - 4.5 g/dL [facility] INSURANCE BILL Albumin/Globulin Ratio 1.8 1.1 - 2.5 [facility] INSURANCE BILL Bilirubin Total 0.4 0.0 - 1.2 mg/dL [facility] INSURANCE BILL Alkaline Phosphatase 39 25 - 160 IU/L [facility] INSURANCE BILL AST 14 0 - 40 IU/L [facility] INSURANCE BILL ALT 12 0 - 44 IU/L [facility] INSURANCE BILL Blood specimen (specimen) BLOOD SPECIMEN / Unknown 09/05/2012 8:39 AM IT PROJECT MANAGER 09/05/2012 12:42 PM IT PROJECT MANAGER Narrative Resulting Agency Comment [facility] [address] ??[facility] [phone] Jim Horn MD LAB - CHEMISTRY NELLY ARSHAD Performing Organization Address City/[facility] Co de Phone Number [facility] INSURANCE BILL * (ABNORMAL) LIPID PROFILE (09/05/2012 8:39 AM IT PROJECT MANAGER) Cholesterol 190 100 - 199 mg/dL [facility] INSURANCE BILL Triglycerides 80 0 - 149 mg/dL [facility] INSURANCE BILL HDL Cholesterol 45 >39 mg/dL [facility] INSURANCE BILL Comment: According to ATP-III Guidelines, HDL-C >59 mg/dL is considered a negative risk factor for CHD. VLDL Calculated 16 5 - 40 mg/dL [facility] INSURANCE BILL LDL Calculated 129(H) 0 - 99 mg/dL [facility] INSURANCE BILL Blood specimen (specimen) BLOOD SPECIMEN / Unknown 09/05/2012 8:39 AM IT PROJECT MANAGER 09/05/2012 12:42 PM IT PROJECT MANAGER Narrative Resulting Agency Comment [facility] [place] [id number] ??[facility] [phone] Jim Horn MD LAB - CHEMISTRY NELLY ARSHAD [facility] INSURANCE BILL documented in this encounter Visit Diagnoses Diagnosis Hyperglycemia- Primary Other abnormal glucose HTN (hypertension) Unspecified essential hypertension HLD (hyperlipidemia) Other and unspecified hyperlipidemia GERD (gastroesophageal reflux disease) Esophageal reflux documented in this encounter Care Teams Photography Assistant Relationship Specialty Start Date End Date Jim Horn MD PCP - General 09/15/09 10/28/13 documented as of this encounter
--- OUTSIDE RECORDS SUMMARY | 2024-08-19 16:28 | XMS_ITS | Encounter Summary ---
Author Organization [facility] Address [address] [facility] [place] [address] Care Team Providers Care Sales Operations Associate Name Role Phone Jim Horn MD Primary Care Provider Unavailabl e Reason for Visit * Reason Onset Date Comments MEDICATION REFILL 01/31/2012 Encounter Details Date Type Department Care Team (Late st Contact Info) Description 01/31/2012 Refill [facility] - Internal Medicine [address] [place] [phone] Jim Horn MD Updated address needed MEDICATION [...] as of this encounter Visit Diagnoses Diagnosis HTN (hypertension) Unspecified essential hypertension HLD (hyperlipidemia) Other and unspecified hyperlipidemia DM (diabetes mellitus) (HCC) Type II or unspecified type diabetes mellitus without mention of complication, not stated as uncontrolled GERD (gastroesophageal reflux disease) Esophageal reflux BPH (benign prostatic hyperplasia) Unspecified hyperplasia of prostate without urinary obstruction and other lower urinary tract symptoms (LUTS) Prostate cancer screening Special screening for malignant neoplasm of prostate documented in this encounter Care Teams Sales Operations Associate Relationship Specialty Start Date End Date Jim Horn MD PCP - General 09/15/09 10/28/13 documented as of this encounter
--- OUTSIDE RECORDS SUMMARY | 2024-08-19 16:28 | XMS_ITS | Encounter Summary ---
Author Organization [facility] Address [address] [place] [address] Care Team Providers Care Medical Billing Manager Name Role Phone Jim Horn MD Primary Care Provider Unavailabl e Reason for Visit * Reason Comments Follow-up DM, HTN, Hyperlipide penelope, GERD Encounter Details Date Type Department Care Team (Late st Contact Info) Description 03/23/2011 9:00 AM CDT Office Visit [facility] Medical [facility] - Internal Medicine [facility] [address] [phone] Jim oHrn MD Updated address needed Benign hypertension with CKD (chronic kidney disease), stage II (Primary Dx); Insulin resistance; HLD (hyperlipidemia); GERD (gastroesophageal reflux disease) Social [...] Sign Reading Time Taken Comments Blood Pressure - - Pulse - - Temperature - - Respiratory Rate - - Oxygen Saturation - - Inhaled Oxygen Concentration - - Weight 95 kg (209 lb 8 oz) 03/23/2011 8:55 AM CD T Height 176.5 cm (5' 9.5 ) 03/23/2011 8:55 AM CDT Body Mass Index 30.49 03/23/2011 8:55 AM CDT documented in this encounter Progress Notes * Jim Horn MD - 03/23/2011 9:08 AM CDT Wt Readings from Last 2 Encounters: 03/23/11 209 lb 8 oz (95.029 kg) 11/17/10 209 lb (94.802 kg) Chief Complaint Patient presents with ??? Follow-up DM, HTN, Hyperlipidemia, GERD HPI: 1) HTN - bp, no ambulatory, does go up and flush 2) Prostate - no trouble with urination 3) Formed and on and off, go again; Good. Bowel habits are good 4) Gas up the area, no other issues. ROS: General ROS: positive for - fatigue Psychological ROS: negative Respiratory ROS: no cough, shortness of breath, or wheezing Cardiovascular ROS: no chest pain or dyspnea on exertion Gastrointestinal ROS: no abdominal pain, change in bowel habits, or black or bloody stools Genito-Urinary ROS: positive for - change in urinary stream Musculoskeletal ROS: positive for - gait disturbance Neurological ROS: no TIA or stroke symptoms . Current Outpatient Prescriptions on File Prior to Visit Medication Sig Dispense Refill ??? aadfufqtos-pmgwhdxmg-ymbc (EXFORGE HCT) 10-320-25 MG tablet Take 1 Tab by mouth daily. 30 12 ??? fish oil/omega-3 fatty acids (PROMEGA;CARDI-OMEGA 3) 1000 MG capsule Take 1 Cap by mouth 3 times daily with meals. 0 ??? fenofibrate (LOFIBRA) 160 MG tablet Take 1 Tab by mouth daily. Take with largest meal of the day. 30 Tab 5 ??? omeprazole (PRILOSEC) 40 MG capsule Take [...] Social History Main Topics ??? Smoking status: Never Smoker ??? Smokeless tobacco: Not on file ??? Alcohol Use: No ??? Drug Use: No ??? Sexually Active: Other Topics Concern ??? Seat Belt Yes ??? Blood Transfusions No ??? Weight Concern No ??? Use Of Firearms? No ??? 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 Victim Of Violence? No Social History Narrative ??? No narrative on file Diet/Exercise/ADL: 3 times a week, 1 thousand yards. No tob, some ETOH. GENERAL EXAMINATION: Wt 209 lb 8 oz (95.029 kg) BMI 30.49 kg/m2 GENERAL: Alert and oriented, not is distress CARDIAC: normal rate, regular rhythm, normal S1, S2, no murmurs, rubs, clicks or gallops PULMONARY: breath sounds normal and symmetric; no rales or wheezes ABDOMEN: soft without mass, non-tender, with normal bowel sounds, no organomegaly EXTREMITIES: no edema SKIN - no significant rash or bruising IMPRESSION/PLAN: 1. Hyperglycemia - well overall 2. HTN - under control 3. Hyperlipidemia - well overall, doing okay 4. OA - shoulders and knees, okay, lesser carbohydrates 5. Increased PSA - will continue to follow up with CMP, PSA No orders of the defined types were placed in this encounter. Patient Active Problem List Diagnoses ??? DM (Diabetes Mellitus) ??? HTN (HYPERTENSION) ??? HLD (HYPERLIPIDEMIA) ??? GERD (Gastroesophageal Reflux Disease) documented in this encounter Plan of Treatment Not on file documented as of this encounter Visit Diagnoses Diagnosis Benign hypertension with CKD (chronic kidney disease), stage II- Primary Benign hypertensive kidney disease with chronic kidney disease stage I through stage IV, or unspecified Insulin resistance Other abnormal glucose HLD (hyperlipidemia) Other and unspecified hyperlipidemia GERD (gastroesophageal reflux disease) Esophageal reflux documented in this encounter Care Teams Medical Billing Manager Relationship Specialty Start Date End Date Jim Horn MD PCP - General 09/15/09 10/28/13 documented as of this encounter
--- OUTSIDE RECORDS SUMMARY | 2024-08-19 16:28 | XMS_ITS | Encounter Summary ---
Author Organization [facility] Address [address] [facility] [place] [address] Care Team Providers Care Chemical Engineering Technologist Name Role Phone Hillary Horn MD Primary Care Provider Unavailabl e Reason for Visit * Reason Onset Date Comments MEDICATION REFILL 04/14/2011 Encounter Details Date Type Department Care Team (Late st Contact Info) Description 04/14/2011 Refill [facility] - Internal Medicine [address] [place] [phone] Hillary Horn MD Updated address needed MEDICATION REFILL Social History Tobacco Use Types Packs/Day Years Used Date Smoking Tobacco: Never Alcohol Use Standard Drinks/Week Comments No 0 (1 standard drink = 0.6 oz pur e alcohol) Sex and Gender Information Value Date Recorded Sex Assigned at Not on file Gender Identity Not on file Sexual Orientation Not on file documented as of this encounter Miscellaneous Notes * Telephone Encounter - Tara Wu - 04/14/2011 10:53 AM CDT Requested Prescriptions Signed Prescriptions Disp Refills ??? fenofibrate (LOFIBRA) 160 MG tablet 30 Tab 5 Sig: Take 1 Tab by mouth once daily. Take with largest meal of the day. Authorizing Provider: HILLARY HORN Ordering User: TARA WU Last OV 03-23-11. Next OV 06-29-11. documented in this encounter Plan of Treatment Not on file documented as of this encounter Visit Diagnoses Not on filedocumented in this encounter Care Teams Chemical Engineering Technologist Relationship Specialty Start Date End Date Hillary Horn MD PCP - General 09/15/09 10/28/13 documented as of this encounter
--- OUTSIDE RECORDS SUMMARY | 2024-08-19 16:28 | XMS_ITS | Encounter Summary ---
Author Organization [facility] Address [address] [facility] [place] [address] Care Team Providers Care Patent Solicitor Name Role Phone Jim Horn MD Primary Care Provider Unavailabl e Reason for Visit * Reason Onset Date Comments Medication Problem 08/24/2010 Encounter Details Date Type Department Care Team (Late st Contact Info) Description 08/24/2010 Telephone [facility] Medical [facility] - Internal Medicine [address] [place] [phone] Jim Horn MD Updated address needed Medication Problem Social History Tobacco Use Types Packs/Day Years Used Date Smoking Tobacco: Never Alcohol Use Standard Drinks/Week Comments No 0 (1 standard drink = 0.6 oz pur e alcohol) Sex and Gender Information Value Date Recorded Sex Assigned at Not on file Gender Identity Not on file Sexual Orientation Not on file documented as of this encounter Miscellaneous Notes * Telephone Encounter - Tara Persaud - 09/30/2010 9:35 AM CST Form faxed to [employer] for prior auth amlodipine/valsartan/hctz 10-320-25 @ . ORTER * Telephone Encounter - Audra Patterson - 09/28/2010 5:20 PM CST Open Encounter. ORTER * Telephone Encounter - Tara Persaud - 08/31/2010 12:02 PM CST Spoke with [employer] re: formulary exception form. Will fax today. ORTER * Telephone Encounter - Tara Persaud - 08/24/2010 9:34 AM CST Pt's calling. Pt was rcv'g help from [employer] last yr for amlodipine/valsatan/hctz -this program was only 1 yr long. Would like us to call for clinical review & new form to be filled out by us. ORTER * Telephone Encounter - Ravindra Weber LPN - 08/24/2010 9:15 AM SUBSORTER Tara please call ORTER documented in this encounter Plan of Treatment Not on file documented as of this encounter Visit Diagnoses Not on filedocumented in this encounter Care Teams Patent Solicitor Relationship Specialty Start Date End Date Jim Horn MD PCP - General 09/15/09 10/28/13 documented as of this encounter
--- OUTSIDE RECORDS SUMMARY | 2024-08-19 16:28 | XMS_ITS | Encounter Summary ---
Author Organization [facility] Address [address] [facility] [place] [address] Care Team Providers Care Tire Debeader Name Role Phone Jim Horn MD Primary Care Provider Unavailabl e Reason for Visit * Reason Comments Hypertension Hyperlipidemia Encounter Details Date Type Department Care Team (Late st Contact Info) Description 09/12/2012 10:00 AM TEACHER VISUALLY IMPAIRED Office Visit [facility] - Internal Medicine [address] [place] [phone] Jim Horn MD Updated address needed HTN (hypertension) (Primary Dx); HLD (hyperlipidemia); GERD (gastroesophageal reflux disease) Social [...] Sign Reading Time Taken Comments Blood Pressure 135/85 09/12/2012 9:38 AM TEACHER VISUALLY IMPAIRED Pulse - - Temperature - - Respiratory Rate - - Oxygen Saturation - - Inhaled Oxygen Concentration - - Weight 89.7 kg (197 lb 11.2 oz) 09/12/2012 9:38 AM TEACHER VISUALLY IMPAIRED Height 177.8 cm (5' 10 ) 09/12/2012 9:38 AM TEACHER VISUALLY IMPAIRED Body Mass Index 28.37 09/12/2012 9:38 AM TEACHER VISUALLY IMPAIRED documented in this encounter Progress Notes * Jim Horn MD - 09/13/2012 9:39 PM CST I examined the patient independantly from the resident. I have reviewed the labs and notes that arepertinent to the patient. I have discussed the plan with the patient and/or family. I have discussed the case with the resident and ask the you refer to their notes for details of the plan formulatedtogether.. After review of their notes and our discussion, if there are any additions, they will follow. BP 135/85 Wt 197 lb 11.2 oz (89.676 kg) BMI 28.37 kg/m2 Thumb is better. BP is stable No edema noted 1. HTN (hypertension) 2. HLD (hyperlipidemia) 3. GERD (gastroesophageal reflux disease) BP/HLD/GERD are stable Doing great. MSK issues are the same. Continue current and try to lose weight. No orders of the defined types were placed in this encounter. HER VISUALLY IMPAIRED * Ellen Pack MD - 09/12/2012 9:45 AM CST Wt Readings from Last 2 Encounters: 09/12/12 89.676 kg (197 lb 11.2 oz) 08/15/12 87.952 kg (193 lb 14.4 oz) Chief Complaint Patient presents with ??? Hypertension ??? Hyperlipidemia Body mass index is 28.37 kg/(m^2). HPI: - thumb has been better since last visit - swims twice a week at the [facility] - has balance problems ROS: General ROS: negative for - chills or fever Respiratory ROS: no cough, shortness of breath, or wheezing Cardiovascular ROS: no chest pain or dyspnea on exertion Gastrointestinal ROS: no abdominal pain, change in bowel habits, or black or bloody stools Genito-Urinary ROS: positive for hesitancy, no dysuria, trouble voiding, or hematuria Musculoskeletal ROS: positive for - joint pain in MCP, history of bilateral knee replacement Neurological ROS: positive for - impaired coordination/balance . Current Outpatient Prescriptions on File Prior to Visit Medication Sig Dispense Refill ??? fluticasone propionate (FLONASE) 50 MCG/ACT nasal spray Hagaman 1 Hagaman into each nostril 2 timesdaily. 16 g 1 ??? fenofibrate (LOFIBRA) 160 MG tablet Take 1 Tab by mouth once daily. Take with largest meal of the day. 30 Tab 5 ??? kuhbzmezxj-cgtfkzswt-kqxc (EXFORGE HCT) 10-320-25 MG tablet Take 1 [...] tobacco ??? Never Used GENERAL EXAMINATION: BP 135/85 Wt 89.676 kg (197 lb 11.2 oz) BMI 28.37 kg/m2 GENERAL: Alert and oriented, not is distress CARDIAC: normal rate, regular rhythm, normal S1, S2, no murmurs, rubs, clicks or gallops PULMONARY: breath sounds normal and symmetric; no rales or wheezes ABDOMEN: soft without mass, non-tender, with normal bowel sounds, no organomegaly EXTREMITIES: no edema SKIN - no significant rash or bruising Impression and Plan: 1. HTN - well controlled 2. HLD - on fenofibrate 3. GERD - on omeprazole Continue current management No diagnosis found. Below numbers correlate to above diagnosis. No orders of the defined types were placed in this encounter. Patient Active Problem List Diagnoses ??? HTN (HYPERTENSION) ??? HLD (HYPERLIPIDEMIA) ??? GERD (Gastroesophageal Reflux Disease) HER VISUALLY IMPAIRED documented in this encounter Plan of Treatment Not on file documented as of this encounter Visit Diagnoses Diagnosis HTN (hypertension)- Primary Unspecified essential hypertension HLD (hyperlipidemia) Other and unspecified hyperlipidemia GERD (gastroesophageal reflux disease) Esophageal reflux documented in this encounter Care Teams Tire Debeader Relationship Specialty Start Date End Date Jim Horn MD PCP - General 09/15/09 10/28/13 documented as of this encounter
--- OUTSIDE RECORDS SUMMARY | 2024-08-19 16:28 | XMS_ITS | Patient Health Summary ---
Author Organization [facility] Address [address] [place] [address] Care Team Providers Care Car Driver Name Role Phone Robert Iverson MD Primary Care Provider [phone] Note from [facility],non-owned Affiliates and Associated Physician Practices is amultiple site organization consisting of ambulatory clinics and hospital sitesin [place], [place], [place] and [place]. This disclosure is being madepursuant to the Care Everywhere program and may not contain all information available regarding this patient. Last updated 18.[facility] Allergies * Jc Inhibitors * Penicillins * Hmg-Coa-R Inhibitors(Myalgias) -Low Criticality * Tetanus Antitoxin Medications * Be aware that medications may not be up to date on this document. Alwaysverify current medications with the patient. * MULTI VITAMIN MENS PO Take by mouth. * calcium polycarbophil (FIBERCON) 625 MG tablet Take 625 mg by mouth at bedtime. * diphenhydramine-APAP (sleep) (TYLENOL PM ES) 25-500 MG tablet Take 1 Tab by mouth nightly as needed for Insomnia. * omeprazole (PRILOSEC) 40 MG capsule(Started 07/21/2010) Take 1 Cap by mouth daily before breakfast. 3 refills left * aspirin 81 MG tablet Take 81 mg by mouth once daily. * fluticasone propionate (FLONASE) 50 MCG/ACT nasal spray(Started 05/16/2012) Temple 1 Temple into each nostril 2 times daily. 1 refill left * xtcyhoggie-vcphjmrer-febm (EXFORGE HCT) 10-320-25 MG tablet(Started 02/23/2013) Take 1 Tab by mouth once daily. 12 refills left * fenofibrate (LOFIBRA) 160 MG tablet(Started 04/04/2014) TAKE ONE TABLET BY MOUTH ONCE DAILY WITH LARGEST MEAL OF THE DAY Active Problems Problem Noted Date Diagnosed Date Pain in joint, multiple sites 01/16/2013 HTN (hypertension) HLD (hyperlipidemia) GERD (gastroesophageal reflux disease) Pre-diabetes Resolved Problems Problem Noted Date Diagnosed Date Resolved Date DM (diabetes mellitus) 03/23 Immunizations * INFLUENZA VACCINE, TRIV. (AFLURIA, FLUZONE TRIVALENT; 6MO+) (IIV3)(Given 04/24/2013) * INFLUENZA VACCINE(Given 06/01/2012) * PNEUMOCOCCAL PPSV23(Given 08/08/2006) * ZOSTER VACCINE, LIVE(Given 08/12/2010) Social History Tobacco Use Types Packs/Day Years [...] Mass Index 28.12 04/24/2013 9:49 AM CDT Procedures * HEMOGLOBIN A1C(Performed 04/10/2013) Performed for Pre-diabetes * COMPREHENSIVE METABOLIC PANEL(Performed 04/10/2013) Performed for HTN (hypertension) * HEMOGLOBIN A1C(Performed 09/05/2012) Performed for Hyperglycemia * COMPREHENSIVE METABOLIC PANEL(Performed 09/05/2012) Performed for HTN (hypertension) * LIPID PROFILE(Performed 09/05/2012) Performed for HTN (hypertension), HLD (hyperlipidemia) * CBC W AUTO DIFFERENTIAL(Performed 02/08/2012) Performed for HLD (hyperlipidemia) * COMPREHENSIVE METABOLIC PANEL(Performed 02/08/2012) Performed for HLD (hyperlipidemia) * LIPID PROFILE(Performed 02/08/2012) Performed for HLD (hyperlipidemia) * ENDOSCOPY, COLON, SCREENING(Performed 08/03/2011) * GROSS + MICRO EXAM(Performed 08/03/2011) * GROSS + MICRO EXAM(Performed 08/03/2011) * PROSTATE SPECIFIC ANTIGEN SCREEN(Performed 03/16/2011) Performed for Elevated PSA * HEMOGLOBIN A1C(Performed 03/16/2011) Performed for DM (diabetes mellitus) (HCC) * COMPREHENSIVE METABOLIC PANEL(Performed 03/16/2011) Performed for HTN (hypertension), GERD (gastroesophageal reflux disease) * LIPID PROFILE W LDL/HDL RATIO(Performed 03/16/2011) Performed for HLD (hyperlipidemia) * MICROALB/CREAT RATIO URINE RANDOM PANEL(Performed 11/10/2010) Performed for DM (diabetes mellitus) (HCC), HTN (hypertension), HLD (hyperlipidemia), GERD (gastroesophageal reflux disease) * HEMOGLOBIN A1C(Performed 11/10/2010) Performed for DM (diabetes mellitus) (HCC), HTN (hypertension), HLD (hyperlipidemia), GERD (gastroesophageal reflux disease) * COMPREHENSIVE METABOLIC PANEL(Performed 11/10/2010) Performed for DM (diabetes mellitus) (HCC), HTN (hypertension), HLD (hyperlipidemia), GERD (gastroesophageal reflux disease) * LIPID PROFILE(Performed 11/10/2010) Performed for DM (diabetes mellitus) (HCC), HTN (hypertension), HLD (hyperlipidemia), GERD (gastroesophageal reflux disease) * HEMOGLOBIN A1C(Performed 03/24/2010) * PROSTATE SPECIFIC ANTIGEN SCREEN(Performed 03/24/2010) * COMPREHENSIVE METABOLIC PANEL(Performed 03/24/2010) * LIPID PROFILE(Performed 03/24/2010) * HEMOGLOBIN A1C(Performed 09/09/2009) * CBC W AUTO DIFFERENTIAL(Performed 09/09/2009) * COMPREHENSIVE METABOLIC PANEL(Performed 09/09/2009) * LIPID PROFILE(Performed 09/09/2009) * CBC W AUTO DIFFERENTIAL(Performed 03/11/2009) * COMPREHENSIVE METABOLIC PANEL(Performed 03/11/2009) * LIPID PROFILE(Performed 03/11/2009) * PT-INR(Performed 06/18/2008) * COMPREHENSIVE METABOLIC PANEL(Performed 06/18/2008) * CBC W AUTO DIFFERENTIAL(Performed 06/18/2008) * GROSS + MICRO EXAM(Performed 08/20/2004) Results * (ABNORMAL) HEMOGLOBIN A1C (04/10/2013 8:14 AM CDT) Only the most recent of6 resultswithin the time period is included. Hemoglobin A1c 6.0(H) 4.8 - 5.6 % [facility] INSURANCE BILL Comment: ? . ? Increased risk for diabetes: 5.7 - 6.4 ? Diabetes: >6.4 ? Glycemic control for adults with diabetes: <7.0 Whole blood specimen (specimen) BLOOD SPECIMEN / Unknown 04/10/2013 8:14 AM CDT 04/10/2013 12:51 PM CDT Narrative Resulting Agency Comment [facility] [address] ??[facility] [phone] Jim Horn MD LAB - CHEMISTRY NELLY ARSHAD [facility] Organization Address City/State/ZIP Co de Phone Number [facility] INSURANCE BILL * (ABNORMAL) COMPREHENSIVE METABOLIC PANEL (04/10/2013 8:14 AM CDT) Only the most recent of9 resultswithin the time period is included. Glucose 111(H) 65 - 99 mg/dL [facility] INSURANCE BILL BUN 30(H) 8 - 27 mg/dL [facility] INSURANCE BILL Creatinine 1.20 0.76 - 1.27 mg/dL [facility] INSURANCE BILL eGFR by MDRD 58(L) >59 mL/min/1.7 3 [facility] INSURANCE BILL eGFR by MDRD 67 >59 mL/min/1.7 3 [facility] INSURANCE BILL BUN/Creatinine Ratio 25(H) 10 - 22 [facility] INSURANCE BILL Sodium 141 134 - 144 mmol/L [facility] INSURANCE BILL Potassium 4.3 3.5 - 5.2 mmol/L [facility] INSURANCE BILL Chloride 104 97 - 108 mmol/L [facility] INSURANCE BILL CO2 22 19 - 28 mmol/L [facility] INSURANCE BILL Calcium 10.1 8.6 - 10.2 mg/dL [facility] INSURANCE BILL Protein Total 7.0 6.0 - 8.5 g/dL [facility] INSURANCE BILL Albumin 4.5 3.5 - 4.8 g/dL [facility] INSURANCE BILL Globulin Total 2.5 1.5 - 4.5 g/dL [facility] INSURANCE BILL Albumin/Globulin Ratio 1.8 1.1 - 2.5 [facility] INSURANCE BILL Bilirubin Total 0.4 0.0 - 1.2 mg/dL [facility] INSURANCE BILL Alkaline Phosphatase 36(L) 44 - 105 IU/L [facility] INSURANCE BILL AST 14 0 - 40 IU/L [facility] INSURANCE BILL ALT 10 0 - 44 IU/L [facility] INSURANCE BILL Blood specimen (specimen) BLOOD SPECIMEN / Unknown 04/10/2013 8:14 AM CDT 04/10/2013 12:51 PM CDT Narrative Resulting Agency Comment [email or web address] ??[facility] [phone] Jim Horn MD LAB - CHEMISTRY NELLY ARSHAD [facility] INSURANCE BILL * (ABNORMAL) LIPID PROFILE (09/05/2012 8:39 AM NURSE ANESTHETIST) Only the most recent of6 resultswithin the time period is included. Cholesterol 190 100 - 199 mg/dL [facility] INSURANCE BILL Triglycerides 80 0 - 149 mg/dL [facility] INSURANCE BILL HDL Cholesterol 45 >39 mg/dL [facility] INSURANCE BILL Comment: According to ATP-III Guidelines, HDL-C >59 mg/dL is considered a negative risk factor for CHD. VLDL Calculated 16 5 - 40 mg/dL [facility] INSURANCE BILL LDL Calculated 129(H) 0 - 99 mg/dL [facility] INSURANCE BILL Blood specimen (specimen) BLOOD SPECIMEN / Unknown 09/05/2012 8:39 AM NURSE ANESTHETIST 09/05/2012 12:42 PM NURSE ANESTHETIST Narrative Resulting Agency Comment [email or web address] [place], [place] [address] ??[facility] [phone] Jim Horn MD LAB - CHEMISTRY NELLY ARSHAD [facility] INSURANCE BILL * CBC W AUTO DIFFERENTIAL (02/08/2012 8:32 AM CDT) Only the most recent of4 resultswithin the time period is included. WBC 6.1 4.0 - 10.5 x10E3/uL [facility] INSURANCE BILL RBC 5.31 4.14 - 5.80 x10E6/uL [facility] INSURANCE BILL Hemoglobin 14.3 12.6 - 17.7 g/dL [facility] INSURANCE BILL Hematocrit 44.3 37.5 - 51.0 % [facility] INSURANCE BILL MCV 83 79 - 97 fL [facility] INSURANCE BILL MCH 26.9 26.6 - 33.0 pg [facility] INSURANCE BILL MCHC 32.3 31.5 - 35.7 g/dL [facility] INSURANCE BILL RDW 13.8 12.3 - 15.4 % [facility] INSURANCE BILL Platelet Count 289 140 - 415 x10E3/uL [facility] INSURANCE BILL Granulocytes % 59 40 - 74 % [facility] INSURANCE BILL Lymphocytes % 25 14 - 46 % [facility] INSURANCE BILL Monocytes % 9 4 - 13 % [facility] INSURANCE BILL Eosinophils % 6 0 - 7 % [facility] INSURANCE BILL Basophils % 1 0 - 3 % [facility] INSURANCE BILL Immature Cells NOT NEEDED [facility] INSURANCE BILL Comment:Ancillary determined the test is not needed Granulocytes Absolute 3.6 1.8 - 7.8 x10E3/uL [facility] INSURANCE BILL Lymphocytes Absolute 1.5 0.7 - 4.5 x10E3/uL [facility] INSURANCE BILL Monocytes Absolute 0.5 0.1 - 1.0 x10E3/uL [facility] INSURANCE BILL Eosinophils Absolute 0.4 0.0 - 0.4 x10E3/uL [facility] INSURANCE BILL Basophils Absolute 0.0 0.0 - 0.2 x10E3/uL [facility] INSURANCE BILL Immature Granulocytes 0 0 - 2 % [facility] INSURANCE BILL Immature Granulocytes Absolute 0.0 0.0 - 0.1 x10E3/uL [facility] INSURANCE BILL nRBC NOT NEEDED [facility] INSURANCE BILL Comment:Ancillary determined the test is not needed Comment Hematology NOT NEEDED [facility] INSURANCE BILL Comment:Ancillary determined the test is not needed Blood specimen (specimen) BLOOD SPECIMEN / Unknown 02/08/2012 8:32 AM CDT 02/08/2012 12:43 PM CDT Narrative Resulting Agency Comment [facility] [place] [address] [place] [address] ??[place] [phone] Jim Horn MD LAB - HEMATOLOGY ORD ERABLES Performing Organization Address City/[facility] Co de Phone Number [facility] INSURANCE BILL * ENDOSCOPY, COLON, SCREENING (08/03/2011 10:33 AM NURSE ANESTHETIST) Narrative Transcriptions Danilo Walker MD - 08/03/2011 10:33 AM CST Danilo Walker MD GI PROCEDURE ORDERAB LES Performing Organization Address [facility] de Phone Number [facility] ENDOSCOPY * GROSS + MICRO EXAM (08/03/2011 12:00 AM NURSE ANESTHETIST) Only the most recent of3 resultswithin the time period is included. Result CASE NUMBER [id number] Comment: ORDERING PHYSICIAN ??DANILO WALKER SPECIMEN TYPE ?Colon Ascending Date ? 08/03/2011 Physician ?Danilo Walker Gross Description ? The specimen is received in two containers labeled with the patient's name Torie Hebert. The first container is labeled polyp splenic flexure. ??The specimen consists of two 1 mm fragments of vides tissue, stained and submitted in A. The second container is labeled polyp ascending colon. ??It consists of a 1 mm fragment of vides tissue, stained and submitted in B. LOURDES/vl Microscopic Exam ? Specimens #1 and 2 ?? Sections show fragments of colonic mucosa with features of tubular adenoma. ??High grade dysplasia or malignancy is not seen. mc/alj Diagnosis ? Specimen #1, splenic flexure, polyp, biopsy ? Tubular adenoma Specimen #2, ascending colon, polyp, biopsy ? Tubular adenoma Pantograph Setter ? alj Pathologist ?Edouard Zarate MD CPT code ? 07888 x2 MISCELLANEOUS SAMPLE S / Unknown 08/03/2011 08/03/2011 2:07 PM NURSE ANESTHETIST Historical Provider LAB - PATHOLOGY/C YTOLOGY ORDERABLES * (ABNORMAL) LIPID PROFILE W LDL/HDL (PO REF LAB) (03/16/2011 8:42 AM CDT) Cholesterol 197 100 - 199 mg/dL [facility] INSURANCE BILL Triglycerides 187(H) 0 - 149 mg/dL [facility] INSURANCE BILL HDL Cholesterol 33(L) >39 mg/dL [facility]ANCE B[facility] Comment: According to ATP-III Guidelines, HDL-C >59 mg/dL is considered a negative risk factor for CHD. VLDL Calculated 37 5 - 40 mg/dL [facility] INSURANCE BILL LDL Calculated 127(H) 0 - 99 mg/dL [facility] INSURANCE BILL LDL/HDL Ratio 3.8(H) 0.0 - 3.6 ratio units [facility] INSURANCE BILL BLOOD SPECIMEN / Unknown 03/16/2011 8:42 AM CDT 03/16/2011 6:15 PM CDT Narrative Resulting Agency Comment [facility] [place] [address] [facility] ??[facility] [phone] Jim Horn MD LAB - CHEMISTRY NELLY ARSHAD [facility] INSURANCE BILL * (ABNORMAL) PROSTATE SPECIFIC ANTIGEN SCREEN (03/16/2011 8:42 AM CDT) Only the most recent of2 resultswithin the time period is included. PSA 4.7(H) 0.0 - 4.0 ng/mL [facility] INSURANCE BILL Comment: Jhoana ECLIA methodology. ? . According to the [place] [employer], Serum PSA should decrease and remain at undetectable levels after radical prostatectomy. The AUA defines biochemical recurrence as an initial PSA value 0.2 ng/mL or greater followed by a subsequent confirmatory PSA value 0.2 ng/mL or greater. Values obtained with different assay methods or kits cannot be used interchangeably. Results cannot be interpreted as absolute evidence of the presence or absence of malignant disease. BLOOD SPECIMEN / Unknown 03/16/2011 8:42 AM CDT 03/16/2011 6:15 PM CDT Narrative Resulting Agency Comment [email or web address] [facility] ??[facility] [phone] Jim Horn MD LAB - CHEMISTRY ORDE PAVITHRA Performing Organization Address City/[facility]/ZIP Co de Phone Number [facility] INSURANCE BILL * MICROALB/CREAT RATIO URINE RANDOM PANEL (11/10/2010 9:21 AM CDT) Creatinine 24 Hour Urine 38.8 22.0 - 328.0 mg/dL [facility] INSURANCE BILL Microalbumin Urine <1.0 0.0 - 17.0 ug/mL [facility] INSURANCE BILL Microalbumin/Crea tinine Ratio <2.6 0.0 - 30.0 mg/g creat [facility] INSURANCE BILL URINE / Unknown 11/10/2010 9 :21 AM CDT 11/10/2010 8:45 PM CDT Narrative Resulting Agency Comment [facility] [place] [address] ??[facility] [phone] Jim Horn MD LAB - URINE CHEMISTR Y ORDERABLES [facility] INSURANCE BILL * PT-INR (06/18/2008 11:51 AM NURSE ANESTHETIST) INR 1.1 0.8 - 1.2 [facility] INSURANCE BILL Comment: ? Reference interval is for non-anticoagulated patients. ? . ? Suggested INR therapeutic range for Vitamin K ? antagonist therapy: ?Standard Dose (moderate intensity ?therapeutic range): ?2.0 - 3.0 ?Higher intensity therapeutic range ? 2.5 - 3.5 PT 10.7 8.7 - 11.5 sec [facility] INSURANCE BILL 06/18/2008 11:5 1 AM NURSE ANESTHETIST 06/18/2008 9:50 PM NURSE ANESTHETIST Narrative Resulting Agency Comment [facility] [address] ??[facility] [phone] Jim Horn MD LAB - COAGULATION OR DERABLES [facility] INSURANCE BILL Care Teams Car Driver Relationship Specialty Start Date End Date Robert Iverson MD [address] [place] [address] PCP - General 09/29/18
--- OUTSIDE RECORDS SUMMARY | 2024-08-19 16:28 | XMS_ITS | Encounter Summary ---
Author Organization [facility] Address [address] [place] [address] Care Team Providers Care Lmsw Name Role Phone Jim Horn MD Primary Care Provider Unavailabl e Reason for Visit * Reason Onset Date Comments MEDICATION REFILL 02/23/2013 Encounter Details Date Type Department Care Team (Late st Contact Info) Description 02/23/2013 Refill [facility] Medical [facility] - Internal Medicine [address] [place] [phone] Jim Horn MD Updated address needed MEDICATION [...] encounter Miscellaneous Notes * Telephone Encounter - Kiara Hester - 02/23/2013 10:22 AM CDT ceasar 6-11-13 fov 9--13 documented in this encounter Plan of Treatment [...] prostate documented in this encounter Care Teams Lmsw Relationship Specialty Start Date End Date Jim Horn MD PCP - General 09/15/09 10/28/13 documented as of this encounter
--- OUTSIDE RECORDS SUMMARY | 2024-08-19 16:28 | XMS_ITS | Encounter Summary ---
Author Organization [facility] Address [address] [facility] [place] [address] Care Team Providers Care Cinder Crane Operator Name Role Phone Unavailable Primary Care Provider Unavailabl e Encounter Details Date Type Department Care Team (Late st Contact Info) Description 03/11/[address] [facility] [address] Jim Horn MD Updated address needed Social History Tobacco Use Types Packs/Day Years Used Date Smoking Tobacco: Never Assessed Sex and Gender Information Value Date Recorded Sex Assigned at Not on file Gender Identity Not on file Sexual Orientation Not on file documented as of this encounter Plan of Treatment Not on file documented as of this encounter Procedures Procedure Name Priority Date/Time Associated Diagnosis Comments CBC W AUTO DIFFERENTIAL 03/11/2009 8:06 AM CDT COMPREHENSIVE METABOLIC PANEL 03/11/2009 8:06 AM CDT LIPID PROFILE 03/11/2009 8:06 AM CDT documented in this encounter Results * CBC W AUTO DIFFERENTIAL (03/11/2009 8:06 AM CDT) White Blood Cell Count 6.1 3.8 - 10.8 Thousand/u L [facility] RBC 5.40 4.20 - 5.80 Million/uL [facility] Hemoglobin 15.1 13.2 - 17.1 g/dL [facility] Hematocrit 45.6 38.5 - 50.0 % [facility] MCV 84.4 80.0 - 100.0 fL [facility] MCH 27.9 27.0 - 33.0 pg [facility] MCHC 33.1 32.0 - 36.0 g/dL [facility] RDW 13.5 11.0 - 15.0 % [facility] Platelet Count 204 140 - 400 Thousand/u L [facility] Neutrophil Absolute 3855 1500 - 7800 cells/uL [facility] Lymphocytes Absolute 1379 850 - 3900 cells/uL [facility] Absolute Monocytes 476 200 - 950 cells/uL [facility] Eosinophils Absolute 366 15 - 500 cells/uL [facility] Basophils Absolute 24 0 - 200 cells/uL [facility] Granulocytes % 63.2 % [facility] Lymphocytes % 22.6 % [facility] Monocytes % 7.8 % [facility] Eosinophils % 6.0 % [facility] Basophils % 0.4 % [facility] Comment: REPORT COMMENT: FASTING Test Performed at: [employer] [facility] ??[phone] EFRAIN LOZOYA MD 03/11/2009 8:06 AM CDT 03/12/2009 2:10 AM CDT Jim Horn MD LAB - HEMATOLOGY ORD ERABLES [facility] [address] [place] [address] * (ABNORMAL) COMPREHENSIVE METABOLIC PANEL (03/11/2009 8:06 AM CDT) [facility] Glucose 114(H) 65 - 99 mg/dL [facility] Comment:FASTING REFERENCE IN TERVAL BUN 16 7 - 25 mg/dL [facility] Creatinine 0.94 0.67 - 1.54 mg/dL [facility] eGFR by MDRD >60 > OR = 60 mL/min/1. 73m2 [facility] eGFR by MDRD >60 > OR = 60 mL/min/1. 73m2 [facility] BUN/Creatinine Ratio NOT APPLICABLE 6 - 22 (calc) [facility] Comment: BUN/CREATININE RATIO IS NOT REPORTED WHEN THE BUN AND CREATININE VALUES ARE WITHIN NORMAL LIMITS. Sodium 141 135 - 146 mmol/L [facility] Potassium 4.3 3.5 - 5.3 mmol/L [facility] Chloride 106 98 - 110 mmol/L [facility] CO2 20(L) 21 - 33 mmol/L [facility] Calcium 9.7 8.6 - 10.2 mg/dL [facility] Protein Total 7.8 6.2 - 8.3 g/dL [facility] Albumin 4.7 3.6 - 5.1 g/dL [facility] Globulin Total 3.1 2.1 - 3.7 g/dL (calc) [facility] Albumin/Globuli n Ratio 1.5 1.0 - 2.1 (calc) [facility] Bilirubin Total 0.6 0.2 - 1.2 mg/dL [facility] Alkaline Phosphatase 64 40 - 115 U/L [facility] AST 17 10 - 35 U/L [facility] ALT 18 9 - 60 U/L [facility] Comment: Test Performed at: [facility] [address] [place], [place] ??[phone] EFRAIN LOZOYA MD 03/11/2009 8:06 AM CDT 03/12/2009 2:10 AM CDT Jim Horn MD LAB - CHEMISTRY NELLY ARSHAD Performing Organization Address [facility] de Phone Number [facility] [address] [place] [address] * (ABNORMAL) LIPID PROFILE (03/11/2009 8:06 AM CDT) Cholesterol 210(H) 125 - 200 mg/dL [facility] Comment: Test Performed at: [facility] [place], [place] ??[phone] EFRAIN LOZOYA MD HDL Cholesterol 33(L) > OR = 40 mg/dL [facility] Triglycerides 231(H) <150 mg/dL [facility] LDL Calculated 131(H) <130 mg/dL (calc) [facility] Comment: DESIRABLE RANGE <100 MG/DL FOR PATIENTS WITH CHD OR DIABETES AND <70 MG/DL FOR DIABETIC PATIENTS WITH KNOWN HEART DISEASE. CHOL/HDLC RATIO 6.4(H) < OR = 5.0 (calc) [facility] 03/11/2009 8:06 AM CDT 03/12/2009 2:10 AM CDT Jim Horn MD LAB - CHEMISTRY NELLY ARSHAD Performing Organization Address [facility] de Phone Number [facility] [address] [place] [address] documented in this encounter Visit Diagnoses Not on filedocumented in this encounter
--- OUTSIDE RECORDS SUMMARY | 2024-08-19 16:28 | XMS_ITS | Encounter Summary ---
Author Organization [facility] Address [address] [facility] [place] [address] Care Team Providers Care Cyber Security Manager Name Role Phone Jim Horn MD Primary Care Provider Unavailabl e Reason for Visit * Reason Onset Date Comments MEDICATION REFILL 04/05/2013 Encounter Details Date Type Department Care Team (Late st Contact Info) Description 04/05/2013 Refill [facility] - Internal Medicine [address] [place] [phone] Jim Horn MD Updated address needed MEDICATION [...] encounter Miscellaneous Notes * Telephone Encounter - Cesilia Cardenas - 04/05/2013 4:46 PM CDT Requested Prescriptions Pending Prescriptions Disp Refills ??? fenofibrate (LOFIBRA) 160 MG tablet 30 Tab 5 Sig: Take 1 Tab by mouth once daily. Take with largest meal of the day. Last ov 01-16-13 Next ov 04-24-13 Last fill documented in this encounter Plan of Treatment Not on file documented as of this encounter Visit Diagnoses Not on filedocumented in this encounter Care Teams Cyber Security Manager Relationship Specialty Start Date End Date Jim Horn MD PCP - General 09/15/09 10/28/13 documented as of this encounter
--- OUTSIDE RECORDS SUMMARY | 2024-08-19 16:28 | XMS_ITS | Encounter Summary ---
Author Organization [facility] Address [address] [place] [address] Care Team Providers Care Biomass Facilitator Name Role Phone Jim Horn MD Primary Care Provider Unavailabl e Reason for Visit * Reason Onset Date Comments Insurance Issue/question 07/23/2013 Encounter Details Date Type Department Care Team (Late st Contact Info) Description 07/23/2013 Telephone [facility] Medical [facility] - Internal Medicine [facility] [phone] Jim Horn MD Updated address needed Insurance Issue/question Social History Tobacco Use Types Packs/Day Years [...] encounter Miscellaneous Notes * Telephone Encounter - Ravindra Weber LPN - 07/23/2013 2:11 PM MEDICAL ADVISOR Patient called, he would like for you to call him . He is changing insurance and would like to giveyou his good by CAL ADVISOR documented in this encounter Plan of Treatment Not on file documented as of this encounter Visit Diagnoses Not on filedocumented in this encounter Care Teams Biomass Facilitator Relationship Specialty Start Date End Date Jim Horn MD PCP - General 09/15/09 10/28/13 documented as of this encounter
--- OUTSIDE RECORDS SUMMARY | 2024-08-19 16:28 | XMS_ITS | Encounter Summary ---
Author Organization [facility] Address [address] [place] [address] Care Team Providers Care Top Dyeing Machine Loader Name Role Phone Jim Horn MD Primary Care Provider Unavailabl e Reason for Visit * Reason Onset Date Comments MEDICATION REFILL 11/02/2010 Encounter Details Date Type Department Care Team (Late st Contact Info) Description 11/02/2010 Refill [facility] - Internal Medicine [address] [place] [phone] Jim Horn MD Updated address needed MEDICATION [...] on filedocumented in this encounter Care Teams Top Dyeing Machine Loader Relationship Specialty Start Date End Date Jim Horn MD PCP - General 09/15/09 10/28/13 documented as of this encounter
--- OUTSIDE RECORDS SUMMARY | 2024-08-19 16:28 | XMS_ITS | Encounter Summary ---
Author Organization [facility] Address [address] [facility] [place] [address] Care Team Providers Care Platform Builder Name Role Phone Jim Horn MD Primary Care Provider Unavailabl e Reason for Visit * Reason Onset Date Comments MEDICATION REFILL 10/12/2011 Encounter Details Date Type Department Care Team (Late st Contact Info) Description 10/12/2011 Refill [facility] - Internal Medicine [address] [place] [phone] Jim Horn MD Updated address needed MEDICATION [...] on filedocumented in this encounter Care Teams Platform Builder Relationship Specialty Start Date End Date Jim Horn MD PCP - General 09/15/09 10/28/13 documented as of this encounter
--- OUTSIDE RECORDS SUMMARY | 2024-08-19 16:28 | XMS_ITS | Encounter Summary ---
Author Organization [facility] Address [address] [facility] [address] Care Team Providers Care Secretarial Teacher Name Role Phone Jim Horn MD Primary Care Provider Unavailabl e Reason for Visit * Reason Onset Date Comments MEDICATION REFILL 01/05/2011 Encounter Details Date Type Department Care Team (Late st Contact Info) Description 01/05/[address] [facility] - Internal Medicine [address] [place] [phone] Jim Horn MD Updated address needed MEDICATION [...] prostate documented in this encounter Care Teams Secretarial Teacher Relationship Specialty Start Date End Date Jim Horn MD PCP - General 09/15/09 10/28/13 documented as of this encounter
--- OUTSIDE RECORDS SUMMARY | 2024-08-19 16:28 | XMS_ITS | Encounter Summary ---
Author Organization [facility] Address [address] [facility] [place] [address] Care Team Providers Care Coding Advisor Name Role Phone Jim Horn MD Primary Care Provider Unavailabl e Reason for Visit * Reason Onset Date Comments MEDICATION REFILL 05/16/2012 Encounter Details Date Type Department Care Team (Late st Contact Info) Description 05/16/2012 Refill [facility] Medical [facility] - Internal Medicine [address] [place] [phone] Jim Horn MD Updated address needed MEDICATION [...] on filedocumented in this encounter Care Teams Coding Advisor Relationship Specialty Start Date End Date Jim Horn MD PCP - General 09/15/09 10/28/13 documented as of this encounter
--- OUTSIDE RECORDS SUMMARY | 2024-08-19 16:28 | XMS_ITS | Encounter Summary ---
Author Organization [facility] Address [address] [facility] [place] [address] Care Team Providers Care Supervisor Rough End Name Role Phone Hillary Horn MD Primary Care Provider Unavailabl e Reason for Visit * Reason Onset Date Comments MEDICATION REFILL 05/19/2012 Encounter Details Date Type Department Care Team (Late st Contact Info) Description 05/19/2012 Refill [facility] Medical [facility] - Internal Medicine [address] [place] [phone] Hillary Horn MD Updated address needed MEDICATION [...] encounter Miscellaneous Notes * Telephone Encounter - Brittany Strong - 05/19/2012 2:51 PM CDT Requested Prescriptions Signed Prescriptions Disp Refills ??? azithromycin (ZITHROMAX) 250 MG tablet 4 Tab 0 Sig: Take 4 tablets by mouth one hour before dentist appointment. Authorizing Provider: HILLARY HORN Ordering User: BRITTANY STRONG documented in this encounter Plan of Treatment Not on file documented as of this encounter Visit Diagnoses Not on filedocumented in this encounter Care Teams Supervisor Rough End Relationship Specialty Start Date End Date Hillary Horn MD PCP - General 09/15/09 10/28/13 documented as of this encounter
--- OUTSIDE RECORDS SUMMARY | 2024-08-19 16:28 | XMS_ITS | Encounter Summary ---
Author Organization [facility] Address [address] [facility] [place] [address] Care Team Providers Care Rigging Engineer Name Role Phone Jim Horn MD Primary Care Provider Unavailabl e Encounter Details Date Type Department Care Team (Late st Contact Info) Description 03/24/2010 Orders Only [facility] Medical [facility] - Internal Medicine [facility] [phone] Jim Horn MD Updated address needed Social [...] Procedure Name Priority Date/Time Associated Diagnosis Comments COMPREHENSIVE METABOLIC PANEL 03/24/2010 8:20 AM CDT documented in this encounter Results * (ABNORMAL) COMPREHENSIVE METABOLIC PANEL (03/24/2010 8:20 AM CDT) Glucose 107(H) 65 - 99 mg/dL [facility] Comment: ? Fasting reference interval BUN 25 7 - 25 mg/dL [facility] Creatinine 1.26 0.67 - 1.54 mg/dL [facility] eGFR by MDRD 56(L) > OR = 60 mL/min/1. 73m2 [facility] eGFR by MDRD >60 > OR = 60 mL/min/1. 73m2 [facility] BUN/Creatinine Ratio NOT APPLICABLE 6 - 22 (calc) [facility] Comment: Bun/Creatinine ratio is not reported when the BUN and creatinine values are within normal limits. Sodium 140 135 - 146 mmol/L [facility] Potassium 4.3 3.5 - 5.3 mmol/L [facility] Chloride 104 98 - 110 mmol/L [facility] CO2 25 21 - 33 mmol/L [facility] Calcium 10.2 8.6 - 10.2 mg/dL [facility] Protein Total 7.5 6.2 - 8.3 g/dL [facility] Albumin 4.7 3.6 - 5.1 g/dL [facility] Globulin Total 2.8 2.1 - 3.7 g/dL (calc) [facility] Albumin/Globuli n Ratio 1.7 1.0 - 2.1 (calc) [facility] Bilirubin Total 0.6 0.2 - 1.2 mg/dL [facility] Alkaline Phosphatase 40 40 - 115 U/L [facility] AST 14 10 - 35 U/L [facility] ALT 15 9 - 60 U/L [facility] Comment: Test Performed at: [facility] ??[id number] HAIM TELLES DO,MPH 03/24/2010 8:20 AM CDT 03/25/2010 5:57 AM CDT Jim Horn MD LAB - CHEMISTRY NELLY ARSHAD [facility] Organization Address City/State/[facility] Co de Phone Number [facility] [phone] [place] [address] documented in this encounter Visit Diagnoses Not on filedocumented in this encounter Care Teams Rigging Engineer Relationship Specialty Start Date End Date Jim Horn MD PCP - General 09/15/09 10/28/13 documented as of this encounter
--- OUTSIDE RECORDS SUMMARY | 2024-08-19 16:28 | XMS_ITS | Encounter Summary ---
Author Organization [facility] Health Address [facility] [facility] [place] [address] Care Team Providers Care Molded Goods Controls Operator Name Role Phone Jim Horn MD Primary Care Provider Unavailabl e Reason for Visit * Reason Onset Date Comments MEDICATION REFILL 10/22/2009 Encounter Details Date Type Department Care Team (Late st Contact Info) Description 10/22/2009 Refill [facility] [address] [place] [phone] Jim Horn MD Updated address needed MEDICATION [...] on filedocumented in this encounter Care Teams Molded Goods Controls Operator Relationship Specialty Start Date End Date Jim Horn MD PCP - General 09/15/09 10/28/13 documented as of this encounter
--- OUTSIDE RECORDS SUMMARY | 2024-08-19 16:28 | XMS_ITS | Encounter Summary ---
Author Organization [facility] Address [address] [facility] [place] [address] Care Team Providers Care Certified Energy Manager Name Role Phone Jim Horn MD Primary Care Provider Unavailabl e Reason for Visit * Reason Onset Date Comments MEDICATION REFILL 10/14/2010 Encounter Details Date Type Department Care Team (Late st Contact Info) Description 10/14/2010 Refill [facility] - Internal Medicine [address] [place] [phone] Jim Horn MD Updated address needed MEDICATION [...] on filedocumented in this encounter Care Teams Certified Energy Manager Relationship Specialty Start Date End Date Jim oHrn MD PCP - General 09/15/09 10/28/13 documented as of this encounter
--- OUTSIDE RECORDS SUMMARY | 2024-08-19 16:28 | XMS_ITS | Encounter Summary ---
Author Organization [facility] Address [address] [facility] [place] [address] Care Team Providers Care Secondary Education Professor Name Role Phone Jim Horn MD Primary Care Provider Unavailabl e Reason for Visit * Reason Comments Hypertension HLD, GERD,3 MONTH F/ U. Encounter Details Date Type Department Care Team (Late st Contact Info) Description 06/29/2011 9:20 AM OUTSIDE SALESPERSON Office Visit [facility] Medical [facility] - Internal Medicine [facility] [phone] Jim Horn MD Updated address needed HTN (hypertension) (Primary Dx); HLD (hyperlipidemia); GERD (gastroesophageal reflux disease); Pain in joint, shoulder region Social History Tobacco Use Types Packs/Day Years [...] Sign Reading Time Taken Comments Blood Pressure 112/60 07/07/2011 11:03 PM OUTSIDE SALESPERSON Pulse 80 07/07/2011 11:03 PM OUTSIDE SALESPERSON Temperature - - Respiratory Rate - - Oxygen Saturation - - Inhaled Oxygen Concentration - - Weight 95.9 kg (211 lb 8 oz) 06/29/2011 9:30 AM OUTSIDE SALESPERSON Height - - Body Mass Index 30.79 03/23/2011 8:55 AM CDT documented in this encounter Progress Notes * Jim Horn MD - 07/07/2011 11:01 PM CST I examined the patient independantly from the resident. I have reviewed the labs and notes that arepertinent to the patient. I have discussed the plan with the patient and/or family. I have discussed the case with the resident and ask the you refer to their notes for details. My addendum and comments are: Patient with pain in shoulders which is unchanged. HTN/HLD/joint pain which are under control Will treat his nasal allergies Wt 211 lb 8 oz (95.936 kg) 1. HTN (hypertension) 2. HLD (hyperlipidemia) 3. GERD (gastroesophageal reflux disease) 4. Pain in joint, shoulder region Orders Placed This Encounter ??? fluticasone propionate (FLONASE) 50 MCG/ACT nasal spray Sig: [place] 1 [place] into each nostril 2 times daily. Dispense: 16 g Refill: 1 IDE SALESPERSON * Yamil Garcia MD - 06/29/2011 9:55 AM CST PGY-3 OFFICE VISIT Admit Date: No admission date for patient encounter. Torie Hebert 76 y.o. male Visit: Regular follow up ROS: Psychological ROS: negative Respiratory ROS: no cough, shortness of breath, or wheezing Cardiovascular ROS: no chest pain or dyspnea on exertion Gastrointestinal ROS: no abdominal pain, change in bowel habits, or black or bloody stools, occasional heartburn in spite of PPI Genito-Urinary ROS: no dysuria, has hx of BPH and hesitancy and frequency have been stable Musculoskeletal ROS: chronic mid back ache Neurological ROS: no TIA or stroke symptoms, same occasional gait unsteadiness from known neuropathy Objective: Manual BP 135/80 (80) Pertinent Physical Exam Findings: General appearance - alert, well appearing, and in no distress Mental status - alert, oriented to person, place, and time Neck - supple, no significant adenopathy Chest - clear to auscultation, no wheezes, rales or rhonchi, symmetric air entry Heart - normal rate, regular rhythm, normal S1, S2, no murmurs, rubs, clicks or gallops Abdomen - soft, nontender, nondistended, no masses or organomegaly, healed RUQ scar Neurological - alert, oriented, normal speech, no focal findings or movement disorder noted Musculoskeletal - no joint tenderness, deformity or swelling Labs: Last in March 2011 Impression: 1.HTN, controlled 2.DM2, controlled with diet 3.HLP, LDL above goal but couldn't tolerate statin and now on febrate 4.GERD, stable, last EGD 3 yrs ago no Henderson's 5.BPH, stable symptoms, PSA 4.7 6.OA, s/p b/l knee replacement, stable 7.Chronic mild back pain after cyst removal 8.Sinusitis, likely viral 9.Gait unsteadiness, likely peripheral neuropathy, cause unknown, DM unlikely, no signs of vitamin deficiency otherwise Plan: 1.Colonoscopy is due 2.Flonase 3.Diet and exercise discussed 4.No other changes in meds 5.F/u in 4 Mo IDE SALESPERSON documented in this encounter Plan of Treatment Not on file documented as of this encounter Visit Diagnoses Diagnosis HTN (hypertension)- Primary Unspecified essential hypertension HLD (hyperlipidemia) Other and unspecified hyperlipidemia GERD (gastroesophageal reflux disease) Esophageal reflux Pain in joint, shoulder region documented in this encounter Care Teams Secondary Education Professor Relationship Specialty Start Date End Date Jim Horn MD PCP - General 09/15/09 10/28/13 documented as of this encounter
--- OUTSIDE RECORDS SUMMARY | 2024-08-19 16:28 | XMS_ITS | Encounter Summary ---
Author Organization [facility] Address [address] [place] [address] Care Team Providers Care Merchandise Support Associate Name Role Phone Jim Horn MD Primary Care Provider Unavailabl e Reason for Visit * Reason Comments Pain Thumb Patient in today wit h c/o painful thumb x 3 days. Encounter Details Date Type Department Care Team (Late st Contact Info) Description 08/15/2012 9:00 AM GARDEN LABOURER Office Visit [facility] Medical [facility] - Internal Medicine [facility] [phone] Jim Horn MD Updated address needed Paronychia (Primary Dx) Social History Tobacco Use Types Packs/Day Years [...] Sign Reading Time Taken Comments Blood Pressure 134/84 08/15/2012 8:53 AM GARDEN LABOURER Pulse - - Temperature - - Respiratory Rate - - Oxygen Saturation - - Inhaled Oxygen Concentration - - Weight 88 kg (193 lb 14.4 oz) 08/15/2012 8:53 AM GARDEN LABOURER Height 177.8 cm (5' 10 ) 08/15/2012 8:53 AM GARDEN LABOURER Body Mass Index 27.82 08/15/2012 8:53 AM GARDEN LABOURER documented in this encounter Progress Notes * Jim Horn MD - 08/15/2012 10:26 AM CST Wt Readings from Last 2 Encounters: 08/15/12 87.952 kg (193 lb 14.4 oz) 06/13/12 87.998 kg (194 lb) Chief Complaint Patient presents with ??? Pain Thumb Patient in today with c/o painful thumb x 3 days. Body mass index is 27.82 kg/(m^2). HPI: Patient with injury 3 days ago, then re-injured yesterday. Pain on movement, ROS: Negative except ABOVE . Current Outpatient Prescriptions on File Prior to Visit Medication Sig Dispense Refill ??? fluticasone propionate (FLONASE) 50 MCG/ACT nasal spray [place] 1 [place] into each nostril 2 timesdaily. 16 g 1 ??? fenofibrate (LOFIBRA) 160 MG tablet Take 1 Tab by mouth once daily. Take with largest meal of the day. 30 Tab 5 ??? gciedukdvw-gbfcgmviq-dzpb (EXFORGE HCT) 10-320-25 MG tablet Take 1 [...] tobacco ??? Never Used GENERAL EXAMINATION: BP 134/84 Wt 87.952 kg (193 lb 14.4 oz) BMI 27.82 kg/m2 GENERAL: Alert and oriented, not is distress CARDIAC: normal rate, regular rhythm, normal S1, S2, no murmurs, rubs, clicks or gallops PULMONARY: breath sounds normal and symmetric; no rales or wheezes ABDOMEN: soft without mass, non-tender, with normal bowel sounds, no organomegaly EXTREMITIES: no edema SKIN - no significant rash or bruising Thumb nail with redness, bruising, but no purulent drainage noted. IMPRESSION: 1. Paronychia Below numbers correlate to above diagnosis. Plan: Will watch the area closely and call if any issues. No orders of the defined types were placed in this encounter. Patient Active Problem List Diagnoses ??? HTN (HYPERTENSION) ??? HLD (HYPERLIPIDEMIA) ??? GERD (Gastroesophageal Reflux Disease) EN LABOURER documented in this encounter Plan of Treatment Not on file documented as of this encounter Visit Diagnoses Diagnosis Paronychia- Primary Cellulitis and abscess of unspecified digit documented in this encounter Care Teams Merchandise Support Associate Relationship Specialty Start Date End Date Jim Horn MD PCP - General 09/15/09 10/28/13 documented as of this encounter
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
--- OUTSIDE RECORDS SUMMARY | 2024-08-19 16:28 | XMS_ITS | Encounter Summary ---
Author Organization [facility] Address [address] [facility] [place] [address] Care Team Providers Care Meat Washer Name Role Phone Jim Horn MD Primary Care Provider Unavailabl e Reason for Visit * Reason Onset Date Comments Hypertension 01/27/2010 Encounter Details Date Type Department Care Team (Late st Contact Info) Description 01/27/2010 Telephone [facility] [address] Jim Horn MD Updated address needed Hypertension Social History Tobacco Use Types Packs/Day Years [...] * Telephone Encounter - Tara Persaud - 01/27/2010 5:24 PM CDT Pt aware. Next appt 8. Told pt to call if problems continue. * Telephone Encounter - Jim Horn MD - 01/27/2010 4:28 PM CDT Be sure he is taking the exforge hct. And continue to take the meds. Will wait until I see him for bp check myself. * Telephone Encounter - Tara Persaud - 01/27/2010 3:33 PM CDT Pt calling re: blood pressure readings Several good but 3 are high 150/93, 170/102,151/100. Taking his Exforge. Please advise. documented in this encounter Plan of Treatment Not on file documented as of this encounter Visit Diagnoses Not on filedocumented in this encounter Care Teams Meat Washer Relationship Specialty Start Date End Date Jim Horn MD PCP - General 09/15/09 10/28/13 documented as of this encounter
--- OUTSIDE RECORDS SUMMARY | 2024-08-19 16:28 | XMS_ITS | Encounter Summary ---
Author Organization [facility] Address [address] [place] [address] Care Team Providers Care State Inspector Name Role Phone Jim Horn MD Primary Care Provider Unavailabl e Reason for Visit * Reason Onset Date Comments MEDICATION REFILL 04/20/2010 Encounter Details Date Type Department Care Team (Late st Contact Info) Description 04/20/2010 Refill [facility] - Internal Medicine [address] [place] [phone] Jim Horn MD Updated address needed MEDICATION [...] on filedocumented in this encounter Care Teams State Inspector Relationship Specialty Start Date End Date Jim Horn MD PCP - General 09/15/09 10/28/13 documented as of this encounter
--- OUTSIDE RECORDS SUMMARY | 2024-08-19 16:28 | XMS_ITS | Encounter Summary ---
Author Organization [facility] Address [address] [facility] [address] Care Team Providers Care Activities Assistant Name Role Phone Jim Horn MD Primary Care Provider Unavailabl e Reason for Visit * Reason Comments Hypertension Encounter Details Date Type Department Care Team (Latest Contact Info) Description 03/31/2010 11:30 AM CDT Office Visit [facility] - Internal Medicine [address] [place] [phone] Jim Horn MD Updated address needed Hyperglycemia (Primary Dx); HTN (HYPERTENSION); HLD (HYPERLIPIDEMIA); GERD (Gastroesophageal Reflux Disease); DJD (Degenerative Joint Disease) Social History Tobacco Use Types Packs/Day Years [...] Reading Time Taken Comments Blood Pressure 124/74 03/31/2010 11:15 AM CDT Pulse 54 03/31/2010 11:15 AM CDT Temperature - - Respiratory Rate 14 03/31/2010 11:1 5 AM CDT Oxygen Saturation - - Inhaled Oxygen Concentration - - Weight 101.3 kg (223 lb 4.8 oz) 010 11:15 AM CDT Height - - Body Mass Index 31.59 12/23/2009 9:13 AM CDT documented in this encounter Progress Notes * Jim Horn MD - 03/31/2010 11:49 AM CDT Wt Readings from Last 2 Encounters: 03/31/2010 223 lb 4.8 oz (101.288 kg) 12/23/2009 203 lb 3.2 oz (92.171 kg) Chief Complaint Patient presents with ??? Hypertension HPI: Patient has been feeling pretty well. Has not had too much trouble Has been doing well overall ROS: Negative except poor balance (old) Poor hearing No chest pain No SOB Meds Reviewed History Tobacco Use Never Diet/Exercise/ADL: well GENERAL EXAMINATION: BP 124/74 Pulse 54 Resp 14 Wt 223 lb 4.8 oz (101.288 kg) GENERAL: No acute distress. PSYCH: Pleasant. Answers questions appropriately. CARDIAC: normal rate, regular rhythm, normal S1, S2, no murmurs, rubs, clicks or gallops PULMONARY: breath sounds normal and symmetric; no rales or wheezes ABDOMEN: soft without mass, non-tender, with normal bowel sounds, no organomegaly EXTREMITIES: no edema IMPRESSION/PLAN: 1. Hyperglycemia- patient knows and will keep pushing 2. HTN - great control 3. Hyperlipidemia - better control 4. Reflux - under control 5. At this time, overall good. 6. Not any changes. Patient Active Problem List Diagnoses Code ??? DM (Diabetes Mellitus) 250.00BV ??? HTN (HYPERTENSION) 401.9AF ??? HLD (HYPERLIPIDEMIA) 272.4BH ??? GERD (Gastroesophageal Reflux Disease) 530.81S documented in this encounter Plan of Treatment Not on file documented as of this encounter Visit Diagnoses Diagnosis Hyperglycemia- Primary Other abnormal glucose HTN (hypertension) Unspecified essential hypertension HLD (hyperlipidemia) Other and unspecified hyperlipidemia GERD (gastroesophageal reflux disease) Esophageal reflux DJD (degenerative joint disease) Osteoarthrosis, unspecified whether generalized or localized, unspecified site documented in this encounter Care Teams Activities Assistant Relationship Specialty Start Date End Date Jim Horn MD PCP - General 09/15/09 10/28/13 documented as of this encounter
--- OUTSIDE RECORDS SUMMARY | 2024-08-19 16:28 | XMS_ITS | Encounter Summary ---
Author Organization [facility] Address [address] [facility] [place] [address] Care Team Providers Care Mft Name Role Phone Jim Horn MD Primary Care Provider Unavailabl e Encounter Details Date Type Department Care Team (Late st Contact Info) Description 03/24/2010 Orders Only [facility] Medical [facility] - Internal Medicine [address] [place] [phone] Jim Horn MD Updated address needed Social [...] Priority Date/Time Associated Diagnosis Comments HEMOGLOBIN A1C 03/24/2010 8:20 AM CDT documented in this encounter Results * (ABNORMAL) HEMOGLOBIN A1C (03/24/2010 8:20 AM CDT) Hemoglobin A1c 5.7(H) <5.7 % of total Hgb [facility] Comment: ?Increased risk of diabetes ? <5.7 ? Decreased risk of diabetes ? 5.7-6.0 ?Increased risk of diabetes ? 6.1-6.4 ?Higher risk of diabetes ? > or = 6.5 Consistent with diabetes ?Standards of Medical Care in Diabetes-2009. ?Diabetes Care, 33(Supp 1): S1-S61,2010. Test Performed at: [facility] [id number] [place] [address] ??[phone] HAIM TELLES DO,MPH 03/24/2010 8:20 AM CDT 03/25/2010 5:57 AM CDT Jim Horn MD LAB - CHEMISTRY NELLY ARSHAD [facility] Organization Address City/State/[facility] Co mn Phone Number [facility] [phone] [place] [address] documented in this encounter Visit Diagnoses Not on filedocumented in this encounter Care Teams Mft Relationship Specialty Start Date End Date Jim Horn MD PCP - General 09/15/09 10/28/13 documented as of this encounter
--- OUTSIDE RECORDS SUMMARY | 2024-08-19 16:28 | XMS_ITS | Encounter Summary ---
Author Organization [facility] Address [address] [place] [address] Care Team Providers Care Steam Room Attendant Name Role Phone Jim Horn MD Primary Care Provider Unavailabl e Encounter Details Date Type Department Care Team (Late st Contact Info) Description 03/24/[address] [facility] Medical [facility] - Internal Medicine [facility] [phone] Jim Horn MD Updated address needed Social [...] Procedure Name Priority Date/Time Associated Diagnosis Comments PROSTATE SPECIFIC ANTIGEN SCREEN 03/24/2010 8:20 AM CDT documented in this encounter Results * PROSTATE SPECIFIC ANTIGEN SCREEN (03/24/2010 8:20 AM CDT) Pathologist [facility] PSA 3.1 < OR = 4.0 ng/mL [facility] Comment: This test was performed using the Siemens chemiluminescent method. Values obtained from different assay methods cannot be used interchangeably. PSA levels, regardless of value, should not be interpreted as absolute evidence of the presence or absence of disease. Test Performed at: [facility] [address] [facility] [place] ??[phone] HAIM TELLES DO,MPH 03/24/2010 8:20 AM CDT 03/25/2010 5:57 AM CDT Jim Horn MD LAB - CHEMISTRY NELLY ARSHAD [facility] Organization Address City/State/[facility] Co de Phone Number [facility] [phone] [address] [place] [phone] documented in this encounter Visit Diagnoses Not on filedocumented in this encounter Care Teams Steam Room Attendant Relationship Specialty Start Date End Date Jim Horn MD PCP - General 09/15/09 10/28/13 documented as of this encounter
--- OUTSIDE RECORDS SUMMARY | 2024-08-19 16:28 | XMS_ITS | Encounter Summary ---
Author Organization [facility] Address [address] [facility] [place] [address] Care Team Providers Care Cashier Credit Name Role Phone Jim Horn MD Primary Care Provider Unavailabl e Reason for Visit * Reason Onset Date Comments MEDICATION REFILL 04/11/2012 Encounter Details Date Type Department Care Team (Late st Contact Info) Description 04/11/2012 Refill [facility] - Internal Medicine [address] [place] [phone] Jim Horn MD Updated address needed MEDICATION [...] on filedocumented in this encounter Care Teams Cashier Credit Relationship Specialty Start Date End Date Jim Horn MD PCP - General 09/15/09 10/28/13 documented as of this encounter
--- OUTSIDE RECORDS SUMMARY | 2024-08-19 16:28 | XMS_ITS | Encounter Summary ---
Author Organization [facility] Address [address] [facility] [place] [address] Care Team Providers Care Cad Manager Name Role Phone Jim Horn MD Primary Care Provider Unavailabl e Reason for Visit * Reason Comments Follow-up DM, HTN, HLD, GERD Encounter Details Date Type Department Care Team (Late st Contact Info) Description 07/21/2010 11:00 AM JOB SETTER HONING Office Visit [facility] Medical [facility] - Internal Medicine [address] [phone] Jim Horn MD Updated address needed DM (diabetes mellitus) (HCC) (Primary Dx); HTN (hypertension); HLD (hyperlipidemia); GERD [...] Sign Reading Time Taken Comments Blood Pressure 132/70 07/21/2010 10:57 AM JOB SETTER HONING Pulse 80 07/21/2010 10:57 AM JOB SETTER HONING Temperature - - Respiratory Rate 14 07/21/2010 10:57 AM JOB SETTER HONING Oxygen Saturation - - Inhaled Oxygen Concentration - - Weight 94.3 kg (208 lb) 07/21/2010 10:57 AM JOB SETTER HONING Height 174.6 cm (5' 8.75 ) 07/21/2010 10:57 AM C Body Mass Index 30.94 07/21/2010 10:57 AM JOB SETTER HONING documented in this encounter Progress Notes * Jim Horn MD - 07/21/2010 11:40 AM CST Wt Readings from Last 2 Encounters: 07/21/2010 208 lb (94.348 kg) 03/31/2010 223 lb 4.8 oz (101.288 kg) Chief Complaint Patient presents with ??? Follow-up DM, HTN, HLD, GERD HPI: Patient has been eating more than he should be eating. A little more than usual. Having a harder time getting up. Neuropathy is a little worse, still having a trouble. Patient has been taking care of him self. ROS: General ROS: negative Psychological ROS: negative Ophthalmic ROS: negative ENT ROS: negative Allergy and Immunology ROS: negative Hematological and Lymphatic ROS: negative Breast ROS: negative for breast lumps Respiratory ROS: no cough, shortness of breath, or wheezing Cardiovascular ROS: no chest pain or dyspnea on exertion Gastrointestinal ROS: no abdominal pain, change in bowel habits, or black or bloody stools Genito-Urinary ROS: no dysuria, trouble voiding, or hematuria Musculoskeletal ROS: negative Meds Reviewed History Tobacco Use Never Diet/Exercise/ADL: Still exercise, eating okay, no smoking. GENERAL EXAMINATION: Wt 208 lb (94.348 kg) GENERAL: No acute distress. PSYCH: Pleasant. Answers questions appropriately. CARDIAC: normal rate, regular rhythm, normal S1, S2, no murmurs, rubs, clicks or gallops PULMONARY: breath sounds normal and symmetric; no rales or wheezes ABDOMEN: soft without mass, non-tender, with normal bowel sounds, no organomegaly EXTREMITIES: no edema IMPRESSION/PLAN: 1. Diabetes - well overall, doing well at this time. 2. HTN - well overall, will continue 3. HLD - good at this time. 4. Neuropathy - doing well at this time. Doing overall at this time. No major changes. Seen for over 30 minutes. Patient Active Problem List Diagnoses Code ??? DM (Diabetes Mellitus) 250.00BV ??? HTN (HYPERTENSION) 401.9AF ??? HLD (HYPERLIPIDEMIA) 272.4BH ??? GERD (Gastroesophageal Reflux Disease) 530.81S SETTER HONING documented in this encounter Plan of Treatment Not on file documented as of this encounter Procedures Procedure Name Priority Date/Time Associated Diagnosis Comments MICROALB/CREAT RATIO URINE RANDOM PANEL Routine 11/10/2010 9:21 AM CDT DM (diabetes mellitus) (HCC) HTN (hypertension) HLD (hyperlipidemia) GERD (gastroesophageal reflux disease) HEMOGLOBIN A1C Routine 11/10/2010 9:21 AM CDT DM (diabetes mellitus) (HCC) HTN (hypertension) HLD (hyperlipidemia) GERD (gastroesophageal reflux disease) COMPREHENSIVE METABOLIC PANEL Routine 11/10/2010 9:21 AM CDT DM (diabetes mellitus) (HCC) HTN (hypertension) HLD (hyperlipidemia) GERD (gastroesophageal reflux disease) LIPID PROFILE Routine 11/10/2010 9:19 AM CDT DM (diabetes mellitus) (HCC) HTN (hypertension) HLD (hyperlipidemia) GERD (gastroesophageal reflux disease) documented in this encounter Results * MICROALB/CREAT RATIO URINE RANDOM PANEL (11/10/2010 9:21 AM CDT) Creatinine 24 Hour Urine 38.8 22.0 - 328.0 mg/dL [facility] INSURANCE BILL Microalbumin Urine <1.0 0.0 - 17.0 ug/mL [facility] INSURANCE BILL Microalbumin/Crea tinine Ratio <2.6 0.0 - 30.0 mg/g creat [facility] INSURANCE BILL URINE / Unknown 11/10/2010 9 :21 AM CDT 11/10/2010 8:45 PM CDT Narrative Resulting Agency Comment [facility] [place] [id number] [facility] ??[facility] [phone] Jim Horn MD LAB - URINE CHEMISTR Y ORDERABLES [facility] INSURANCE BILL * (ABNORMAL) HEMOGLOBIN A1C (11/10/2010 9:21 AM CDT) Hemoglobin A1c 6.1(H) 4.8 - 5.6 % [facility] INSURANCE BILL Comment: ? Increased risk for diabetes: ?5.7 - 6.4 ? Diabetes: ?>6.4 ? Glycemic control for adults with diabetes: ? <7.0 BLOOD SPECIMEN / Unknown 11/10/2010 9:21 AM CDT 11/10/2010 8:45 PM CDT Narrative Resulting Agency Comment [facility] [place] [address] [facility] ??[facility] [phone] Jim Horn MD LAB - CHEMISTRY NELLY ARSHAD [facility] INSURANCE BILL * (ABNORMAL) COMPREHENSIVE METABOLIC PANEL (11/10/2010 9:21 AM CDT) Glucose 102(H) 65 - 99 mg/dL [facility] INSURANCE BILL BUN 23 8 - 27 mg/dL [facility] INSURANCE BILL Creatinine 1.29(H) 0.76 - 1.27 mg/dL [facility] INSURANCE BILL eGFR by MDRD 54(L) >59 mL/min/1.7 3 [facility] INSURANCE BILL eGFR by MDRD 63 >59 mL/min/1.7 3 [facility] INSURANCE BILL Comment: Note: A persistent eGFR <60 mL/min/1.73 m2 (3 months or more) may indicate chronic kidney disease. An eGFR >59 mL/min/1.73 m2 with an elevated urine protein also may indicate chronic kidney disease. Calculated using CKD-EPI formula. BUN/Creatinine Ratio 18 10 - 22 [facility] INSURANCE BILL Sodium 139 135 - 145 mmol/L [facility] INSURANCE BILL Potassium 4.1 3.5 - 5.2 mmol/L [facility] INSURANCE BILL Chloride 102 97 - 108 mmol/L [facility] INSURANCE BILL CO2 20 20 - 32 mmol/L [facility] INSURANCE BILL Calcium 9.9 8.6 - 10.2 mg/dL [facility] INSURANCE BILL Protein Total 7.0 6.0 - 8.5 g/dL [facility] INSURANCE BILL Albumin 4.6 3.5 - 4.8 g/dL [facility] INSURANCE BILL Globulin Total 2.4 1.5 - 4.5 g/dL [facility] INSURANCE BILL Albumin/Globulin Ratio 1.9 1.1 - 2.5 [facility] INSURANCE BILL Bilirubin Total 0.3 0.0 - 1.2 mg/dL [facility] INSURANCE BILL Alkaline Phosphatase 40 25 - 160 IU/L [facility] INSURANCE BILL AST 16 0 - 40 IU/L [facility] INSURANCE BILL ALT 17 0 - 55 IU/L [facility] INSURANCE BILL BLOOD SPECIMEN / Unknown 11/10/2010 9:21 AM CDT 11/10/2010 8:45 PM CDT Narrative Resulting Agency Comment [address] ??[facility] [phone] Jim Horn MD LAB - CHEMISTRY NELLY ARSHAD Performing Organization Address [facility] de Phone Number [facility] INSURANCE BILL * (ABNORMAL) LIPID PROFILE (11/10/2010 9:19 AM CDT) Cholesterol 189 100 - 199 mg/dL [facility] INSURANCE BILL Triglycerides 118 0 - 149 mg/dL [facility] INSURANCE BILL HDL Cholesterol 38(L) >39 mg/dL [facility]URANCE BILL Comment: According to ATP-III Guidelines, HDL-C >59 mg/dL is considered a negative risk factor for CHD. VLDL Calculated 24 5 - 40 mg/dL [facility] INSURANCE BILL LDL Calculated 127(H) 0 - 99 mg/dL [facility] INSURANCE BILL BLOOD SPECIMEN / Unknown 11/10/2010 9:19 AM CDT 11/10/2010 8:39 PM CDT Narrative Resulting Agency Comment [facility] ??[facility] [phone] Jim Horn MD LAB - CHEMISTRY NELLY ARSHAD Performing Organization Address [facility] Co de Phone Number [facility] INSURANCE BILL documented in this encounter Visit Diagnoses Diagnosis DM (diabetes mellitus) (HCC)- Primary Type II or unspecified type diabetes mellitus without mention of complication, not stated as uncontrolled HTN (hypertension) Unspecified essential hypertension HLD (hyperlipidemia) Other and unspecified hyperlipidemia GERD (gastroesophageal reflux disease) Esophageal reflux documented in this encounter Care Teams Cad Manager Relationship Specialty Start Date End Date Jim Horn MD PCP - General 09/15/09 10/28/13 documented as of this encounter
--- OUTSIDE RECORDS SUMMARY | 2024-08-19 16:28 | XMS_ITS | Encounter Summary ---
Author Organization [facility] Address [address] [facility] [place] [address] Care Team Providers Care Pvc Loader Name Role Phone Unavailable Primary Care Provider Unavailabl e Encounter Details Date Type Department Care Team (Late st Contact Info) Description 09/09/2009 Orders Only [facility] [address] [phone] Jim Horn MD Updated address needed Social [...] Priority Date/Time Associated Diagnosis Comments HEMOGLOBIN A1C 09/09/2009 8:28 AM HAND CIGAR MAKER CBC W AUTO DIFFERENTIAL 09/09/2009 8:28 AM HAND CIGAR MAKER COMPREHENSIVE METABOLIC PANEL 09/09/2009 8:28 AM HAND CIGAR MAKER LIPID PROFILE 09/09/2009 8:28 AM HAND CIGAR MAKER documented in this encounter Results * (ABNORMAL) HEMOGLOBIN A1C (09/09/2009 8:28 AM HAND CIGAR MAKER) Hemoglobin A1c 6.0(H) % of total Hgb [facility] Comment: Reference Range ? Non-Diabetic: ??<6.0% REPORT COMMENT: FASTING Test Performed at: [facility] [address] [place] ??[phone] HAIM TELLES DO,MPH 09/09/2009 8:28 AM HAND CIGAR MAKER 09/10/2009 3:58 AM HAND CIGAR MAKER Jim Horn MD LAB - CHEMISTRY NELLY ARSHAD Performing Organization Address [facility] Co de Phone Number [facility] [address] [place] [phone] * CBC W AUTO DIFFERENTIAL (09/09/2009 8:28 AM HAND CIGAR MAKER) Pathologist [facility] White Blood Cell Count 5.5 3.8 - 10.8 Thousand/u L [facility] RBC 5.33 4.20 - 5.80 Million/uL [facility] Hemoglobin 14.9 13.2 - 17.1 g/dL [facility] Hematocrit 44.9 38.5 - 50.0 % [facility] MCV 84.2 80.0 - 100.0 fL [facility] MCH 27.9 27.0 - 33.0 pg [facility] MCHC 33.2 32.0 - 36.0 g/dL [facility] RDW 13.5 11.0 - 15.0 % [facility] Platelet Count 221 140 - 400 Thousand/u L [facility] Neutrophil Absolute 3251 1500 - 7800 cells/uL [facility] Lymphocytes Absolute 1447 850 - 3900 cells/uL [facility] Absolute Monocytes 424 200 - 950 cells/uL [facility] Eosinophils Absolute 374 15 - 500 cells/uL [facility] Basophils Absolute 6 0 - 200 cells/uL [facility] Granulocytes % 59.1 % [facility] Lymphocytes % 26.3 % [facility] Monocytes % 7.7 % [facility] Eosinophils % 6.8 % [facility] Basophils % 0.1 % [facility] Comment: Test Performed at: [facility] [address] [place] ??[phone] HAIM TELLES DO,MPH 09/09/2009 8:28 AM HAND CIGAR MAKER 09/10/2009 3:58 AM HAND CIGAR MAKER Jim Horn MD LAB - HEMATOLOGY ORD ERABLES Performing Organization Address [facility]/ZIP Co de Phone Number [facility] [phone] [place] [address] * COMPREHENSIVE METABOLIC PANEL (09/09/2009 8:28 AM HAND CIGAR MAKER) [facility] Glucose 97 65 - 99 mg/dL [facility] Comment: ? Fasting reference interval BUN 21 7 - 25 mg/dL [facility] Creatinine 1.17 0.67 - 1.54 mg/dL [facility] eGFR by MDRD >60 > OR = 60 mL/min/1. 73m2 [facility] eGFR by MDRD >60 > OR = 60 mL/min/1. 73m2 [facility] BUN/Creatinine Ratio NOT APPLICABLE 6 - 22 (calc) [facility] Comment: Bun/Creatinine ratio is not reported when the BUN and creatinine values are within normal limits. Sodium 143 135 - 146 mmol/L [facility] Potassium 4.7 3.5 - 5.3 mmol/L [facility] Chloride 109 98 - 110 mmol/L [facility] CO2 25 21 - 33 mmol/L [facility] Calcium 10.2 8.6 - 10.2 mg/dL [facility] Protein Total 7.5 6.2 - 8.3 g/dL [facility] Albumin 4.8 3.6 - 5.1 g/dL [facility] Globulin Total 2.7 2.1 - 3.7 g/dL (calc) [facility] Albumin/Globuli n Ratio 1.8 1.0 - 2.1 (calc) [facility] Bilirubin Total 0.5 0.2 - 1.2 mg/dL [facility] Alkaline Phosphatase 55 40 - 115 U/L [facility] AST 14 10 - 35 U/L [facility] ALT 16 9 - 60 U/L [facility] Comment: Test Performed at: [facility] [address] [place] [address] ??[phone] HAIM TELLES DO,MPH 09/09/2009 8:28 AM HAND CIGAR MAKER 09/10/2009 3:58 AM HAND CIGAR MAKER Jim Horn MD LAB - CHEMISTRY NELLY ARSHAD [facility] [address] [place] [address] * (ABNORMAL) LIPID PROFILE (09/09/2009 8:28 AM HAND CIGAR MAKER) Cholesterol 217(H) 125 - 200 mg/dL [facility] Comment: Test Performed at: [facility] ??[phone] HAIM TELLES DO,MPH HDL Cholesterol 34(L) > OR = 40 mg/dL [facility] Triglycerides 186(H) <150 mg/dL [facility] LDL Calculated 146(H) <130 mg/dL (calc) [facility] Comment: Desirable range <100 mg/dL for patients with CHD or diabetes and <70 mg/dL for diabetic patients with known heart disease. CHOL/HDLC RATIO 6.4(H) < OR = 5.0 (calc) [facility] 09/09/2009 8:28 AM HAND CIGAR MAKER 09/10/2009 3:58 AM HAND CIGAR MAKER Jim Horn MD LAB - CHEMISTRY NELLY ARSHAD [facility] Organization Address City/State/ZIP Co de Phone Number [facility] [phone] [place] [address] documented in this encounter Visit Diagnoses Not on filedocumented in this encounter
--- OUTSIDE RECORDS SUMMARY | 2024-08-19 16:28 | XMS_ITS | Encounter Summary ---
Author Organization [facility] Address [address] [facility] [place] [address] Care Team Providers Care Intelligence Applications Name Role Phone Jim Horn MD Primary Care Provider Unavailabl e Reason for Visit * Reason Onset Date Comments Medication Problem 08/10/2010 Encounter Details Date Type Department Care Team (Late st Contact Info) Description 08/10/2010 Telephone [facility] - Internal Medicine [address] [place] [phone] Jim Horn MD Updated address needed Medication [...] on filedocumented in this encounter Care Teams Intelligence Applications Relationship Specialty Start Date End Date Jim Horn MD PCP - General 09/15/09 10/28/13 documented as of this encounter
--- OUTSIDE RECORDS SUMMARY | 2024-08-19 16:28 | XMS_ITS | Encounter Summary ---
Author Organization [facility] Address [address] [place] [address] Care Team Providers Care Copyholder Name Role Phone Jim Horn MD Primary Care Provider Unavailabl e Reason for Visit * Reason Comments Hypertension 4 MONTH F/U Diabetes Encounter Details Date Type Department Care Team (Late st Contact Info) Description 11/17/2010 10:00 AM CDT Office Visit [facility] - Internal Medicine [facility] [phone] Jim Horn MD Updated address needed HLD (hyperlipidemia) (Primary Dx); DM (diabetes mellitus) (HCC); HTN (hypertension); GERD (gastroesophageal reflux disease); Elevated PSA Social History Tobacco Use Types Packs/Day Years [...] - Inhaled Oxygen Concentration - - Weight 94.8 kg (209 lb) 11/17/2010 9:57 AM CDT Height 176.5 cm (5' 9.5 ) 11/17/2010 9:57 AM CDT Body Mass Index 30.42 11/17/2010 9:57 AM CDT documented in this encounter Progress Notes * Jim Horn MD - 11/23/2010 9:44 PM CDT I examined the patient independantly from the resident. I have reviewed the labs and notes that arepertinent to the patient. I have discussed the plan with the patient and/or family. I have discussed the case with the resident and ask the you refer to their notes for details. My addendum and comments are: Patient is essentially unchanged. BP is under good control Weight is under good control He is still exercising. Will ask to even further modify diet. Check labs before next visit. * Yamil Garcia MD - 11/17/2010 11:08 AM CDT PGY2 Clinic follow-up Note by Jose OLIVA Attending: Dr Horn Date: 11/17/2010 Reason(s) For visit: Regular f/u ROS: Constitutional: No unexplained fever, sweats. Eyes: Vision stable, no discomfort. Ears, nose, mouth, and throat: No mouth dryness, sores, hearing stable , no nasal discharge. Respiratory: No cough, dyspnea, wheezing, pleuritic pain. Cardiovascular: No exertional chest pain, palpitations, edema, claudication. Gastrointestinal: No bleeding, frequent reflux, dysphagia, change in bowels, pain. Genitourinary: No frequency, bleeding. Prolonged urination which however doesn't bother him Skin: No recent rashes, or pruritus. Breast: No masses, pain or nipple discharge. Hematologic/lymphatic: No history of anemia. No abnormal bleeding or bruising. Musculoskeletal: Had left shoulder sprain last week but that has improved Neurological: Stable gait, no numbness, tingling, syncope, dizziness. Behavioral/Psych: No sleep disturbance, memory changes, depression. Endocrine: No fatigue or weight change. Habits: social alcohol, no smoking (Smoking and Alcohol use) Allergies: Pcn, Tetanus antitoxin, Jc inhibitors and Statins Medications Current outpatient prescriptions Medication Sig Dispense Refill ??? fenofibrate (LOFIBRA) 160 MG tablet Take 1 Tab by mouth daily. Take with largest meal of the day. 30 Tab 5 ??? omeprazole (PRILOSEC) 40 MG capsule Take 1 Cap by mouth daily before breakfast. 90 Cap 3 ??? zdnnpzwwrz-jmrnhdvok-jvey (EXFORGE HCT) 10-320-25 MG tablet Take 1 Tab by mouth daily. 30 12 ??? aspirin 325 MG tablet Take 325 mg by mouth daily. ??? MULTI VITAMIN MENS PO Take by mouth. ??? calcium polycarbophil (FIBERCON) 625 MG tablet Take 625 mg by mouth at bedtime. ??? diphenhydramine-APAP (sleep) (TYLENOL PM ES) 25-500 MG tablet Take 1 Tab by mouth nightly as needed for Insomnia. Exam Manual BP 130/90 (60) BP: BP Readings from Last 3 Encounters: 07/21/10 132/70 03/31/10 124/74 P: Pulse Readings from Last 3 Encounters: 07/21/10 80 03/31/10 54 WT: Wt Readings from Last 3 Encounters: 11/17/10 209 lb (94.802 kg) 07/21/10 208 lb (94.348 kg) 03/31/10 223 lb 4.8 oz (101.288 kg) General appearance: alert, cooperative, no distress Lungs: breath sounds normal and symmetric; no rales or wheezes Heart: regular rhythm, normal S1 and S2, without murmurs, gallops or rubs Abdomen: soft without mass, non-tender, with normal bowel sounds Extremities: no clubbing, cyanosis or edema Data Component Name 11/10/10 0903/24/10 0820 09/09/09 0828 SODIUM 139 140 143 POTASSIUM 4.1 4.3 4.7 BUN 23 25 21 CREATININE 1.29* 1.26 1.17 GLUCOSE 102* 107* 97 Component Name 11/10/10 0903/24/10 0820 09/09/09 0828 HGBA1C 6.1* 5.7* 6.0* Assessment : 1.HTN, controlled 2.HLP, need to improve control 3.GERD, controlled 4.IGT, slightly increased HbA1c 5.Mild peripheral neuropathy, stable 6.BPH, stable 7.Preventive: -vaccinations up to date -colonoscopy due the next year -PSA check today Plan: 1.Continue same meds except as below 2.Fish Oil OTC 3.PSA 4.CMP, HbA1c, CBC 5.F/u 4M Meds: Handout given HEALTH MANTAINANCE And Preventive Screening: Health Maintenance Topic Date Due ??? COLON CANCER SCREENING Q10 YR 1986 ??? BONE DENSITY TESTING-MALE 2006 ??? DYSLIPIDEMIA SCREENING Q5 YR 11/11/2015 Discussed with [facility] Attending Dr.Patel Yamil Garcia MD 11/17/2010 10:54 AM documented in this encounter Plan of Treatment Not on file documented as of this encounter Procedures Procedure Name Priority Date/Time Associated Diagnosis Comments LIPID PROFILE W LDL/HDL RATIO Routine 03/16/2011 8:42 AM CDT HLD (hyperlipidemia) HEMOGLOBIN A1C Routine 03/16/2011 8:42 AM CDT DM (diabetes mellitus) (HCC) COMPREHENSIVE METABOLIC PANEL Routine 03/16/2011 8:42 AM CDT HTN (hypertension) GERD (gastroesophageal reflux disease) PROSTATE SPECIFIC ANTIGEN SCREEN Routine 03/16/2011 8:42 AM CDT Elevated PSA documented in this encounter Results * (ABNORMAL) PROSTATE SPECIFIC ANTIGEN SCREEN (03/16/2011 8:42 AM CDT) PSA 4.7(H) 0.0 - 4.0 ng/mL [facility] INSURANCE BILL Comment: Jhoana ECLIA methodology. ? . According to the [place] [employer], Serum PSA should decrease and [...] 6:15 PM CDT Narrative Resulting Agency Comment [facility] [address] [facility] [phone] Jim Horn MD LAB - CHEMISTRY NELLY ARSHAD Performing Organization Address [facility] de Phone Number [facility] INSURANCE BILL * (ABNORMAL) HEMOGLOBIN A1C (03/16/2011 8:42 AM CDT) Hemoglobin A1c 6.0(H) 4.8 - 5.6 % [facility] INSURANCE BILL Comment: ? Increased risk for diabetes: ?5.7 - 6.4 ? Diabetes: ?>6.4 ? Glycemic control for adults with diabetes: ? <7.0 BLOOD SPECIMEN / Unknown 03/16/2011 8:42 AM CDT 03/16/2011 6:15 PM CDT Narrative Resulting Agency Comment [facility] [place] [address] ??[place] [phone] Jim Horn MD LAB - CHEMISTRY NELLY ARSHAD Performing Organization Address [facility] de Phone Number [facility] INSURANCE BILL * (ABNORMAL) COMPREHENSIVE METABOLIC PANEL (03/16/2011 8:42 AM CDT) Glucose 97 65 - 99 mg/dL [facility] INSURANCE BILL BUN 22 8 - 27 mg/dL [facility] INSURANCE BILL [...] disease. Calculated using CKD-EPI formula. BUN/Creatinine Ratio 17 10 - 22 [facility] INSURANCE BILL Sodium 139 135 - 145 mmol/L [facility] INSURANCE BILL Potassium 4.1 3.5 - 5.2 mmol/L [facility] INSURANCE BILL Chloride 103 97 - 108 mmol/L [facility] INSURANCE BILL CO2 26 20 - 32 mmol/L [facility] INSURANCE BILL Calcium 10.0 8.6 - 10.2 mg/dL [facility] INSURANCE BILL Protein Total 7.2 6.0 - 8.5 g/dL [facility] INSURANCE BILL Albumin 4.5 3.5 - 4.8 g/dL [facility] INSURANCE BILL Globulin Total 2.7 1.5 - 4.5 g/dL [facility] INSURANCE BILL Albumin/Globulin Ratio 1.7 1.1 - 2.5 [facility] INSURANCE BILL Bilirubin Total 0.3 0.0 - 1.2 mg/dL [facility] INSURANCE BILL Alkaline Phosphatase 36 25 - 160 IU/L [facility] INSURANCE BILL AST 22 0 - 40 IU/L [facility] INSURANCE BILL ALT 18 0 - 55 IU/L [facility] INSURANCE BILL BLOOD SPECIMEN / Unknown 03/16/2011 8:42 AM CDT 03/16/2011 6:15 PM CDT Narrative Resulting Agency Comment [facility] [address] ??[facility] [phone] Jim Horn MD LAB - CHEMISTRY NELLY ARSHAD [facility] Organization Address City/State/ZIP Co de Phone Number [facility] INSURANCE BILL * (ABNORMAL) LIPID PROFILE W LDL/HDL (PO [...] PM CDT Narrative Resulting Agency Comment [facility] [address] ??[facility] [phone] Jim Horn MD LAB - CHEMISTRY NELLY ARSHAD [facility] Organization Address City/State/ZIP Co de Phone Number [facility] INSURANCE BILL documented in this encounter Visit Diagnoses Diagnosis HLD (hyperlipidemia)- Primary Other and unspecified hyperlipidemia DM (diabetes mellitus) (HCC) Type II or unspecified type diabetes mellitus without mention of complication, not stated as uncontrolled HTN (hypertension) Unspecified essential hypertension GERD (gastroesophageal reflux disease) Esophageal reflux Elevated PSA Elevated prostate specific antigen (PSA) documented in this encounter Care Teams Copyholder Relationship Specialty Start Date End Date Jim Horn MD PCP - General 09/15/09 10/28/13 documented as of this encounter
--- OUTSIDE RECORDS SUMMARY | 2024-08-19 16:28 | XMS_ITS | Encounter Summary ---
Author Organization [facility] Address [address] [facility] [place] [address] Care Team Providers Care Glass Bead Maker Name Role Phone Jim Horn MD Primary Care Provider Unavailabl e Reason for Visit * Reason Onset Date Comments Injury Thumb 08/18/2012 Encounter Details Date Type Department Care Team (Late st Contact Info) Description 08/18/2012 Telephone [facility] Medical [facility] - Internal Medicine [address] [place] [phone] Jim Horn MD Updated address needed Injury Thumb Social History Tobacco Use Types Packs/Day Years [...] encounter Miscellaneous Notes * Telephone Encounter - Audra Patterson - 08/18/2012 5:07 PM CST Pt notified. FILER * Telephone Encounter - Ron Mohr MD - 08/18/2012 4:[address] Horn's note: SKIN - no significant rash or bruising Thumb nail with redness, bruising, but no purulent drainage noted. IMPRESSION: No diagnosis found. Below numbers correlate to above diagnosis. Plan: No orders of the defined types were placed in this encounter. Hard to know what is going on from the description. Will treat as a bacterial infection. Paronychia? Rx septra DS bid. If not improving, to hand surgeon. FILER * Telephone Encounter - Audra Patterson - 08/18/2012 4:[address] Horn's pt. In on Tuesday (08/15/12) for right thumb problem. Large blood blister opened and drained . This morning had moderate amt yellow drainage from under nail. Thumb is twice as swollen as it was at [facility] Tenderness at end of nail but no acute pain. FILER documented in this encounter Plan of Treatment Not on file documented as of this encounter Visit Diagnoses Not on filedocumented in this encounter Care Teams Glass Bead Maker Relationship Specialty Start Date End Date Jim Horn MD PCP - General 09/15/09 10/28/13 documented as of this encounter
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
--- OUTSIDE RECORDS SUMMARY | 2024-08-19 16:28 | XMS_ITS | Encounter Summary ---
Author Organization [facility] Address [address] [place] [address] Care Team Providers Care Multifocal Lens Assembler Name Role Phone Jim Horn MD Primary Care Provider Unavailabl e Reason for Visit * Reason Onset Date Comments Medication Request 04/27/2011 Encounter Details Date Type Department Care Team (Late st Contact Info) Description 04/27/2011 Refill [facility] Medical [facility] - Internal Medicine [address] [place] [phone] Jim Horn MD Updated address needed Medication Request Social History Tobacco Use Types Packs/Day [...] * Telephone Encounter - Audra Patterson - 04/27/2011 2:46 PM CDT Pt contacted and notified that rx has been sent in. * Telephone Encounter - Audra Patterson - 04/27/2011 11:44 AM CDT Voice mail message - needs refill on antibiotic before dental appt. See old zithromax 250mg rx found dated 10/2009 with dosing instructions. documented in this encounter Plan of Treatment Not on file documented as of this encounter Visit Diagnoses Not on filedocumented in this encounter Care Teams Multifocal Lens Assembler Relationship Specialty Start Date End Date Jim Horn MD PCP - General 09/15/09 10/28/13 documented as of this encounter
--- OUTSIDE RECORDS SUMMARY | 2024-08-19 16:28 | XMS_ITS | Encounter Summary ---
Author Organization [facility] Address [address] [place] [address] Care Team Providers Care Vice Chair Name Role Phone Jim Horn MD Primary Care Provider Unavailabl e Reason for Visit * Reason Onset Date Comments Encounter Opened In Error 01/16/2013 Encounter Details Date Type Department Care Team (Late st Contact Info) Description 01/16/2013 Telephone [facility] Medical [facility] - Internal Medicine [address] [place] [phone] Jim Horn MD Updated address needed Encounter Opened In Error Social History Tobacco Use Types Packs/Day Years [...] * Telephone Encounter - Kiara Hester - 01/16/2013 10:58 AM CDT Torie Hebert encounter was opened in error. Please disregard any activity associated with this encounter. Torie Vijay Hebert encounter was opened in error. Please disregard any activity associated with this encounter. documented in this encounter Plan of Treatment Not on file documented as of this encounter Visit Diagnoses Diagnosis ERRONEOUS ENCOUNTER--DISREGARD- Primary documented in this encounter Care Teams Vice Chair Relationship Specialty Start Date End Date Jim Horn MD PCP - General 09/15/09 10/28/13 documented as of this encounter
--- OUTSIDE RECORDS SUMMARY | 2024-08-19 16:28 | XMS_ITS | Encounter Summary ---
Author Organization [facility] Address [address] [facility] [place] [address] Care Team Providers Care Founder & Ceo Name Role Phone Jim Horn MD Primary Care Provider Unavailabl e Reason for Visit * Reason Onset Date Comments Medication Issue 04/22/2010 Encounter Details Date Type Department Care Team (Late st Contact Info) Description 04/22/2010 Telephone [facility] - Internal Medicine [address] [place] [phone] Jim Horn MD Updated address needed Medication Issue Social History Tobacco Use Types Packs/Day Years [...] * Telephone Encounter - Audra Patterson - 04/22/2010 1:57 PM CDT Asks if O.K. To take 2 of the OTC Nexium 20mg. In doughnut hole and unable to afford Rx strength. Per Tara yes. documented in this encounter Plan of Treatment Not on file documented as of this encounter Visit Diagnoses Not on filedocumented in this encounter Care Teams Founder & Ceo Relationship Specialty Start Date End Date Jim Horn MD PCP - General 09/15/09 10/28/13 documented as of this encounter
--- OUTSIDE RECORDS SUMMARY | 2024-08-19 16:28 | XMS_ITS | Encounter Summary ---
Author Organization [facility] Address [address] [place] [address] Care Team Providers Care Concierge Name Role Phone Jim Horn MD Primary Care Provider Unavailabl e Reason for Visit * Reason Onset Date Comments Pain Thumb 08/14/2012 Encounter Details Date Type Department Care Team (Late st Contact Info) Description 08/14/2012 Telephone [facility] Medical [facility] - Internal Medicine [address] [place] [phone] Jim Horn MD Updated address needed Pain Thumb Social History Tobacco Use Types Packs/Day [...] encounter Miscellaneous Notes * Telephone Encounter - Raven Nance RN - 08/14/2012 10:40 AM SHEAR GRINDER OPERATOR HELPER Caller notified. R GRINDER OPERATOR HELPER * Telephone Encounter - Jim Horn MD - 08/14/2012 10:35 AM CST Nothing special to do that he isn't already doing, likely paronychia. Will see tomorrow. R GRINDER OPERATOR HELPER * Telephone Encounter - Raven Nance RN - 08/14/2012 8:56 AM SHEAR GRINDER OPERATOR HELPER calls to state that the patient's right thumb is slightly swollen, tender, and reddish near thumbnail. She thinks that a splinter may have lodged under patients right thumbnail. She can not see any splinter. Symptoms began 1-4-5. is not able to see any break in skin that antibiotic ointment could be applied to. Patient has been treating thumb with warm salt water soaks. I offered her a 10am appointment today. She declined appointment today because her is working today as a senior local city driver. She accepts an appointment for 9am tomorrow when he is off work. She asks ifthere is any treatment that should be done at home tonight when the patient returns from work? Allergic to PCN. 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 Last office visit 06-13-12 R GRINDER OPERATOR HELPER documented in this encounter Plan of Treatment Not on file documented as of this encounter Visit Diagnoses Not on filedocumented in this encounter Care Teams Concierge Relationship Specialty Start Date End Date Jim Horn MD PCP - General 09/15/09 10/28/13 documented as of this encounter
--- OUTSIDE RECORDS SUMMARY | 2024-08-19 16:28 | XMS_ITS | Encounter Summary ---
Author Organization [facility] Address [address] [place] [address] Care Team Providers Care Retail Receiving Clerk Name Role Phone Jim Horn MD Primary Care Provider Unavailabl e Reason for Visit * Reason Onset Date Comments Medication Request 08/10/2010 Encounter Details Date Type Department Care Team (Late st Contact Info) Description 08/10/2010 Telephone [facility] - Internal Medicine [address] [place] [phone] Jim Horn MD Updated address needed Medication [...] * Telephone Encounter - Audra Patterson - 08/10/2010 9:04 AM CST Needs new medication savings card for Exforge HCT - 10-320-25. Will call [employer] for a new card. VISION AND RADIO REPAIRER documented in this encounter Plan of Treatment Not on file documented as of this encounter Visit Diagnoses Not on filedocumented in this encounter Care Teams Retail Receiving Clerk Relationship Specialty Start Date End Date Jim Horn MD PCP - General 09/15/09 10/28/13 documented as of this encounter
--- OUTSIDE RECORDS SUMMARY | 2024-08-19 16:28 | XMS_ITS | Encounter Summary ---
Author Organization [facility] Address [address] [place] [address] Care Team Providers Care Buyer Tobacco Head Name Role Phone Jim Horn MD Primary Care Provider Unavailabl e Reason for Referral * - Closed Specialty Diagnoses / Procedures Referred By Contac t Referred To Contact Diagnoses Gait instability Procedures PT EVAL AND TREAT Jim Horn MD Updated address needed Referral ID Status Reason Start Date Expiration Date Visits Re quested Visits Authorized [id number] Closed 02/15/2012 08/13/2012 1 1 Reason for Visit * Reason Comments Hypertension Hyperlipidemia Encounter Details Date Type Department Care Team (Latest Contact Info) Description 02/15/2012 10:40 AM CDT Office Visit [facility] - Internal Medicine [facility] [phone] Jim Horn MD Updated address needed Hyperglycemia (Primary Dx); HTN (hypertension); GERD (gastroesophageal reflux disease); Mixed hyperlipidemia; Gait instability Social History Tobacco Use Types Packs/Day Years [...] Sign Reading Time Taken Comments Blood Pressure 121/77 02/15/2012 10:27 AM CDT Pulse 70 02/15/2012 10:27 AM CDT Temperature - - Respiratory Rate 14 02/15/2012 10:27 AM CDT Oxygen Saturation - - Inhaled Oxygen Concentration - - Weight 94.8 kg (209 lb) 02/15/2012 10:27 AM CDT Height 177.8 cm (5' 10 ) 02/15/2012 10:27 AM CDT Body Mass Index 29.99 02/15/2012 10:27 AM CDT documented in this encounter Patient Instructions * Patient Instructions* Jim Horn MD - 02/15/2012 10:43 AM CDT Need to eat less fat. Need to stay away from starches. Need to work on better dietary discretion. documented in this encounter Progress Notes * Jim Horn MD - 02/15/2012 10:31 AM CDT Wt Readings from Last 2 Encounters: 02/15/12 209 lb (94.802 kg) 10/19/11 212 lb (96.163 kg) Chief Complaint Patient presents with ??? Hypertension ??? Hyperlipidemia Body mass index is 29.99 kg/(m^2). HPI: Patient is fine. Had a boil; it burst and it looks good now. Lost some weight. Swimming, lost some. Physical Therapist - balance is bad; balance therapy. Guessing that it would be a benefit. ROS: General ROS: positive for - fatigue Respiratory ROS: no cough, shortness of breath, or wheezing Cardiovascular ROS: no chest pain or dyspnea on exertion negative Gastrointestinal ROS: no abdominal pain, change in bowel habits, or black or bloody stools Musculoskeletal ROS: positive for - gait disturbance Neurological ROS: no TIA or stroke symptoms . Current Outpatient Prescriptions on File Prior to Visit Medication Sig Dispense Refill ??? ajmytwkmws-awseadfbx-zfbs (EXFORGE HCT) 10-320-25 MG tablet Take 1 Tab by mouth once daily. 30 Tab 12 ??? fenofibrate (LOFIBRA) 160 MG tablet Take 1 Tab by mouth once daily. Take with largest meal of the day. 30 Tab 5 ??? fluticasone propionate (FLONASE) 50 MCG/ACT nasal spray Poplar 1 Poplar into each nostril 2 timesdaily. 16 g [...] tobacco ??? Never Used GENERAL EXAMINATION: BP 121/77 Pulse 70 Resp 14 Wt 209 lb (94.802 kg) BMI 29.99 kg/m2 GENERAL: Alert and oriented, not is distress CARDIAC: normal rate, regular rhythm, normal S1, S2, no murmurs, rubs, clicks or gallops PULMONARY: breath sounds normal and symmetric; no rales or wheezes ABDOMEN: soft without mass, non-tender, with normal bowel sounds, no organomegaly, obese EXTREMITIES: no edema SKIN - no significant rash or bruising IMPRESSION/PLAN: Component Name 02/08/12 0832 03/16/11 0842 11/10/10 0919 CHOL 221* 197 189 TRIG 200* 187* 118 HDL 37* 33* 38* LDLCALC 144* 127* 127* 1. Hyperglycemia 2. HTN (hypertension) 3. GERD (gastroesophageal reflux disease) 4. Mixed hyperlipidemia 5. Gait instability PT EVAL AND TREAT Will need to lose weight. HTN - well controlled GERD - well controlled Really need to work diet. No orders of the defined types were placed in this encounter. Patient Active Problem List Diagnoses ??? HTN (HYPERTENSION) ??? HLD (HYPERLIPIDEMIA) ??? GERD (Gastroesophageal Reflux Disease) documented in this encounter Plan of Treatment Scheduled Orders Name Type Priority Associated Diagnoses Orde r Schedule PT EVAL AND TREAT PT Routine Gait instability Ordered: 02/15/2012 documented as of this encounter Visit Diagnoses Diagnosis Hyperglycemia- Primary Other abnormal glucose HTN (hypertension) Unspecified essential hypertension GERD (gastroesophageal reflux disease) Esophageal reflux Mixed hyperlipidemia Gait instability Abnormality of gait documented in this encounter Care Teams Buyer Tobacco Head Relationship Specialty Start Date End Date Jim Horn MD PCP - General 09/15/09 10/28/13 documented as of this encounter
--- OUTSIDE RECORDS SUMMARY | 2024-08-19 16:28 | XMS_ITS | Encounter Summary ---
Author Organization [facility] Address [address] [facility] [place] [address] Care Team Providers Care Senior Java Programmer Analyst Name Role Phone Jim Horn MD Primary Care Provider Unavailabl e Encounter Details Date Type Department Care Team (Late st Contact Info) Description 03/24/2010 Orders Only [facility] Medical [facility] - Internal Medicine [facility] [phone] Jim Horn MD Updated address needed Social [...] Priority Date/Time Associated Diagnosis Comments LIPID PROFILE 03/24/2010 8:20 AM CDT documented in this encounter Results * (ABNORMAL) LIPID PROFILE (03/24/2010 8:20 AM CDT) Cholesterol 199 125 - 200 mg/dL [facility] Comment: Test Performed at: [facility] [place] [address] [place], [place] ??[id number] HAIM TELLES DO,MPH HDL Cholesterol 39(L) > OR = 40 mg/dL [facility] Triglycerides 166(H) <150 mg/dL [facility] LDL Calculated 127 <130 mg/dL (calc) [facility] Comment: Desirable range <100 mg/dL for patients with CHD or diabetes and <70 mg/dL for diabetic patients with known heart disease. CHOL/HDLC RATIO 5.1(H) < OR = 5.0 (calc) [facility] 03/24/2010 8:20 AM CDT 03/25/2010 5:57 AM CDT Jim Horn MD LAB - CHEMISTRY NELLY ARSHAD [facility] Organization Address City/State/[facility] Co de Phone Number [facility] [address] [place] [address] documented in this encounter Visit Diagnoses Not on filedocumented in this encounter Care Teams Senior Java Programmer Analyst Relationship Specialty Start Date End Date Jim Horn MD PCP - General 09/15/09 10/28/13 documented as of this encounter
--- OUTSIDE RECORDS SUMMARY | 2024-08-19 16:28 | XMS_ITS | Encounter Summary ---
Author Organization [facility] Address [address] [place] [address] Care Team Providers Care Lens Grinder Apprentice Name Role Phone Jim Horn MD Primary Care Provider Unavailabl e Reason for Visit * Reason Comments Hypertension Encounter Details Date Type Department Care Team (Late st Contact Info) Description 12/23/2009 9:30 AM CDT Office Visit [facility] [address] [place] [phone] Jim Horn MD Updated address needed HTN (HYPERTENSION) (Primary Dx); HLD (HYPERLIPIDEMIA); DM (Diabetes Mellitus) (HCC); GERD (Gastroesophageal Reflux Disease); BPH (Benign Prostatic Hyperplasia); Prostate Cancer Screening Social History Tobacco Use Types Packs/Day Years [...] - Inhaled Oxygen Concentration - - Weight 92.2 kg (203 lb 3.2 oz) 12/23/2009 9:13 A M CDT Height 179.1 cm (5' 10.5 ) 12/23/2009 9:13 AM CD T Body Mass Index 28.74 12/23/2009 9:13 AM CDT documented in this encounter Progress Notes * iJm Horn MD - 12/23/2009 9:53 AM CDT Last 2 Encounter Wt Readings: Office Visit on 12/23/09 12/23/2009 9:13 AM Weight: 92.171 kg (203 lb 3.2 oz) Office Visit on 09/23/09 09/23/2009 10:31 AM Weight: 96.525 kg (212 lb 12.8 oz) Chief Complaint Patient presents with ??? Hypertension HPI: Had DMV physical and had increased BP, very high. At the physical had 170/117. Patient has normal feeling during his time. At little up overall, 10:30 in the am was when they took the bp. 160/90. Rest of the physical was a little high. ROS: General ROS: negative Psychological ROS: negative Respiratory ROS: no cough, shortness of breath, or wheezing Cardiovascular ROS: no chest pain or dyspnea on exertion Gastrointestinal ROS: no abdominal pain, change in bowel habits, or black or bloody stools Musculoskeletal ROS: negative Neurological ROS: no TIA or stroke symptoms Meds Reviewed History Tobacco Use Never Diet/Exercise/ADL: Okay. GENERAL EXAMINATION: 150/90 75 Wt 92.171 kg (203 lb 3.2 oz) GENERAL: No acute distress. PSYCH: Pleasant. Answers questions appropriately. CARDIAC: normal rate, regular rhythm, normal S1, S2, no murmurs, rubs, clicks or gallops PULMONARY: breath sounds normal and symmetric; no rales or wheezes ABDOMEN: soft without mass, non-tender, with normal bowel sounds, no organomegaly EXTREMITIES: no edema IMPRESSION/PLAN: HTN - is a little high. Will hold off on amlodipine, losartan Will start exforge/hct - 10/320/25 a day. Patient Active Problem List Diagnoses Code ??? DM (Diabetes Mellitus) 250.00BV ??? HTN (HYPERTENSION) 401.9AF ??? HLD (HYPERLIPIDEMIA) 272.4BH ??? GERD (Gastroesophageal Reflux Disease) 530.81S documented in this encounter Plan of Treatment Scheduled Orders Name Type Priority Associated Diagnoses Orde r Schedule LIPID PROFILE Lab Routine Htn (Hypertension) Hld (Hyperlipidemia) DM (Diabetes Mellitus) (HCC) GERD (Gastroesophageal Reflux Disease) BPH (Benign Prostatic Hyperplasia) Prostate Cancer Screening Ordered: 12/23/2009 COMPREHENSIVE METABOLIC PANEL Lab Routine Htn (Hypertension) Hld (Hyperlipidemia) DM (Diabetes Mellitus) (HCC) GERD (Gastroesophageal Reflux Disease) BPH (Benign Prostatic Hyperplasia) Prostate Cancer Screening Ordered: 12/23/2009 HEMOGLOBIN A1C Lab Routine Htn (Hypertension) Hld (Hyperlipidemia) DM (Diabetes Mellitus) (HCC) GERD (Gastroesophageal Reflux Disease) BPH (Benign Prostatic Hyperplasia) Prostate Cancer Screening Ordered: 12/23/2009 PROSTATE SPECIFIC ANTIGEN SCREEN Lab Routine Htn (Hypertension) Hld (Hyperlipidemia) DM (Diabetes Mellitus) (HCC) GERD (Gastroesophageal Reflux Disease) BPH (Benign Prostatic Hyperplasia) Prostate Cancer Screening Ordered: 12/23/2009 documented as of this encounter Visit Diagnoses [...] prostate documented in this encounter Care Teams Lens Grinder Apprentice Relationship Specialty Start Date End Date Jim Horn MD PCP - General 09/15/09 10/28/13 documented as of this encounter
--- OUTSIDE RECORDS SUMMARY | 2024-08-19 16:28 | XMS_ITS | Encounter Summary ---
Author Organization [facility] Address [address] [facility] [place] [address] Care Team Providers Care Crusher Supervisor Name Role Phone Jim Horn MD Primary Care Provider Unavailabl e Reason for Visit * Reason Comments Hypertension Hyperlipidemia Encounter Details Date Type Department Care Team (Late st Contact Info) Description 04/24/2013 10:00 AM CDT Office Visit [facility] Medical [facility] - Internal Medicine [address] [place] [phone] Jim Horn MD Updated address needed HTN (hypertension) (Primary Dx); Need for influenza vaccination; HLD (hyperlipidemia); Pre-diabetes Social History Tobacco Use Types Packs/Day Years [...] Mass Index 28.12 04/24/2013 9:49 AM CDT documented in this encounter Progress Notes * Jim Horn MD - 04/24/2013 9:55 AM CDT Wt Readings from Last 2 Encounters: 04/24/13 88.905 kg (196 lb) 01/16/13 89.177 kg (196 lb 9.6 oz) Chief Complaint Patient presents with ??? Hypertension ??? Hyperlipidemia Body mass index is 28.12 kg/(m^2). HPI: doing okay, up and down weight pedraza. 20 minutes. Achey all over, weaker. Right back, pulled something. Wooden and heaven. Up and down. No coughing, No chest. ROS: General ROS: positive for - fatigue Psychological ROS: negative Respiratory ROS: no cough, shortness of breath, or wheezing Cardiovascular ROS: no chest pain or dyspnea on exertion Gastrointestinal ROS: no abdominal pain, change in bowel habits, or black or bloody stools Musculoskeletal ROS: positive for - joint pain Neurological ROS: no TIA or stroke symptoms . Current Outpatient Prescriptions on File Prior to Visit Medication Status Sig Dispense Refill ??? fenofibrate (LOFIBRA) 160 MG tablet Active Take 1 Tab by mouth once daily. Take with largest meal of the day. 30 Tab 5 ??? bbedridpty-zucxqfnfv-xnvn (EXFORGE HCT) 10-320-25 MG tablet Active Take 1 Tab by mouth once daily. 30 Tab 12 ??? fluticasone propionate (FLONASE) 50 MCG/ACT nasal spray Active Hoyt 1 Hoyt into each nostril 2 times daily. 16 g 1 ??? aspirin 81 MG tablet Active Take 81 mg by mouth once daily. ??? omeprazole (PRILOSEC) 40 MG capsule Active Take 1 Cap by mouth daily before breakfast. 90 Cap 3 ??? MULTI VITAMIN MENS PO Active Take by mouth. ??? calcium polycarbophil (FIBERCON) 625 MG tablet Active Take 625 mg by mouth at bedtime. ??? diphenhydramine-APAP (sleep) (TYLENOL PM ES) 25-500 MG tablet Active Take 1 Tab by mouth nightly as [...] tobacco ??? Never Used GENERAL EXAMINATION: BP 134/80 Pulse 70 Resp 14 Wt 88.905 kg (196 lb) BMI 28.12 kg/m2 GENERAL: Alert and oriented, not is distress CARDIAC: normal rate, regular rhythm, normal S1, S2, no murmurs, rubs, clicks or gallops PULMONARY: breath sounds normal and symmetric; no rales or wheezes ABDOMEN: soft without mass, non-tender, with normal bowel sounds, no organomegaly EXTREMITIES: no edema SKIN - no significant rash or bruising IMPRESSION: 401.9 HTN (hypertension) (primary encounter diagnosis) Comment: BP 134/80 Pulse 70 Resp 14 Wt 88.905 kg (196 lb) BMI 28.12 kg/m2 V04.81 Need for influenza vaccination Comment: Agreed to get it. Plan: FLU VACCINE 3 RADHA 3YRS PLUS IM 272.4 HLD (hyperlipidemia) Comment: Component Name 09/05/12 0839 02/08/12 0832 03/16/11 0842 LDLCALC 129* 144* 127* 790.29 Pre-diabetes Comment: Component Name 04/10/13 0814 09/05/12 0839 03/16/11 0842 HGBA1C 6.0* 6.1* 6.0* documented in this encounter Plan of Treatment Not on file documented as of this encounter Visit Diagnoses Diagnosis HTN (hypertension)- Primary Unspecified essential hypertension Need for influenza vaccination Need for prophylactic vaccination and inoculation against influenza HLD (hyperlipidemia) Other and unspecified hyperlipidemia Pre-diabetes Other abnormal glucose documented in this encounter Care Teams Crusher Supervisor Relationship Specialty Start Date End Date Jim Horn MD PCP - General 09/15/09 10/28/13 documented as of this encounter
--- OUTSIDE RECORDS SUMMARY | 2024-08-19 16:28 | XMS_ITS | Encounter Summary ---
Author Organization [facility] Health Address [facility] [place] [address] Care Team Providers Care Loin Trimmer Name Role Phone Jim Horn MD Primary Care Provider Unavailabl e Reason for Visit * Reason Onset Date Comments MEDICATION REFILL 10/07/2009 Encounter Details Date Type Department Care Team (Late st Contact Info) Description 10/07/2009 Refill [facility] [address] [place] [phone] Jim Horn MD Updated address needed MEDICATION [...] on filedocumented in this encounter Care Teams Loin Trimmer Relationship Specialty Start Date End Date Jim Horn MD PCP - General 09/15/09 10/28/13 documented as of this encounter
--- OUTSIDE RECORDS SUMMARY | 2024-08-19 16:28 | XMS_ITS | Encounter Summary ---
Author Organization [facility] Address [address] [place] [address] Care Team Providers Care Crab Steamer Name Role Phone Unavailable Primary Care Provider Unavailabl e Encounter Details Date Type Department Care Team (Late st Contact Info) Description 06/18/2008 Orders Only [facility] [address] Jim Horn MD Updated address needed Social [...] Procedure Name Priority Date/Time Associated Diagnosis Comments PT-INR 06/18/2008 11:51 AM LOG LOADER CBC W AUTO DIFFERENTIAL 06/18/2008 11:51 AM LOG LOADER COMPREHENSIVE METABOLIC PANEL 06/18/2008 11:51 AM LOG LOADER documented in this encounter Results * PT-INR (06/18/2008 11:51 AM LOG LOADER) INR 1.1 0.8 - 1.2 [facility] INSURANCE BILL Comment: ? Reference interval is for non-anticoagulated patients. ? . ? Suggested INR therapeutic range for Vitamin K ? antagonist therapy: ?Standard Dose (moderate intensity ?therapeutic range): ?2.0 - 3.0 ?Higher intensity therapeutic range ? 2.5 - 3.5 PT 10.7 8.7 - 11.5 sec [facility] INSURANCE BILL 06/18/2008 11:5 1 AM LOG LOADER 06/18/2008 9:50 PM LOG LOADER Narrative Resulting Agency Comment [facility] [address] [facility] ??[facility] [phone] Jim Horn MD LAB - COAGULATION OR DERABLES [facility] INSURANCE BILL * (ABNORMAL) COMPREHENSIVE METABOLIC PANEL (06/18/2008 11:51 AM LOG LOADER) Glucose 103(H) 65 - 99 mg/dL [facility] INSURANCE BILL BUN 17 5 - 26 mg/dL [facility] INSURANCE BILL Creatinine 1.00 0.76 - 1.27 mg/dL [facility] INSURANCE BILL eGFR by MDRD >59 >59 mL/min/1.7 3 [facility] INSURANCE BILL Comment:Please note refere nce interval change eGFR by MDRD >59 >59 mL/min/1.7 3 [facility] INSURANCE BILL Comment: Note: ??Persistent reduction for 3 months or more in an eGFR <60 mL/min/1.73 m2 defines CKD. ??Patients with eGFR values >/=60 mL/min/1.73 m2 may also have CKD if evidence of persistent proteinuria is present. Additional information may be found at [email or web address]. BUN/Creatinine Ratio 17 8 - 27 [facility] INSURANCE BILL Sodium 140 135 - 145 mmol/L [facility] INSURANCE BILL Potassium 4.3 3.5 - 5.2 mmol/L [facility] INSURANCE BILL Chloride 102 97 - 108 mmol/L [facility] INSURANCE BILL CO2 23 20 - 32 mmol/L [facility] INSURANCE BILL Calcium 10.0 8.5 - 10.6 mg/dL [facility] INSURANCE BILL Protein Total 7.4 6.0 - 8.5 g/dL [facility] INSURANCE BILL Albumin 4.6 3.5 - 4.8 g/dL [facility] INSURANCE BILL Globulin Total 2.8 1.5 - 4.5 g/dL [facility] INSURANCE BILL Albumin/Globulin Ratio 1.6 1.1 - 2.5 [facility] INSURANCE BILL Bilirubin Total 0.5 0.1 - 1.2 mg/dL [facility] INSURANCE BILL Alkaline Phosphatase 70 25 - 160 IU/L [facility] INSURANCE BILL AST 15 0 - 40 IU/L [facility] INSURANCE BILL ALT 19 0 - 55 IU/L [facility] INSURANCE BILL 06/18/2008 11:5 1 AM LOG LOADER 06/18/2008 9:50 PM LOG LOADER Narrative Resulting Agency Comment [facility] [address] ??[facility] [phone] Jim Horn MD LAB - CHEMISTRY NELLY ARSHAD [facility] INSURANCE BILL * CBC W AUTO DIFFERENTIAL (06/18/2008 11:51 AM LOG LOADER) WBC 6.3 4.0 - 10.5 x10E3/uL [facility] INSURANCE BILL RBC 5.12 4.10 - 5.60 x10E6/uL [facility] INSURANCE BILL Hemoglobin 14.3 12.5 - 17.0 g/dL [facility] INSURANCE BILL Hematocrit 43.2 36.0 - 50.0 % [facility] INSURANCE BILL MCV 85 80 - 98 fL [facility] INSURANCE BILL MCH 27.8 27.0 - 34.0 pg [facility] INSURANCE BILL MCHC 33.0 32.0 - 36.0 g/dL [facility] INSURANCE BILL RDW 13.8 11.7 - 15.0 % [facility] INSURANCE BILL Platelet Count 245 140 - 415 x10E3/uL [facility] INSURANCE BILL Granulocytes % 64 40 - 74 % [facility] INSURANCE BILL Lymphocytes % 23 14 - 46 % [facility] INSURANCE BILL Monocytes % 9 4 - 13 % [facility] INSURANCE BILL Eosinophils % 4 0 - 7 % [facility] INSURANCE BILL Basophils % 0 0 - 3 % [facility] INSURANCE BILL Granulocytes Absolute 4.0 1.8 - 7.8 x10E3/uL [facility] INSURANCE BILL Lymphocytes Absolute 1.4 0.7 - 4.5 x10E3/uL [facility] INSURANCE BILL Monocytes Absolute 0.6 0.1 - 1.0 x10E3/uL [facility] INSURANCE BILL Eosinophils Absolute 0.3 0.0 - 0.4 x10E3/uL [facility] INSURANCE BILL Basophils Absolute 0.0 0.0 - 0.2 x10E3/uL [facility] INSURANCE BILL Comment Hematology NOT AVAIL. [facility] INSURANCE BILL 06/18/2008 11:5 1 AM LOG LOADER 06/18/2008 9:50 PM LOG LOADER Narrative [facility] INSURANCE BILL - 06/19/2008 10:42 AM LOG LOADER Additional Result Information HEMATOLOGY COMMENTS: ??BLOOD,URINE ([facility]): RESULT NOT AVAILABLE Resulting Agency Comment [facility] [address] ??[facility] [id number] Jim Horn MD LAB - HEMATOLOGY ORD ERABLES [facility] INSURANCE BILL documented in this encounter Visit Diagnoses Not on filedocumented in this encounter
--- OUTSIDE RECORDS SUMMARY | 2024-08-19 16:28 | XMS_ITS | Encounter Summary ---
Author Organization [facility] Address [address] [place] [address] Care Team Providers Care Roll Cleaner Name Role Phone Jim Horn MD Primary Care Provider Unavailabl e Reason for Visit * Reason Onset Date Comments Refill Request 10/07/2009 via answering se rvice; pt needing antibiotic for dentist appt; [facility] [phone] Encounter Details Date Type Department Care Team (Late st Contact Info) Description 10/07/2009 Telephone [facility] [address] [address] Jim Horn MD Updated address needed Refill Request (via answering service; pt needing antibiotic for dentist appt; [facility] [phone]) Social History Tobacco Use Types Packs/Day Years [...] on filedocumented in this encounter Care Teams Roll Cleaner Relationship Specialty Start Date End Date Jim Horn MD PCP - General 09/15/09 10/28/13 documented as of this encounter
--- OUTSIDE RECORDS SUMMARY | 2024-08-19 16:28 | XMS_ITS | Encounter Summary ---
Author Organization [facility] Health Address [facility] [facility] [place] [address] Care Team Providers Care Wine Blender Name Role Phone Jim Horn MD Primary Care Provider Unavailabl e Reason for Visit * Reason Onset Date Comments Hypertension 12/17/2009 Encounter Details Date Type Department Care Team (Late st Contact Info) Description 12/17/[address] 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 B/P 171/117. Had pt lay down & relax came down to 160/94. What to do? Appt here next Tues. Cozaar 100mg. 1 bid. Keep appt. Pt. aware documented in this encounter Plan of Treatment Not on file documented as of this encounter Visit Diagnoses Not on filedocumented in this encounter Care Teams Wine Blender Relationship Specialty Start Date End Date Jim Horn MD PCP - General 09/15/09 10/28/13 documented as of this encounter
--- OUTSIDE RECORDS SUMMARY | 2024-08-19 16:28 | XMS_ITS | Encounter Summary ---
Author Organization [facility] Address [address] [place] [address] Care Team Providers Care Pet Care Worker Name Role Phone Jim Horn MD Primary Care Provider Unavailabl e Reason for Visit * Reason Onset Date Comments MEDICATION REFILL 04/27/2011 Encounter Details Date Type Department Care Team (Late st Contact Info) Description 04/27/2011 Refill [facility] - Internal Medicine [address] [place] [phone] Jim Horn MD Updated address needed MEDICATION [...] on filedocumented in this encounter Care Teams Pet Care Worker Relationship Specialty Start Date End Date Jim Horn MD PCP - General 09/15/09 10/28/13 documented as of this encounter
--- OUTSIDE RECORDS SUMMARY | 2024-08-19 16:28 | XMS_ITS | Encounter Summary ---
Author Organization [facility] Health Address [facility] [facility] [place] [address] Care Team Providers Care Salon Customer Experience Specialist Name Role Phone Jim Horn MD Primary Care Provider Unavailabl e Reason for Visit * Reason Onset Date Comments MEDICATION REFILL 09/29/2009 Encounter Details Date Type Department Care Team (Late st Contact Info) Description 09/29/2009 Refill [facility] [address] [place] [phone] Jim Horn MD Updated address needed MEDICATION [...] on filedocumented in this encounter Care Teams Salon Customer Experience Specialist Relationship Specialty Start Date End Date Jim Horn MD PCP - General 09/15/09 10/28/13 documented as of this encounter
--- OUTSIDE RECORDS SUMMARY | 2024-08-19 16:28 | XMS_ITS | Encounter Summary ---
Author Organization [facility] Address [address] [place] [address] Care Team Providers Care Garbage Collection Supervisor Name Role Phone Unavailable Primary Care Provider Unavailabl e Reason for Visit * Reason Comments Refill Request Encounter Details Date Type Department Care Team (Late st Contact Info) Description 04/04/2014 Refill [facility] - Internal Medicine [address] [place] [phone] Hillary Horn MD Updated address needed Refill Request [...] encounter Miscellaneous Notes * Telephone Encounter - Mell Rogers - 04/04/2014 1:28 PM CDT Requested Prescriptions Signed Prescriptions Disp Refills ??? fenofibrate (LOFIBRA) 160 MG tablet 30 Tab 0 Sig: TAKE ONE TABLET BY MOUTH ONCE DAILY WITH LARGEST MEAL OF THE DAY Authorizing Provider: HILLARY HORN Ordering User: MELL ROGERS Lizzie:04/24/13 Nov:needs to be scheduled documented in this encounter Plan of Treatment Not on file documented as of this encounter Visit Diagnoses Not on filedocumented in this encounter
--- OUTSIDE RECORDS SUMMARY | 2024-08-19 16:28 | XMS_ITS | Encounter Summary ---
Author Organization [facility] Health Address [address] [place] [address] Care Team Providers Care Gore Inserter Name Role Phone Jim Horn MD Primary Care Provider Unavailabl e Encounter Details Date Type Department Care Team (Late st Contact Info) Description 08/03/2011 Orders Only [facility] [address] [place] [phone] ProviderKatja MD Social History Tobacco Use Types [...] Diagnosis Comments GROSS + MICRO EXAM ANGELINA 08/03/2011 12 :00 AM UNDERWEAR TRIMMER documented in this encounter Results * GROSS + MICRO EXAM (08/03/2011 12:00 AM UNDERWEAR TRIMMER) Result CASE NUMBER [id number] Comment: ORDERING PHYSICIAN ??DANILO WALKER SPECIMEN TYPE ?Colon Ascending Date ? 08/03/2011 Physician ?Adelaide, Danilo Gross Description ? The specimen is received [...] ascending colon, polyp, biopsy ? Tubular adenoma Environmental Inspector ? alj Pathologist ?Edouard Zarate MD CPT code ? 36251 x2 MISCELLANEOUS SAMPLE S / Unknown 08/03/2011 08/03/2011 2:07 PM UNDERWEAR TRIMMER Historical Provider LAB - PATHOLOGY/C YTOLOGY ORDERABLES documented in this encounter Visit Diagnoses Not on filedocumented in this encounter Care Teams Gore Inserter Relationship Specialty Start Date End Date Jim Horn MD PCP - General 09/15/09 10/28/13 documented as of this encounter
--- OUTSIDE RECORDS SUMMARY | 2024-08-19 16:28 | XMS_ITS | Encounter Summary ---
Author Organization [facility] Address [address] [facility] [place] [address] Care Team Providers Care Entry Level Chemist Name Role Phone Jim Horn MD Primary Care Provider Unavailabl e Reason for Visit * Reason Comments Hypertension Encounter Details Date Type Department Care Team (Late st Contact Info) Description 09/23/2009 10:30 AM EXERCISE TEACHER Office Visit [facility] [address] [place] [phone] Jim Horn MD Updated address needed DM (Diabetes Mellitus) (HCC) (Primary Dx); HTN (HYPERTENSION); HLD (HYPERLIPIDEMIA); GERD (Gastroesophageal Reflux Disease) Social History Tobacco Use Types Packs/Day [...] - Inhaled Oxygen Concentration - - Weight 96.5 kg (212 lb 12.8 oz) 010 10:31 AM EXERCISE TEACHER Height 180.3 cm (5' 11 ) 09/23/2009 10: 31 AM EXERCISE TEACHER Body Mass Index 29.68 09/23/2009 10:31 AM EXERCISE TEACHER documented in this encounter Progress Notes * Jim Horn MD - 09/23/2009 10:49 AM CST Last 2 Encounter Wt Readings: Office Visit on 09/23/09 09/23/2009 10:31 AM Weight: 96.525 kg (212 lb 12.8 oz) Chief Complaint Patient presents with ??? Hypertension HPI: Hyperglycemia - for now seemingly better with eating. HTN - still taking meds, better. Hyperlipidemia - on Tricor, ok. Neuropathy in bilateral feet. GERD - on nexium. On back, itches at night. ROS: General ROS: negative Respiratory ROS: no cough, shortness of breath, or wheezing Cardiovascular ROS: no chest pain or dyspnea on exertion Gastrointestinal ROS: no abdominal pain, change in bowel habits, or black or bloody stools Musculoskeletal ROS: negative Neurological ROS: no TIA or stroke symptoms Meds Reviewed History Tobacco Use Never Diet/Exercise/ADL: Well. GENERAL EXAMINATION: Wt 96.525 kg (212 lb 12.8 oz) GENERAL: No acute distress. PSYCH: Pleasant. Answers questions appropriately. CARDIAC: normal rate, regular rhythm, normal S1, S2, no murmurs, rubs, clicks or gallops PULMONARY: breath sounds normal and symmetric; no rales or wheezes ABDOMEN: soft without mass, non-tender, with normal bowel sounds, no organomegaly EXTREMITIES: no edema IMPRESSION/PLAN: 1. Hyperglycemia - Needs to lose weight at this time. 3 month to lose 7 lbs. 2. Hypertension - well overall 3. Hypertriglyceredemia - fenofibrate. 4. GERD - well. CISE TEACHER documented in this encounter Plan of Treatment Not on file documented as of this encounter Visit Diagnoses Diagnosis DM (diabetes mellitus) (HCC)- Primary Type II or unspecified type diabetes mellitus without mention of complication, not stated as uncontrolled HTN (hypertension) Unspecified essential hypertension HLD (hyperlipidemia) Other and unspecified hyperlipidemia GERD (gastroesophageal reflux disease) Esophageal reflux documented in this encounter Care Teams Entry Level Chemist Relationship Specialty Start Date End Date Jim Horn MD PCP - General 09/15/09 10/28/13 documented as of this encounter
--- OUTSIDE RECORDS SUMMARY | 2024-08-19 16:28 | XMS_ITS | Encounter Summary ---
Author Organization [facility] Address [address] [facility] [place] [address] Care Team Providers Care On Air Director Name Role Phone Hillary Horn MD Primary Care Provider Unavailabl e Reason for Visit * Reason Onset Date Comments Sleep Problem 11/14/2009 Encounter Details Date Type Department Care Team (Late st Contact Info) Description 11/14/[address] [facility] [address] [phone] Hillary Horn MD Updated address needed Sleep Problem Social History Tobacco Use Types Packs/Day [...] * Telephone Encounter - Tara Wu - 11/14/2009 2:18 PM CDT Prescription Refills Approved Prescriptions Disp Refills ??? zolpidem (AMBIEN) 5 MG tablet 14 1 Sig: Take 1 Tab by mouth nightly as needed for Insomnia. Authorizing Provider: HILLARY HORN Ordering User: TARA WU Pt. aware * Telephone Encounter - Hillary Horn MD - 11/14/2009 1:19 PM CDT Okay to refill meds * Telephone Encounter - HungTara - 11/14/2009 10:29 AM CDT Pt's pt having insomnia again. Does real well for periods of time. Has had ambien 5mg. In the past. Refill this? documented in this encounter Plan of Treatment Not on file documented as of this encounter Visit Diagnoses Not on filedocumented in this encounter Care Teams On Air Director Relationship Specialty Start Date End Date Hillary Horn MD PCP - General 09/15/09 10/28/13 documented as of this encounter
--- OUTSIDE RECORDS SUMMARY | 2024-08-19 16:28 | XMS_ITS | Encounter Summary ---
Author Organization [facility] Address [address] [facility] [place] [address] Care Team Providers Care Pharmacy Manager Name Role Phone Jim Horn MD Primary Care Provider Unavailabl e Reason for Visit * Reason Onset Date Comments MEDICATION REFILL 04/28/2011 Encounter Details Date Type Department Care Team (Late st Contact Info) Description 04/28/2011 Refill [facility] - Internal Medicine [address] [place] [phone] Jim Horn MD Updated address needed MEDICATION [...] on filedocumented in this encounter Care Teams Pharmacy Manager Relationship Specialty Start Date End Date Jim Horn MD PCP - General 09/15/09 10/28/13 documented as of this encounter
== END 2024-08-18 12:48 | disposition home health service (06) | DRG 177 ==
LOC: ANHED 11:14 → ANH3MEDSUR 12:13
PROVIDERS: Nurse Practitioner Adult Health; Admitting Provider Internal Medicine; Emergency Provider Student in an Organized Health Care Education/Training Program; PCP Family Medicine; Visit Provider Internal Medicine
DX: U07.1 COVID-19 (principal); J18.9 Pneumonia, unspecified organism; N39.0 Urinary tract infection, site not specified; N13.30 Unspecified hydronephrosis; I25.10 Atherosclerotic heart disease of native coronary artery without angina pectoris; I12.9 Hypertensive chronic kidney disease with stage 1 through stage 4 chronic kidney disease, or unspecified chronic kidney disease; N18.31 Chronic kidney disease, stage 3a; E11.22 Type 2 diabetes mellitus with diabetic chronic kidney disease; E78.5 Hyperlipidemia, unspecified; N40.0 Benign prostatic hyperplasia without lower urinary tract symptoms; M48.00 Spinal stenosis, site unspecified; Z96.653 Presence of artificial knee joint, bilateral; Z79.82 Long term (current) use of aspirin; Z89.412 Acquired absence of left great toe; Z87.891 Personal history of nicotine dependence
CPT/HCPCS: 36415; 71046; 74177; 80048; 80053; 80076; 81001; 82550; 82948; 83735; 84443; 84484; 85025; 85027; 85380; 85610; 87040; 87086; 87637; 93005; 93971; 96361; 96365; 96375; 97110; 97116; 97161; 97165; 97530; 97535; 99285; A9270; G0378; J0248; J0696; J1650; J7030; Q9967

== ENCOUNTER 2024-11-28 10:37 | Outpatient (CLI) | payer OTHER, SELFPAY ==
--- OUTSIDE RECORDS SUMMARY | 2024-11-28 12:19 | XMS_ITS | Clinical Summary ---
Author Organization [facility] [employer] Address [address] [facility] [place] [address] Care Team Providers Care Line Maintenance Name Role Phone Robert Iverson MD Primary Care Provider Source Comments [facility] Affiliates and Associated Physician Practices is amultiple site organization consisting of ambulatory clinics and hospital sitesin [place], [place], [place] and [place]. This disclosure is being madepursuant to the Care Everywhere program and may not contain all information available regarding this patient. Last updated 18.[facility] [employer] Allergies Active Allergy Reactions Criticality Noted Date Comments Jc Inhibitors 09/15/2009 Penicillins 09/15/2009 Hmg-Coa-R Inhibitors Myalgias Low 09/23/2009 Tetanus Antitoxin 09/15/2009 Medications * Be aware that medications may not be up to date on this document. Alwaysverify current medications with the patient. MULTI VITAMIN MENS PO Take by mouth. Active calcium polycarbophil (FIBERCON) 625 MG tablet Take 625 mg by mouth at bedtime. Active diphenhydramine-AP AP (sleep) (TYLENOL PM ES) 25-500 MG tablet Take 1 Tab by mouth nightly as needed for Insomnia. Active omeprazole (PRILOSEC) 40 MG capsuleIndications :DM (diabetes mellitus) (HCC),HTN (hypertension),HLD (hyperlipidemia),G ERD (gastroesophageal reflux disease) Take 1 Cap by mouth daily before breakfast. 90 Cap 3 0 Active aspirin 81 MG tablet Take 81 mg by mouth once daily. Active fluticasone propionate (FLONASE) 50 MCG/ACT nasal spray [place] 1 [place] into each nostril 2 times daily. 16 g 1 2 Active amlodipine-valsart an-hctz (EXFORGE HCT) 10-320-25 MG tabletIndications: HTN (hypertension),HLD (hyperlipidemia),D M (diabetes mellitus) (HCC),GERD (gastroesophageal reflux disease),BPH (benign prostatic hyperplasia),Prost ate cancer screening Take 1 Tab by mouth once daily. 30 Tab 12 3 Active fenofibrate (LOFIBRA) 160 MG tablet TAKE ONE TABLET BY MOUTH ONCE DAILY WITH LARGEST MEAL OF THE DAY 30 Tab 0 4 Active Active Problems Problem Noted Date Diagnosed Date Pain in joint, multiple sites 01/16/2013 HTN (hypertension) HLD (hyperlipidemia) GERD (gastroesophageal reflux disease) Pre-diabetes Overview (01/16/2013): Pre-diabetes, diet controlled Resolved Problems Problem Noted Date Diagnosed Date Resolved Date DM (diabetes mellitus) 03/23 Overview (09/23/2009): Pre-diabetes, diet controlled Immunizations Immunization Administration Dates Next Due INFLUENZA VACCINE, TRIV. [...] Recorded Sex Assigned at Not on file Legal Sex Male 6:46 AM EXCHANGE TROUBLE SHOOTER Gender Identity Not on file Sexual Orientation [...] Health Maintenance Due Date Last Done Comments DTAP/TDAP/TD VACCINES (1 - Tdap) 1954 PNEUMOCOCCAL VACCINE 50+ (2 of 2 - PCV) 08/08/2007 08/08/2006 ZOSTER VACCINE (2 of 3) 10/07/2010 08/12/2010 Respiratory Syncytial Virus (RSV) Vaccine Pt: or over 60 yrs (1 - 1-dose 75+ series) 2011 COVID-19 VACCINE (1 - 2023-2 5 season) 2024 DEPRESSION SCREENING 08/08/2024 INFLUENZA VACCINE (Season Ended) 2025 04/24/2013, 06/01/2012 HEPATITIS B VACCINE Aged Out No longe r eligible based on patient's age to complete this topic HIB VACCINE Aged Out No longer eligi ble based on patient's age to complete this topic HPV VACCINE Aged Out No longer eligi ble based on patient's age to complete this topic MENINGOCOCCAL (Group B) VACCINE SHARED DECISION-MAKING Aged Out No longer eligible based on patient's age to complete this topic MENINGOCOCCAL GROUPS A/C/Y/W VACCINE Aged Out No longer eligible b ased on patient's age to complete this topic Insurance COMMERCIAL GENERIC MEDICARE [employer] Care Teams Line Maintenance Relationship Specialty Start Date End Date Robert Iverson MD [address] [place] [phone] PCP - General 09/29/18
== END 2024-11-28 10:38 | disposition home or self-care (01) ==
LOC: ANHAUDIO 10:39
PROVIDERS: PCP Family Medicine; Visit Provider Family Medicine
DX: H90.3 Sensorineural hearing loss, bilateral (principal); H93.13 Tinnitus, bilateral; H61.23 Impacted cerumen, bilateral; Z97.4 Presence of external hearing-aid
CPT/HCPCS: 92555; 92557; 92567